=== PATIENT | male | born 1945 | race Caucasian/White ===

== ENCOUNTER → 2016-07-11 | Outpatient (CLI) | payer BC ==
[~2016-07-11] MED LIST: ACET-1256 PO; AMLO10TA4 PO; ASPEC81 PO; ATV/1 PO; BUDESUS NAE; CLS20 PO; DICL1GEL28 TOP; EFFSR150 PO; FLUO0.05 EXT; FLUT0.15 NAE; GEMF600T3 PO; KRIL1000 PO; LEVO100T PO; LEVO112T2 PO; LORA-741 PO; LOSA100T65 PO; MISCCAP80 PO; MULT-506 PO; NXM/40 PO; PROP10TA7 PO; PROP20TA67 PO; TEST1INJ2 IM
--- NOTE | 2016-07-11 10:35 | DIAGNOSTIC IMAGING REPORT ---
TWO VIEW CHEST CLINICAL HISTORY: Fatigue. Headache. FINDINGS: PA and lateral chest radiographs are compared to study dated 09/25/2014. The examination is mildly degraded by large body habitus. The heart is top normal for projection. There is mild atherosclerotic calcification of the thoracic aorta. Bibasilar atelectasis is observed. The lungs and pleural spaces are otherwise clear. There is no pneumothorax. The bony thorax appears intact. Cholecystectomy clips are seen in the right upper quadrant. IMPRESSION: No acute cardiopulmonary abnormality. Electronically signed by: Nir Milton M.D. 07/11/2016 10:33 AM Dictated Date/Time: 07/11/2016 10:32 AM
== END | disposition home or self-care (01) ==
LOC: C.RAD1850 10:12
PROVIDERS: ATTEND Nurse Practitioner Family
DX: R53.83 Other fatigue (principal); R51 Headache; R06.02 Shortness of breath; J00 Acute nasopharyngitis [common cold]

== ENCOUNTER → 2016-11-16 | Outpatient (CLI) | payer BC ==
--- NOTE | 2016-11-16 12:05 | DIAGNOSTIC IMAGING REPORT ---
MRI THE RIGHT SHOULDER NO CONTRAST CLINICAL HISTORY: Right shoulder pain. Impingement. COMPARISON STUDY: Conventional radiographic study dated 12/25/2015 FINDINGS: Degenerative changes are present within the acromial clavicular joint. There is fluid within the bicipital tendon sleeve. There are no areas of marrow edema to indicate occult fracture or bone bruise. There is supraspinatus tendinopathy. In addition there is a full-thickness tear of the anterior aspect of the supraspinous tendon. There is no significant tendinous retraction. There is a small amount of fluid in the subscapularis bursa. There are mild degenerative changes within the humeral acromial joint. IMPRESSION: Supraspinatus tendinopathy and full-thickness supraspinatus tear. No evidence of tendinous retraction Electronically signed by: Roberth Nagy M.D. 11/16/2016 12:04 PM Dictated Date/Time: 11/16/2016 11:57 AM
== END | disposition home or self-care (01) ==
LOC: C.MRIBC 11:00
PROVIDERS: ATTEND Orthopaedic Surgery Sports Medicine
DX: M75.41 Impingement syndrome of right shoulder (principal)

== ENCOUNTER → 2016-12-19 | Day surgery (SDC) | payer BC ==
[2016-11-21 13:40] VITALS: Ht 177.8 cm; Wt 100.5 kg
[~2016-12-19] VITALS: Ht 177.8 cm; Wt 100.5 kg
[~2016-12-19] MED LIST changes: +ATROPINE SULFATE 0.1 MG/ML 5ML SYR IV PRN; -ATV/1 PO; -BUDESUS NAE; +CLINDAMYCIN PHOS 150 MG/ML 2 ML VIAL IV SCH; -CLS20 PO; +DEXAMETHASONE SOD INJ 4 MG/ML VIAL ONE; -DICL1GEL28 TOP; +EpHEDrine SULFATE INJ 50 MG/ML AMP IV PRN; +EpINEphrine HCL INJ 1 MG/ML 5ML SYRINGE ONE; +FENTANYL CITRATE INJ 50 MCG/1 ML 2 ML VIAL IV PRN; +FENTANYL CITRATE INJ 50 MCG/1 ML 2 ML VIAL ONE; +GLYCOPYRROLATE INJ 0.2 MG/ML VIAL ONE; +LACTATED RINGER'S 1000ML 1,000 ML IV SCH; -LEVO100T PO; +LIDOCAINE HCL 2% 2 ML VIAL (20MG/ML) ONE; +MIDAZOLAM HCL 1 MG/ML 2ML VIAL ONE; +MoRPHine SULFATE 2 MG/ML CARP IV PRN; +MoRPHine SULFATE 4 MG/ML 1 ML CARP\\VIAL IV PRN; +NEOSTIGMINE METHYLSULFATE 5 MG/5 ML SYR ONE; +ONDANSETRON INJ 2 MG/ML 2 ML VIAL IV PRN; +ONDANSETRON INJ 2 MG/ML 2 ML VIAL ONE; +OXYCODONE/ACETAMINOPHEN 5-325 TAB PO PRN; +PHENYLEPHRINE HCL INJ 10 MG/ML VIAL ONE; -PROP20TA67 PO; +PROPOFOL IV EMULSION 10 MG/ML 20 ML VIAL IV ONE; +ROCURONIUM BROMIDE 10 MG/ML 5 ML VIAL ONE; +ROPIVACAINE 0.5% 5 MG/ML 30 ML VIAL ONE
--- NOTE | 2016-12-19 06:38 | History & Physical Bridge - SC ---
H&P Re-Evaluation Bridge Note: I have examined the patient, reviewed the History & Physical and in the interval since the performance of the History & Physical I have noted the following changes of clinical significance: No changes noted
[2016-12-19] MEDS: LIDOCAINE/EPINEPHRINE 1% INJ 50 ML VIAL ONE ×2 (08:35→09:46)
[2016-12-19] MEDS: BUPIVACAINE 0.5 % 5 MG/1 ML MPF 30ML VIAL ONE ×2 (08:35→09:45)
--- NOTE | 2016-12-19 10:07 | [facility] Post Operative Brief Note ---
Immediate Operative Summary Operative Date Dec 19, 2016. Pre-Operative Diagnosis Right Shoulder Rotator Cuff Tear, AC Joint Osteoarthritis, and Longhead Biceps Tendinosis Post-Operative Diagnosis Same Procedure(s) Performed 1) Right Shoulder Arthroscopic Rotator Cuff Repair + Subacromial Decompression. 2) Extensive Debridement. 3) BicepsTenotomy. 4) Open Distal Clavicle Excision. 5) Exam Under Anesthesia. Surgeon Dr Pickard Attending Physician Surgeon(s) Dr Lucie Allen Estimated Blood Loss 12ml Findings As above Fluids (cc crystalloids) 1400 Specimens A: Right Distal Clavicle Drains n/a Anesthesia GET + Interscalene Nerve block Complication(s) None Disposition Recovery Room / PACU (Stable)
--- NOTE | 2016-12-19 10:10 | Discharge Instructions-SurgCtr ---
Discharge Instructions Date of Service Dec 19, 2016. Visit Reason for Visit: Right Shoulder Rotator Cuff Tear, Biceps Tenodesis Discharge Discharge Diagnosis / Problem: Status post Right Rotator Cuff repair Discharge Goals Goal(s): Decrease discomfort, Improve function, Increase independence Medications Stopped Medications Name(s): ASPIRIN HELD SINCE THE . Activity Recommendations Activity Limitations: per Instructions/Follow-up section May Resume Sexual Activity: when tolerated Shower/Bathe: may shower/bathe in 3 days Driving or Machine Use: Not for minimum 4 weeks. Must be off Narcotics & out of Sling Anesthesia . Post Anesthesia Instructions: If you have had General Anesthesia or IV Sedation: * Do not drive today. * Resume driving when surgeon permits. * Do not make important decisions or sign legal documents today. * Call surgeon for: 1. Temperature elevations greater than 101 degrees F. 2. Uncontrollable pain. 3. Excessive bleeding. 4. Persistent nausea and vomiting. 5. Medication intolerance (nausea, vomiting or rash). * For nausea and vomiting use only clear liquids such as: tea, soda, bouillon until nausea subsides, then gradually increase diet as tolerated. * If you have any concerns or questions, call your surgeon's office. If physician is unavailable and it is an emergency, call 911 or go to the nearest emergency room. . Instructions / Follow-Up Instructions / Follow-Up Dr. Pickard in 10-15 days. PT in 2-3 days. Diet Recommendations Home Diet: resume previous diet Procedures Procedures Performed: 1) Right Shoulder Arthroscopic Rotator Cuff Repair + Subacromial Decompression. 2) Extensive Debridement. 3) BicepsTenotomy. 4) Open Distal Clavicle Excision. 5) Exam Under Anesthesia. Pending Studies Studies pending at discharge: no Medical Emergencies . Who to Call and When: Medical Emergencies: If at any time you feel your situation is an emergency, please call 911 immediately. . Non-Emergent Contact Non-Emergency issues call your: Surgeon Call Non-Emergent contact if: temperature is above 101.5, your pain is not controlled, wound has increased drainage, wound has increased redness . . "Provider Documentation" section prepared by Johnnie Pickard. .
--- NOTE | 2016-12-19 10:11 | [facility] Operative Report ---
Operative Report Operative Date Dec 19, 2016. Pre-Operative Diagnosis Right Shoulder Rotator Cuff Tear, AC Joint Osteoarthritis, and Longhead Biceps Tendinosis Post-Operative Diagnosis Same Procedure(s) Performed 1) Right Shoulder Arthroscopic Rotator Cuff Repair + Subacromial Decompression. 2) Extensive Debridement. 3) BicepsTenotomy. 4) Open Distal Clavicle Excision. 5) Exam Under Anesthesia. Surgeon Dr Pickard Help Desk Manager Surgeon(s) Dr Lucie Allen Estimated Blood Loss 12ml Findings The Right shoulder was then examined under anesthesia and it exhibited: Forward flexion and abduction to 165; external rotation 90; internal rotation 50. There was no noted instability. Posterior and anterior translation was 1+ and they had no sulcus sign and was symmetric to their other side. The diagnostic arthroscopy commenced with the following findings: 1. The biceps anchor showed fraying, type I SLAP tear. 2. The anterior labrum showed fraying, but well attached. 3. The inferior labrum was intact. 4. The inferior pouch showed no loose bodies. 5. The posterior labrum showed some fraying. 6. The articular surface of the glenoid was normal. 7. The articular surface of humeral head had some Outerbridge type II-III changes posteriorly. 8. The long Head of the Biceps had significant greater than 75% tearing. 9. The Subscapularis tendon was intact. 10. The Supraspinatus tendon was intact on the articular side, however there was an approximate 1 cm area of large bursal sided tear greater than 80%. 11. The Infraspinatus and Teres Minor were intact. 12. The Subacromial space showed significant bursitis and a bony spur the undersurface of the acromion. 13. The AC joint showed significant degenerative changes and spurring. Fluids (cc crystalloids) 1400 Specimens A: Right Distal Clavicle Drains n/a Anesthesia GET + Interscalene nerve block Complication(s) None Disposition Recovery Room / PACU (Stable) Implants 5.5 SwiveLock double loaded FIberWire (Arthrex) Indications This is a pleasant 71-year-old male who has been having long-standing right shoulder pain that has failed conservative management. They have MRI and clinical findings suggestive of rotator cuff tear, impingement, and AC joint OA. After a lengthy discussion regarding their options of conservative versus operative management, they have elected to proceed with surgery. The risks of surgery were discussed and include but not limited to: Infection, bleeding, nerve damage, continued pain, progression of arthritis, stiffness, decreased level of activity, and deep vein thrombosis. The patient understood all of their options and the risks of surgery and would like to proceed. The informed consent was signed. Description of Procedure The patient was taken to the operating room and following administration of her interscalene nerve block and general anesthetic, a multidisciplinary time-out was performed identifying my initials on the right shoulder as the correct and operative limb. The patient was then placed in beach chair position with all of their bony prominences well-padded. They were then prepped and draped in the usual orthopedic sterile fashion. All of the bony landmarks were marked as well as the planned incisions. The planned incisions were injected with a 50:50 mixture of 0.5% Marcaine plain and 1% Lidocaine with Epinephrine for a total of 8 cc. Then using a spinal needle which was placed intra-articularly into the glenohumeral joint and insufflated to 35 cc and there was noted appropriate back flow, an additional 15 cc were placed. The standard posterior portal was made with an 11-blade. Trocar was introduced into the glenohumeral joint in the standard fashion. Using a spinal needle, the anterior portal was placed lateral to the coracoid under direct visualization between the Long Head of the Biceps and Subscapularis. A 7mm cannula was then placed. The intra-articular portion of shoulder was addressed first with debriding any fraying from the labrum and long head of the biceps fraying. The labrum was probed and found to be intact. The arthroscope had also been removed from the posterior portal and placed anteriorly for better posterior visualization. Additional debridement of the posterior labrum was also performed again back to a stable rim. The long head of the biceps was placing traction on the superior labrum and due to the significant tear, a tenotomy was performed using a combination of hand punches, a mechanical shaver, and electrocautery. The long head of the biceps remained with in the bicipital groove. The arthroscope was then placed subacromially. There was bursitis noted. A lateral portal was created under direct visualization with a spinal needle. Once the bursitis was removed, the bursal side of the rotator cuff was found to have a large tear of the supraspinatus, that required repair. A Xenia cannula was placed. A subacromial decompression was also performed using a 5 mm bur. The footprint of the rotator cuff was prepared with a small bur creating a bleeding surface to allow for healing of the supraspinatus. A 5.5 mm SwiveLock, double loaded with FiberWire was placed in the standard fashion, through the accessory anterior lateral portal. The TigerWire was placed in a horizontal mattress fashion through both the anterior and posterior limbs of the supraspinatus tear. Then the FiberWire was placed in a ripstop technique along the center of the tear and more medial to the horizontal mattress sutures. The horizontal mattress sutures were tied first, using arthroscopic knot-tying technique, while continuing to have traction on the rotator cuff. The ripstop suture was then tied again using arthroscopic technique and showing complete coverage of the humeral head. There was no tension on the repair. The humeral head was no longer visible. All of the instruments were removed. All of the instruments were removed. Our attention was drawn to the AC joint and making a 3 cm incision in-line with the anterior portal incision was made and carried down to the Superior AC joint ligament. A longitudinal incision was made in-line with the fibers of the superior AC joint ligament. The posterior and anterior aspect of the clavicle was exposed and using a sagittal saw the distal 7 mm was removed. A rasp was used to smooth out the edges. The wound was copiously irrigated. Bone wax was placed along the exposed bone. There was adequate space. The Superior AC joint ligament was closed with 2-0 Vicryl. The subcutaneous layer was closed with 3-0 Vicryl. The skin was closed with a running subcuticular stitch using 3-0 Prolene. Steri strips were placed over top. The portal sites were closed with 3-0 Prolene in a standard fashion. Xeroform was placed overtop followed by 4 x 4's, ABDs, and foam tape. The patient was placed in a sling. The sponge and needle counts were correct. POSTOPERATIVE INSTRUCTIONS: The patient will follow-up with physical therapy in two days. The patient will wear sling for 4 weeks. The patient will follow-up with me in 10 to 15 days. I attest to the content of the Intraoperative Record and any orders documented therein. Any exceptions are noted below.
--- NOTE | 2016-12-19 11:57 | DIAGNOSTIC IMAGING REPORT ---
[facility]ST 1 VIEW PORTABLE HISTORY: low 02 saturation COMPARISON: Chest 07/11/2016. FINDINGS: Interval development of elevation of the right hemidiaphragm with right basilar airspace opacities. Mild diffuse interstitial thickening which is likely chronic. This remains unchanged. The left lung remains clear. No pleural effusions. No pneumothorax. The heart is mildly enlarged. This is also increased in size in the interval. IMPRESSION: 1. Interval development of elevation of the right hemidiaphragm with right basilar densities. This may represent atelectasis or pneumonia. 2. Mild cardiomegaly which has slightly increased in size. Electronically signed by: Florian Cuba M.D. 12/19/2016 11:55 AM Dictated Date/Time: 12/19/2016 11:53 AM
[2016-12-19 12:43] VITALS: BP 119/68; PULSE 91; TEMP 36.7
[2016-12-19 13:00] VITALS: O2SAT 96
--- NOTE | 2016-12-19 13:07 | Anesthesia Progress Nt - [facility] ---
Anesthesia Post Op Note Date & Time Dec 19, 2016 at 12:59 Vital Signs Pain Intensity: 2 Vital Signs Past 12 Hours Date Time Temp Pulse Resp B/P (MAP) Pulse Ox O2 Delivery O2 Flow Rate FiO2 12/19/16 12:43 36.7 91 16 119/68 (85) 94 Room Air 12/19/16 11:58 88 16 129/71 (90) 92 Room Air 12/19/16 11:46 145/77 12/19/16 11:44 89 21 12/19/16 11:44 90 21 91 12/19/16 11:43 88 25 92 12/19/16 11:43 89 25 12/19/16 11:41 138/76 12/19/16 11:38 95 17 12/19/16 11:38 94 17 89 12/19/16 11:36 128/72 12/19/16 11:33 89 23 89 12/19/16 11:33 89 23 12/19/16 11:31 122/70 12/19/16 11:28 88 22 12/19/16 11:28 88 22 90 12/19/16 11:26 130/68 12/19/16 11:26 36.5 92 16 130/68 92 Room Air 12/19/16 11:23 90 24 12/19/16 11:23 91 24 92 12/19/16 11:22 91 24 94 12/19/16 11:22 91 24 12/19/16 11:21 123/71 12/19/16 11:19 85 21 12/19/16 11:19 86 21 93 12/19/16 11:18 84 17 95 12/19/16 11:18 85 17 12/19/16 11:16 125/70 12/19/16 11:13 96 22 94 12/19/16 11:13 94 22 12/19/16 11:12 83 22 94 12/19/16 11:12 84 22 12/19/16 11:11 131/63 12/19/16 11:08 90 24 96 12/19/16 11:08 90 24 12/19/16 11:07 81 22 12/19/16 11:07 81 22 95 12/19/16 11:06 117/65 12/19/16 11:02 83 26 12/19/16 11:02 83 26 94 12/19/16 11:01 125/67 12/19/16 10:59 86 19 12/19/16 10:59 88 19 95 12/19/16 10:58 87 19 12/19/16 10:58 85 19 96 12/19/16 10:56 129/66 12/19/16 10:53 87 25 12/19/16 10:53 87 25 94 12/19/16 10:52 83 21 12/19/16 10:52 82 21 95 12/19/16 10:51 124/70 12/19/16 10:50 76 27 12/19/16 10:50 76 27 95 12/19/16 10:46 135/68 12/19/16 10:45 85 23 12/19/16 10:45 85 23 96 12/19/16 10:41 130/69 12/19/16 10:40 84 14 12/19/16 10:40 83 14 93 12/19/16 10:39 86 10 12/19/16 10:39 85 10 94 12/19/16 10:36 128/71 12/19/16 10:34 84 23 12/19/16 10:34 84 23 92 12/19/16 10:31 126/74 12/19/16 10:30 113/78 12/19/16 10:29 36.4 88 20 113/78 93 Mask 10 12/19/16 10:29 87 28 92 12/19/16 10:29 86 28 12/19/16 07:05 0 12/19/16 07:01 137/81 12/19/16 07:00 74 12/19/16 07:00 74 17 96 12/19/16 06:56 155/101 12/19/16 06:55 79 12/19/16 06:55 79 24 98 12/19/16 06:53 149/94 12/19/16 06:50 25 12/19/16 06:50 79 25 12/19/16 06:45 79 24 12/19/16 06:45 24 12/19/16 06:29 36.9 96 18 144/87 (106) 96 Room Air Notes Mental Status: alert / awake / arousable, participated in evaluation Pt Amnestic to Procedure: Yes Nausea / Vomiting: adequately controlled Pain: adequately controlled Airway Patency, RR, SpO2: stable & adequate BP & HR: stable & adequate Hydration State: stable & adequate Anesthetic Complications: no major complications apparent Mr Flores awake in PACU complaining of arm pain at the elbow that radiated down to his hand in what appeared to be the ulnar nerve distribution. He denied any shoulder pain and the arm pain greatly decreased over the course of his recovery. I explained to the patient that this could be due to positioning in the operating room as it looked like his ulnar nerve had a mild paresthesia that improved by the time he was discharged. His recovery was also notable for SpO2 that were in low 90's that eventually improved to mid 90's by his discharge. He was 96% on RA on admission. In PACU, he was slowly weaned from FM to NC to RA. I did a CXR to ensure there wasn't a more concerning reason for his slow SpO2 recovery. CXR was notable for right sided hemidiaphragm elevated, which is to be expected given that he had a right interscalene nerve block. He also had some degree of atelectasis on that right side so I gave the patient an incentive spirometer and he will be sent home with this. He understood the reason for its use as did his . This patient also has some risk factors for sleep apnea so I think it was a combination of possible SAHIL, right interscalene nerve block with corresponding atelectasis that caused him to have a longer recovery. By the time he was discharged, patient was awake, conversant, very well controlled pain with SpO2 of 95-96%. He denied any chest pains, chest pressures, shortness of breath, dizziness or lightheadedness. Breath sounds were clear and equal bilaterally without any rales, wheezes or rhonchi. He and his were instructed to call or go to ER for any concerning symptoms. All questions were answered and he and his desired for the patient to go home.
== END | disposition home or self-care (01) ==
LOC: X.SURG 06:03
PROVIDERS: ATTEND Orthopaedic Surgery Sports Medicine
DX: M75.101 Unspecified rotator cuff tear or rupture of right shoulder, not specified as traumatic (principal); M19.011 Primary osteoarthritis, right shoulder; M75.91 Shoulder lesion, unspecified, right shoulder; I10 Essential (primary) hypertension; F32.9 Major depressive disorder, single episode, unspecified; E66.9 Obesity, unspecified; Z98.890 Other specified postprocedural states; Z88.0 Allergy status to penicillin; Z88.2 Allergy status to sulfonamides; Z90.89 Acquired absence of other organs; Z90.49 Acquired absence of other specified parts of digestive tract; Z79.899 Other long term (current) drug therapy; Z79.82 Long term (current) use of aspirin; Z68.32 Body mass index [BMI] 32.0-32.9, adult

== ENCOUNTER → 2017-10-27 | Outpatient (CLI) | payer BC ==
[~2017-10-27] MED LIST changes: -ATROPINE SULFATE 0.1 MG/ML 5ML SYR IV PRN; -CLINDAMYCIN PHOS 150 MG/ML 2 ML VIAL IV SCH; -DEXAMETHASONE SOD INJ 4 MG/ML VIAL ONE; -EpHEDrine SULFATE INJ 50 MG/ML AMP IV PRN; -EpINEphrine HCL INJ 1 MG/ML 5ML SYRINGE ONE; -FENTANYL CITRATE INJ 50 MCG/1 ML 2 ML VIAL IV PRN; -FENTANYL CITRATE INJ 50 MCG/1 ML 2 ML VIAL ONE; -GLYCOPYRROLATE INJ 0.2 MG/ML VIAL ONE; -LACTATED RINGER'S 1000ML 1,000 ML IV SCH; -LIDOCAINE HCL 2% 2 ML VIAL (20MG/ML) ONE; -MIDAZOLAM HCL 1 MG/ML 2ML VIAL ONE; -MoRPHine SULFATE 2 MG/ML CARP IV PRN; -MoRPHine SULFATE 4 MG/ML 1 ML CARP\\VIAL IV PRN; -NEOSTIGMINE METHYLSULFATE 5 MG/5 ML SYR ONE; -ONDANSETRON INJ 2 MG/ML 2 ML VIAL IV PRN; -ONDANSETRON INJ 2 MG/ML 2 ML VIAL ONE; -OXYCODONE/ACETAMINOPHEN 5-325 TAB PO PRN; -PHENYLEPHRINE HCL INJ 10 MG/ML VIAL ONE; -PROPOFOL IV EMULSION 10 MG/ML 20 ML VIAL IV ONE; +REGADENOSON 0.4 MG/5 ML SYR ONE; -ROCURONIUM BROMIDE 10 MG/ML 5 ML VIAL ONE; -ROPIVACAINE 0.5% 5 MG/ML 30 ML VIAL ONE
--- NOTE | 2017-10-27 17:39 | MYOCARDIAL PERFUSION SCAN ---
NUCLEAR STRESS TEST STUDY REQUESTED BY: Dr. Mcmillan STUDY TITLE: ONE-DAY NUCLEAR MEDICINE TECHNETIUM-99M CARDIOLITE MYOCARDIAL PERFUSION SCAN BASELINE EKG: Sinus rhythm at a ventricular rate of 75, no significant ST abnormalities. STRESS EKG: With Lexiscan, heart rate jorge l from 73-102 representing 68% of maximum predicted heart rate. Maximum blood pressure was 145/87. With Lexiscan, had mild cough and throat tightness. No Lexiscan-induced chest pain. TECHNIQUE: For the stress portion of the study, 32.5 mCi of technetium-99m Cardiolite IV was injected at 11:18 a.m. on 10/27/2017. Thirty minutes following the injection, imaging of the heart was performed in multiple projections. For the rest portion of the study, 11.4 mCi of technetium-99m Cardiolite was injected IV at 9:20 a.m. One hour following the injection, imaging of the heart was performed in the same projections. FINDINGS: The rotating raw images were reviewed in detail. There was a subtle diaphragmatic shadow, otherwise no significant attenuators. There was no significant extracardiac pathologic uptake. The short axis, vertical long axis, and horizontal long axis images were reviewed in detail. There was normal myocardial perfusion. No significant Lexiscan-induced ischemia. LV size was normal with a calculated end-diastolic volume of 66 mL. LV function was normal with a calculated ejection fraction of 70% with no regional wall motion abnormalities. IMPRESSION: 1. Negative myocardial perfusion study for significant Lexiscan-induced ischemia. 2. Normal left ventricular size and function. Calculated ejection fraction 70%. 3. Nondiagnostic Lexiscan echocardiogram in the setting of inability to reach target heart rate.
== END | disposition home or self-care (01) ==
LOC: C.NUCL 08:56
PROVIDERS: ATTEND Family Medicine
DX: R07.9 Chest pain, unspecified (principal)

== ENCOUNTER 2022-05-21 21:11 | Inpatient (IN) ==
[2022-05-21] MEDS ORDERED: SODIUM CHLORIDE 0.9% 1000ML 1,000 ML IV STA (21:32)
[2022-05-21] MEDS ORDERED: ACETAMINOPHEN 500 MG TAB PO STA (21:32)
--- NOTE | 2022-05-21 21:39 | Emergency Department Note ---
Impression & Plan Acute pyelonephritis, Fever ED Provider Note NAME: NAT GREER AGE: 76 SEX: M : 1945 ARRIVES VIA: Walk-In INFORMANT: Patient, ED PROVIDER(S): Kishan Richardson DO CHIEF COMPLAINT: Fever HPI: The patient is a 76-year-old male who presented to the emergency department with his family member for an evaluation of fever. The patient has been complaining of fever. He also noticed pain with urination. The patient denies having any vomiting but has noted some nausea. He denies having any chest pain or shortness of breath. He does state he has some abdominal discomfort. He was seen at [facility] and was diagnosed with diverticulitis. He was started on Cipro and Flagyl. He thinks the Flagyl is making his symptoms worse. He does not have any rectal bleeding. He denies having any hematemesis. He denies goldberg ving any rashes on his genitalia. The patient states that when he urinates he does note some urinary incontinence. ROS: See above HPI for pertinent positives & negatives. A total of 10 systems reviewed and were otherwise negative. PAST MEDICAL HISTORY: See Below PAST SURGICAL HISTORY: See Below FAMILY HISTORY: See Below SOCIAL HISTORY: See Below HOME MEDICATIONS: See Below ALLERGIES: See Below VITALS: See Below PHYSICAL EXAMINATION: GENERAL: Patient is awake alert in no acute distress patient is resting comfortably and showing no signs of anxiety EYES: The conjunctivae are clear. The pupils are round and reactive. EARS, NOSE, MOUTH AND THROAT: The nose is without any evidence of any deformity. Mucous membranes are moist. Tongue is midline. NECK: The neck is nontender and supple. RESPIRATORY: Normal respiratory effort is noted there is no evidence of wheezing rhonchi or rales CARDIOVASCULAR: Regular rate and rhythm noted there no murmurs rubs or gallops normal S1 normal S2. GASTROINTESTINAL: The abdomen is mildly distended. There is suprapubic tend erness to palpation but no guarding or rigidity. MUSCULOSKELETAL/EXTREMITIES: There is no evidence of gross deformity full range of motion is noted in the hips and shoulders. SKIN: Pedal edema was noted bilaterally. NEUROLOGIC: Patient is awake alert and oriented x3 MEDICAL DECISION MAKING: The patient is a 76-year-old male who presented to the emergency department for fever dysuria and flank pain. I discussed the patient's laboratory and radiographic studies with him. He was treated with IV fluids and IV antibiotics in the emergency department. The patient has been on antibiotics for presumed diverticulitis. He was treated with a different antibiotic class. He was not nitrate positive in his urine. It is possible this represents an atypical bacterial source. For this reason I discussed this case with the on-call [facility] hospitalist. It is possible he may require inpatient management to further treat his condition. Triage Nursing notes reviewed. Prior medical records reviewed Vital Signs: reviewed and remarkable for elevated blood pressure. Differential diagnosis: Etiologies such as appendicitis, diverticulitis, obstruction, inflammatory bowel disease, renal colic, PUD, biliary pathology, pancreatitis, mesenteric ischemia, aortic pathology, infections, genitourinary, UTI, perforated viscus, as well as others were entertained. ER treatment provided: See below Diagnostics interpreted by me: ECG: none Cardiac Monitoring: An order was placed for continuous cardiac monitoring. The monitor shows a rate of 92 bpm with sinus rhythm. Laboratory studies: [As stated above and show below.] Imaging studies: [See below] Consultation(s): I discussed this case with Dr. Hodgson who [facility]. Past Med/Surg History Medical History Anxiety Leonard's esophagus Colon polyps Depression Diabetes mellitus, type 2 ? 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 Hypercholesteremia Hypertension Hypothyroidism Surgical History H/O blepharoplasty bilt History of bilateral inguinal hernia repair History of cataract surgery bilt History of colonoscopy History of esophagogastroduodenoscopy (EGD) History of squamous cell carcinoma excision History of surgery prior to blepharoplasty removed 1/2 off forehead to raise for blepharoplasty History of tonsillectomy and adenoidectomy History of tooth extraction Hx of cholecystectomy Family History Father Coronary arteriosclerosis Mother Colorectal cancer Other No family history of adverse response to anesthesia Social History Smoking Status: Never smoker Second Hand Exposure: No; Hx Alcohol Use: No Hx Substance Use: No Preferred Language: Niuean Communication Ability: Effective Detector Car Operator Required: No Beliefs That Will Affect Care: None Current Living Situation: Spouse Feels Safe at Home: Yes Assistive Devices: Glasses Allergies Allergies Allergy/AdvReac Type Severity Reaction Status Date / Time Penicillins Allergy Intermediate RASH, Verified 05/21/22 22:13 "VERY ILL" Sulfa (Sulfonamide Allergy Mild RASH Verified 05/21/22 22:13 Antibiotics) YORDY Inhibitors AdvReac Intermediate Cough Verified 05/21/22 22:13 atorvastatin AdvReac Intermediate muscle Verified 05/21/22 22:13 cramps Home Meds Home Medications Medication Instructions Recorded Confirmed Saccharomyces boulardii 250 mg 250 mg PO QAM 07/26/19 05/21/22 capsule esomeprazole magnesium 40 mg 40 mg PO BID LEONARD'S ESOPHAGUS 07/26/19 05/21/22 capsule,delayed release fluocinonide 0.05 % topical cream 1 applic topical UD PRN Rash 07/26/19 05/21/22 fluticasone propionate 50 2 spray intranasal QAM 07/26/19 05/21/22 mcg/actuation nasal spray,suspension gemfibrozil 600 mg tablet 600 mg PO BID 07/26/19 05/21/22 lorazepam 0.5 mg tablet 0.5 mg PO HS 07/26/19 05/21/22 multivitamin (Daily Multi-Vitamin 1 tab PO QDD 07/26/19 05/21/22 tablet) omega-3 acid ethyl esters 1 gram 1 g PO QAM 07/26/19 05/21/22 capsule venlafaxine 150 mg 150 mg PO QDD 07/26/19 05/21/22 capsule,extended release 24 hr escitalopram oxalate 5 mg tablet 5 mg PO QDD 11/26/19 05/21/22 amlodipine 10 mg tablet 10 mg PO HS 12/11/19 05/21/22 aspirin 81 mg tablet,delayed 81 mg PO QAM 10/30/20 05/21/22 release hydrochlorothiazide 12.5 mg capsule 12.5 mg PO QAM 10/30/20 05/21/22 levothyroxine 112 mcg tablet 112 mcg PO DAILYBB 10/30/20 05/21/22 (Synthroid) testosterone 100 mg implant pellet 100 mg subcut Q3M 10/30/20 05/21/22 metformin 500 mg tablet 1,000 mg PO QDD 01/08/21 05/21/22 tadalafil 5 mg tablet 20 mg PO DAILY PRN sexual activity 05/21/22 05/21/22 Previous Rx's Medication Instructions Recorded gabapentin 100 mg capsule 200 mg PO HS #30 caps 07/31/19 Results & Data (ED) Vital Signs Vital Signs - 24 hr 05/21/22 21:19 05/21/22 21:32 05/21/22 23:00 Temperature 37.3 C Temperature Source Temporal Artery Scan Pulse Rate 122 H Pulse Rate [Apical] 100 H 92 H Pulse Rhythm Regular Pulse Strength Normal Respiratory Rate 18 20 16 Respiratory Effort / Characteristics Non-Labored Spontaneous Respiratory Depth Normal Respiratory Pattern Regular Blood Pressure 117/73 Blood Pressure [Left Arm] 152/89 H 142/84 H Blood Pressure Mean 87 Blood Pressure Mean [Left Arm] 110 103 Blood Pressure Position Sitting Pulse Oximetry 94 99 94 Oxygen Delivery Method Room Air Room Air Sepsis Recent Fever Within 48 Hours Yes Sepsis New/Unexplained Change in Mental Status N/A Sepsis Action Taken by Nursing No Action Required Home Medications Current Medication List: was personally reviewed by me Laboratory Data Attestation: I reviewed the patient's lab results. Result diagrams: 05/21/22 21:57 05/21/22 21:57 Lab Results 05/21/22 05/21/22 05/21/22 Range/Units 21:57 21:57 21:57 WBC 17.30 H (4.8-10.8) K/ul RBC 4.75 (4.63-6.08) M/uL Hgb 15.5 (14.0-18.0) g/dl Hct 42.0 (40.1-51.0) % MCV 88.4 (80.0-100.0) fL MCH 32.6 (25.0-34.0) pg MCHC 36.9 H (32.0-36.0) g/dL RDW Std Deviation 42.0 (36.4-46.3) fL RDW Coeff of Vicente 12.9 (11.5-14.5) % Plt Count 195 (130-400) K/uL MPV 10.7 (9.4-12.4) fL RBC Agglutinates 3+ ESR (0-20) mm/hr Sodium 131 L (136-145) mmol/L Potassium 3.1 L (3.5-5.1) mmol/L Chloride 95 L (98-107) mmol/L Carbon Dioxide 25 (21-32) mmol/L Anion Gap 11 (3-11) BUN 24 H (6-23) mg/dl Creatinine 1.34 (0.6-1.4) mg/dl Est Cr Clr Drug Dosing 53.9 ml/min Est GFR ( Amer) 60.1 ml/min Est GFR (Non-Af Amer) 51.8 ml/min BUN/Creatinine Ratio 17.9 (10-20) Glucose 172 H (70-99(Fasting)) mg/dl Calcium 9.1 (8.5-10.1) mg/dl Total Bilirubin 1.0 (0.2-1.0) mg/dl AST 16 (13-39) U/L ALT 16 (7-52) U/L Alkaline Phosphatase 75 (34-104) U/L C-Reactive Protein 33.60 H (0-0.5) mg/dl Total Protein 7.2 (6.0-8.3) gm/dl Albumin 4.2 (3.4-5.0) gm/dl Globulin 3.0 (2.5-4.0) gm/dl Albumin/Globulin Ratio 1.4 (0.9-2) Lipase 12 (11-82) U/L Procalcitonin (0-0.5) ng/ml Urine Color Urine Appearance (Clear) Urine pH (4.5-7.5) Ur Specific [place] (1.000-1.030) Urine Protein (Negative) Urine Glucose (UA) (Negative) Urine Ketones (Negative) Urine Blood (Negative) Urine Nitrite (Negative) Urine Bilirubin (Negative) Urine Urobilinogen (Negative) Ur Leukocyte Esterase (Negative) Urine WBC (Auto) (0-5) /hpf Urine RBC (Auto) (0-4) /hpf U Hyaline Cast (Auto) (0-5) /lpf U Epithel Cells (Auto) (0-5) /lpf Urine Bacteria (Auto) (Negative) Urine Yeast (None Prsent) SARS-CoV-2 (PCR) (Negative) 05/21/22 05/21/22 05/21/22 Range/Units 21:57 21:57 21:57 WBC (4.8-10.8) K/ul RBC (4.63-6.08) M/uL Hgb (14.0-18.0) g/dl Hct (40.1-51.0) % MCV (80.0-100.0) fL MCH (25.0-34.0) pg MCHC (32.0-36.0) g/dL RDW Std Deviation (36.4-46.3) fL RDW Coeff of Vicente (11.5-14.5) % Plt Count (130-400) K/uL MPV (9.4-12.4) fL RBC Agglutinates ESR (0-20) mm/hr Sodium (136-145) mmol/L Potassium (3.5-5.1) mmol/L Chloride (98-107) mmol/L Carbon Dioxide (21-32) mmol/L Anion Gap (3-11) BUN (6-23) mg/dl Creatinine (0.6-1.4) mg/dl Est Cr Clr Drug Dosing ml/min Est GFR ( Amer) ml/min Est GFR (Non-Af Amer) ml/min BUN/Creatinine Ratio (10-20) Glucose (70-99(Fasting)) mg/dl Calcium (8.5-10.1) mg/dl Total Bilirubin (0.2-1.0) mg/dl AST (13-39) U/L ALT (7-52) U/L Alkaline Phosphatase (34-104) U/L C-Reactive Protein (0-0.5) mg/dl Total Protein (6.0-8.3) gm/dl Albumin (3.4-5.0) gm/dl Globulin (2.5-4.0) gm/dl Albumin/Globulin Ratio (0.9-2) Lipase (11-82) U/L Procalcitonin 0.73 H (0-0.5) ng/ml Urine Color Yellow Urine Appearance Clear (Clear) Urine pH 5.5 (4.5-7.5) Ur Specific [place] 1.020 (1.000-1.030) Urine Protein 2+ H (Negative) Urine Glucose (UA) Negative (Negative) Urine Ketones Trace H (Negative) Urine Blood 1+ H (Negative) Urine Nitrite Negative (Negative) Urine Bilirubin Negative (Negative) Urine Urobilinogen Negative (Negative) Ur Leukocyte Esterase 1+ H (Negative) Urine WBC (Auto) >30 H (0-5) /hpf Urine RBC (Auto) 0-4 (0-4) /hpf U Hyaline Cast (Auto) 5-10 H (0-5) /lpf U Epithel Cells (Auto) 20-30 H (0-5) /lpf Urine Bacteria (Auto) 1+ H (Negative) Urine Yeast Budding A (None Prsent) SARS-CoV-2 (PCR) NEGATIVE (Negative) Administered Medications Discontinued Medications Acetaminophen (Acetaminophen 500 Mg Tab) 1,000 mg PO ONE STA Stop: 05/21/22 21:33 Last Admin: 05/21/22 21:53 Dose: 1,000 mg Documented By: EMB Sodium Chloride (Nss 1000ml) 1,000 mls @ 999 mls/hr IV .Q1H1M STA Stop: 05/21/22 22:32 Last Infusion: 05/21/22 23:10 Dose: 0 mls/hr Documented By: Admin: 05/21/22 21:53 Dose: 999 mls/hr Documented By: EMB Ceftriaxone Sodium (Rocephin) 2,000 mg in 70 mls @ 140 mls/hr IV NOW STA Stop: 05/21/22 23:17 Last Infusion: 05/21/22 23:45 Dose: 0 mls/hr Documented By: Admin: 05/21/22 23:10 Dose: 140 mls/hr Documented By: EMB Ioversol (Optiray 350 100ml) 88 ml IV ONCE ONE Stop: 05/21/22 23:03 Last Admin: 05/21/22 23:03 Dose: 88 ml Documented By: EDK Imaging Data Radiologist's Impression: Patient: NAT GREER (Male) : 49 Status: ER Date: 05/21/22 23:07 Room #: History: FEVER, ABDOMINAL PAIN APPENDIX PRESENT OPTIRAY 350 88ML EK/KF Slices: 7 51 Priors: Jose: Nir Mercado @ [phone] Exams: CT ABDOMEN & PELVIS With Contrast Contrast: IV Amt: 88ML Accession Numbers: [id number] Referring Physician: REFERRED SELF Preliminary Findings Only See Final Report For Complete Findings CT ABDOMEN & PELVIS With Contrast: Comparison: 04/30/2022 Normal appendix. Mild urinary bladder wall thickening, correlate for cystitis. Striated enhancement of the kidneys bilaterally, cannot exclude pyelonephritis. Bilateral nonobstructing nephroliths. Sigmoid diverticulosis without evidence of diverticulitis. 8.5 cm left renal cyst. Cholecystectomy. Small hiatal hernia. Coronary artery calcifications. Radiologist: Jamin Alexander MD Study ready at 23:12 and initial results transmitted at 00:46 Discharge Plan Visit Data Chief Complaint: Fever Stated Complaint: FEVER ED Provider: Kishan Richardson Discharge Problem: Acute pyelonephritis, Fever Patient Disposition: Being Evaluated by Hospitalist Forms Stand Alone Forms: My [facility] Prescriptions Prescriptions: No Action escitalopram oxalate 5 mg tablet 5 mg PO QDD venlafaxine 150 mg capsule,extended release 24hr 150 mg PO QDD omega-3 acid ethyl esters 1 gram capsule 1 g PO QAM Saccharomyces boulardii 250 mg capsule 250 mg PO QAM fluticasone propionate 50 mcg/actuation spray,suspension 2 spray INTNAS QAM multivitamin [Daily Multi-Vitamin] Tablet 1 tab PO QDD fluocinonide 0.05 % cream 1 applic TOP UD PRN (Reason: Rash) esomeprazole magnesium 40 mg capsule,delayed release(DR/EC) 40 mg PO BID lorazepam 0.5 mg tablet 0.5 mg PO HS gemfibrozil 600 mg tablet 600 mg PO BID gabapentin 100 mg capsule 200 mg PO HS Qty: 30 5RF amlodipine 10 mg tablet 10 mg PO HS Label Comments: at HS aspirin 81 mg Tablet,Delayed Release (Dr/Ec) 81 mg PO QAM hydrochlorothiazide 12.5 mg capsule 12.5 mg PO QAM levothyroxine [Synthroid] 112 mcg tablet 112 mcg PO DAILYBB testosterone 100 mg Pellet 100 mg SUBCUT Q3M metformin 500 mg Tablet 1,000 mg PO QDD tadalafil 5 mg tablet 20 mg PO DAILY PRN (Reason: sexual activity) Referrals Referrals: Almaz Andres CRNP [Outside Practitioners] -
[2022-05-21 22:32] LABS: Appearance Urine Clear (Clear); Bilirubin Urine Negative (Negative); Blood Urine 1+ (Negative); Color Urine Yellow; Epithelial Cell Urine Auto 20-30 /lpf (0-5); Glucose Urine UA Negative (Negative); Ketones Urine Trace (Negative); Leukocyte Esterase Urine 1+ (Negative); Nitrite Urine Negative (Negative); Protein Urine 2+ (Negative); RBC Urine Automated 0-4 /hpf (0-4); Urobilinogen Urine Negative (Negative); WBC Urine Automated >30 /hpf (0-5); pH Urine 5.5 (4.5-7.5)
[2022-05-21 22:38] LABS: Albumin Globulin Ratio 1.4 (0.9-2); Albumin Level 4.2 gm/dl (3.4-5.0); BUN Creatinine Ratio 17.9 (10-20); Calcium 9.1 mg/dl (8.5-10.1); Creatinine Clr Calc Pharmacy 53.9 ml/min; Est GFR (African American) 60.1 ml/min; Est GFR (Non-African American) 51.8 ml/min; Potassium 3.1 mmol/L (3.5-5.1); Total Protein 7.2 gm/dl (6.0-8.3)
[2022-05-21 22:43] LABS: Bacteria Urine Automated 1+ (Negative)
[2022-05-21] MEDS ORDERED: cefTRIAXone SODIUM 2,000 MG/70 ML BAG IV STA (22:48)
[2022-05-21] MEDS ORDERED: OPTIRAY 350 100ml IV ONE (23:02)
[2022-05-21 23:04] LABS: C Reactive Protein 33.6 mg/dl (0-0.5)
[2022-05-22 00:22] LABS: Hemoglobin 15.5 g/dl (14.0-18.0); Mean Corpuscular Hemoglobin 32.6 pg (25.0-34.0); Mean Corpuscular Hgb Conc 36.9 g/dL (32.0-36.0); Mean Corpuscular Volume 88.4 fL (80.0-100.0); Mean Platelet Volume 10.7 fL (9.4-12.4); Platelet Count 195 K/uL (130-400); RDW Coefficient of Variation 12.9 % (11.5-14.5); Red Blood Count 4.75 M/uL (4.63-6.08)
[2022-05-22 00:24] LABS: Agglutinated RBC 3+
[2022-05-22] MEDS ORDERED: SODIUM CHLORIDE 0.9% 1000ML 1,000 ML IV ONE (00:42)
[2022-05-22 01:03] LABS: Eosinophils # (manual) 0.17 K/uL (0-0.50); Eosinophils % (manual) 1 %; Lymphocytes # (manual) 1.04 K/uL (1.2-3.4); Lymphocytes % (manual) 6 %; Monocytes # (manual) 0.52 K/uL (0.24-0.82); Monocytes % (manual) 3 %; Neutrophils # (manual) 15.57 K/uL (1.4-6.5); Neutrophils % (manual) 90 %
--- NOTE | 2022-05-22 01:36 | History & Physical Report ---
Date of Service May 22, 2022 Assessment & Plan (1) UTI (urinary tract infection): Plan: UTI by symptoms. Possible pyelonephritis on CT, though clinically no CVA tenderness and appears fairly well. - Continue ceftriaxone - Follow cultures (though they were taken after 24 hours of abx, so may end up negative) - Follow up final read of CT a/p from 05/21 - Hopefully early discharge. Patient was initially tachycardic, but had stable hemodynamics on admission. (2) Acute kidney injury: Plan: Cr of 1.3 from baseline 1.0. - IV fluids given in ER - Trend Cr (3) Hypertension: Plan: BP stable in the ER. - Continue home amlodipine, HCTZ (4) Hypothyroidism: Plan: - Continue home levothyroxine (5) Diabetes mellitus, type 2: Plan: No A1c in chart. - Sliding scale insulin (6) DVT prophylaxis: Plan: Early ambulation and discharge. FULL CODE - Per patient in ER History of Present Illness Primary Care Provider: Kiesha Stephenson 76yo M w/ hx of HTN who presents with UTI. The patient notes that he started not feeling well Th night into Monday morning. He notes fevers up to 102 degrees. About that same time he also had acute onset dysuria as well as urinary urgency/incontinence. On Monday he went to urgent care. For an unknown reason, he was diagnosed with diverticulitis and started on Cipro and Flagyl. He reports he has taken Cipro in the past without any issues, but this time the Flagyl caused significant GI issues. Throughout the day today he has continued to feel unwell and had a fever up to 103 degrees. He presents to the ER with continued symptoms. He denies any prior episodes of UTI, or any prostate issues. In the ER, CT abdomen pelvis indicated possible pyelonephritis, and the patient was called for admission. Allergies Allergy/AdvReac Type Severity Reaction Status Date / Time Penicillins Allergy Intermediate RASH, Verified 05/21/22 22:13 "VERY ILL" Sulfa (Sulfonamide Allergy Mild RASH Verified 05/21/22 22:13 Antibiotics) YORDY Inhibitors AdvReac Intermediate Cough Verified 05/21/22 22:13 atorvastatin AdvReac Intermediate muscle Verified 05/21/22 22:13 cramps Home Medications Medication Instructions Recorded Confirmed Type Saccharomyces boulardii 250 mg 250 mg PO QAM 07/26/19 05/21/22 History capsule esomeprazole magnesium 40 mg 40 mg PO BID LEONARD'S ESOPHAGUS 07/26/19 05/21/22 History capsule,delayed release fluocinonide 0.05 % topical cream 1 applic topical UD PRN Rash 07/26/19 05/21/22 History fluticasone propionate 50 2 spray intranasal QAM 07/26/19 05/21/22 History mcg/actuation nasal spray,suspension gemfibrozil 600 mg tablet 600 mg PO BID 07/26/19 05/21/22 History lorazepam 0.5 mg tablet 0.5 mg PO HS 07/26/19 05/21/22 History multivitamin (Daily Multi-Vitamin 1 tab PO QDD 07/26/19 05/21/22 History tablet) omega-3 acid ethyl esters 1 gram 1 g PO QAM 07/26/19 05/21/22 History capsule venlafaxine 150 mg 150 mg PO QDD 07/26/19 05/21/22 History capsule,extended release 24 hr gabapentin 100 mg capsule 200 mg PO HS #30 caps 07/31/19 05/21/22 Rx escitalopram oxalate 5 mg tablet 5 mg PO QDD 11/26/19 05/21/22 History amlodipine 10 mg tablet 10 mg PO HS 12/11/19 05/21/22 History aspirin 81 mg tablet,delayed 81 mg PO QAM 10/30/20 05/21/22 History release hydrochlorothiazide 12.5 mg capsule 12.5 mg PO QAM 10/30/20 05/21/22 History levothyroxine 112 mcg tablet 112 mcg PO DAILYBB 10/30/20 05/21/22 History (Synthroid) testosterone 100 mg implant pellet 100 mg subcut Q3M 10/30/20 05/21/22 History metformin 500 mg tablet 1,000 mg PO QDD 01/08/21 05/21/22 History tadalafil 5 mg tablet 20 mg PO DAILY PRN sexual activity 05/21/22 05/21/22 History Past Med/Surg History Medical History (Updated 05/22/22 @ 02:18 by Rick Hodgson MD) Anxiety Leonard's esophagus Colon polyps Depression Diabetes mellitus, type 2 ? 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 Hypercholesteremia Hypertension Hypothyroidism Surgical History H/O blepharoplasty bilt History of bilateral inguinal hernia repair History of cataract surgery bilt History of colonoscopy History of esophagogastroduodenoscopy (EGD) History of squamous cell carcinoma excision History of surgery prior to blepharoplasty removed 1/2 off forehead to raise for blepharoplasty History of tonsillectomy and adenoidectomy History of tooth extraction Hx of cholecystectomy Family History Father Coronary arteriosclerosis Mother Colorectal cancer Other No family history of adverse response to anesthesia Social History Smoking Status: Never smoker Second Hand Exposure: No; Hx Alcohol Use: No Hx Substance Use: No Preferred Language: Chadian Communication Ability: Effective Leather Parts Matcher Required: No Beliefs That Will Affect Care: None Current Living Situation: Spouse Feels Safe at Home: Yes Assistive Devices: Glasses Review of Systems Review of Systems: All systems reviewed & are unremarkable except as noted in HPI & below Physical Exam Constitutional: WD/WN, vitals as above Eyes: EOM intact bilaterally; no conjunctival abnormality ENMT: external ear and nose normal, oropharynx normal Neck: trachea midline, no thyromegaly normal visual inspection Respiratory: normal respiratory effort, lungs clear to auscultation no respiratory distress Cardiovascular: RRR, no murmur, no edema Gastrointestinal (Abdomen): Inspection/Auscultation: abdomen normal to inspection; abdomen not distended Musculoskeletal: no cyanosis or clubbing, extremities motor strength 5/5 Skin: no rashes, warm and dry Neurologic: moves all extremities and awake Psychiatric: Orientation: alert, oriented to person and cooperative Results & Data Results & Data ([facility]) Vital Signs (Past 12 Hours) Vital Signs Temp Pulse Pulse Resp BP BP Pulse Ox 05/22/22 01:00 90 19 137/86 94 05/21/22 23:00 92 H 16 142/84 H 94 05/21/22 21:32 100 H 20 152/89 H 99 05/21/22 21:19 37.3 C 122 H 18 117/73 94 O2 Del Method 05/22/22 01:00 05/21/22 23:00 05/21/22 21:32 Room Air 05/21/22 21:19 Room Air Code Status & VTE Plan VTE Prophylaxis Plan VTE Prophylaxis will be ordered: Yes PG Care Time/CCT Total # of Minutes Spent Total Time Spent with Patient: Total time spent is greater than 50% in coordination of care (as documented) at patient's floor/unit and/or counseling patient: Coding Level of Care Code 37172 Initial Inpt Care Lvl 3 Diagnoses UTI (urinary tract infection) N39.0 Acute kidney injury N17.9 Hypertension I10 Hypothyroidism E03.9 Diabetes mellitus, type 2 E11.9 DVT prophylaxis Z29.9
[2022-05-22] MEDS ORDERED: ONDANSETRON INJ 2 MG/ML 2 ML VIAL IV PRN (02:37)
[2022-05-22] MEDS ORDERED: GLUCAGON FOR INJ 1 MG VIAL SQ PRN (02:37)
[2022-05-22] MEDS ORDERED: GLUCOSE 10 TAB/TUBE PO PRN (02:37)
[2022-05-22] MEDS ORDERED: DEXTROSE 50% 50 ML SYRINGE IV PRN (02:37)
[2022-05-22] MEDS ORDERED: GLUCOSE 40% GEL 15 GM TUBE PO PRN (02:37)
[2022-05-22] MEDS ORDERED: CARBOHYDRATES FOR HYPOGLYCEMIA PO PRN (02:37)
[2022-05-22] MEDS: POTASSIUM CHLORIDE PWD 20 MEQ PACK PO SCH ×2 (02:59→06:37)
--- NOTE | 2022-05-22 06:32 | CT Scan Report ---
CT SCAN OF THE ABDOMEN AND PELVIS WITH IV CONTRAST CLINICAL HISTORY: Fever. Generalized abdominal pain. COMPARISON STUDY: Abdominal CT dated 04/30/2010. TECHNIQUE: Following the IV administration of 88 cc of Optiray 350, CT scan of the abdomen and pelvi s is performed from the lung bases to the proximal femora. Images are reviewed in the axial, sagittal , and coronal planes. IV contrast was administered without complication. A dose lowering technique wa s utilized adhering to the principles of ALARA. CT DOSE: 582.10 mGy.cm FINDINGS: Lung bases: The heart is mildly enlarged and without pericardial effusion. The coronary arteries are densely calcified. The lung bases are clear noting bibasilar scarring/atelectasis. There is a small t o moderate hiatal hernia. Liver: The contrast-enhanced liver is normal in size, contour, and attenuation. There is no intrahepa tic biliary ductal dilatation. The hepatic veins and portal veins are patent. Gallbladder: Surgically absent noting clips in the gallbladder fossa. Spleen: Normal in size and attenuation. Pancreas: Moderately atrophic and grossly unremarkable. Adrenal glands: Unremarkable. Kidneys: The contrast enhanced kidneys are normal in size and without hydronephrosis. There is hetero geneous enhancement of both kidneys. A 9.3 cm cyst arises from the left kidney. Nonobstructing bilate ral renal calculi measure up to 10 mm. No ureteral stone is seen. Abdominal vasculature: The abdominal aorta is normal in course and caliber noting moderate atheroscle rotic calcification. Bowel: There is moderate colonic fecal retention. No bowel obstruction is seen. There is mild colonic diverticulosis without CT evidence of acute diverticulitis. The appendix is well-visualized and nor mal. Peritoneum: There is no intraperitoneal free air or abdominal ascites. Lymphadenopathy: None. Pelvic viscera: The prostate gland is enlarged and markedly heterogeneous, showing patchy parenchymal enhancement. The bladder wall is thickened and trabeculated indicating chronic outlet obstruction. T hey is significant pericystic inflammation. Skeletal structures: The skeletal structures are osteopenic. There is mild lumbosacral spondylosis. N o lytic or blastic lesions are seen. IMPRESSION: 1. There is evidence of cystitis with bilateral ascending urinary tract infection/pyelonephritis. Cor relate with clinical findings and urinalysis. 2. Markedly enlarged and heterogeneous prostate gland with patchy enhancement. This could be related to concurrent prostatitis. Correlation with serum PSA levels is recommended. 3. Mild cardiomegaly. 4. Hiatal hernia. 5. Bilateral nephrolithiasis. 6. Additional findings as above. ACT 112: Negative or not required by law. Electronically signed by: Nir Milton M.D. 05/22/2022 6:29 AM
[2022-05-22] MEDS: LEVOTHYROXINE SODIUM 112 MCG TABLET PO SCH (06:38)
[2022-05-22 06:45] LABS: BUN Creatinine Ratio 19.1 (10-20); Calcium 8.3 mg/dl (8.5-10.1); Creatinine Clr Calc Pharmacy 65.3 ml/min; Est GFR (African American) 72.3 ml/min; Est GFR (Non-African American) 62.3 ml/min; Magnesium 1.8 mg/dl (1.7-2.4); Potassium 3.6 mmol/L (3.5-5.1)
--- NOTE | 2022-05-22 07:40 | Hospitalist Progress Note ---
Date of Service May 22, 2022 Assessment & Plan (1) UTI (urinary tract infection): Plan: UTI by symptoms. Possible pyelonephritis on CT, though clinically no CVA tenderness and appears fairly well. Also possible prostatitis and ordered a PSA. - Continue ceftriaxone - Awaiting final urine and blood cultures (though they were taken after 24 hours of abx, so may end up negative) (2) Elevated PSA, between 10 and less than 20 ng/ml: Plan: - Previous PSA level 04/2021 was 3.69 - Possibly acute rise secondary to infection/prostatitis - Possibly the elevated PSA is secondary to testosterone pellets ( follows with urology for hypogonadism - last seen 03/2022) - Awaiting urine and blood cultures - Currently on Ceftriaxone 2gm IV (3) Renal lithiasis: Plan: - Seen on CTAP with no hydronephrosis and nonobstructing (4) Acute kidney injury: Plan: Cr was 1.3 from baseline 1.0. - IV fluids given in ER - Trend Cr now 1.15 (5) Hypertension: Plan: BP stable in the ER and remains stable - Continue home amlodipine, HCTZ (6) Hypothyroidism: Plan: - Continue home levothyroxine 112 mcg daily (7) Diabetes mellitus, type 2: Plan: No HgbA1c in chart. On metformin as outpatient - Sliding scale insulin (8) DVT prophylaxis: Plan: Early ambulation and discharge. FULL CODE - discussed with patient (9) Lewis esophagus: Plan: Continue PPI Plan Discussed patient with Dr Nagy who assisted in the plan and management of this patient. Admission and Anticipated Discharge Date Admission Date: May 22, 2022 Supervising Physician Co-Signing Physician Notes PA Supervision Note: I personally saw and examined the patient. I verified all miller points and agree with MARYJANE Patrick with the following exceptions and/or additions: After midnight admission. Improvement in leukocytosis on ceftriaxone, will continue for complicated UTI. Evidence of pyelonephritis on CTAP, possible prostatitis. Rectal exam by Yuko WESLEY without prostate tenderness. BCx pending. UCx with no growth, however had had first dose ceftriaxone by time it was collected. Creatinine improved as well 1.34 - 1.15. Labs, Rads reviewed Subjective Evaluated patient this afternoon on round. He was awake laying in bed watching football with his at bedside. He tells me that he is feeling some better. He states he was incontinent of his urine prior to presentation and also having fever and chills. He is no longer incontinent and is afebrile. He is still having urinary burning and dysuria. He denies any back pain, gross hematuria, any changes in urine stream, vomiting, diarrhea or constipation. He does have some nausea and some suprapubic abdominal discomfort that describes as a pressure. He denies any urethral discharge or pneumaturia. He denies ever having symptoms like this in the past. Review of Systems Constitutional: + fatigue; no anorexia, no weight loss and no increased appetite Respiratory: no cough, no chest congestion, no dyspnea and no pain on inspiration Cardiovascular: no chest pain, no dyspnea and no calf pain Gastrointestinal: + abdominal pain and + nausea; no vomiting, no change in stools, no constipation, no fecal incontinence and no melena Genitourinary: + dysuria, + urinary incontinence and + urinary urgency; no difficulty urinating, no urinary hesitancy, no post-void dribbling, no decreased urination, no hematuria, no flank pain, no scrotal swelling, no testicle pain, no difficulty with ejaculations, no penile discharge or no erectile dysfunction Integumentary: no rash, no lesions and no unusual bruising Psychiatric: + depression and + anxiety; no change in appetite and no panic attacks Physical Exam Constitutional: WD/WN, vitals as above ENMT: external ear and nose normal, oropharynx normal Neck: trachea midline, no thyromegaly Respiratory: normal respiratory effort, lungs clear to auscultation Cardiovascular: RRR, no murmur, no edema Gastrointestinal (Abdomen): normal bowel sounds, soft, nontender, no hepatosplenomegaly mild suprapubic discomfort to deep palpation, No CVA tenderness rectal exam with normal recta tone, prostate gently palpable mildly enlarged with no masses palpated and nontender on exam Skin: no rashes, warm and dry Psychiatric: A+Ox3, euthymic affect Results & Data Results & Data ([facility]) Vital Signs (Past 12 Hours) Vital Signs Temp Pulse Pulse Pulse Resp BP BP 05/22/22 02:41 36.4 C L 83 16 147/78 H 05/22/22 01:00 90 19 137/86 05/21/22 23:00 92 H 16 142/84 H 05/21/22 21:32 100 H 20 152/89 H 05/21/22 21:19 37.3 C 122 H 18 117/73 Pulse Ox O2 Del Method 05/22/22 02:41 97 Room Air 05/22/22 01:00 94 05/21/22 23:00 94 05/21/22 21:32 99 Room Air 05/21/22 21:19 94 Room Air Laboratory Results Laboratory Results - last 24 hr 05/21/22 05/21/22 05/21/22 21:57 21:57 21:57 WBC 17.30 H RBC 4.75 Hgb 15.5 Hct 42.0 MCV 88.4 MCH 32.6 MCHC 36.9 H RDW Std Deviation 42.0 RDW Coeff of Vicente 12.9 Plt Count 195 MPV 10.7 Neutrophils % (Manual) 90 Lymphocytes % (Manual) 6 Monocytes % (Manual) 3 Eosinophils % (Manual) 1 Neutrophils # (Manual) 15.57 H Lymphocytes # (Manual) 1.04 L Monocytes # (Manual) 0.52 Eosinophils # (Manual) 0.17 RBC Agglutinates 3+ ESR Sodium 131 L Potassium 3.1 L Chloride 95 L Carbon Dioxide 25 Anion Gap 11 BUN 24 H Creatinine 1.34 Est Cr Clr Drug Dosing 53.9 Est GFR ( Amer) 60.1 Est GFR (Non-Af Amer) 51.8 BUN/Creatinine Ratio 17.9 Glucose 172 H POC Glucose Calcium 9.1 Magnesium Total Bilirubin 1.0 AST 16 ALT 16 Alkaline Phosphatase 75 C-Reactive Protein 33.60 H Total Protein 7.2 Albumin 4.2 Globulin 3.0 Albumin/Globulin Ratio 1.4 Lipase 12 Prostate Specific Ag Free PSA % Free PSA Procalcitonin Urine Color Urine Appearance Urine pH Ur Specific Vista Urine Protein Urine Glucose (UA) Urine Ketones Urine Blood Urine Nitrite Urine Bilirubin Urine Urobilinogen Ur Leukocyte Esterase Urine WBC (Auto) Urine RBC (Auto) U Hyaline Cast (Auto) U Epithel Cells (Auto) Urine Bacteria (Auto) Urine Yeast SARS-CoV-2 (PCR) 05/21/22 05/21/22 05/21/22 21:57 21:57 21:57 WBC RBC Hgb Hct MCV MCH MCHC RDW Std Deviation RDW Coeff of Vicente Plt Count MPV Neutrophils % (Manual) Lymphocytes % (Manual) Monocytes % (Manual) Eosinophils % (Manual) Neutrophils # (Manual) Lymphocytes # (Manual) Monocytes # (Manual) Eosinophils # (Manual) RBC Agglutinates ESR Sodium Potassium Chloride Carbon Dioxide Anion Gap BUN Creatinine Est Cr Clr Drug Dosing Est GFR ( Amer) Est GFR (Non-Af Amer) BUN/Creatinine Ratio Glucose POC Glucose Calcium Magnesium Total Bilirubin AST ALT Alkaline Phosphatase C-Reactive Protein Total Protein Albumin Globulin Albumin/Globulin Ratio Lipase Prostate Specific Ag Free PSA % Free PSA Procalcitonin 0.73 H Urine Color Yellow Urine Appearance Clear Urine pH 5.5 Ur Specific Vista 1.020 Urine Protein 2+ H Urine Glucose (UA) Negative Urine Ketones Trace H Urine Blood 1+ H Urine Nitrite Negative Urine Bilirubin Negative Urine Urobilinogen Negative Ur Leukocyte Esterase 1+ H Urine WBC (Auto) >30 H Urine RBC (Auto) 0-4 U Hyaline Cast (Auto) 5-10 H U Epithel Cells (Auto) 20-30 H Urine Bacteria (Auto) 1+ H Urine Yeast Budding A SARS-CoV-2 (PCR) NEGATIVE 05/22/22 05/22/22 05/22/22 05:41 05:41 08:16 WBC 9.90 RBC 4.80 Hgb 15.5 Hct 44.5 MCV 92.7 MCH 32.3 MCHC 34.8 RDW Std Deviation 43.8 RDW Coeff of Vicente 13.2 Plt Count 175 MPV 10.7 Neutrophils % (Manual) Lymphocytes % (Manual) Monocytes % (Manual) Eosinophils % (Manual) Neutrophils # (Manual) Lymphocytes # (Manual) Monocytes # (Manual) Eosinophils # (Manual) RBC Agglutinates ESR Sodium 137 Potassium 3.6 Chloride 103 Carbon Dioxide 25 Anion Gap 9 BUN 22 Creatinine 1.15 Est Cr Clr Drug Dosing 65.3 Est GFR ( Amer) 72.3 Est GFR (Non-Af Amer) 62.3 BUN/Creatinine Ratio 19.1 Glucose 134 H POC Glucose 149 H Calcium 8.3 L Magnesium 1.8 Total Bilirubin AST ALT Alkaline Phosphatase C-Reactive Protein Total Protein Albumin Globulin Albumin/Globulin Ratio Lipase Prostate Specific Ag Free PSA % Free PSA Procalcitonin Urine Color Urine Appearance Urine pH Ur Specific Vista Urine Protein Urine Glucose (UA) Urine Ketones Urine Blood Urine Nitrite Urine Bilirubin Urine Urobilinogen Ur Leukocyte Esterase Urine WBC (Auto) Urine RBC (Auto) U Hyaline Cast (Auto) U Epithel Cells (Auto) Urine Bacteria (Auto) Urine Yeast SARS-CoV-2 (PCR) 05/22/22 05/22/22 09:07 12:06 WBC RBC Hgb Hct MCV MCH MCHC RDW Std Deviation RDW Coeff of Vicenet Plt Count MPV Neutrophils % (Manual) Lymphocytes % (Manual) Monocytes % (Manual) Eosinophils % (Manual) Neutrophils # (Manual) Lymphocytes # (Manual) Monocytes # (Manual) Eosinophils # (Manual) RBC Agglutinates ESR Sodium Potassium Chloride Carbon Dioxide Anion Gap BUN Creatinine Est Cr Clr Drug Dosing Est GFR ( Amer) Est GFR (Non-Af Amer) BUN/Creatinine Ratio Glucose POC Glucose 129 H Calcium Magnesium Total Bilirubin AST ALT Alkaline Phosphatase C-Reactive Protein Total Protein Albumin Globulin Albumin/Globulin Ratio Lipase Prostate Specific Ag 17.869 H Free PSA 3.58 H % Free PSA 20.0 Procalcitonin Urine Color Urine Appearance Urine pH Ur Specific Vista Urine Protein Urine Glucose (UA) Urine Ketones Urine Blood Urine Nitrite Urine Bilirubin Urine Urobilinogen Ur Leukocyte Esterase Urine WBC (Auto) Urine RBC (Auto) U Hyaline Cast (Auto) U Epithel Cells (Auto) Urine Bacteria (Auto) Urine Yeast SARS-CoV-2 (PCR) Diagnostic Findings Abdomen/Pelvis CT 05/21/22 21:32 CT SCAN OF THE ABDOMEN AND PELVIS WITH IV CONTRAST CLINICAL HISTORY: Fever. Generalized abdominal pain. COMPARISON STUDY: Abdominal CT dated 04/30/2010. TECHNIQUE: Following the IV administration of 88 cc of Optiray 350, CT scan of the abdomen and pelvis is performed from the lung bases to the proximal femora. Images are reviewed in the axial, sagittal, and coronal planes. IV contrast was administered without complication. A dose lowering technique was utilized adhering to the principles of ALARA. CT DOSE: 582.10 mGy.cm FINDINGS: Lung bases: The heart is mildly enlarged and without pericardial effusion. The coronary arteries are densely calcified. The lung bases are clear noting biba silar scarring/atelectasis. There is a small to moderate hiatal hernia. Liver: The contrast-enhanced liver is normal in size, contour, and attenuation. There is no intrahepatic biliary ductal dilatation. The hepatic veins and portal veins are patent. Gallbladder: Surgically absent noting clips in the gallbladder fossa. Spleen: Normal in size and attenuation. Pancreas: Moderately atrophic and grossly unremarkable. Adrenal glands: Unremarkable. Kidneys: The contrast enhanced kidneys are normal in size and without hydronephrosis. There is heterogeneous enhancement of both kidneys. A 9.3 cm cyst arises from the left kidney. Nonobstructing bilateral renal calculi measure up to 10 mm. No ureteral stone is seen. Abdominal vasculature: The abdominal aorta is normal in course and caliber noting moderate atherosclerotic calcification. Bowel: There is moderate colonic fecal retention. No bowel obstruction is seen. There is mild colonic diverticulosis without CT evidence of acute d iverticulitis. The appendix is well-visualized and normal. Peritoneum: There is no intraperitoneal free air or abdominal ascites. Lymphadenopathy: None. Pelvic viscera: The prostate gland is enlarged and markedly heterogeneous, showing patchy parenchymal enhancement. The bladder wall is thickened and trabeculated indicating chronic outlet obstruction. They is significant pericystic inflammation. Skeletal structures: The skeletal structures are osteopenic. There is mild lumbosacral spondylosis. No lytic or blastic lesions are seen. IMPRESSION: 1. There is evidence of cystitis with bilateral ascending urinary tract infection/pyelonephritis. Correlate with clinical findings and urinalysis. 2. Markedly enlarged and heterogeneous prostate gland with patchy enhancement. This could be related to concurrent prostatitis. Correlation with serum PSA levels is recommended. 3. Mild cardiomegaly. 4. Hiatal hernia. 5. Bilateral nephrolithiasis. 6. Additional findings as above. ACT 112: Negative or not required by law. Electronically signed by: Nir Milton M.D. 05/22/2022 6:29 AM Chest X-Ray 05/21/22 21:32 SINGLE VIEW CHEST CLINICAL HISTORY: Fever. FINDINGS: An AP, portable, upright chest radiograph is compared to study dated 10/30/2020. The heart is enlarged. The pulmonary vasculature is not congested. Chronic interstitial thickening is similar to previous. There is mild chronic elevation of the right hemidiaphragm and bibasilar atelectasis. The lungs and pleural spaces are otherwise clear. No pneumothorax is seen. The skeletal structures are osteopenic. The bony thorax is grossly intact. IMPRESSION: No active disease in the chest. ACT 112: Negative or not required by law. Electronically signed by: Nir Milton M.D. 05/22/2022 7:52 AM PG Care Time/CCT Total # of Minutes Spent Total Time Spent with Patient: Total time spent is greater than 50% in coordination of care (as documented) at patient's floor/unit and/or counseling patient: Coding Level of Care Code None Diagnoses UTI (urinary tract infection) N39.0 Elevated PSA, between 10 and less than 20 ng/ml R97.20 Renal lithiasis N20.0 Acute kidney injury N17.9 Hypertension I10 Hypothyroidism E03.9 Diabetes mellitus, type 2 E11.9 DVT prophylaxis Z29.9 Lewis esophagus K22.70
[2022-05-22 07:44] LABS: Hematocrit (blood only) 44.5 % (40.1-51.0); Hemoglobin 15.5 g/dl (14.0-18.0); Mean Corpuscular Hemoglobin 32.3 pg (25.0-34.0); Mean Corpuscular Hgb Conc 34.8 g/dL (32.0-36.0); Mean Corpuscular Volume 92.7 fL (80.0-100.0); Mean Platelet Volume 10.7 fL (9.4-12.4); Platelet Count 175 K/uL (130-400); RDW Coefficient of Variation 13.2 % (11.5-14.5); RDW Standard Deviation 43.8 fL (36.4-46.3)
--- NOTE | 2022-05-22 07:54 | XRay Report ---
SINGLE VIEW CHEST CLINICAL HISTORY: Fever. FINDINGS: An AP, portable, upright chest radiograph is compared to study dated 10/30/2020. The heart i s enlarged. The pulmonary vasculature is not congested. Chronic interstitial thickening is similar to previous. There is mild chronic elevation of the right hemidiaphragm and bibasilar atelectasis. The lungs and pleural spaces are otherwise clear. No pneumothorax is seen. The skeletal structures are os teopenic. The bony thorax is grossly intact. IMPRESSION: No active disease in the chest. ACT 112: Negative or not required by law. Electronically signed by: Nir Milton M.D. 05/22/2022 7:52 AM
[2022-05-22] MEDS: INSULIN ASPART PER UNIT SC SCH ×4 (08:52→22:08)
[2022-05-22] MEDS: gemfibroziL 600 MG TAB PO SCH ×2 (08:53→22:04)
[2022-05-22] MEDS: hydroCHLOROthiazide 25 MG TAB PO SCH (08:53)
[2022-05-22] MEDS: ASPIRIN 81 MG ECTAB PO SCH (08:53)
[2022-05-22] MEDS ORDERED: INFLUENZA VACCINE HIGH DOSE PF 65+ 0.7 ML SYR IM ONE (09:00)
[2022-05-22 09:55] LABS: Prostate SpecificAg Diagnostic 17.869 ng/ml (0-4)
[2022-05-22] MEDS: VENLAFAXINE HCL XR 150 MG CAPXR PO SCH (11:38)
[2022-05-22] MEDS: ESCITALOPRAM OXALATE 10 MG TAB PO SCH (11:39)
[2022-05-22] MEDS: OMEGA-3 (PURIFIED FISH OIL) 1 GM CAP PO SCH (11:39)
[2022-05-22] MEDS: PSYLLIUM or GUAR GUM FIBER POWDER PACKET PO SCH (11:40)
[2022-05-22] MEDS: PANTOprazole 40 MG TAB PO SCH (11:40)
[2022-05-22] MEDS: SACCHAROMYCES BOULARDII 250 MG CAP PO SCH (11:41)
[2022-05-22] MEDS: ACETAMINOPHEN 325 MG TAB PO PRN ×2 (14:09→20:47)
[2022-05-22] MEDS ORDERED: ESCITALOPRAM OXALATE 10 MG TAB PO SCH (16:30)
[2022-05-22] MEDS ORDERED: VENLAFAXINE HCL XR 150 MG CAPXR PO SCH (16:30)
[2022-05-22] MEDS ORDERED: cefTRIAXone SODIUM 2,000 MG in DEXTROSE 5% 50 ML IV SCH (22:00)
[2022-05-22] MEDS: amLODIPine BESYLATE 5 MG TAB PO SCH (22:04)
[2022-05-22] MEDS: GABAPENTIN 100 MG CAP PO SCH (22:05)
[2022-05-22] MEDS: LORazepam 0.5 MG TAB PO SCH (22:07)
[2022-05-23] MEDS: ACETAMINOPHEN 325 MG TAB PO PRN ×2 (05:36→17:47)
[2022-05-23] MEDS: LEVOTHYROXINE SODIUM 112 MCG TABLET PO SCH (05:36)
[2022-05-23] MEDS: PANTOprazole 40 MG TAB PO SCH (05:38)
[2022-05-23 07:04] LABS: BUN Creatinine Ratio 15.2 (10-20); Calcium 8.9 mg/dl (8.5-10.1); Creatinine Clr Calc Pharmacy 47.5 ml/min; Est GFR (African American) 49.2 ml/min; Est GFR (Non-African American) 42.5 ml/min; Potassium 3.3 mmol/L (3.5-5.1)
[2022-05-23 08:35] LABS: Hematocrit (blood only) 42.5 % (40.1-51.0); Mean Corpuscular Hemoglobin 31.9 pg (25.0-34.0); Mean Corpuscular Hgb Conc 35.3 g/dL (32.0-36.0); Mean Corpuscular Volume 90.4 fL (80.0-100.0); Mean Platelet Volume 10.6 fL (9.4-12.4); Platelet Count 230 K/uL (130-400); RDW Coefficient of Variation 12.8 % (11.5-14.5); RDW Standard Deviation 41.7 fL (36.4-46.3); White Blood Count 11.65 K/ul (4.8-10.8)
--- NOTE | 2022-05-23 08:47 | Hospitalist Progress Note ---
Date of Service May 23, 2022 Assessment & Plan (1) UTI (urinary tract infection): Plan: UTI by symptoms. Pyelonephritis/Prostatitis on CT - Continue ceftriaxone - Awaiting final urine and blood cultures (though they were taken after 24 hours of abx, so may end up negative) - Repeat urine and C&S - added post void bladder scan q shift and to straight cath if >400ml - Nursing advised if >400ml to also notify provider (2) Elevated PSA, between 10 and less than 20 ng/ml: Plan: - Previous PSA level 04/2021 was 3.69 - Possibly acute rise secondary to infection/prostatitis - Possibly the elevated PSA is secondary to testosterone pellets ( follows with urology for hypogonadism - last seen urology 03/2022 and has a f/up appt in June) - Awaiting final urine and blood cultures as well as repeat urine and C&S - Currently on Ceftriaxone 2gm IV (3) Renal lithiasis: Plan: - Seen on CTAP with no hydronephrosis and nonobstructing (4) Acute kidney injury: Plan: - Cr was 1.3 from baseline 1.0. (IV fluids given in ER) - Cr now elevated to 1.58 - Restart IV Fluids - Continue to trend Cr - Check post void bladder scans and will do a straight cath if greater than 400ml and advised to notify provider if had straight cath - HCTZ discontinued secondary to JARAD (5) Hypertension: Plan: BP stable in the ER and remains stable - Continue home amlodipine - Discontinued HCTZ (due to JARAD) (6) Hypothyroidism: Plan: - Continue home levothyroxine 112 mcg daily (7) Diabetes mellitus, type 2: Plan: No HgbA1c in chart. On metformin as outpatient - Sliding scale insulin (8) DVT prophylaxis: Plan: Early ambulation and discharge. FULL CODE - discussed with patient (9) Lewis esophagus: Plan: Continue PPI (10) Anxiety: Plan: - Continue Lexapro and effexor - Continue Ativan 0.5 mg q hs - Added prn Ativan 0.5 mg one q 8 hours as needed for anxiety (11) Pressure in chest: Plan: - Resolved, patient felt was anxiety and also some intestinal gas that resolved with simethicone and a BM - EKG with sinus tach - Troponin normal 17.9 Plan Discussed patient with Dr Arevalo who assisted in the plan and management of this patient. Admission and Anticipated Discharge Date Admission Date: May 22, 2022 Supervising Physician Co-Signing Physician Notes PA Supervision Note: I personally saw and examined the patient. I verified all miller points and agree with MARYJANE Patrick with the following exceptions and/or additions: S-patient seen and examined with the PA after he continued to complain of urinary symptoms and was anxious about his diagnosis and plan. Reports ongoing urinary urgency, frequency. Bladder scan was performed and was normal. No abdominal pains. Did have incontinence to small amount of loose stool which is alarming to him no other stool studies have since admission. Just had another fever as well. I discussed his care with Dr. Ceja he is not on-call but advised that the on-call urologist could see the patient with routine consult. Patient and his were given reassurance that he he will improve but that sometimes fevers, continue to spike even while on the proper antibiotics for prostatitis and pyelonephritis. O- Vitals reviewed Gen: [AAOx3, NAD, anxious] HEENT: [anicteric sclerae, EOMI] CV: [RRR no mgr nl S1S2] Pulm: [CTAB no wcr] Abd: [+BS soft NT ND no masses or hernias] Ext: [no edema] Skin: [no rashes, warm/dry] Neuro: [full strength throughout] Labs reviewed A/C-15-sago-old male here with acute pyelonephritis and prostatitis with sepsis, POA. Also with acute kidney injury today Restart IV fluids, discontinue HCTZ Converted antibiotics from ceftriaxone to cefepime repeat urine and blood cultures Consult neurology given ongoing symptoms although suspect take a few days for fevers to completely resolve despite being on the proper antibiotics. Difficult due to the fact that culture is negative from admission. Culture was obtained after antibiotics given. Subjective Patient was seen today in rounds. He is awake in bed. Overall he states he has improvement in his symptoms but he tells me that last night about 7 PM he began to have all his symptoms of dysuria, urgency and incontinence. He continued to have these symptoms and feel fatigued until about 1-2 hours after getting the next IV dose of the Ceftriaxone which was given at 10PM. Currently he is not having any incontinence or dysuria. He still has some mild suprapubic discomfort. He contiues to deny any CP, SOB, nausea, vomiting, changes in bowel movements. He denies any pain into his testicles or pain into buttocks or rectum. 10 minutes after I left the room, patient told his nurse he had chest pressure. EKG was done and revealed sinus tachycardia rate 103, with no ST changes. He states he does get anxiety at home and take ativan 0.5 mg at night and occasionally when "he gets worked up" he will take another one in the daytime. He also felt as if the chest pressure was coming from his abdominal gas and distention. He did not have a BM at that time of the re exam and asked for simethicone. 1 hour later, I re evaluated patient and he had a normal brown BM and had a dose of ativan. He had no further chest pressure, pain or SOB. He had a dose of simethicone as well after the pain subsided due to gas in abdomen. Troponin was normal at 17.9 Nursing did a post void bladder scan that only revealed 21ml. He had a repeat urine clean catch and C&S sent. Review of Systems Constitutional: + fatigue; no anorexia, no weight loss and no increased appetite Respiratory: no cough, no chest congestion, no dyspnea and no pain on in spiration Cardiovascular: no chest pain, no dyspnea and no calf pain Gastrointestinal: + abdominal pain and + nausea; no vomiting, no change in stools, no constipation, no fecal incontinence and no melena Genitourinary: + dysuria, + urinary incontinence and + urinary urgency; no difficulty urinating, no urinary hesitancy, no post-void dribbling, no decreased urination, no hematuria, no flank pain, no scrotal swelling, no testicle pain or no penile discharge Integumentary: no rash, no lesions and no unusual bruising Psychiatric: + depression and + anxiety; no change in appetite and no panic attacks Physical Exam Constitutional: WD/WN, vitals as above ENMT: external ear and nose normal, oropharynx normal Neck: trachea midline, no thyromegaly Respiratory: normal respiratory effort, lungs clear to auscultation Cardiovascular: RRR, no murmur, no edema Gastrointestinal (Abdomen): normal bowel sounds, soft, nontender, no hepatosplenomegaly Skin: no rashes, warm and dry Psychiatric: A+Ox3, euthymic affect Results & Data Results & Data ([facility]) Vital Signs (Past 12 Hours) Vital Signs Temp Pulse Pulse Resp BP Pulse Ox O2 Del Method 05/23/22 07:46 37.1 C 74 21 138/84 94 Room Air 05/22/22 21:56 37.4 C 115 H 18 181/101 H 96 Room Air Laboratory Results Abnormal lab results 05/22/22 05/22/22 05/23/22 Range/Units 17:03 20:27 05:58 WBC 11.65 H (4.8-10.8) K/ul Sodium (136-145) mmol/L Potassium (3.5-5.1) mmol/L BUN (6-23) mg/dl Creatinine (0.6-1.4) mg/dl Glucose (70-99(Fasting)) mg/dl POC Glucose 176 H 212 H (70-99) mg/dl Urine Protein (Negative) Urine Blood (Negative) Ur Leukocyte Esterase (Negative) Urine WBC (Auto) (0-5) /hpf Urine RBC (Auto) (0-4) /hpf U Epithel Cells (Auto) (0-5) /lpf 05/23/22 05/23/22 05/23/22 Range/Units 05:58 07:55 11:58 WBC (4.8-10.8) K/ul Sodium 131 L (136-145) mmol/L Potassium 3.3 L (3.5-5.1) mmol/L BUN 24 H (6-23) mg/dl Creatinine 1.58 H D (0.6-1.4) mg/dl Glucose 166 H (70-99(Fasting)) mg/dl POC Glucose 175 H 191 H (70-99) mg/dl Urine Protein (Negative) Urine Blood (Negative) Ur Leukocyte Esterase (Negative) Urine WBC (Auto) (0-5) /hpf Urine RBC (Auto) (0-4) /hpf U Epithel Cells (Auto) (0-5) /lpf 05/23/22 Range/Units 15:22 WBC (4.8-10.8) K/ul Sodium (136-145) mmol/L Potassium (3.5-5.1) mmol/L BUN (6-23) mg/dl Creatinine (0.6-1.4) mg/dl Glucose (70-99(Fasting)) mg/dl POC Glucose (70-99) mg/dl Urine Protein 2+ H (Negative) Urine Blood 2+ H (Negative) Ur Leukocyte Esterase Trace H (Negative) Urine WBC (Auto) 10-30 H (0-5) /hpf Urine RBC (Auto) 10-30 H (0-4) /hpf U Epithel Cells (Auto) 20-30 H (0-5) /lpf PG Care Time/CCT Total # of Minutes Spent Total Time Spent with Patient: Total time spent is greater than 50% in coordination of care (as documented) at patient's floor/unit and/or counseling patient: Coding Level of Care Code 07020 Subseq Hosp Care Lvl 3 Diagnoses UTI (urinary tract infection) N39.0 Elevated PSA, between 10 and less than 20 ng/ml R97.20 Renal lithiasis N20.0 Acute kidney injury N17.9 Hypertension I10 Hypothyroidism E03.9 Diabetes mellitus, type 2 E11.9 DVT prophylaxis Z29.9 Leiws esophagus K22.70 Anxiety F41.9 Pressure in chest R07.89 Time Spent (min) 45
[2022-05-23] MEDS ORDERED: SIMETHICONE 80 MG CHEW PO PRN (09:21)
[2022-05-23] MEDS: INSULIN ASPART PER UNIT SC SCH ×4 (09:23→20:51)
[2022-05-23] MEDS: hydroCHLOROthiazide 25 MG TAB PO SCH (09:24)
[2022-05-23] MEDS: gemfibroziL 600 MG TAB PO SCH ×2 (09:24→20:50)
[2022-05-23] MEDS: OMEGA-3 (PURIFIED FISH OIL) 1 GM CAP PO SCH (09:24)
[2022-05-23] MEDS: ASPIRIN 81 MG ECTAB PO SCH (09:24)
[2022-05-23] MEDS: SACCHAROMYCES BOULARDII 250 MG CAP PO SCH (09:24)
[2022-05-23] MEDS: SODIUM CHLORIDE 0.9% 1000ML 1,000 ML IV SCH ×2 (09:25→19:51)
[2022-05-23] MEDS: PSYLLIUM or GUAR GUM FIBER POWDER PACKET PO SCH (09:27)
[2022-05-23] MEDS ORDERED: LORazepam 0.5 MG TAB PO PRN (14:01)
[2022-05-23 15:29] LABS: Appearance Urine Clear (Clear); Bacteria Urine Automated Negative (Negative); Bilirubin Urine Negative (Negative); Blood Urine 2+ (Negative); Color Urine Yellow; Epithelial Cell Urine Auto 20-30 /lpf (0-5); Glucose Urine UA Negative (Negative); Ketones Urine Negative (Negative); Leukocyte Esterase Urine Trace (Negative); Nitrite Urine Negative (Negative); Protein Urine 2+ (Negative); Specific Gravity Urine 1.011 (1.000-1.030); Urobilinogen Urine Negative (Negative); pH Urine 5.5 (4.5-7.5)
[2022-05-23] MEDS: VENLAFAXINE HCL XR 150 MG CAPXR PO SCH (17:43)
[2022-05-23] MEDS: ESCITALOPRAM OXALATE 10 MG TAB PO SCH (17:43)
[2022-05-23] MEDS ORDERED: POTASSIUM CHLORIDE CRTAB 20 MEQ TABCR PO STA (18:07)
[2022-05-23] MEDS: CEFEPIME 2,000 MG in SYRINGE 0 ML IV SCH (19:52)
[2022-05-23] MEDS: amLODIPine BESYLATE 5 MG TAB PO SCH (20:50)
[2022-05-23] MEDS: LORazepam 0.5 MG TAB PO SCH (20:50)
[2022-05-23] MEDS: GABAPENTIN 100 MG CAP PO SCH (20:50)
[2022-05-23] MEDS ORDERED: cefTRIAXone SODIUM 2,000 MG in DEXTROSE 5% 50 ML IV SCH (22:00)
[2022-05-24] MEDS: SODIUM CHLORIDE 0.9% 1000ML 1,000 ML IV SCH ×2 (05:03→15:25)
[2022-05-24] MEDS: ACETAMINOPHEN 325 MG TAB PO PRN (05:10)
[2022-05-24] MEDS: PANTOprazole 40 MG TAB PO SCH (05:11)
[2022-05-24] MEDS: LEVOTHYROXINE SODIUM 112 MCG TABLET PO SCH (05:12)
[2022-05-24 06:22] LABS: BUN Creatinine Ratio 14.6 (10-20); Calcium 8.6 mg/dl (8.5-10.1); Creatinine Clr Calc Pharmacy 39.1 ml/min; Est GFR (African American) 38.9 ml/min; Est GFR (Non-African American) 33.5 ml/min; Magnesium 1.9 mg/dl (1.7-2.4); Potassium 3.6 mmol/L (3.5-5.1)
[2022-05-24 07:12] LABS: Hemoglobin 12.5 g/dl (14.0-18.0); Mean Corpuscular Hemoglobin 31.3 pg (25.0-34.0); Mean Corpuscular Hgb Conc 34.7 g/dL (32.0-36.0); Mean Platelet Volume 10.1 fL (9.4-12.4); Platelet Count 240 K/uL (130-400); RDW Coefficient of Variation 12.8 % (11.5-14.5); RDW Standard Deviation 41.6 fL (36.4-46.3)
--- NOTE | 2022-05-24 07:51 | Hospitalist Progress Note ---
Date of Service May 24, 2022 Assessment & Plan (1) UTI (urinary tract infection): Plan: UTI by symptoms. Pyelonephritis/Prostatitis on CT - Ceftriaxone discontinued 05/23 - Continue Cefepime 1gm BID - Awaiting repeat urine and blood cultures (Initial were negative, though they were taken after 24 hours of abx) - Continue post void bladder scan q shift and to straight cath if >400ml - Nursing advised if >400ml to also notify provider - Consulted urology - check renal U/S (2) Elevated PSA, between 10 and less than 20 ng/ml: Plan: - Previous PSA level 04/2021 was 3.69 - Possibly acute rise secondary to infection - Possibly the elevated PSA is secondary to testosterone pellets ( follows with urology for hypogonadism - last seen urology 03/2022 and has a f/up appt in June) - Awaiting repeat urine and blood cultures - Currently on Cefepime 2gm IV q 12 (3) Renal lithiasis: Plan: - Seen on CTAP with no hydronephrosis and nonobstructing (4) Acute kidney injury: Plan: - Cr was 1.3 from baseline 1.0. (IV fluids given in ER) - Cr now elevated to 1.9 - Continue IV Fluids - Continue to trend Cr - Check post void bladder scans and will do a straight cath if greater than 400ml and advised to notify provider if had straight cath - HCTZ discontinued secondary to JARAD - Ordered renal U/S (5) Hypertension: Plan: BP stable in the ER and remains stable (133/75) - Continue home amlodipine - Discontinued HCTZ (due to JARAD) (6) Hypothyroidism: Plan: - Continue home levothyroxine 112 mcg daily (7) Diabetes mellitus, type 2: Plan: No HgbA1c in chart. On metformin as outpatient - Sliding scale insulin (8) DVT prophylaxis: Plan: Early ambulation and discharge. FULL CODE - discussed with patient (9) Lewis esophagus: Plan: Continue PPI (10) Anxiety: Plan: - Continue Lexapro and effexor - Continue Ativan 0.5 mg q hs - Added prn Ativan 0.5 mg one q 8 hours as needed for anxiety (11) Pressure in chest: Plan: - Resolved, patient felt was anxiety and also some intestinal gas that resolved with simethicone and a BM - EKG with sinus tach - Troponin normal 17.9 - No further chest pain, pressure, dyspnea or SOB Plan Discussed patient with Dr Palmer who assisted in the plan and management of this patient. Admission and Anticipated Discharge Date Admission Date: May 22, 2022 Subjective Patient seen today in rounds he is awake in bed in NAD. He has had no further diarrhea. He has had no chest pain, dyspnea or SOB. He denies any further dysuria or incontinence. Review of Systems Constitutional: + fatigue; no anorexia, no weight loss and no increased appetite Respiratory: no cough, no chest congestion, no dyspnea and no pain on inspiration Cardiovascular: no chest pain, no dyspnea and no calf pain Gastrointestinal: + abdominal pain and + nausea; no vomiting, no change in stools, no constipation, no fecal incontinence and no melena Genitourinary: no dysuria, no difficulty urinating, no urinary hesitancy, no urinary incontinence, no post-void dribbling, no decreased urination, no hematuria, no flank pain, no scrotal swelling, no testicle pain, no penile discharge or no urinary urgency Integumentary: no rash, no lesions and no unusual bruising Psychiatric: + depression and + anxiety; no change in appetite and no panic attacks Physical Exam Constitutional: WD/WN, vitals as above ENMT: external ear and nose normal, oropharynx normal Neck: trachea midline, no thyromegaly Respiratory: normal respiratory effort, lungs clear to auscultation Cardiovascular: RRR, no murmur, no edema Gastrointestinal (Abdomen): normal bowel sounds, soft, nontender, no hepatosplenomegaly Skin: no rashes, warm and dry Psychiatric: A+Ox3, euthymic affect Results & Data Results & Data ([facility]) Vital Signs (Past 12 Hours) Vital Signs Temp Pulse Resp BP Pulse Ox O2 Del Method 05/24/22 06:21 37.5 C 89 18 133/75 93 Room Air 05/23/22 21:15 36.9 C 93 H 156/82 H 94 Room Air Laboratory Results Abnormal lab results 05/23/22 05/23/22 05/24/22 Range/Units 17:01 20:24 05:49 RBC 4.00 L (4.63-6.08) M/uL Hgb 12.5 L (14.0-18.0) g/dl Hct 36.0 L (40.1-51.0) % Sodium (136-145) mmol/L BUN (6-23) mg/dl Creatinine (0.6-1.4) mg/dl Glucose (70-99(Fasting)) mg/dl POC Glucose 195 H 167 H (70-99) mg/dl 05/24/22 05/24/22 05/24/22 Range/Units 05:49 08:13 12:10 RBC (4.63-6.08) M/uL Hgb (14.0-18.0) g/dl Hct (40.1-51.0) % Sodium 134 L (136-145) mmol/L BUN 28 H (6-23) mg/dl Creatinine 1.92 H D (0.6-1.4) mg/dl Glucose 153 H (70-99(Fasting)) mg/dl POC Glucose 173 H 164 H (70-99) mg/dl 05/24/22 Range/Units 15:28 RBC (4.63-6.08) M/uL Hgb (14.0-18.0) g/dl Hct (40.1-51.0) % Sodium (136-145) mmol/L BUN (6-23) mg/dl Creatinine 1.70 H (0.6-1.4) mg/dl Glucose (70-99(Fasting)) mg/dl POC Glucose (70-99) mg/dl PG Care Time/CCT Total # of Minutes Spent Total Time Spent with Patient: Total time spent is greater than 50% in coordination of care (as documented) at patient's floor/unit and/or counseling patient: Coding Level of Care Code 18038 Subseq Hosp Care Lvl 3 Diagnoses UTI (urinary tract infection) N39.0 Elevated PSA, between 10 and less than 20 ng/ml R97.20 Renal lithiasis N20.0 Acute kidney injury N17.9 Hypertension I10 Hypothyroidism E03.9 Diabetes mellitus, type 2 E11.9 DVT prophylaxis Z29.9 Lewis esophagus K22.70 Anxiety F41.9 Pressure in chest R07.89 Time Spent (min) 30
[2022-05-24] MEDS: OMEGA-3 (PURIFIED FISH OIL) 1 GM CAP PO SCH (08:18)
[2022-05-24] MEDS: SACCHAROMYCES BOULARDII 250 MG CAP PO SCH (08:18)
[2022-05-24] MEDS: ASPIRIN 81 MG ECTAB PO SCH (08:18)
[2022-05-24] MEDS: gemfibroziL 600 MG TAB PO SCH ×2 (08:18→20:29)
[2022-05-24] MEDS: PSYLLIUM or GUAR GUM FIBER POWDER PACKET PO SCH (08:19)
[2022-05-24] MEDS: INSULIN ASPART PER UNIT SC SCH ×4 (08:30→21:16)
[2022-05-24] MEDS: CEFEPIME 2,000 MG in SYRINGE 0 ML IV SCH (10:26)
--- NOTE | 2022-05-24 12:03 | Urology Consultation ---
Date of Consultation May 24, 2022 Assessment & Plan (1) UTI (urinary tract infection): (2) Acute pyelonephritis: (3) Elevated PSA: (4) Acute kidney injury: Plan 76yo M admitted with UTI/Pyelo, possible prostatitis. CT a/p with evidence of cystitis with bilateral ascending urinary tract infection/pyelonephritis, markedly enlarged prostate with patchy enhancement possible prostatitis and bilateral nonobstructing nephrolithiasis. -Urology consulted for UTI/Pyelo, possible prostatitis. -Afebrile and hemodynamically stable. -Labs reviewed- wbc 8.50, creatinine up to 1.92 today. Continue to trend. -Elevated PSA- 17.8, likely due to infection/prostatitis. -Urine culture 05/21 negative, repeat pending -Blood cultures prelim no growth, repeat pending. (Initial were taken after 24 hours of abx per chart review). -IV antibiotics changed from ceftriaxone to cefepime, follow cultures. -Voiding spontaneously, continue to monitor. Bladder scan prn. -CT abdomen pelvis without evidence of obstructive renal failure. May need to consider nephrology consult if his creatinine does not begin to improve. -Recommend continuing supportive care and antibiotic therapy. -We will arrange outpatient follow-up with our service in 2-3 weeks for cystoscopy. Will obtain renal ultrasound and repeat PSA prior to appt, pt agreeable to plan. -Discussed with hospital team. -Urology will follow. History of Present Illness Reason for Consultation: complicated UTI/prostatitis/pyelo Attending Physician: Carolyn Arevalo MD History of Present Illness 76yo M admitted with UTI/Pyelo, possible prostatitis. Urology consulted for UTI/Pyelo. Per chart review, patient reported return of symptoms yesterday and also spiked another fever. He requested a consult with urology. At that time his antibiotics was changed from ceftriaxone to cefepime. A repeat urine culture and blood cultures were obtained. Patient is well known to the urology service, follows with Dr. Ceja. Hx of hypogonadism with insertion of testosterone pellets in the office (last done 03/22/22). CT abdomen pelvis - 1. There is evidence of cystitis with bilateral ascending urinary tract infection/pyelonephritis. Correlate with clinical findings and urinalysis. 2. Markedly enlarged and heterogeneous prostate gland with patchy enhancement. This could be related to concurrent prostatitis. Correlation with serum PSA levels is recommended. 3. Mild cardiomegaly. 4. Hiatal hernia. 5. Bilateral nephrolithiasis. Patient examined at bedside this AM. Awake, sitting in bedside chair on arrival. No acute distress. Overall reports feeling much better today. Denies any pain or discomfort at present. Reports his urinary symptoms have significantly improved. Denies hematuria or dysuria. Feels he is emptying his bladder. Some urinary urgency and frequency. No fevers or chills. Denies nausea or vomiting. Allergies Allergy/AdvReac Type Severity Reaction Status Date / Time Penicillins Allergy Intermediate RASH, Verified 05/21/22 22:13 "VERY ILL" Sulfa (Sulfonamide Allergy Mild RASH Verified 05/21/22 22:13 Antibiotics) YORDY Inhibitors AdvReac Intermediate Cough Verified 05/21/22 22:13 atorvastatin AdvReac Intermediate muscle Verified 05/21/22 22:13 cramps Home Medications Medication Instructions Recorded Confirmed Type Saccharomyces boulardii 250 mg 250 mg PO QAM 07/26/19 05/21/22 History capsule esomeprazole magnesium 40 mg 40 mg PO BID LEONARD'S ESOPHAGUS 07/26/19 05/21/22 History capsule,delayed release fluocinonide 0.05 % topical cream 1 applic topical UD PRN Rash 07/26/19 05/21/22 History fluticasone propionate 50 2 spray intranasal QAM 07/26/19 05/21/22 History mcg/actuation nasal spray,suspension gemfibrozil 600 mg tablet 600 mg PO BID 07/26/19 05/21/22 History lorazepam 0.5 mg tablet 0.5 mg PO HS 07/26/19 05/21/22 History multivitamin (Daily Multi-Vitamin 1 tab PO QDD 07/26/19 05/21/22 History tablet) omega-3 acid ethyl esters 1 gram 1 g PO QAM 07/26/19 05/21/22 History capsule venlafaxine 150 mg 150 mg PO QDD 07/26/19 05/21/22 History capsule,extended release 24 hr gabapentin 100 mg capsule 200 mg PO HS #30 caps 07/31/19 05/21/22 Rx escitalopram oxalate 5 mg tablet 5 mg PO QDD 11/26/19 05/21/22 History amlodipine 10 mg tablet 10 mg PO HS 12/11/19 05/21/22 History aspirin 81 mg tablet,delayed 81 mg PO QAM 10/30/20 05/21/22 History release hydrochlorothiazide 12.5 mg capsule 12.5 mg PO QAM 10/30/20 05/21/22 History levothyroxine 112 mcg tablet 112 mcg PO DAILYBB 10/30/20 05/21/22 History (Synthroid) testosterone 100 mg implant pellet 100 mg subcut Q3M 10/30/20 05/21/22 History metformin 500 mg tablet 1,000 mg PO QDD 01/08/21 05/21/22 History tadalafil 5 mg tablet 20 mg PO DAILY PRN sexual activity 05/21/22 05/21/22 History Patient History Medical History (Updated 05/24/22 @ 12:11 by BASILIO Bella) Anxiety Leonard's esophagus Colon polyps Depression Diabetes mellitus, type 2 ? 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 Hypercholesteremia Hypertension Hypothyroidism Surgical History H/O blepharoplasty bilt History of bilateral inguinal hernia repair History of cataract surgery bilt History of colonoscopy History of esophagogastroduodenoscopy (EGD) History of squamous cell carcinoma excision History of surgery prior to blepharoplasty removed 1/2 off forehead to raise for blepharoplasty History of tonsillectomy and adenoidectomy History of tooth extraction Hx of cholecystectomy Family History Father Coronary arteriosclerosis Mother Colorectal cancer Other No family history of adverse response to anesthesia Social History Smoking Status: Never smoker Second Hand Exposure: No; Hx Alcohol Use: No Hx Substance Use: No Preferred Language: Swazi Communication Ability: Effective Steel Erecting Pusher Required: No Beliefs That Will Affect Care: None Current Living Situation: Spouse Feels Safe at Home: Yes Assistive Devices: None Review of Systems Review of Systems: All systems reviewed & are unremarkable except as noted in HPI & below Physical Exam Constitutional: well developed and well nourished; no acute distress Neck: normal visual inspection Respiratory: normal respiratory effort; no respiratory distress and no labored breathing Musculoskeletal: Head/Neck/Chest: normocephalic Skin: No visible rashes or lesions to exposed skin areas Neurologic: moves all extremities and awake Psychiatric: A+Ox3, euthymic affect Results & Data ([facility]) Vital Signs (Past 12 Hours) Vital Signs Temp Pulse Resp BP Pulse Ox O2 Del Method 05/24/22 06:21 37.5 C 89 18 133/75 93 Room Air PG Care Time/CCT Total # of Minutes Spent Total Time Spent with Patient: Total time spent is greater than 50% in coordination of care (as documented) at patient's floor/unit and/or counseling patient: Coding Level of Care Code 12374 Initial Inpt Care Lvl 2 Diagnoses UTI (urinary tract infection) N39.0 Acute pyelonephritis N10 Elevated PSA R97.20 Acute kidney injury N17.9
[2022-05-24 16:00] LABS: Creatinine Clr Calc Pharmacy 44.2 ml/min; Est GFR (Non-African American) 38.9 ml/min
--- NOTE | 2022-05-24 16:08 | Ultrasound Report ---
ULTRASOUND KIDNEYS AND BLADDER CLINICAL HISTORY: Acute renal insufficiency. Pyelonephritis. COMPARISON STUDY: Abdominal CT dated 05/21/2022 TECHNIQUE: Real-time, grayscale, and color flow sonography of the kidneys and bladder is performed. I mages are reviewed in the transverse and longitudinal planes. FINDINGS: Kidneys: The kidneys are normal in size and echotexture. The right kidney measures 10.8 cm in length and the left kidney measures 13.5 cm in length. There is no hydronephrosis. Shadowing calculi are se en in both kidneys. A 9.2 cm exophytic cyst arises from the left kidney. There is no sonographic evid ence of contour deforming renal mass lesion. No perinephric fluid is identified. Bladder: The bladder is normal in appearance. Bilateral ureteral jets were seen. Upper abdomen: Survey imaging of the liver shows evidence of hepatomegaly and hepatic stenosis. The s pleen is enlarged measuring 14.3 cm in length. IMPRESSION: 1. The kidneys are normal in size and without hydronephrosis. 2. Bilateral nephrolithiasis. 3. The bladder is normal as visualized. 4. Hepatomegaly and hepatic stenosis. 5. Splenomegaly. ACT 112: Negative or not required by law. Electronically signed by: Nir Milton M.D. 05/24/2022 4:07 PM
[2022-05-24 16:25] LABS: Appearance Urine Clear (Clear); Bacteria Urine Automated Negative (Negative); Bilirubin Urine Negative (Negative); Blood Urine 1+ (Negative); Color Urine Yellow; Glucose Urine UA Negative (Negative); Ketones Urine Negative (Negative); Leukocyte Esterase Urine Negative (Negative); Nitrite Urine Negative (Negative); Protein Urine Trace (Negative); RBC Urine Automated 0-4 /hpf (0-4); Specific Gravity Urine 1.009 (1.000-1.030); Urobilinogen Urine Negative (Negative); pH Urine 5.5 (4.5-7.5)
[2022-05-24] MEDS: ESCITALOPRAM OXALATE 10 MG TAB PO SCH (16:34)
[2022-05-24] MEDS: VENLAFAXINE HCL XR 150 MG CAPXR PO SCH (16:34)
[2022-05-24] MEDS: CEFEPIME 1,000 MG in SYRINGE 0 ML IV SCH (20:28)
[2022-05-24] MEDS: GABAPENTIN 100 MG CAP PO SCH (20:28)
[2022-05-24] MEDS: LORazepam 0.5 MG TAB PO SCH (20:29)
[2022-05-24] MEDS: amLODIPine BESYLATE 5 MG TAB PO SCH (20:29)
[2022-05-25] MEDS: SODIUM CHLORIDE 0.9% 1000ML 1,000 ML IV SCH ×2 (01:06→11:24)
[2022-05-25] MEDS: LEVOTHYROXINE SODIUM 112 MCG TABLET PO SCH (05:49)
[2022-05-25] MEDS: PANTOprazole 40 MG TAB PO SCH (05:49)
[2022-05-25] MEDS: PSYLLIUM or GUAR GUM FIBER POWDER PACKET PO SCH (08:18)
[2022-05-25] MEDS: gemfibroziL 600 MG TAB PO SCH (08:18)
[2022-05-25] MEDS: OMEGA-3 (PURIFIED FISH OIL) 1 GM CAP PO SCH (08:18)
[2022-05-25] MEDS: CEFEPIME 1,000 MG in SYRINGE 0 ML IV SCH (08:18)
[2022-05-25] MEDS: ASPIRIN 81 MG ECTAB PO SCH (08:18)
[2022-05-25] MEDS: SACCHAROMYCES BOULARDII 250 MG CAP PO SCH (08:18)
[2022-05-25] MEDS: INSULIN ASPART PER UNIT SC SCH ×2 (08:31→12:47)
--- NOTE | 2022-05-25 09:18 | Hospitalist Progress Note ---
Date of Service May 25, 2022 Assessment & Plan (1) UTI (urinary tract infection): Plan: UTI by symptoms. Pyelonephritis/Prostatitis on CT - Ceftriaxone discontinued 05/23 - Continue Cefepime 1gm BID - Awaiting repeat urine and blood cultures (Initial were negative, though they were taken after 24 hours of abx) - Continue post void bladder scan q shift and to straight cath if >400ml - Nursing advised if >400ml to also notify provider - Consulted urology - check renal U/S (2) Elevated PSA, between 10 and less than 20 ng/ml: Plan: - Urology following and are planning on repeating at follow up appt - Previous PSA level 04/2021 was 3.69 - Possibly acute rise secondary to infection - Possibly the elevated PSA is secondary to testosterone pellets ( follows with urology for hypogonadism - last seen urology 03/2022 and has a f/up appt in June) - Awaiting repeat urine and blood cultures - Currently on Cefepime 2gm IV q 12 (3) Renal lithiasis: Plan: - Seen on CTAP with no hydronephrosis and nonobstructing (4) Acute kidney injury: Plan: - Cr was 1.3 from baseline 1.0. (IV fluids given in ER) - Cr now elevated to 1.9 - Continue IV Fluids - Continue to trend Cr - Check post void bladder scans and will do a straight cath if greater than 400ml and advised to notify provider if had straight cath - HCTZ discontinued secondary to JARAD - Ordered renal U/S (5) Hypertension: Plan: BP stable in the ER and remains stable (133/75) - Continue home amlodipine - Discontinued HCTZ (due to JARAD) (6) Hypothyroidism: Plan: - Continue home levothyroxine 112 mcg daily (7) Diabetes mellitus, type 2: Plan: No HgbA1c in chart. On metformin as outpatient - Sliding scale insulin (8) DVT prophylaxis: Plan: Early ambulation and discharge. FULL CODE - discussed with patient (9) Lewis esophagus: Plan: Continue PPI (10) Anxiety: Plan: - Continue Lexapro and effexor - Continue Ativan 0.5 mg q hs - Added prn Ativan 0.5 mg one q 8 hours as needed for anxiety (11) Pressure in chest: Plan: - Resolved, patient felt was anxiety and also some intestinal gas that resolved with simethicone and a BM - EKG with sinus tach - Troponin normal 17.9 - No further chest pain, pressure, dyspnea or SOB Plan Discussed patient with Dr Palmer who assisted in the plan and management of this patient. Admission and Anticipated Discharge Date Admission Date: May 22, 2022 Subjective Patient seen today in rounds he is awake in bed in NAD. He states he is feeling well Review of Systems Constitutional: no fever, no chills, no anorexia, no weight loss and no increased appetite Respiratory: no cough, no chest congestion, no dyspnea and no pain on inspiration Cardiovascular: no chest pain, no dyspnea and no calf pain Gastrointestinal: + abdominal pain and + nausea; no vomiting, no change in stools, no constipation, no fecal incontinence and no melena Genitourinary: no dysuria, no difficulty urinating, no urinary hesitancy, no urinary incontinence, no post-void dribbling, no decreased urination, no hematuria, no flank pain, no scrotal swelling, no testicle pain, no penile discharge or no urinary urgency Integumentary: no rash, no lesions and no unusual bruising Psychiatric: + depression and + anxiety; no change in appetite and no panic attacks Physical Exam Constitutional: WD/WN, vitals as above ENMT: external ear and nose normal, oropharynx normal Neck: trachea midline, no thyromegaly Respiratory: normal respiratory effort, lungs clear to auscultation Cardiovascular: RRR, no murmur, no edema Gastrointestinal (Abdomen): normal bowel sounds, soft, nontender, no hepatosplenomegaly Skin: no rashes, warm and dry Psychiatric: A+Ox3, euthymic affect Results & Data Results & Data ([facility]) Vital Signs (Past 12 Hours) Vital Signs Temp Pulse Resp BP Pulse Ox O2 Del Method 05/25/22 08:03 36.6 C 70 17 147/79 H 94 Room Air PG Care Time/CCT Total # of Minutes Spent Total Time Spent with Patient: Total time spent is greater than 50% in coordination of care (as documented) at patient's floor/unit and/or counseling patient: Coding Diagnoses UTI (urinary tract infection) N39.0 Elevated PSA, between 10 and less than 20 ng/ml R97.20 Renal lithiasis N20.0 Acute kidney injury N17.9 Hypertension I10 Hypothyroidism E03.9 Diabetes mellitus, type 2 E11.9 DVT prophylaxis Z29.9 Lewis esophagus K22.70 Anxiety F41.9 Pressure in chest R07.89
[2022-05-25 09:21] LABS: BUN Creatinine Ratio 16.1 (10-20); Calcium 8.6 mg/dl (8.5-10.1); Creatinine Clr Calc Pharmacy 52.5 ml/min; Est GFR (African American) 55.5 ml/min; Est GFR (Non-African American) 47.9 ml/min; Magnesium 1.8 mg/dl (1.7-2.4); Potassium 3.3 mmol/L (3.5-5.1)
[2022-05-25 10:05] LABS: Hemoglobin 13.5 g/dl (14.0-18.0); Mean Corpuscular Hemoglobin 32.1 pg (25.0-34.0); Mean Corpuscular Hgb Conc 36.5 g/dL (32.0-36.0); Mean Corpuscular Volume 88.1 fL (80.0-100.0); Mean Platelet Volume 10.3 fL (9.4-12.4); Platelet Count 235 K/uL (130-400); RDW Coefficient of Variation 12.5 % (11.5-14.5); RDW Standard Deviation 40.3 fL (36.4-46.3)
--- NOTE | 2022-05-25 10:58 | Urology Progress Note ---
Date of Service May 25, 2022 Assessment & Plan (1) UTI (urinary tract infection): (2) Elevated PSA: (3) Acute pyelonephritis: Plan: 76yo M admitted with UTI/Pyelo, possible prostatitis. CT a/p with evidence of cystitis with bilateral ascending urinary tract infection/pyelonephritis, markedly enlarged prostate with patchy enhancement possible prostatitis and bilateral nonobstructing nephrolithiasis. - Afebrile and hemodynamically stable. - Subjectively doing well. - Labs reviewed- WBC 7.40, creatinine trending down today (1.43). Continue to trend. - CT A/P without evidence of obstructive renal failure. Consider nephrology consult if his creatinine does not continue to improve. - Elevated PSA- 17.8, likely due to infection/prostatitis. - Urine culture 05/21 negative, repeat on 05/23 is prelim no growth. - Blood cultures no growth x 48 hr, repeat no growth x 24 hours. (Initial were taken after 24 hours of abx per chart review). - IV antibiotics changed from ceftriaxone to cefepime, follow cultures. - Voiding spontaneously, continue to monitor. Bladder scan prn. - Recommend continuing supportive care and antibiotic therapy. - We will arrange outpatient follow-up with our service in 2-3 weeks for cystoscopy. - Will obtain renal ultrasound and repeat PSA prior to appt, pt agreeable to plan. - Urology will sign off. Please contact us with any further questions or concerns. Admission and Anticipated Discharge Date Admission Date: May 22, 2022 Subjective Patient seen and examined at bedside this AM. He is awake and resting in bed, appears comfortable. No acute issues overnight. Subjectively doing well. No pain at present. He is voiding without difficulty. No dysuria or hematuria. No nausea or vomiting. No fever or chills. Review of Systems Constitutional: as per Subjective / HPI Gastrointestinal: as per Subjective / HPI Genitourinary: + as per Subjective / HPI Physical Exam Constitutional: well developed and well nourished; no acute distress Respiratory: normal respiratory effort; no respiratory distress and no labored breathing Cardiovascular: Extremities: no pedal edema Gastrointestinal (Abdomen): Inspection/Auscultation: abdomen normal to inspection; abdomen not distended Musculoskeletal: Head/Neck/Chest: normocephalic and head atraumatic Neurologic: moves all extremities and awake Psychiatric: Orientation: alert and oriented x 3 Results & Data ([facility]) Vital Signs (Past 12 Hours) Vital Signs Temp Pulse Resp BP Pulse Ox O2 Del Method 05/25/22 08:03 36.6 C 70 17 147/79 H 94 Room Air PG Care Time/CCT Total # of Minutes Spent Total Time Spent with Patient: Total time spent is greater than 50% in coordination of care (as documented) at patient's floor/unit and/or counseling patient: Coding Level of Care Code 35123 Subseq Hosp Care Lvl 2 Diagnoses UTI (urinary tract infection) N39.0 Elevated PSA R97.20 Acute pyelonephritis N10
--- NOTE | 2022-05-25 14:50 | Discharge Summary ---
Date of Service May 25, 2022 Admission HPI Per Admitting Provider 76yo M w/ hx of HTN who presents with UTI. The patient notes that he started not feeling well night into Monday morning. He notes fevers up to 102 degrees. About that same time he also had acute onset dysuria as well as urinary urgency/incontinence. On Monday he went to urgent care. For an unknown reason, he was diagnosed with diverticulitis and started on Cipro and Flagyl. He reports he has taken Cipro in the past without any issues, but this time the Flagyl caused significant GI issues. Throughout the day today he has continued to feel unwell and had a fever up to 103 degrees. He presents to the ER with continued symptoms. He denies any prior episodes of UTI, or any prostate issues. In the ER, CT abdomen pelvis indicated possible pyelonephritis, and the patient was called for admission. Principal Diagnosis pyelonephritis Discharge Exam Constitutional: WD/WN, vitals as above ENMT: external ear and nose normal, oropharynx normal Neck: trachea midline, no thyromegaly Respiratory: normal respiratory effort, lungs clear to auscultation Cardiovascular: RRR, no murmur, no edema Gastrointestinal (Abdomen): normal bowel sounds, soft, nontender, no hepatosplenomegaly Skin: no rashes, warm and dry Psychiatric: A+Ox3, euthymic affect Discharge Data Allergies Allergy/AdvReac Type Severity Reaction Status Date / Time Penicillins Allergy Intermediate RASH, Verified 05/21/22 22:13 "VERY ILL" Sulfa (Sulfonamide Allergy Mild RASH Verified 05/21/22 22:13 Antibiotics) YORDY Inhibitors AdvReac Intermediate Cough Verified 05/21/22 22:13 atorvastatin AdvReac Intermediate muscle Verified 05/21/22 22:13 cramps Consultations 05/22/22 01:11 ED Decision to Admit Stat 05/23/22 18:05 Consult Urology Routine Ordered Studies 05/21/22 21:32 CT abd pelvis IV con only Urgent 05/24/22 14:43 US Kidney Bladder [US renal/blad retro comp] Routine Hospital Course (1) UTI (urinary tract infection): UTI by symptoms.Pyelonephritis/Prostatitis on CT - Ceftriaxone discontinued 05/23 - Cefepime 1gm BID started 05/23 - repeat urine and blood cultures continue to be negative (Initial were negative, though they were taken after 24 hours of abx) - Post void bladder scans q shift were normal and patient never needed a straight cath - Nursing advised if >400ml to also notify provider - Consulted urology, who have a plan in place for out patient follow up - Renal U/S revealed normal kidneys and renal lithiasis with no hydronephrosis or obstruction (2) Elevated PSA, between 10 and less than 20 ng/ml: - Urology following and are planning on repeating at follow up appt - Previous PSA level 04/2021 was 3.69 - Possibly acute rise secondary to infection - Possibly the elevated PSA is secondary to testosterone pellets ( follows with urology for hypogonadism - last seen urology 03/2022 and has a f/up appt in June) - Currently on Cefepime 2gm IV q 12 - Will discharge patient on Cefdinir 300mg BID for 10 days (3) Renal lithiasis: Seen on CT imaging and U/S with no obstruction and no hydronephrosis (4) Acute kidney injury: - Cr was 1.3 from baseline 1.0. (IV fluids given in ER) - Cr improving now to 1.43 - Patient to follow up with PCP for labs in 1 week - HCTZ was discontinued secondary to JARAD (5) Hypertension: BP stable in the ER and remains stable (133/75) - Continue home amlodipine - Discontinued HCTZ (due to JARAD) (6) Hypothyroidism: - Continue home levothyroxine 112 mcg daily (7) Diabetes mellitus, type 2: No HgbA1c in chart. On metformin as outpatient - Sliding scale insulin (8) DVT prophylaxis: Early ambulation and discharge. FULL CODE - discussed with patient (9) Lewis esophagus: Continue PPI (10) Anxiety: Continue home medications of Lexapro and Effexor and qhs Ativan (11) Pressure in chest: Normal troponin, EKG and resolved with simethicone and ativan Total Time Total Time Spent Total Time Spent (In Minutes): 40 Discharge Plan Discharge Items Patient Disposition: Home - Self-Care Reason For Visit: UTI Discharge Diagnosis: complicated uti Condition on Discharge: Good Activity: Resume your previous activity Lifting: Gradually increase as tolerated Driving/Machine Use: Resume 1 day after discharge Weightbearing: Full weightbearing Non-emergency contact: Primary Care Provider Call non-emergency contact if: you have any medication questions, your symptoms worsen and your temperature is above 101.5 Follow-up/Referrals: Kiesha Stephenson [Primary Care Provider] - 06/06/22 4:05 pm Diet: Carb Consistent or DM2 and Heart Healthy Addtl Attending Provider Instructions: You were admitted with a complicated urinary tract infection and had a CT that revealed an enlarged prostate and possible infection in prostate and/or infection into the kidney (pyelonephritis) Urology evaluated you and have plans in place to follow up with you in 2-3 weeks for cystoscopy. - Will obtain renal ultrasound and repeat PSA (blood work) prior to appointment You should also try and drink plenty of fluids and get adequate rest. You should also follow up with your primary care physician in 1-2 weeks. You will be given a rx upon discharge for Cefdinir 300mg one pill 2 times daily for a total of 10 days. Pending Studies at Discharge: No Stand-Alone Forms: [facility] Medications and DC Order Prescriptions: New cefdinir 300 mg capsule 300 mg PO BID 10 Days Qty: 20 0RF Continued escitalopram oxalate 5 mg tablet 5 mg PO QDD venlafaxine 150 mg capsule,extended release 24hr 150 mg PO QDD omega-3 acid ethyl esters 1 gram capsule 1 g PO QAM Saccharomyces boulardii 250 mg capsule 250 mg PO QAM fluticasone propionate 50 mcg/actuation spray,suspension 2 spray INTNAS QAM multivitamin [Daily Multi-Vitamin] Tablet 1 tab PO QDD fluocinonide 0.05 % cream 1 applic TOP UD PRN (Reason: Rash) esomeprazole magnesium 40 mg capsule,delayed release(DR/EC) 40 mg PO BID lorazepam 0.5 mg tablet 0.5 mg PO HS gemfibrozil 600 mg tablet 600 mg PO BID gabapentin 100 mg capsule 200 mg PO HS Qty: 30 5RF amlodipine 10 mg tablet 10 mg PO HS Label Comments: at HS aspirin 81 mg Tablet,Delayed Release (Dr/Ec) 81 mg PO QAM hydrochlorothiazide 12.5 mg capsule 12.5 mg PO QAM levothyroxine [Synthroid] 112 mcg tablet 112 mcg PO DAILYBB testosterone 100 mg Pellet 100 mg SUBCUT Q3M metformin 500 mg Tablet 1,000 mg PO QDD tadalafil 5 mg tablet 20 mg PO DAILY PRN (Reason: sexual activity) Discharge Orders: Discharge Order (Routine); Ordered 05/25/22 Ordered By: Shantell Diehl/Other Patient Handouts: Bacterial Prostatitis, PSA Test, Urinary Tract Infections in Men, Pyelonephritis Ch Admission Data Admit Date/Time: 05/22/22 01:28 Attending Provider: Raúl Palmer Admit Provider: Rick Hodgson Primary Care Provider: Kiesha Stephenson Other Providers: Lionel Thurman ; Ron Ramos Other Interventions: Discharge Summary Assessment (RN) Last Done: 05/25/22 15:19 Supervising Physician Co-Signing Physician Notes Patient seen and examined at bedside. During face to face encounter, I obtained a history of hospital stay and physical exam. I discussed plan of care with SHANON Patrick and patient. Patient will be discharged on antibiotics for UTI. I reviewed above note and agree with it. Coding Level of Care Code D/C DAY MANAGEMENT >30 MINS Diagnoses UTI (urinary tract infection) N39.0 Elevated PSA, between 10 and less than 20 ng/ml R97.20 Renal lithiasis N20.0 Acute kidney injury N17.9 Hypertension I10 Hypothyroidism E03.9 Diabetes mellitus, type 2 E11.9 DVT prophylaxis Z29.9 Lewis esophagus K22.70 Anxiety F41.9 Pressure in chest R07.89 Time Spent (min) 40
--- NOTE | 2022-05-25 21:20 | Electrocardiogram Report ---
Test Reason : Blood Pressure : / mmHG Vent. Rate : 103 BPM Atrial Rate : 103 BPM P-R Int : 170 ms QRS Dur : 098 ms QT Int : 336 ms P-R-T Axes : 053 051 056 degrees QTc Int : 440 ms Sinus tachycardia Otherwise normal ECG When compared with ECG of 30-OCT-2020 09:46, Premature ventricular complexes are no longer Present Confirmed by Winston Bang ([id number]) on 05/25/2022 9:20:04 PM Referred By: REFERRED SELF Confirmed By:Winston Bang
--- NOTE | 2022-05-30 17:43 | Coding Query ---
To promote full compliance with coding requirements relating to patient care, provider participation is requested in all cases of test carrier uncertainty. Please assist us with the question(s) below: Coding Question(s): The diagnosis below was documented in the Progress Note by the supervising physician with, "A/[id number]old male here with acute pyelonephritis and prostatitis with sepsis, POA", then subsequently fell off all further documentation. Please indicate if it is still a possible diagnosis or ruled out. Physician's Response(s): SEPSIS - (the 05/23 Progress Note has documentation by supervising physician of, "A/A-82-beha-old male here with acute pyelonephritis and prostatitis with sepsis, POA", but there is no other documentation) ( x ) Diagnosed and POA ( ) Diagnosed and not POA ( ) Ruled out ( ) Other (please specify) MTDD
== END 2022-05-25 16:25 | disposition home or self-care (01) | DRG 872 ==
LOC: ED 21:11 → SUATTDRO 05-22 01:28 → 3E 05-22 01:28

== ENCOUNTER 2022-09-17 22:33 | Inpatient (IN) ==
[2022-09-17] MEDS ORDERED: SODIUM CHLORIDE 0.9% 500 ML IV ONE (22:37)
[2022-09-17] MEDS ORDERED: FAMOTIDINE 20MG IV PUSH 20 MG/5 ML SYR IV STA (22:41)
[2022-09-17] MEDS ORDERED: ACETAMINOPHEN 1,000 MG/100 ML VIAL IV STA (22:41)
[2022-09-17] MEDS ORDERED: ONDANSETRON INJ 2 MG/ML 2 ML VIAL IV STA (22:41)
[2022-09-17 23:08] LABS: Appearance Urine Clear (Clear); Bacteria Urine Automated Negative (Negative); Bilirubin Urine Negative (Negative); Blood Urine Trace (Negative); Cast Urine Automated 0 /lpf (0-5); Color Urine Yellow; Glucose Urine UA 2+ (Negative); Ketones Urine Negative (Negative); Leukocyte Esterase Urine 1+ (Negative); Nitrite Urine Negative (Negative); Protein Urine Negative (Negative); RBC Urine Automated 0-4 /hpf (0-4); Specific Gravity Urine 1.009 (1.000-1.030); Urobilinogen Urine Negative (Negative); WBC Urine Automated >30 /hpf (0-5); pH Urine 7.5 (4.5-7.5)
[2022-09-17 23:09] LABS: iSTAT Creatinine 1.2 mg/dl (0.6-1.3); iSTAT Hemoglobin 14.3 g/dl (14.0-18.0); iSTAT Ionized Calcium 1.22 mmol/l (1.12-1.32); iSTAT Potassium 3.6 mmol/L (3.3-5.0)
[2022-09-17 23:12] LABS: Basophils # (auto) 0.06 K/uL (0-0.2); Basophils % (auto) 0.5 %; Eosinophils % (auto) 0.8 %; Hematocrit (blood only) 41.6 % (42.0-52.0); Hemoglobin 15.2 g/dl (14.0-18.0); Immature Granulocytes # (auto) 0.04 K/uL (0.01-0.20); Immature Granulocytes % (auto) 0.3 %; Lymphocytes % (auto) 5.8 %; Mean Corpuscular Hemoglobin 33.1 pg (25.0-34.0); Mean Corpuscular Hgb Conc 36.5 g/dL (32.0-36.0); Mean Corpuscular Volume 90.6 fL (80.0-100.0); Mean Platelet Volume 10.3 fL (9.4-12.4); Monocytes # (auto) 0.57 K/uL (0.11-0.59); Monocytes % (auto) 4.7 %; Neutrophils # (auto) 10.59 K/uL (1.40-6.50); Neutrophils % (auto) 87.9 %; Platelet Count 276 K/uL (130-400); RDW Coefficient of Variation 13.1 % (11.5-14.5); RDW Standard Deviation 42.8 fL (36.4-46.3); Red Blood Count 4.59 M/uL (4.70-6.10); White Blood Count 12.06 K/ul (4.8-10.8)
[2022-09-17] MEDS ORDERED: OPTIRAY 350 100ml IV ONE (23:14)
[2022-09-17 23:31] LABS: Albumin Globulin Ratio 1.4 (0.9-2); Albumin Level 5.1 gm/dl (3.4-5.0); BUN Creatinine Ratio 19.7 (10-20); Bilirubin Direct 0.1 mg/dl (0-0.2); Bilirubin,Total 0.6 mg/dl (0.2-1.0); Calcium 10.4 mg/dl (8.5-10.1); Creatinine Clr Calc Pharmacy 58.3 ml/min; Est GFR (African American) 64.1 ml/min; Est GFR (Non-African American) 55.3 ml/min; Globulin 3.7 gm/dl (2.5-4.0); Potassium 3.3 mmol/L (3.5-5.1); Total Protein 8.8 gm/dl (6.0-8.3)
--- NOTE | 2022-09-18 00:01 | CT Scan Report ---
Exam(s): CT ABDOMEN + PELVIS With Contrast IV Amt: 90ml EXAM: CT Abdomen and Pelvis With Intravenous Contrast CLINICAL HISTORY: Reason for exam: LLQ abd pain, n/v. TECHNIQUE: Axial computed tomography images of the abdomen and pelvis with intravenous contrast. CTDI is 12.26 mGy and DLP is 700.09 mGy-cm. Automated exposure control was utilized for the study. A dose lowering technique was utilized adhering to the principles of ALARA. CONTRAST: Patient received 90ml of IV contrast COMPARISON: 05/21/22 FINDINGS: Lung bases: Unremarkable. No mass. No consolidation. ABDOMEN: Liver: Unremarkable. No mass. Gallbladder and bile ducts: Unremarkable. No calcified stones. No ductal dilation. Pancreas: Unremarkable. No mass. No ductal dilation. Spleen: Unremarkable. No splenomegaly. Adrenals: Unremarkable. No mass. Kidneys and ureters: There is moderate left hydroureteronephrosis related to an 8 mm calculus in the proximal ureter (image 43 series 2). There is an additional nonobstructing left lower pole intrarenal calculus. There is an obstructive nephropathy of the left kidney. There is a large benign-appearing left renal cyst for which imaging follow-up is unnecessary. Stomach and bowel: There is scattered colonic diverticula without CT evidence for active diverticulitis. No obstruction. PELVIS: Appendix: No findings to suggest acute appendicitis. Bladder: Unremarkable. No mass. Reproductive: Unremarkable as visualized. ABDOMEN and PELVIS: Intraperitoneal space: Unremarkable. No free air. No significant fluid collection. Bones/joints: There are degenerative changes of the thoracolumbar spine. No acute fracture. No dislocation. Soft tissues: Unremarkable. Vasculature: There is diffuse atherosclerotic calcification of the aorta and its major branch vessels. No abdominal aortic aneurysm. Lymph nodes: Unremarkable. No enlarged lymph nodes. IMPRESSION: Moderate left hydroureteronephrosis related to an 8 mm obstructing proximal ureteral calculus with associated obstructive nephropathy. Electronically signed by: Jarod Vidal MD 09/18/22 00:01 AM
[2022-09-18] MEDS ORDERED: MoRPHine SULFATE 2 MG/ML CARP IV STA (00:04)
[2022-09-18] MEDS ORDERED: KETOROLAC TROMETHAMINE 15 MG/ML VIAL IV STA (00:04)
[2022-09-18] MEDS ORDERED: cefTRIAXone SODIUM 2,000 MG/70 ML BAG IV STA (00:35)
[2022-09-18] MEDS: SODIUM CHLORIDE 0.9% 1000ML 1,000 ML IV SCH ×3 (00:59→19:46)
--- NOTE | 2022-09-18 01:14 | History & Physical Report ---
Date of Service September 18, 2022 Assessment & Plan (1) Hydronephrosis due to obstruction of ureter: (2) Calculus of proximal left ureter: (3) Prostate cancer: (4) Periodic limb movement disorder (PLMD): (5) Hiatal hernia: (6) Essential tremor: (7) Leonard's esophagus: (8) Depression: (9) Hypercholesteremia: (10) Hypertension: (11) Hypothyroidism: Plan 8 mm obstructing proximal left ureteral calculus/moderate left hydroureteronephrosis- N.p.o. after midnight Acetaminophen 650 mg p.o. every 6 hours as needed for mild pain or fever Morphine sulfate 4 mg IV every 3 hours as needed moderate pain Dilaudid 0.5 mg IV every 3 hours as needed for severe pain Zofran 4 mg IV every 6 hours as needed Famotidine 20 mg IV every 12 hours NSS + KCl 20 mEq at 80 mils per hour Ceftriaxone 2 g IV every 24 hours Follow urine culture and sensitivity Consult to urology Hypertension- Hold HCTZ, aspirin and amlodipine Give Lopressor 5 mg IV x1 now and metoprolol tartrate 50 mg p.o. now Metoprolol tartrate 50 mg p.o. twice daily Diabetes mellitus- Hold metformin Placed on Accu-Cheks with NovoLog SSI GERD- Continue Nexium/pantoprazole 40 mg p.o. twice daily Hyperlipidemia- Hold gemfibrozil Hypothyroidism- Continue levothyroxine Anxiety/depression/insomnia- Continue gabapentin, Lexapro, venlafaxine and lorazepam History of Present Illness Chief Complaint: The patient presents to the emergency department with complaint of cute onset of left lower quadrant and flank pain accompanied by nausea and vomiting that began shortly after eating dinner this evening Primary Care Provider: Kiesha Stephenson The patient is a 76-year-old male with a past medical history including recently diagnosed prostate cancer, fibula fracture, testicular dysfunction, PLMD, internal hemorrhoids, hiatal hernia, hearing loss, essential tremor, diverticulitis, benign familial tremor, erectile dysfunction, diabetes mellitus type 2, Leonard's esophagus, depression, GERD, hypercholesterolemia, hypertension and hypothyroidism. He presents to the emergency department with acute onset of left lower quadrant and left flank pain along with nausea and vomiting shortly after dinner this evening. He has noticed a few episodes of all over body shakes, and had an episode in the ED during my visit, which appeared to be rigors Significant laboratories: WBC 12.06, hemoglobin 15.2, hematocrit 41.6, potassium 3.3, glucose 274, creatinine 1.27, calcium 10.4, albumin 5.1 CT scan abdomen pelvis shows an 8 mm proximal left obstructing ureteral calculus with moderate left hydroureteronephrosis Allergies Allergy/AdvReac Type Severity Reaction Status Date / Time Penicillins Allergy Intermediate RASH, Verified 09/17/22 23:20 "VERY ILL" Sulfa (Sulfonamide Allergy Mild RASH Verified 09/17/22 23:20 Antibiotics) YORDY Inhibitors AdvReac Intermediate Cough Verified 09/17/22 23:20 atorvastatin AdvReac Intermediate muscle Verified 09/17/22 23:20 cramps Home Medications Medication Instructions Recorded Confirmed Type Saccharomyces boulardii 250 mg 250 mg PO QAM 07/26/19 09/17/22 History capsule esomeprazole magnesium 40 mg 40 mg PO BID LEONARD'S ESOPHAGUS 07/26/19 09/17/22 History capsule,delayed release (Nexium) fluocinonide 0.05 % topical cream 1 applic topical UD PRN Rash 07/26/19 09/17/22 History fluticasone propionate 50 2 spray intranasal QAM 07/26/19 09/17/22 History mcg/actuation nasal spray,suspension gemfibrozil 600 mg tablet (Lopid) 600 mg PO BID 07/26/19 09/17/22 History lorazepam 0.5 mg tablet 0.5 mg PO HS 07/26/19 09/17/22 History multivitamin (Daily Multi-Vitamin 1 tab PO QDD 07/26/19 09/17/22 History tablet) omega-3 acid ethyl esters 1 gram 1 g PO QAM 07/26/19 09/17/22 History capsule venlafaxine 150 mg 150 mg PO QDD 07/26/19 09/17/22 History capsule,extended release 24 hr (Effexor XR) gabapentin 100 mg capsule 200 mg PO HS #30 caps 07/31/19 09/17/22 Rx escitalopram oxalate 5 mg tablet 5 mg PO QDD 11/26/19 09/17/22 History (Lexapro) amlodipine 10 mg tablet 10 mg PO HS 12/11/19 09/17/22 History aspirin 81 mg tablet,delayed 81 mg PO QAM 10/30/20 09/17/22 History release hydrochlorothiazide 12.5 mg capsule 12.5 mg PO QAM 10/30/20 09/17/22 History levothyroxine 112 mcg tablet 112 mcg PO DAILYBB 10/30/20 09/17/22 History (Synthroid) testosterone 100 mg implant pellet 100 mg subcut Q3M 10/30/20 09/17/22 History metformin 500 mg tablet,extended 1,000 mg PO BID 09/17/22 09/17/22 History release 24 hr Past Med/Surg History Medical History Anxiety Leonard's esophagus Chronic allergic rhinitis Depression Diabetes mellitus, type 2 NIDDM Essential tremor H/O esophageal reflux 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 Hypercholesteremia Hypertension Hypothyroidism Surgical History H/O blepharoplasty bilt History of bilateral inguinal hernia repair History of cataract surgery bilt History of colonoscopy History of esophagogastroduodenoscopy (EGD) History of squamous cell carcinoma excision History of surgery prior to blepharoplasty removed 1/2 off forehead to raise for blepharoplasty History of tonsillectomy and adenoidectomy History of tooth extraction Hx of cholecystectomy Family History Father Coronary arteriosclerosis Mother Colorectal cancer Other No family history of adverse response to anesthesia Social History Smoking Status: Never smoker Second Hand Exposure: No; Hx Alcohol Use: No Hx Substance Use: No Preferred Language: [place] Communication Ability: Effective Discovery Guide Required: No Beliefs That Will Affect Care: None Current Living Situation: Spouse Feels Safe at Home: Yes Assistive Devices: Glasses Review of Systems Review of Systems: The patient denies chest pain, palpitations, shortness of breath, dyspnea on exertion, cough, lower extremity swelling, sore throat, fevers, chills, sweats, blood in urine or stool, dysuria, urinary frequency or urgency, lightheadedness, dizziness, headache, memory loss, loss of consciousness, rash, abnormal bruising or bleeding, imbalance, focal or generalized weakness, numbness or tingling in arms or legs, generalized arthralgias or myalgias, back or neck pain, or night sweats. The review of systems is otherwise negative other than for that already noted above, and at least 10 systems have been reviewed. Physical Exam Physical Exam: The patient is awake, alert and oriented 3, well developed and well nourished, normocephalic and atraumatic, lying in bed and in no acute distress. HEENT--PERRL, EOMI, mucous membranes and oropharynx dry. Neck--supple. No JVD. No bruits. Thyroid normal, trachea midline, no adenopathy. Heart--normal S1 and S2. No murmurs, rubs or gallops. Lungs--clear bilaterally, no respiratory distress, no accessory muscle use. Abdomen--normal bowel sounds and soft. Nontender. Nondistended Extremities--no cyanosis or clubbing. No edema. Dermatologic--normal skin turgor, normal color, no abnormal lymph nodes, no rash. Neurologic--cranial nerves II through XII grossly intact. Rheumatologic--normal range of motion. Psychiatric--normal affect. Results & Data Results & Data Vital Signs (Past 12 Hours) Vital Signs Temp Pulse Resp BP BP Pulse Ox O2 Del Method 09/17/22 23:20 111 H 09/17/22 23:30 20 152/115 H 97 Room Air 09/17/22 22:37 109 H 98 Room Air 09/17/22 22:16 37 C 109 H 20 200/142 H 96 Room Air Laboratory Results Laboratory Results WBC 12.06 K/ul (4.8-10.8) H 09/17/22 22:55 RBC 4.59 M/uL (4.70-6.10) L 09/17/22 22:55 Hgb 15.2 g/dl (14.0-18.0) 09/17/22 22:55 POC Hgb 14.3 g/dl (14.0-18.0) 09/17/22 22:55 Hct 41.6 % (42.0-52.0) L 09/17/22 22:55 POC Hct 42 % (42-52) 09/17/22 22:55 MCV 90.6 fL (80.0-100.0) 09/17/22 22:55 MCH 33.1 pg (25.0-34.0) 09/17/22 22:55 MCHC 36.5 g/dL (32.0-36.0) H 09/17/22 22:55 RDW Std Deviation 42.8 fL (36.4-46.3) 09/17/22 22: RDW Coeff of Vicente 13.1 % (11.5-14.5) 09/17/22 22: Plt Count 276 K/uL (130-400) 09/17/22 22: MPV 10.3 fL (9.4-12.4) 09/17/22 22: Immature Gran % (Auto) 0.3 % 09/17/22 22:55 Neut % (Auto) 87.9 % 09/17/22 22:55 Lymph % (Auto) 5.8 % 09/17/22 22: [place] % (Auto) 4.7 % 09/17/22 22: Eos % (Auto) 0.8 % 09/17/22 22:55 Baso % (Auto) 0.5 % 09/17/22 22: Neut # (Auto) 10.59 K/uL (1.40-6.50) H 09/17/22 22:55 Lymph # (Auto) 0.70 K/uL (1.2-3.4) L 09/17/22 22:55 [place] # (Auto) 0.57 K/uL (0.11-0.59) 09/17/22 22:55 Eos # (Auto) 0.10 K/uL (0-0.50) 09/17/22 22: Baso # (Auto) 0.06 K/uL (0-0.2) 09/17/22 22:55 Immature Gran # (Auto) 0.04 K/uL (0.01-0.20) 09/17/22 22: POC Sodium 139 mmol/L (135-144) 09/17/22 22: Sodium 137 mmol/L (136-145) 09/17/22 22: POC Potassium 3.6 mmol/L (3.3-5.0) 09/17/22 22:55 Potassium 3.3 mmol/L (3.5-5.1) L 09/17/22 22: POC Chloride 96 mmol/L (101-112) L 03/18/23 22:55 Chloride 97 mmol/L (98-107) L 09/17/22 22:55 Carbon Dioxide 29 mmol/L (21-32) 09/17/22 22:55 POC Total CO2 26 mmol/L (24-31) 09/17/22 22:55 Anion Gap 11 (3-11) 09/17/22 22:55 POC Anion Gap 21.0 mmol/L (16-25) 09/17/22 22:55 POC BUN 25 mg/dl (7-18) H 09/17/22 22:55 BUN 25 mg/dl (6-23) H 09/17/22 22:55 Creatinine 1.27 mg/dl (0.6-1.4) 09/17/22 22:55 POC Creatinine 1.2 mg/dl (0.6-1.3) 09/17/22 22:55 Est Cr Clr Drug Dosing 58.3 ml/min 09/17/22 22:55 Est GFR ( Amer) 64.1 ml/min 09/17/22 22:55 Est GFR (Non-Af Amer) 55.3 ml/min 09/17/22 22:55 BUN/Creatinine Ratio 19.7 (10-20) 09/17/22 22:55 Glucose 274 mg/dl (70-99(Fasting)) H 09/17/22 22:55 POC Glucose (other) 279 mg/dl (70-99) H 09/17/22 22:55 Calcium 10.4 mg/dl (8.5-10.1) H 09/17/22 22:55 POC Ioniz Calcium Therese 1.22 mmol/l (1.12-1.32) 09/17/22 22:55 Total Bilirubin 0.6 mg/dl (0.2-1.0) 09/17/22 22:55 Direct Bilirubin 0.1 mg/dl (0-0.2) 09/17/22 22:55 AST 26 U/L (13-39) 09/17/22 22:55 ALT 24 U/L (7-52) 09/17/22 22:55 Alkaline Phosphatase 120 U/L (34-104) H 09/17/22 22:55 Total Protein 8.8 gm/dl (6.0-8.3) H 09/17/22 22:55 Albumin 5.1 gm/dl (3.4-5.0) H 09/17/22 22:55 Globulin 3.7 gm/dl (2.5-4.0) 09/17/22 22:55 Albumin/Globulin Ratio 1.4 (0.9-2) 09/17/22 22:55 Lipase 22 U/L (11-82) 09/17/22 22:55 Urine Color Yellow 09/17/22 22:40 Urine Appearance Clear (Clear) 09/17/22 22:40 Urine pH 7.5 (4.5-7.5) 09/17/22 22:40 Ur Specific [place] 1.009 (1.000-1.030) 09/17/22 22:40 Urine Protein Negative (Negative) 09/17/22 22:40 Urine Glucose (UA) 2+ (Negative) H 09/17/22 22:40 Urine Ketones Negative (Negative) 09/17/22 22:40 Urine Blood Trace (Negative) H 09/17/22 22:40 Urine Nitrite Negative (Negative) 09/17/22 22:40 Urine Bilirubin Negative (Negative) 09/17/22 22:40 Urine Urobilinogen Negative (Negative) 09/17/22 22:40 Ur Leukocyte Esterase 1+ (Negative) H 09/17/22 22:40 Urine WBC (Auto) >30 /hpf (0-5) H 09/17/22 22:40 Urine RBC (Auto) 0-4 /hpf (0-4) 09/17/22 22:40 U Hyaline Cast (Auto) 0 /lpf (0-5) 09/17/22 22:40 U Epithel Cells (Auto) 5-10 /lpf (0-5) H 09/17/22 22:40 Urine Bacteria (Auto) Negative (Negative) 09/17/22 22:40 SARS-CoV-2, RNA, NAAT NEGATIVE (NEGATIVE) 09/18/22 01:08 Impressions Abdomen/Pelvis CT 09/17/22 22:41 Exam(s): CT ABDOMEN + PELVIS With Contrast IV Amt: 90ml EXAM: CT Abdomen and Pelvis With Intravenous Contrast CLINICAL HISTORY: Reason for exam: LLQ abd pain, n/v. TECHNIQUE: Axial computed tomography images of the abdomen and pelvis with intravenous contrast. CTDI is 12.26 mGy and DLP is 700.09 mGy-cm. Automated exposure control was utilized for the study. A dose lowering technique was utilized adhering to the principles of ALARA. CONTRAST: Patient received 90ml of IV contrast COMPARISON: 05/21/22 FINDINGS: Lung bases: Unremarkable. No mass. No consolidation. ABDOMEN: Liver: Unremarkable. No mass. Gallbladder and bile ducts: Unremarkable. No calcified stones. No ductal dilation. Pancreas: Unremarkable. No mass. No ductal dilation. Spleen: Unremarkable. No splenomegaly. Adrenals: Unremarkable. No mass. Kidneys and ureters: There is moderate left hydroureteronephrosis related to an 8 mm calculus in the proximal ureter (image 43 series 2). There is an additional nonobstructing left lower pole intrarenal calculus. There is an obstructive nephropathy of the left kidney. There is a large benign-appearing left renal cyst for which imaging follow-up is unnecessary. Stomach and bowel: There is scattered colonic diverticula without CT evidence for active diverticulitis. No obstruction. PELVIS: Appendix: No findings to suggest acute appendicitis. Bladder: Unremarkable. No mass. Reproductive: Unremarkable as visualized. ABDOMEN and PELVIS: Intraperitoneal space: Unremarkable. No free air. No significant fluid collection. Bones/joints: There are degenerative changes of the thoracolumbar spine. No acute fracture. No dislocation. Soft tissues: Unremarkable. Vasculature: There is diffuse atherosclerotic calcification of the aorta and its major branch vessels. No abdominal aortic aneurysm. Lymph nodes: Unremarkable. No enlarged lymph nodes. IMPRESSION: Moderate left hydroureteronephrosis related to an 8 mm obstructing proximal ureteral calculus with associated obstructive nephropathy. Electronically signed by: Jarod Vidal MD 09/18/22 00:01 AM Code Status & VTE Plan Code Status Full code VTE Prophylaxis Plan VTE Prophylaxis will be ordered: Yes PG Care Time/CCT Total # of Minutes Spent Total Time Spent with Patient: Total time spent is greater than 50% in coordination of care (as documented) at patient's floor/unit and/or counseling patient: Coding Level of Care Code 07833 INT INP/OBS CARE 3/75MIN Diagnoses Hydronephrosis due to obstruction of ureter N13.1 Calculus of proximal left ureter N20.1 Prostate cancer C61 Periodic limb movement disorder (PLMD) G47.61 Hiatal hernia K44.9 Essential tremor G25.0 Leonard's esophagus K22.70 Depression F32.9 Hypercholesteremia E78.00 Hypertension I10 Hypothyroidism E03.9
--- NOTE | 2022-09-18 01:21 | Emergency Department Note ---
Impression & Plan Hydronephrosis due to obstruction of ureter, Ureterolithiasis, Left lower quadrant abdominal pain ED Provider Note NAME: NAT GREER AGE: 76 SEX: M ARRIVES VIA: Ambulance INFORMANT: Patient ED PROVIDER(S): David Loya MD CHIEF COMPLAINT: Left abdominal pain PLAN: Disposition: Admit MEDICAL DECISION MAKING: The patient is a pleasant 76-year-old gentleman with a past medical history of prostate cancer, nephrolithiasis, Leonard's esophagus, type 2 diabetes, hypertension, hyperlipidemia, hypothyroidism who presents to the emergency department via EMS and then accompanied by family for evaluation of acute onset left lower quadrant abdominal pain with associated nausea and vomiting that began shortly after eating dinner tonight. He reports feeling healthy prior today and denies fevers, chills, cough congestion, constipation or diarrhea. He reports he has moved his bowels several times today and this has been normal. He denies any blood in his urine or burning with urination. On arrival the patient is uncomfortable no acute distress, afebrile heart in the 100s and blood pressure 200/140s in the setting of his pain. He appears clinically dry. He is mild left lower abdominal discomfort without discrete tenderness. EKG without overt acute ischemia. WBC 12K none specific. Hemoglobin within normal limits. Platelets within normal limits. Chemistry without metabolic acidosis. BUN 25 consistent with the patient's clinical dry appearance. LFTs unremarkable. Lipase not elevated. UA demonstrates WBCs and 1+ leuk esterase albeit with 5-10 epithelial cells and no bacteria. Ceftriaxone ordered out of caution. CT of the abdomen pelvis was performed and demonstrates 8 mm left proximal ureteral stone with associated hydroureteronephrosis. Upon evaluation patient was feeling some improvement following IV fluid hydration, APAP, famotidine, Zofran as well as additional Toradol and morphine. However given the severity of his pain on presentation with residual discomfort in the setting of his large proximal ureteral stone he agrees with plan for admission for further management. Triage Nursing notes reviewed and agree them. Prior/outside medical records reviewed Vital Signs: reviewed Differential diagnosis: Renal colic, UTI, appendicitis, diverticulitis, mesenteric ischemia, aortic pathology, infections, inflammatory bowel disease, PUD, biliary pathology, as well as other pathologies. ER treatment provided: See below. Diagnostics interpreted by me: ECG: Sinus tachycardia, occasional PVCs, 113 bpm, nonspecific ST abnormality, no overt ST elevation or depression, QTc 460, QRS 90 Cardiac Monitoring: An order for continuous cardiac monitoring was placed and demonstrated Sinus tachycardia, occasional PVCs, 113 bpm. Laboratory studies: See below Imaging studies: See below Consultation(s): Case was discussed with Dr. Godoy, [facility] hospitalist, who will evaluate the patient for admission. HPI: The patient is a pleasant 76-year-old gentleman with a past medical history of prostate cancer, nephrolithiasis, Leonard's esophagus, type 2 diabetes, hypertension, hyperlipidemia, hypothyroidism who presents to the emergency department via EMS and then accompanied by family for evaluation of acute onset left lower quadrant abdominal pain with associated nausea and vomiting that began shortly after eating dinner tonight. He reports feeling healthy prior today and denies fevers, chills, cough congestion, constipation or diarrhea. He reports he has moved his bowels several times today and this has been normal. He denies any blood in his urine or burning with urination. ROS: See above HPI for pertinent positives & negatives. A total of 10 systems reviewed and were otherwise negative. VITALS:See Below PHYSICAL EXAMINATION: GENERAL: Awake, alert, uncomfortable-appearing, in no distress HENT: Normocephalic, atraumatic. Oropharynx with dry mucous membranes and otherwise unremarkable. EYES: Normal conjunctiva. Sclera non-icteric. NECK: Supple. No nuchal rigidity. FROM. No JVD. RESPIRATORY: Clear to auscultation. CARDIAC: Regular rate, normal rhythm. Extremities warm and well perfused. Pulses equal. ABDOMEN: Soft, non-distended. Mild left lower abdominal discomfort without discrete tenderness. No rebound or guarding. No masses. RECTAL: Deferred. MUSCULOSKELETAL: Chest examination reveals no tenderness. The back is symmetrical on inspection without obvious abnormality. There is no CVA tenderness to palpation. No joint edema. LOWER EXTREMITIES: Calves are equal size bilaterally and non-tender. No edema. No discoloration. NEURO: Normal sensorium. No sensory or motor deficits noted. SKIN: No rash or jaundice noted. 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 Hypercholesteremia Hypertension Hypothyroidism Surgical History H/O blepharoplasty bilt History of bilateral inguinal hernia repair History of cataract surgery bilt History of colonoscopy History of esophagogastroduodenoscopy (EGD) History of squamous cell carcinoma excision History of surgery prior to blepharoplasty removed 1/2 off forehead to raise for blepharoplasty History of tonsillectomy and adenoidectomy History of tooth extraction Hx of cholecystectomy Family History Father Coronary arteriosclerosis Mother Colorectal cancer Other No family history of adverse response to anesthesia Social History Smoking Status: Never smoker Second Hand Exposure: No; Hx Alcohol Use: No Hx Substance Use: No Preferred Language: Guamanian Communication Ability: Effective 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: No Beliefs That Will Affect Care: None Current Living Situation: Spouse Feels Safe at Home: Yes Assistive Devices: Glasses Allergies Allergies Allergy/AdvReac Type Severity Reaction Status Date / Time Penicillins Allergy Intermediate RASH, Verified 09/17/22 23:20 "VERY ILL" Sulfa (Sulfonamide Allergy Mild RASH Verified 09/17/22 23:20 Antibiotics) YORDY Inhibitors AdvReac Intermediate Cough Verified 09/17/22 23:20 atorvastatin AdvReac Intermediate muscle Verified 09/17/22 23:20 cramps Home Meds Home Medications Medication Instructions Recorded Confirmed Saccharomyces boulardii 250 mg 250 mg PO QAM 07/26/19 09/17/22 capsule esomeprazole magnesium 40 mg 40 mg PO BID LEONARD'S ESOPHAGUS 07/26/19 09/17/22 capsule,delayed release (Nexium) fluocinonide 0.05 % topical cream 1 applic topical UD PRN Rash 07/26/19 09/17/22 fluticasone propionate 50 2 spray intranasal QAM 07/26/19 09/17/22 mcg/actuation nasal spray,suspension gemfibrozil 600 mg tablet (Lopid) 600 mg PO BID 07/26/19 09/17/22 lorazepam 0.5 mg tablet 0.5 mg PO HS 07/26/19 09/17/22 multivitamin (Daily Multi-Vitamin 1 tab PO QDD 07/26/19 09/17/22 tablet) omega-3 acid ethyl esters 1 gram 1 g PO QAM 07/26/19 09/17/22 capsule venlafaxine 150 mg 150 mg PO QDD 07/26/19 09/17/22 capsule,extended release 24 hr (Effexor XR) escitalopram oxalate 5 mg tablet 5 mg PO QDD 11/26/19 09/17/22 (Lexapro) amlodipine 10 mg tablet 10 mg PO HS 12/11/19 09/17/22 aspirin 81 mg tablet,delayed 81 mg PO QAM 10/30/20 09/17/22 release hydrochlorothiazide 12.5 mg capsule 12.5 mg PO QAM 10/30/20 09/17/22 levothyroxine 112 mcg tablet 112 mcg PO DAILYBB 10/30/20 09/17/22 (Synthroid) testosterone 100 mg implant pellet 100 mg subcut Q3M 10/30/20 09/17/22 metformin 500 mg tablet,extended 1,000 mg PO BID 09/17/22 09/17/22 release 24 hr Previous Rx's Medication Instructions Recorded gabapentin 100 mg capsule 200 mg PO HS #30 caps 07/31/19 Results & Data (ED) Vital Signs Vital Signs - 24 hr 09/17/22 22:16 09/17/22 22:37 09/17/22 23:30 Temperature 37 C Temperature Source Oral Pulse Rate 109 H 109 H Pulse Rhythm Regular Regular Pulse Strength Normal Respiratory Rate 20 20 Respiratory Effort / Characteristics Non-Labored Non-Labored Respiratory Depth Normal Normal Respiratory Pattern Regular Regular Blood Pressure 200/142 H Blood Pressure [Right Arm] 152/115 H Blood Pressure Mean 161 Blood Pressure Mean [Right Arm] 127 Blood Pressure Position Lying Blood Pressure Position [Right Arm] Sitting Pulse Oximetry 96 98 97 Oxygen Delivery Method Room Air Room Air Room Air Sepsis Recent Fever Within 48 Hours No Sepsis New/Unexplained Change in Mental Status No Sepsis Action Taken by Nursing No Action Required 09/17/22 23:20 Temperature Temperature Source Pulse Rate 111 H Pulse Rhythm Pulse Strength Respiratory Rate Respiratory Effort / Characteristics Respiratory Depth Respiratory Pattern Blood Pressure Blood Pressure [Right Arm] Blood Pressure Mean Blood Pressure Mean [Right Arm] Blood Pressure Position Blood Pressure Position [Right Arm] Pulse Oximetry Oxygen Delivery Method Sepsis Recent Fever Within 48 Hours Sepsis New/Unexplained Change in Mental Status Sepsis Action Taken by Nursing Laboratory Data Attestation: I reviewed the patient's lab results. 09/17/22 22:55 09/17/22 22:55 Lab Results 09/17/22 09/17/22 09/17/22 Range/Units 22:40 22:55 22:55 WBC 12.06 H (4.8-10.8) K/ul RBC 4.59 L (4.70-6.10) M/uL Hgb 15.2 (14.0-18.0) g/dl POC Hgb (14.0-18.0) g/dl Hct 41.6 L (42.0-52.0) % POC Hct (42-52) % MCV 90.6 (80.0-100.0) fL MCH 33.1 (25.0-34.0) pg MCHC 36.5 H (32.0-36.0) g/dL RDW Std Deviation 42.8 (36.4-46.3) fL RDW Coeff of Vicente 13.1 (11.5-14.5) % Plt Count 276 (130-400) K/uL MPV 10.3 (9.4-12.4) fL Immature Gran % (Auto) 0.3 % Neut % (Auto) 87.9 % Lymph % (Auto) 5.8 % Mason % (Auto) 4.7 % Eos % (Auto) 0.8 % Baso % (Auto) 0.5 % Neut # (Auto) 10.59 H (1.40-6.50) K/uL Lymph # (Auto) 0.70 L (1.2-3.4) K/uL Mason # (Auto) 0.57 (0.11-0.59) K/uL Eos # (Auto) 0.10 (0-0.50) K/uL Baso # (Auto) 0.06 (0-0.2) K/uL Immature Gran # (Auto) 0.04 (0.01-0.20) K/uL POC Sodium (135-144) mmol/L Sodium 137 (136-145) mmol/L POC Potassium (3.3-5.0) mmol/L Potassium 3.3 L (3.5-5.1) mmol/L POC Chloride (101-112) mmol/L Chloride 97 L (98-107) mmol/L Carbon Dioxide 29 (21-32) mmol/L POC Total CO2 (24-31) mmol/L Anion Gap 11 (3-11) POC Anion Gap (16-25) mmol/L POC BUN (7-18) mg/dl BUN 25 H (6-23) mg/dl Creatinine 1.27 (0.6-1.4) mg/dl POC Creatinine (0.6-1.3) mg/dl Est Cr Clr Drug Dosing 58.3 ml/min Est GFR ( Amer) 64.1 ml/min Est GFR (Non-Af Amer) 55.3 ml/min BUN/Creatinine Ratio 19.7 (10-20) Glucose 274 H (70-99(Fasting)) mg/dl POC Glucose (other) (70-99) mg/dl Calcium 10.4 H (8.5-10.1) mg/dl POC Ioniz Calcium Therese (1.12-1.32) mmol/l Total Bilirubin 0.6 (0.2-1.0) mg/dl Direct Bilirubin 0.1 (0-0.2) mg/dl AST 26 (13-39) U/L ALT 24 (7-52) U/L Alkaline Phosphatase 120 H (34-104) U/L Total Protein 8.8 H (6.0-8.3) gm/dl Albumin 5.1 H (3.4-5.0) gm/dl Globulin 3.7 (2.5-4.0) gm/dl Albumin/Globulin Ratio 1.4 (0.9-2) Lipase 22 (11-82) U/L Urine Color Yellow Urine Appearance Clear (Clear) Urine pH 7.5 (4.5-7.5) Ur Specific Marbury 1.009 (1.000-1.030) Urine Protein Negative (Negative) Urine Glucose (UA) 2+ H (Negative) Urine Ketones Negative (Negative) Urine Blood Trace H (Negative) Urine Nitrite Negative (Negative) Urine Bilirubin Negative (Negative) Urine Urobilinogen Negative (Negative) Ur Leukocyte Esterase 1+ H (Negative) Urine WBC (Auto) >30 H (0-5) /hpf Urine RBC (Auto) 0-4 (0-4) /hpf U Hyaline Cast (Auto) 0 (0-5) /lpf U Epithel Cells (Auto) 5-10 H (0-5) /lpf Urine Bacteria (Auto) Negative (Negative) 09/17/22 Range/Units 22:55 WBC (4.8-10.8) K/ul RBC (4.70-6.10) M/uL Hgb (14.0-18.0) g/dl POC Hgb 14.3 (14.0-18.0) g/dl Hct (42.0-52.0) % POC Hct 42 (42-52) % MCV (80.0-100.0) fL MCH (25.0-34.0) pg MCHC (32.0-36.0) g/dL RDW Std Deviation (36.4-46.3) fL RDW Coeff of Vicente (11.5-14.5) % Plt Count (130-400) K/uL MPV (9.4-12.4) fL Immature Gran % (Auto) % Neut % (Auto) % Lymph % (Auto) % Mason % (Auto) % Eos % (Auto) % Baso % (Auto) % Neut # (Auto) (1.40-6.50) K/uL Lymph # (Auto) (1.2-3.4) K/uL Mason # (Auto) (0.11-0.59) K/uL Eos # (Auto) (0-0.50) K/uL Baso # (Auto) (0-0.2) K/uL Immature Gran # (Auto) (0.01-0.20) K/uL POC Sodium 139 (135-144) mmol/L Sodium (136-145) mmol/L POC Potassium 3.6 (3.3-5.0) mmol/L Potassium (3.5-5.1) mmol/L POC Chloride 96 L (101-112) mmol/L Chloride (98-107) mmol/L Carbon Dioxide (21-32) mmol/L POC Total CO2 26 (24-31) mmol/L Anion Gap (3-11) POC Anion Gap 21.0 (16-25) mmol/L POC BUN 25 H (7-18) mg/dl BUN (6-23) mg/dl Creatinine (0.6-1.4) mg/dl POC Creatinine 1.2 (0.6-1.3) mg/dl Est Cr Clr Drug Dosing ml/min Est GFR ( Amer) ml/min Est GFR (Non-Af Amer) ml/min BUN/Creatinine Ratio (10-20) Glucose (70-99(Fasting)) mg/dl POC Glucose (other) 279 H (70-99) mg/dl Calcium (8.5-10.1) mg/dl POC Ioniz Calcium Therese 1.22 (1.12-1.32) mmol/l Total Bilirubin (0.2-1.0) mg/dl Direct Bilirubin (0-0.2) mg/dl AST (13-39) U/L ALT (7-52) U/L Alkaline Phosphatase (34-104) U/L Total Protein (6.0-8.3) gm/dl Albumin (3.4-5.0) gm/dl Globulin (2.5-4.0) gm/dl Albumin/Globulin Ratio (0.9-2) Lipase (11-82) U/L Urine Color Urine Appearance (Clear) Urine pH (4.5-7.5) Ur Specific Marbury (1.000-1.030) Urine Protein (Negative) Urine Glucose (UA) (Negative) Urine Ketones (Negative) Urine Blood (Negative) Urine Nitrite (Negative) Urine Bilirubin (Negative) Urine Urobilinogen (Negative) Ur Leukocyte Esterase (Negative) Urine WBC (Auto) (0-5) /hpf Urine RBC (Auto) (0-4) /hpf U Hyaline Cast (Auto) (0-5) /lpf U Epithel Cells (Auto) (0-5) /lpf Urine Bacteria (Auto) (Negative) Administered Medications Sodium Chloride (Nss 1000ml) 1,000 mls @ 125 mls/hr IV .Q8H INOCENTE Stop: 10/18/22 00:44 Last Admin: 09/18/22 00:59 Dose: 125 mls/hr Documented By: JUANIS Discontinued Medications Sodium Chloride (Nss) 500 mls @ 999 mls/hr IV .Q31M ONE Stop: 09/17/22 23:07 Last Infusion: 09/17/22 23:58 Dose: 0 mls/hr Documented By: Admin: 09/17/22 22:58 Dose: 999 mls/hr Documented By: ANSHU Acetaminophen (Ofirmev) 1,000 mg in 100 mls @ 400 mls/hr IV NOW STA Stop: 09/17/22 22:55 Last Infusion: 09/17/22 23:26 Dose: 0 mls/hr Documented By: Admin: 09/17/22 23:04 Dose: 400 mls/hr Documented By: ANSHU Famotidine (Pepcid 20mg Iv Push) 20 mg in 5 mls @ 2.5 mls/min IV NOW STA Stop: 09/17/22 22:42 Last Admin: 09/17/22 23:00 Dose: 2.5 mls/min Documented By: ANSHU Ceftriaxone Sodium (Rocephin) 2,000 mg in 70 mls @ 140 mls/hr IV NOW STA Stop: 09/18/22 01:04 Last Admin: 09/18/22 01:02 Dose: 140 mls/hr Documented By: JUANIS Ioversol (Optiray 350 100ml) 90 ml IV ONCE ONE Stop: 09/17/22 23:15 Last Admin: 09/17/22 23:15 Dose: 90 ml Documented By: HARRIET Ketorolac Tromethamine (Ketorolac Tromethamine 15 Mg/Ml Vial) 15 mg IV NOW STA Stop: 09/18/22 00:05 Last Admin: 09/18/22 00:13 Dose: 15 mg Documented By: JUANIS Morphine Sulfate (Morphine Sulfate 2 Mg/Ml Carp) 2 mg IV NOW STA Stop: 09/18/22 00:05 Last Admin: 09/18/22 00:16 Dose: 2 mg Documented By: JUANIS Ondansetron HCl (Ondansetron Inj 2 Mg/Ml 2 Ml Vial) 4 mg IV NOW STA Stop: 09/17/22 22:42 Last Admin: 09/17/22 22:59 Dose: 4 mg Documented By: ANSHU Imaging Data Radiologist's Impression: Abdomen/Pelvis CT 09/17/22 22:41 Exam(s): CT ABDOMEN + PELVIS With Contrast IV Amt: 90ml EXAM: CT Abdomen and Pelvis With Intravenous Contrast CLINICAL HISTORY: Reason for exam: LLQ abd pain, n/v. TECHNIQUE: Axial computed tomography images of the abdomen and pelvis with intravenous contrast. CTDI is 12.26 mGy and DLP is 700.09 mGy-cm. Automated exposure control was utilized for the study. A dose lowering technique was utilized adhering to the principles of ALARA. CONTRAST: Patient received 90ml of IV contrast COMPARISON: 05/21/22 FINDINGS: Lung bases: Unremarkable. No mass. No consolidation. ABDOMEN: Liver: Unremarkable. No mass. Gallbladder and bile ducts: Unremarkable. No calcified stones. No ductal dilation. Pancreas: Unremarkable. No mass. No ductal dilation. Spleen: Unremarkable. No splenomegaly. Adrenals: Unremarkable. No mass. Kidneys and ureters: There is moderate left hydroureteronephrosis related to an 8 mm calculus in the proximal ureter (image 43 series 2). There is an additional nonobstructing left lower pole intrarenal calculus. There is an obstructive nephropathy of the left kidney. There is a large benign-appearing left renal cyst for which imaging follow-up is unnecessary. Stomach and bowel: There is scattered colonic diverticula without CT evidence for active diverticulitis. No obstruction. PELVIS: Appendix: No findings to suggest acute appendicitis. Bladder: Unremarkable. No mass. Reproductive: Unremarkable as visualized. ABDOMEN and PELVIS: Intraperitoneal space: Unremarkable. No free air. No significant fluid collection. Bones/joints: There are degenerative changes of the thoracolumbar spine. No acute fracture. No dislocation. Soft tissues: Unremarkable. Vasculature: There is diffuse atherosclerotic calcification of the aorta and its major branch vessels. No abdominal aortic aneurysm. Lymph nodes: Unremarkable. No enlarged lymph nodes. IMPRESSION: Moderate left hydroureteronephrosis related to an 8 mm obstructing proximal ureteral calculus with associated obstructive nephropathy. Electronically signed by: Jarod Vidal MD 09/18/22 00:01 AM Discharge Plan Visit Data Chief Complaint: Abdominal Pain Stated Complaint: ABDOMINAL PAIN ED Provider: David Loya Discharge Problem: Hydronephrosis due to obstruction of ureter, Ureterolithiasis, Left lower quadrant abdominal pain Forms Stand Alone Forms: [facility] [place] Reservations Prescriptions Prescriptions: No Action escitalopram oxalate [Lexapro] 5 mg tablet 5 mg PO QDD venlafaxine [Effexor XR] 150 mg capsule,extended release 24hr 150 mg PO QDD omega-3 acid ethyl esters 1 gram capsule 1 g PO QAM Saccharomyces boulardii 250 mg capsule 250 mg PO QAM fluticasone propionate 50 mcg/actuation spray,suspension 2 spray INTNAS QAM multivitamin [Daily Multi-Vitamin] Tablet 1 tab PO QDD fluocinonide 0.05 % cream 1 applic TOP UD PRN (Reason: Rash) esomeprazole magnesium [Nexium] 40 mg capsule,delayed release(DR/EC) 40 mg PO BID lorazepam 0.5 mg tablet 0.5 mg PO HS gemfibrozil [Lopid] 600 mg tablet 600 mg PO BID gabapentin 100 mg capsule 200 mg PO HS Qty: 30 5RF amlodipine 10 mg tablet 10 mg PO HS Patient Comments: at HS aspirin 81 mg Tablet,Delayed Release (Dr/Ec) 81 mg PO QAM hydrochlorothiazide 12.5 mg capsule 12.5 mg PO QAM levothyroxine [Synthroid] 112 mcg tablet 112 mcg PO DAILYBB testosterone 100 mg Pellet 100 mg SUBCUT Q3M metformin 500 mg tablet extended release 24 hr 1,000 mg PO BID Referrals Referrals: Kiesha Stephenson [Primary Care Provider] -
[2022-09-18] MEDS ORDERED: ONDANSETRON INJ 2 MG/ML 2 ML VIAL ONE (02:19)
[2022-09-18] MEDS ORDERED: METOPROLOL TARTRATE 1 MG/ML VIAL IV STA (03:16)
[2022-09-18] MEDS ORDERED: METOPROLOL TARTRATE 50 MG TAB PO STA (03:33)
[2022-09-18] MEDS ORDERED: SODIUM CHLORIDE 0.9% 1000ML 500 ML IV ONE ×2 (04:03→08:45)
[2022-09-18] MEDS ORDERED: MoRPHine SULFATE 4 MG/ML 1 ML CARP\\VIAL IV PRN (05:28)
[2022-09-18] MEDS ORDERED: DEXTROSE 50% 50 ML SYRINGE IV PRN (05:28)
[2022-09-18] MEDS ORDERED: CARBOHYDRATES FOR HYPOGLYCEMIA PO PRN (05:28)
[2022-09-18] MEDS ORDERED: ACETAMINOPHEN 325 MG TAB PO PRN (05:28)
[2022-09-18] MEDS ORDERED: GLUCOSE 40% GEL 15 GM TUBE PO PRN (05:28)
[2022-09-18] MEDS ORDERED: HYDROmorphone INJ 0.5 MG/0.5 ML SYR IV PRN (05:28)
[2022-09-18] MEDS ORDERED: GLUCAGON FOR INJ 1 MG VIAL SQ PRN (05:28)
[2022-09-18] MEDS ORDERED: GLUCOSE 10 TAB/TUBE PO PRN (05:28)
[2022-09-18] MEDS ORDERED: ONDANSETRON INJ 2 MG/ML 2 ML VIAL IV PRN ×2 (05:28→12:51)
[2022-09-18] MEDS: NSS + 20MEQ KCL 20 MEQ/1,000 ML BAG IV SCH ×2 (06:19→20:06)
[2022-09-18] MEDS: INSULIN ASPART PER UNIT CHARGE SC SCH ×4 (06:28→20:53)
[2022-09-18] MEDS: PANTOprazole 40 MG TAB PO SCH ×3 (07:37→20:52)
[2022-09-18] MEDS: gemfibroziL 600 MG TAB PO SCH ×3 (07:37→20:53)
[2022-09-18] MEDS: LEVOTHYROXINE SODIUM 112 MCG TABLET PO SCH (07:37)
--- NOTE | 2022-09-18 07:43 | Electrocardiogram Report ---
Test Reason : Blood Pressure : / mmHG Vent. Rate : 113 BPM Atrial Rate : 113 BPM P-R Int : 174 ms QRS Dur : 090 ms QT Int : 336 ms P-R-T Axes : 051 034 053 degrees QTc Int : 460 ms Sinus tachycardia with occasional Premature ventricular complexes Nonspecific ST abnormality Abnormal ECG When compared with ECG of 23-MAY-2022 13:39, Premature ventricular complexes are now Present Confirmed by Lionel Zheng ([id number]) on 09/18/2022 7:42:39 AM Referred By: REFERRED SELF Confirmed By:Jaylen Zheng
--- NOTE | 2022-09-18 08:37 | Urology Consultation ---
Date of Consultation September 18, 2022 Assessment & Plan (1) Calculus of proximal left ureter: Plan 76-year-old male with an 8 mm left proximal ureteral calculus Due to discomfort, vital signs and concern for infection, will take to OR this morning for cystoscopy, left retrograde pyelogram and left ureteral stent placement Continue broad-spectrum antibiotics, follow-up cultures Patient is nontoxic-appearing on exam and I think stable at this point. Per the OR, there are 2 cases prior to him and I think we can delay for those assuming he remains stable. If he were to decompensate, will need to be made emergent. Risk benefits discussed including but not limited to anesthesia risk, pain, bleeding, infection, damage to urethra, ureter, bladder or kidney, inability to place stent, urinary retention, and need for further procedures. Consent obtained Patient marked History of Present Illness Reason for Consultation: Left proximal ureteral calculus, concern for infection Attending Physician: Darrell Kaufman MD History of Present Illness 76-year-old male with a past urologic history significant for recent TURP done by Dr. Ceja. He presented to the emergency department early this morning with left abdominal pain. He has been febrile and tachycardic. Blood pressures have been relatively stable outside of 1 systolic at 94. White blood cell count was 12, creatinine was 1.27 and urinalysis was negative for nitrites, 1+ leukocyte Estrace, greater than 30 WBCs, 0-4 RBCs and no bacteria. Independent review of his CT scan shows an 8 mm left proximal ureteral calculus and a nonobstructing left-sided stone. There is moderate hydronephrosis. He is currently on ceftriaxone. He has not had any previous stones. Patient does report significant discomfort from the stone and would like a procedure. Allergies Allergy/AdvReac Type Severity Reaction Status Date / Time Penicillins Allergy Intermediate RASH, Verified 09/17/22 23:20 "VERY ILL" Sulfa (Sulfonamide Allergy Mild RASH Verified 09/17/22 23:20 Antibiotics) YORDY Inhibitors AdvReac Intermediate Cough Verified 09/17/22 23:20 atorvastatin AdvReac Intermediate muscle Verified 09/17/22 23:20 cramps Home Medications Medication Instructions Recorded Confirmed Type Saccharomyces boulardii 250 mg 250 mg PO QAM 07/26/19 09/17/22 History capsule esomeprazole magnesium 40 mg 40 mg PO BID LEONARD'S ESOPHAGUS 07/26/19 09/17/22 History capsule,delayed release (Nexium) fluocinonide 0.05 % topical cream 1 applic topical UD PRN Rash 07/26/19 09/17/22 History fluticasone propionate 50 2 spray intranasal QAM 07/26/19 09/17/22 History mcg/actuation nasal spray,suspension gemfibrozil 600 mg tablet (Lopid) 600 mg PO BID 07/26/19 09/17/22 History lorazepam 0.5 mg tablet 0.5 mg PO HS 07/26/19 09/17/22 History multivitamin (Daily Multi-Vitamin 1 tab PO QDD 07/26/19 09/17/22 History tablet) omega-3 acid ethyl esters 1 gram 1 g PO QAM 07/26/19 09/17/22 History capsule venlafaxine 150 mg 150 mg PO QDD 07/26/19 09/17/22 History capsule,extended release 24 hr (Effexor XR) gabapentin 100 mg capsule 200 mg PO HS #30 caps 07/31/19 09/17/22 Rx escitalopram oxalate 5 mg tablet 5 mg PO QDD 11/26/19 09/17/22 History (Lexapro) amlodipine 10 mg tablet 10 mg PO HS 12/11/19 09/17/22 History aspirin 81 mg tablet,delayed 81 mg PO QAM 10/30/20 09/17/22 History release hydrochlorothiazide 12.5 mg capsule 12.5 mg PO QAM 10/30/20 09/17/22 History levothyroxine 112 mcg tablet 112 mcg PO DAILYBB 10/30/20 09/17/22 History (Synthroid) testosterone 100 mg implant pellet 100 mg subcut Q3M 10/30/20 09/17/22 History metformin 500 mg tablet,extended 1,000 mg PO BID 09/17/22 09/17/22 History release 24 hr Patient History Medical History Anxiety Leonard's esophagus Chronic allergic rhinitis Depression Diabetes mellitus, type 2 NIDDM Essential tremor H/O esophageal reflux 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 Hypercholesteremia Hypertension Hypothyroidism Surgical History H/O blepharoplasty bilt History of bilateral inguinal hernia repair History of cataract surgery bilt History of colonoscopy History of esophagogastroduodenoscopy (EGD) History of squamous cell carcinoma excision History of surgery prior to blepharoplasty removed 1/2 off forehead to raise for blepharoplasty History of tonsillectomy and adenoidectomy History of tooth extraction Hx of cholecystectomy Family History Father Coronary arteriosclerosis Mother Colorectal cancer Other No family history of adverse response to anesthesia Social History Smoking Status: Never smoker Second Hand Exposure: No; Do You Dip or Chew Tobacco: No; Hx Alcohol Use: No Hx Substance Use: No Preferred Language: Upper Sorbian Communication Ability: Effective Cab Starter Required: No Beliefs That Will Affect Care: None Current Living Situation: Spouse Other Information That Helps Us Care for You: No Feels Safe at Home: Yes Safety Concerns: Feels Safe At This Time Assistive Devices: Glasses Review of Systems Review of Systems: 14 point review of systems negative outside of what is listed above in HPI Physical Exam Physical Exam: General: Alert and oriented, no acute distress, nontoxic-appearing HEENT: Normocephalic, mucous membranes moist Pulmonary: Nonlabored respirations Abdomen: Nondistended Extremities: Moves all 4 spontaneously Neuro: No gross deficits Skin: Warm, dry, no rashes noted Results & Data Vital Signs (Past 12 Hours) Vital Signs Temp Pulse Pulse Pulse Resp BP BP 09/18/22 08:14 121 H 09/18/22 07:55 38.5 C H 118 H 18 94/56 L 09/18/22 05:00 39.4 C H 126 H 16 149/88 H 09/18/22 03:15 132 H 09/18/22 04:14 133 H 146/84 H 09/18/22 03:49 39.4 C H 09/18/22 03:30 133 H 4 L 09/18/22 03:30 130/78 09/18/22 03:20 133 H 15 09/18/22 03:10 132 H 15 09/18/22 03:00 135 H 22 09/18/22 03:00 117/61 09/18/22 02:50 130 H 23 09/18/22 02:40 132 H 22 09/18/22 02:30 133 H 24 09/18/22 02:30 164/100 H 09/18/22 02:20 148 H 22 09/18/22 02:10 131 H 24 09/18/22 02:00 132 H 20 09/18/22 02:00 184/107 H 09/18/22 01:50 130 H 20 09/18/22 01:40 128 H 22 09/18/22 01:30 126 H 24 09/18/22 01:30 164/99 H 09/18/22 01:20 130 H 26 H 09/18/22 01:10 144 H 22 09/18/22 01:00 138 H 20 09/18/22 01:00 190/158 H 09/18/22 00:50 102 H 22 09/18/22 00:40 107 H 24 09/18/22 00:32 109 H 23 09/18/22 00:32 180/98 H 09/18/22 00:10 106 H 18 09/18/22 00:00 109 H 16 09/18/22 00:00 184/101 H 09/17/22 23:50 106 H 23 09/17/22 23:40 110 H 16 09/17/22 23:30 119 H 15 09/17/22 23:30 152/115 H 09/17/22 23:20 113 H 24 09/17/22 23:19 115 H 18 09/18/22 02:45 38.8 C H 132 H 22 164/100 H 09/17/22 23:20 111 H 09/17/22 23:30 20 152/115 H 09/17/22 22:37 109 H 09/17/22 22:16 37 C 109 H 20 200/142 H Pulse Ox O2 Del Method O2 Flow Rate 09/18/22 08:14 09/18/22 07:55 90 Nasal Cannula 3 09/18/22 05:00 92 Nasal Cannula 3 09/18/22 03:15 09/18/22 04:14 09/18/22 03:49 09/18/22 03:30 91 Nasal Cannula 2 09/18/22 03:30 09/18/22 03:20 92 Nasal Cannula 2 09/18/22 03:10 94 Nasal Cannula 2 09/18/22 03:00 91 Nasal Cannula 2 09/18/22 03:00 09/18/22 02:50 92 Nasal Cannula 2 09/18/22 02:40 92 Nasal Cannula 2 09/18/22 02:30 91 Nasal Cannula 2 09/18/22 02:30 09/18/22 02:20 91 Nasal Cannula 2 09/18/22 02:10 86 L 09/18/22 02:00 86 L 09/18/22 02:00 09/18/22 01:50 86 L 09/18/22 01:40 86 L 09/18/22 01:30 90 09/18/22 01:30 09/18/22 01:20 88 L 09/18/22 01:10 90 09/18/22 01:00 91 09/18/22 01:00 09/18/22 00:50 96 09/18/22 00:40 94 09/18/22 00:32 94 09/18/22 00:32 09/18/22 00:10 96 09/18/22 00:00 97 09/18/22 00:00 09/17/22 23:50 97 09/17/22 23:40 95 09/17/22 23:30 96 09/17/22 23:30 09/17/22 23:20 95 09/17/22 23:19 94 09/18/22 02:45 92 Nasal Cannula 2 09/17/22 23:20 09/17/22 23:30 97 Room Air 09/17/22 22:37 98 Room Air 09/17/22 22:16 96 Room Air PG Care Time/CCT Total # of Minutes Spent Total Time Spent with Patient: Total time spent is greater than 50% in coordination of care (as documented) at patient's floor/unit and/or counseling patient: Coding Level of Care Code 70500 INT INP/OBS CARE 2MIN Diagnoses Calculus of proximal left ureter N20.1
[2022-09-18] MEDS: METOPROLOL TARTRATE 50 MG TAB PO SCH ×2 (09:01→21:01)
[2022-09-18] MEDS: SACCHAROMYCES BOULARDII 250 MG CAP PO SCH (09:01)
[2022-09-18] MEDS: FLUTICASONE PROPIONATE NA SPR 16 GM BTL NAE SCH (09:02)
[2022-09-18] MEDS: SODIUM CHLORIDE 0.9% 1000ML 500 ML IV SCH ×2 (09:06→09:50)
[2022-09-18] MEDS: cefTRIAXone SODIUM 2,000 MG in DEXTROSE 5% 50 ML IV SCH (09:09)
--- NOTE | 2022-09-18 10:15 | XRay Report ---
XR chest 1V portable HISTORY: pre-op COMPARISON: Chest 05/21/2022. FINDINGS: No pneumothorax. No pleural effusions. There are low lung volumes. No focal lung consolidat ions to suggest a pneumonia. No evidence for pulmonary edema. Stable mild cardiomegaly. This may be a ccentuated by the low lung volumes. IMPRESSION: No significant change compared to the prior study. No acute process. ACT 112: Negative or not required by law. Electronically signed by: Florian Cuba M.D. 09/18/2022 10:13 AM
--- NOTE | 2022-09-18 11:55 | Hospitalist Progress Note ---
Date of Service September 18, 2022 Assessment & Plan (1) Hydronephrosis due to obstruction of ureter: (2) Calculus of proximal left ureter: Plan: 8mm left UPJ stone with hydronephrosis. NPO Acetaminophen 650 mg p.o. every 6 hours as needed for mild pain or fever Morphine sulfate 4 mg IV every 3 hours as needed moderate pain Dilaudid 0.5 mg IV every 3 hours as needed for severe pain Zofran 4 mg IV every 6 hours as needed Famotidine 20 mg IV every 12 hours NSS + KCl 20 mEq at 80 mils per hour Ceftriaxone 2 g IV every 24 hours Follow urine culture and sensitivity Strain urine RN called stating patient was hypotensive and febrile this AM. BP 94/56, P 121, T 38.5C. Patient was tachycardic on exam, but otherwise stable. -Blood cultures x 2 ordered. -Fluid Bolus with NSS 500ml x 2 provided. -Transfer to PCU for higher level of care. Patient s/p ureteral stent placement by Dr. Ramos earlier this morning. - Start diabetic diet. - Continue ceftriaxone. UC&S pending. Broaden coverage to vanc/cefepime if condition worsens. (3) Prostate cancer: Plan: Becky 3+4. Following with Dr. Ceja outpatient. (4) Hypertension: Plan: Hold HCTZ, aspirin, and amlodipine Lopressor 5 mg IV x1 now and metoprolol tartrate 50 mg p.o. now given on admission. Metoprolol tartrate 50 mg p.o. twice daily (5) Diabetes mellitus, type 2: Plan: Hold metformin Placed on Accu-Cheks with NovoLog SSI (6) H/O esophageal reflux: Plan: Continue Nexium/pantoprazole 40 mg p.o. twice daily (7) Hypercholesteremia: Plan: Hold gemfibrozil (8) Hypothyroidism: Plan: Continue levothyroxine. (9) Anxiety: Plan: Anxiety/depression/insomnia- Continue gabapentin, Lexapro, venlafaxine and lorazepam Admission and Anticipated Discharge Date Admission Date: September 18, 2022 Subjective 76 year old male admitted with an 8mm left UPJ stone. Patient reports pain of the left groin 7/10 this morning. He denies nausea or vomiting. RN called to notify patient was hypotensive, tachycardic, febrile, and diaphoretic. Patient primarily c/o pain upon my arrival. He was seen by Dr. Ramos with urology this morning. Plan is for ureteral stent placement today. Review of Systems Review of Systems: All systems reviewed & are unremarkable except as noted in HPI & below Physical Exam Constitutional: + obese; no acute distress Eyes: + anicteric sclerae ENMT: Ears: no hearing impairment Neck: normal visual inspection Respiratory: normal respiratory effort, lungs clear to auscultation Cardiovascular: Rate/Rhythm: regular rhythm and + tachycardic Gastrointestinal (Abdomen): Inspection/Auscultation: normal bowel sounds Percussion/Palpation: abdomen soft; abdomen nontender Musculoskeletal: Head/Neck/Chest: normocephalic and head atraumatic Skin: no rashes, warm and dry Psychiatric: A+Ox3, euthymic affect Results & Data Results & Data Vital Signs (Past 12 Hours) Vital Signs Temp Pulse Pulse Pulse Resp BP BP 09/18/22 11:30 105 H 101/64 09/18/22 10:32 102 H 09/18/22 10:00 09/18/22 10:00 36.9 C 105 H 18 09/18/22 09:50 37.2 C 105 H 16 09/18/22 09:03 85/49 L 09/18/22 08:06 37.5 C 113 H 20 09/18/22 09:15 37.6 C H 110 H 16 09/18/22 08:14 121 H 09/18/22 07:55 38.5 C H 118 H 18 09/18/22 05:00 39.4 C H 126 H 16 09/18/22 03:15 132 H 09/18/22 04:14 133 H 146/84 H 09/18/22 03:49 39.4 C H 09/18/22 03:30 133 H 4 L 09/18/22 03:30 130/78 09/18/22 03:20 133 H 15 09/18/22 03:10 132 H 15 09/18/22 03:00 135 H 22 09/18/22 03:00 117/61 09/18/22 02:50 130 H 23 09/18/22 02:40 132 H 22 09/18/22 02:30 133 H 24 09/18/22 02:30 164/100 H 09/18/22 02:20 148 H 22 09/18/22 02:10 131 H 24 09/18/22 02:00 132 H 20 09/18/22 02:00 184/107 H 09/18/22 01:50 130 H 20 09/18/22 01:40 128 H 22 09/18/22 01:30 126 H 24 09/18/22 01:30 164/99 H 09/18/22 01:20 130 H 26 H 09/18/22 01:10 144 H 22 09/18/22 01:00 138 H 20 09/18/22 01:00 190/158 H 09/18/22 00:50 102 H 22 09/18/22 00:40 107 H 24 09/18/22 00:32 109 H 23 09/18/22 00:32 180/98 H 09/18/22 00:10 106 H 18 09/18/22 00:00 109 H 16 09/18/22 00:00 184/101 H 09/17/22 23:50 106 H 23 09/18/22 02:45 38.8 C H 132 H 22 BP Pulse Ox O2 Del Method O2 Flow Rate 09/18/22 11:30 09/18/22 10:32 92/64 L 09/18/22 10:00 Nasal Cannula 3 09/18/22 10:00 97/61 L 94 Room Air 3 09/18/22 09:50 137/84 94 Nasal Cannula 3 09/18/22 09:03 09/18/22 08:06 99/65 L 92 Nasal Cannula 3 09/18/22 09:15 93/60 L 94 Room Air 09/18/22 08:14 09/18/22 07:55 94/56 L 90 Nasal Cannula 3 09/18/22 05:00 149/88 H 92 Nasal Cannula 3 09/18/22 03:15 09/18/22 04:14 09/18/22 03:49 09/18/22 03:30 91 Nasal Cannula 2 09/18/22 03:30 09/18/22 03:20 92 Nasal Cannula 2 09/18/22 03:10 94 Nasal Cannula 2 09/18/22 03:00 91 Nasal Cannula 2 09/18/22 03:00 09/18/22 02:50 92 Nasal Cannula 2 09/18/22 02:40 92 Nasal Cannula 2 09/18/22 02:30 91 Nasal Cannula 2 09/18/22 02:30 09/18/22 02:20 91 Nasal Cannula 2 09/18/22 02:10 86 L 09/18/22 02:00 86 L 09/18/22 02:00 09/18/22 01:50 86 L 09/18/22 01:40 86 L 09/18/22 01:30 90 09/18/22 01:30 09/18/22 01:20 88 L 09/18/22 01:10 90 09/18/22 01:00 91 09/18/22 01:00 09/18/22 00:50 96 09/18/22 00:40 94 09/18/22 00:32 94 09/18/22 00:32 09/18/22 00:10 96 09/18/22 00:00 97 09/18/22 00:00 09/17/22 23:50 97 09/18/22 02:45 164/100 H 92 Nasal Cannula 2 PG Care Time/CCT Total # of Minutes Spent Total Time Spent with Patient: Total time spent is greater than 50% in coordination of care (as documented) at patient's floor/unit and/or counseling patient: Coding Level of Care Code 61593 SUB INP/OBS CARE 3/50MIN History Detailed Exam Detailed Medical Decision Making High Complexity Diagnoses Hydronephrosis due to obstruction of ureter N13.1 Calculus of proximal left ureter N20.1 Prostate cancer C61 Hypertension I10 Diabetes mellitus, type 2 E11.9 H/O esophageal reflux Z87.19 Hypercholesteremia E78.00 Hypothyroidism E03.9 Anxiety F41.9
--- NOTE | 2022-09-18 12:03 | Anesthesiology Consultation ---
Date of Service September 18, 2022 Assessment & Plan Chart Review Chart Review: Acceptable Risk for Surgery and Patient NOT seen in Pre Admission Testing Consults Requested none ASA [id number] Proposed Anesthesia Anesthesia Type: MAC History Surgery Operation Date: 09/18/22 11:30 Proposed Procedures p Cystoscopy, Left Stent Placement - Ron Ramos MD Height/Weight Height: 5 ft 10.5 in Weight: 90.5 kg Allergies Allergy/AdvReac Type Severity Reaction Status Date / Time Penicillins Allergy Intermediate RASH, Verified 09/17/22 23:20 "VERY ILL" Sulfa (Sulfonamide Allergy Mild RASH Verified 09/17/22 23:20 Antibiotics) YORDY Inhibitors AdvReac Intermediate Cough Verified 09/17/22 23:20 atorvastatin AdvReac Intermediate muscle Verified 09/17/22 23:20 cramps Medications Home Medications Medication Instructions Recorded Confirmed Last Taken Saccharomyces boulardii 250 mg 250 mg PO QAM 07/26/19 09/17/22 07/13/22 05:45 capsule esomeprazole magnesium 40 mg 40 mg PO BID LEONARD'S ESOPHAGUS 07/26/19 09/17/22 07/13/22 17:00 capsule,delayed release (Nexium) fluocinonide 0.05 % topical cream 1 applic topical UD PRN Rash 07/26/19 09/17/22 Unknown fluticasone propionate 50 2 spray intranasal QA 07/26/19 09/17/22 07/13/22 05:45 mcg/actuation nasal spray,suspension gemfibrozil 600 mg tablet (Lopid) 600 mg PO BID 07/26/19 09/17/22 07/13/22 22:00 lorazepam 0.5 mg tablet 0.5 mg PO HS 07/26/19 09/17/22 07/13/22 22:00 multivitamin (Daily Multi-Vitamin 1 tab PO QDD 07/26/19 09/17/22 07/13/22 17:00 tablet) omega-3 acid ethyl esters 1 gram 1 g PO QAM 07/26/19 09/17/22 07/13/22 05:45 capsule venlafaxine 150 mg 150 mg PO QDD 07/26/19 09/17/22 07/13/22 17:00 capsule,extended release 24 hr (Effexor XR) gabapentin 100 mg capsule 200 mg PO HS #30 caps 07/31/19 09/17/22 07/13/22 22:00 escitalopram oxalate 5 mg tablet 5 mg PO QDD 11/26/19 09/17/22 07/13/22 17:00 (Lexapro) amlodipine 10 mg tablet 10 mg PO HS 12/11/19 09/17/22 07/13/22 22:00 aspirin 81 mg tablet,delayed 81 mg PO QAM 10/30/20 09/17/22 07/08/22 release hydrochlorothiazide 12.5 mg capsule 12.5 mg PO QAM 10/30/20 09/17/22 07/13/22 05:45 levothyroxine 112 mcg tablet 112 mcg PO DAILYBB 10/30/20 09/17/22 07/14/22 04:15 (Synthroid) testosterone 100 mg implant pellet 100 mg subcut Q3M 10/30/20 09/17/22 10/29/20 metformin 500 mg tablet,extended 1,000 mg PO BID 09/17/22 09/17/22 Unknown release 24 hr Active Medications Generic Name Dose Route Start Last Admin Trade Name Freq PRN Reason Stop Dose Admin Acetaminophen 650 mg 09/18/22 05:28 09/18/22 07:38 Acetaminophen 325 Mg Tab PO 10/18/22 05:27 650 mg Q4H PRN Administration Pain or Fever Fluticasone Propionate 2 sprays 09/18/22 09:00 09/18/22 09:02 Fluticasone Propionate Na Spr 16 Gm Btl RAMESH 10/18/22 08:59 2 sprays QAM INOCENTE Administration Gemfibrozil 600 mg 09/18/22 05:28 09/18/22 09:01 Gemfibrozil 600 Mg Tab PO 10/18/22 05:27 600 mg BID INOCENTE Administration Sodium Chloride 1,000 mls @ 125 mls/hr 09/18/22 00:45 09/18/22 10:19 Nss 1000ml IV 10/18/22 00:44 Infused .Q8H INOCENTE Infusion Potassium Chloride/Sodium Chloride 20 meq in 1,000 mls @ 80 mls/hr 09/18/22 06:00 09/18/22 06:19 Normal Saline W/20 Meq Kcl IV 09/19/22 06:59 80 mls/hr .[id number] INOCENTE Administration Ceftriaxone Sodium 2,000 mg/ 70 mls @ 100 mls/hr 09/18/22 09:00 09/18/22 10:20 Dextrose IV 09/28/22 08:59 Infused Q24H INOCENTE Infusion Protocol Insulin Aspart 0 units 09/18/22 06:00 09/18/22 06:28 Insulin Aspart Per Unit SC 10/18/22 05:59 5 units Q6 INOCENTE Administration Levothyroxine Sodium 112 mcg 09/18/22 06:30 09/18/22 07:37 Levothyroxine Sodium 112 Mcg Tablet PO 10/18/22 06:29 112 mcg DAILYBB INOCENTE Administration Metoprolol Tartrate 50 mg 09/18/22 09:00 09/18/22 09:01 Metoprolol Tartrate 50 Mg Tab PO 10/18/22 08:59 Not Given BID INOCENTE Pantoprazole Sodium 40 mg 09/18/22 05:28 09/18/22 09:01 Pantoprazole 40 Mg Tab PO 10/18/22 05:27 40 mg BID INOCENTE Administration Saccharomyces Boulardii 250 mg 09/18/22 09:00 09/18/22 09:01 Saccharomyces Boulardii 250 Mg Cap PO 10/18/22 08:59 250 mg QAM INOCENTE Administration Past Medical History Medical History Anxiety Leonard's esophagus Chronic allergic rhinitis Depression Diabetes mellitus, type 2 NIDDM Essential tremor H/O esophageal reflux 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 Hypercholesteremia Hypertension Hypothyroidism ASCVD Aorta Exercise / Class Metabolic Activity II 4-5 Yardwork/Stairs/Walk up hill Past Family History Family History Father Coronary arteriosclerosis Mother Colorectal cancer Other No family history of adverse response to anesthesia Past Surgical History Surgical History H/O blepharoplasty bilt History of bilateral inguinal hernia repair History of cataract surgery bilt History of colonoscopy History of esophagogastroduodenoscopy (EGD) History of squamous cell carcinoma excision History of surgery prior to blepharoplasty removed 1/2 off forehead to raise for blepharoplasty History of tonsillectomy and adenoidectomy History of tooth extraction Hx of cholecystectomy Past Anesthesia History No Hx of Anesthesia Complications and No Family Hx of Anesthesia Complications History of PONV No Hx of PONV and No Hx of Motion Sickness Social History Smoking Status: Never smoker Do You Dip or Chew Tobacco: No Hx Alcohol Use: No Hx Substance Use: No substance use type: does not use Physical Exam Vital Signs Last Vital Signs Temp 36.9 C 09/18/22 10:00 Pulse 105 H 09/18/22 11:30 Resp 18 09/18/22 10:00 BP 101/64 09/18/22 11:30 Pulse Ox 94 09/18/22 10:00 O2 Del Method Nasal Cannula 09/18/22 10:00 O2 Flow Rate 3 09/18/22 10:00 Testing Laboratory Results 09/17/22 22:55 09/17/22 22:55 Urine Color Yellow 09/17/22 22:40 Urine Appearance Clear (Clear) 09/17/22 22:40 Urine pH 7.5 (4.5-7.5) 09/17/22 22:40 Ur Specific [place] 1.009 (1.000-1.030) 09/17/22 22:40 Urine Protein Negative (Negative) 09/17/22 22:40 Urine Glucose (UA) 2+ (Negative) H 09/17/22 22:40 Urine Ketones Negative (Negative) 09/17/22 22:40 Urine Nitrite Negative (Negative) 09/17/22 22:40 Ur Leukocyte Esterase 1+ (Negative) H 09/17/22 22:40 Urine WBC (Auto) >30 /hpf (0-5) H 09/17/22 22:40 Urine RBC (Auto) 0-4 /hpf (0-4) 09/17/22 22:40 U Hyaline Cast (Auto) 0 /lpf (0-5) 09/17/22 22:40 U Epithel Cells (Auto) 5-10 /lpf (0-5) H 09/17/22 22:40 Urine Bacteria (Auto) Negative (Negative) 09/17/22 22:40 09/18/22 06:09 POC Glucose 256 H Electrocardiogram Date: 09/17/22 Findings: + NSST changes and + ST @ (@ 113;w/occasional PVC's) Chest X-Ray Date: 09/18/22 Findings: + NAD and + cardiomegaly (mild) Echocardiogram EF: 60% LV Function: normal RWMA: + none Other Findings: + LVH (mild) Valvular Disease: + no significant valvular disease
[2022-09-18] MEDS ORDERED: DIATRIZOATE MEGLUMINE 30% 100ML VIAL INSTIL PRN (12:08)
[2022-09-18] MEDS ORDERED: fentaNYL citrate PF 100 MCG/2 ML VIAL ONE (12:23)
[2022-09-18] MEDS ORDERED: MIDAZOLAM HCL 1 MG/ML 2ML VIAL ONE (12:23)
[2022-09-18] MEDS ORDERED: PROPOFOL IV EMULSION 10 MG/ML 20 ML VIAL IV ONE (12:37)
--- NOTE | 2022-09-18 12:40 | Post Operative Brief Note ---
PG Immediate Post Op with CF Date of Surgery September 18, 2022 Pre & Post Diagnosis Left ureteral calculus, sepsis left ureteral calculus, sepsis Operation Date: 09/18/22 11:30 <No data on this case meets the specified criteria> left ureteral calculus, sepsis I identified the patient and participated in the time-out.: Yes Procedure Cystoscopy, left retrograde pyelogram with radiographic interpretation, left ureteral stent placement Operation Date: 09/18/22 11:30 <No data on this case meets the specified criteria> Surgeon Ron Ramos MD Corporate Event Planner None Estimated Blood Loss 0 Findings See Below Bladder neck and prostate consistent with previous TURP. Left retrograde showed mild hydronephrosis. Left ureteral stent in appropriate position. Specimens Specimen Description: none Drains Other (6 Vietnamese by 26 mm left ureteral stent) Complications none
--- NOTE | 2022-09-18 12:44 | Operative Report ---
PG Post Operative Report Pre & Post Diagnosis Left ureteral calculus, sepsis Operation Date: 09/18/22 11:30 <No data on this case meets the specified criteria> Left ureteral calculus, sepsis I identified the patient and participated in the time-out.: Yes Procedure Cystoscopy, left retrograde pyelogram with radiograph interpretation, left ureteral stent placement Operation Date: 09/18/22 11:30 <No data on this case meets the specified criteria> Surgeon Ron Ramos MD Door Repairer Bus None Estimated Blood Loss 0 Findings See Below Prostate and bladder neck consistent with recent TURP. Left retrograde showed mild hydronephrosis. Left ureteral stent in appropriate position. Specimens None Drains 6 [place] by 26 mm left ureteral stent Anesthesia Type MAC Complications none Indications 76-year-old male with a recent history of a TURP who presented with left abdominal pain. CT scan showed an 8 mm proximal left ureteral calculus. He was febrile and tachycardic initially but improved with resuscitation efforts. Urinalysis showed pyuria. He was taken to the OR for stent placement. Patient was very clear that he did not want a catheter after surgery. Description of Procedure After informed consent was obtained, the patient was transported operative suite. MAC anesthesia was induced. The patient was placed in dorsal lithotomy position prepped and draped in a sterile fashion. They received preoperative ceftriaxone for antibiotic prophylaxis. An appropriate surgical timeout was performed. A 22 [place] rigid scope was inserted per urethra into the bladder. [place] cystoscopy revealed no stones or lesions. Bladder neck and prostate were consistent with recent TURP and channel was open. I turned my attention the left ureteral orifice and intubated this with a 5 [place] open-ended catheter. A left retrograde pyelogram was shot which showed mild left hydronephrosis. A sensor wire was advanced into the kidney and confirmed fluoroscopically. A 6 [place] by 26 cm left ureteral stent was deployed with a good proximal coil in the renal pelvis and a good distal coil noted in the bladder. These were confirmed fluoroscopically and under direct visualization, respectively. There was no obvious purulent drainage from the kidney. After did not get a catheter due to this and the fact the patient really did not want one placed as he recently had one for 1 week after his TURP. The bladder was emptied and the scope was removed. This concluded the end of the case. All counts were correct at the end of the case. I was present, scrubbed, and actively participated for the entirety of the procedure. I attest to the content of the Intraoperative Record and any orders documented therein. Any exceptions are noted below.
[2022-09-18] MEDS ORDERED: ATROPINE SULFATE 0.1 MG/ML 10ML SYR IV PRN (12:51)
[2022-09-18] MEDS ORDERED: NALOXONE HCL 0.4 MG/1 ML VIAL/CARP IV PRN (12:51)
[2022-09-18] MEDS ORDERED: FLUMAZENIL 0.1 MG/1 ML 10 ML VIAL IV PRN (12:51)
[2022-09-18] MEDS ORDERED: ePHEDrine sulfate 50 MG/ML AMP IV PRN (12:51)
[2022-09-18] MEDS ORDERED: PROMETHAZINE HCL 12.5 MG in SODIUM CHLORIDE 0.9% 50 ML IV PRN (12:51)
[2022-09-18] MEDS ORDERED: fentaNYL citrate PF 100 MCG/2 ML VIAL IV PRN (12:51)
--- NOTE | 2022-09-18 13:10 | Fluoroscopy Report ---
FL retrograde includes kub CLINICAL HISTORY: LEFT STENT PLACEMENT COMPARISON STUDY: None. FLUOROSCOPY TIME: 6 seconds FLUOROSCOPY IMAGES: Ka,r: 2.1 mGy FINDINGS: Single fluoroscopic spot image of the left side of the abdomen demonstrates the proximal po rtion of a left ureteral stent which appears in good position and opacification of the left renal col lecting system. The distal stent was not included on this study. IMPRESSION: Fluoroscopic assistance as above. ACT 112: Negative or not required by law. Electronically signed by: Florian Cuba M.D. 09/18/2022 1:08 PM
--- NOTE | 2022-09-18 13:39 | Anesthesiology Progress Note ---
Date of Service September 18, 2022 Anesthesia Post Procedure Vital Signs Vital Signs: Temp Pulse Pulse Pulse Resp BP BP 09/18/22 13:25 99 H 20 09/18/22 13:15 102 H 20 09/18/22 13:05 36.6 C 102 H 19 09/18/22 12:55 103 H 18 09/18/22 12:47 36.2 C L 104 H 17 09/18/22 11:30 105 H 101/64 09/18/22 10:32 102 H 09/18/22 10:00 09/18/22 10:00 36.9 C 105 H 18 09/18/22 09:50 37.2 C 105 H 16 09/18/22 09:03 85/49 L 09/18/22 08:06 37.5 C 113 H 20 09/18/22 09:15 37.6 C H 110 H 16 09/18/22 08:14 121 H 09/18/22 07:55 38.5 C H 118 H 18 09/18/22 05:00 39.4 C H 126 H 16 09/18/22 03:15 132 H 09/18/22 04:14 133 H 146/84 H 09/18/22 03:49 39.4 C H 09/18/22 03:30 133 H 4 L 09/18/22 03:30 130/78 09/18/22 03:20 133 H 15 09/18/22 03:10 132 H 15 09/18/22 03:00 135 H 22 09/18/22 03:00 117/61 09/18/22 02:50 130 H 23 09/18/22 02:40 132 H 22 09/18/22 02:30 133 H 24 09/18/22 02:30 164/100 H 09/18/22 02:20 148 H 22 09/18/22 02:10 131 H 24 09/18/22 02:00 132 H 20 09/18/22 02:00 184/107 H 09/18/22 01:50 130 H 20 09/18/22 01:40 128 H 22 09/18/22 01:30 126 H 24 09/18/22 01:30 164/99 H 09/18/22 01:20 130 H 26 H 09/18/22 01:10 144 H 22 03/19/23 01:00 138 H 20 09/18/22 01:00 190/158 H 09/18/22 00:50 102 H 22 09/18/22 00:40 107 H 24 09/18/22 00:32 109 H 23 09/18/22 00:32 180/98 H 09/18/22 00:10 106 H 18 09/18/22 00:00 109 H 16 09/18/22 00:00 184/101 H 09/17/22 23:50 106 H 23 09/17/22 23:40 110 H 16 09/17/22 23:30 119 H 15 09/17/22 23:30 152/115 H 09/17/22 23:20 113 H 24 09/17/22 23:19 115 H 18 09/18/22 02:45 38.8 C H 132 H 22 09/17/22 23:20 111 H 09/17/22 23:30 20 09/17/22 22:37 109 H 09/17/22 22:16 37 C 109 H 20 200/142 H BP Pulse Ox O2 Del Method O2 Flow Rate 09/18/22 13:25 92/61 L 94 Nasal Cannula 4 09/18/22 13:15 97/62 L 95 Nasal Cannula 4 09/18/22 13:05 89/54 L 94 Nasal Cannula 5 09/18/22 12:55 94/61 L 92 Nasal Cannula 5 09/18/22 12:47 85/51 L 92 Nasal Cannula 5 09/18/22 11:30 09/18/22 10:32 92/64 L 09/18/22 10:00 Nasal Cannula 3 09/18/22 10:00 97/61 L 94 Room Air 3 09/18/22 09:50 137/84 94 Nasal Cannula 3 09/18/22 09:03 09/18/22 08:06 99/65 L 92 Nasal Cannula 3 09/18/22 09:15 93/60 L 94 Room Air 09/18/22 08:14 09/18/22 07:55 94/56 L 90 Nasal Cannula 3 09/18/22 05:00 149/88 H 92 Nasal Cannula 3 09/18/22 03:15 09/18/22 04:14 09/18/22 03:49 09/18/22 03:30 91 Nasal Cannula 2 09/18/22 03:30 09/18/22 03:20 92 Nasal Cannula 2 09/18/22 03:10 94 Nasal Cannula 2 09/18/22 03:00 91 Nasal Cannula 2 09/18/22 03:00 09/18/22 02:50 92 Nasal Cannula 2 09/18/22 02:40 92 Nasal Cannula 2 09/18/22 02:30 91 Nasal Cannula 2 09/18/22 02:30 09/18/22 02:20 91 Nasal Cannula 2 09/18/22 02:10 86 L 09/18/22 02:00 86 L 09/18/22 02:00 09/18/22 01:50 86 L 09/18/22 01:40 86 L 09/18/22 01:30 90 09/18/22 01:30 09/18/22 01:20 88 L 09/18/22 01:10 90 09/18/22 01:00 91 09/18/22 01:00 09/18/22 00:50 96 09/18/22 00:40 94 09/18/22 00:32 94 09/18/22 00:32 09/18/22 00:10 96 09/18/22 00:00 97 09/18/22 00:00 09/17/22 23:50 97 09/17/22 23:40 95 09/17/22 23:30 96 09/17/22 23:30 09/17/22 23:20 95 09/17/22 23:19 94 09/18/22 02:45 164/100 H 92 Nasal Cannula 2 09/17/22 23:20 09/17/22 23:30 152/115 H 97 Room Air 09/17/22 22:37 98 Room Air 09/17/22 22:16 96 Room Air Pain Intensity Left Lower Abdomen: Pain Intensity: 8 Transfer of Care Handoff Completed per policy Notes Mental Status: alert / awake / arousable Patient Amnestic to Procedure: Yes Nausea / Vomiting: adequately controlled Pain: adequately controlled Airway Patency, RR, SpO2: stable & adequate BP & HR: stable & adequate and see Notes below (patient has urosepsis) Hydration State: stable & adequate Anesthetic Complications: no major complications apparent
[2022-09-18] MEDS: VENLAFAXINE HCL XR 150 MG CAPXR PO SCH (17:11)
[2022-09-18] MEDS: ESCITALOPRAM OXALATE 10 MG TAB PO SCH (17:11)
[2022-09-18] MEDS: LORazepam 0.5 MG TAB PO SCH (20:53)
[2022-09-18] MEDS: GABAPENTIN 100 MG CAP PO SCH (20:53)
[2022-09-18] MEDS ORDERED: amLODIPine BESYLATE 5 MG TAB PO SCH (21:00)
[2022-09-19] MEDS: LEVOTHYROXINE SODIUM 112 MCG TABLET PO SCH (06:10)
[2022-09-19 08:05] LABS: Albumin Level 3.5 gm/dl (3.4-5.0); BUN Creatinine Ratio 23.4 (10-20); Creatinine Clr Calc Pharmacy 36.1 ml/min; Est GFR (African American) 35.9 ml/min; Magnesium 1.3 mg/dl (1.7-2.4); Potassium 3.6 mmol/L (3.5-5.1)
[2022-09-19 08:09] LABS: Hematocrit (blood only) 32.2 % (42.0-52.0); Hemoglobin 11.4 g/dl (14.0-18.0); Mean Corpuscular Hemoglobin 33.5 pg (25.0-34.0); Mean Corpuscular Hgb Conc 35.4 g/dL (32.0-36.0); Mean Corpuscular Volume 94.7 fL (80.0-100.0); Platelet Count 157 K/uL (130-400); RDW Standard Deviation 48.4 fL (36.4-46.3); White Blood Count 22.41 K/ul (4.8-10.8)
[2022-09-19 08:11] LABS: Basophils % (auto) 0.4 %; Dohle Bodies 1+; Eosinophils # (auto) 0.08 K/uL (0-0.50); Eosinophils % (auto) 0.4 %; Immature Granulocytes # (auto) 1.44 K/uL (0.01-0.20); Immature Granulocytes % (auto) 6.4 %; Lymphocytes # (auto) 0.72 K/uL (1.2-3.4); Lymphocytes % (auto) 3.2 %; Monocytes # (auto) 0.98 K/uL (0.11-0.59); Monocytes % (auto) 4.4 %; Neutrophils # (auto) 19.09 K/uL (1.40-6.50); Neutrophils % (auto) 85.2 %
[2022-09-19] MEDS: METOPROLOL TARTRATE 50 MG TAB PO SCH ×2 (08:19→21:17)
[2022-09-19] MEDS: FLUTICASONE PROPIONATE NA SPR 16 GM BTL NAE SCH (08:19)
[2022-09-19] MEDS: SACCHAROMYCES BOULARDII 250 MG CAP PO SCH (08:19)
[2022-09-19] MEDS: PANTOprazole 40 MG TAB PO SCH ×2 (08:19→21:18)
[2022-09-19] MEDS: gemfibroziL 600 MG TAB PO SCH ×2 (08:19→21:17)
[2022-09-19 08:23] LABS: Estimated Average Glucose 154 mg/dl
[2022-09-19] MEDS: INSULIN ASPART PER UNIT CHARGE SC SCH ×4 (08:24→21:12)
[2022-09-19] MEDS: cefTRIAXone SODIUM 2,000 MG in DEXTROSE 5% 50 ML IV SCH (08:25)
[2022-09-19] MEDS ORDERED: ACETAMINOPHEN 500 MG TAB PO PRN (08:30)
[2022-09-19] MEDS ORDERED: MoRPHine SULFATE 4 MG/ML 1 ML CARP\\VIAL IV PRN (08:30)
--- NOTE | 2022-09-19 08:40 | Urology Progress Note ---
Date of Service September 19, 2022 Assessment & Plan (1) Calculus of proximal left ureter: Plan 76-year-old male admitted with pain and concern for infection in the setting of an 8mm left proximal ureteral calculus Postop day #1 status post cystoscopy, left ureteral stent placement. Afebrile and hemodynamically stable. Labs today show white count of 22.41 and creatinine 2.05. Not unexpected for patient to have increased leukocytosis and creatinine following stent placement. Continue to trend labs. Urine culture preliminary gram-negative bacilli, blood cultures preliminary no growth x24 hours. On IV ceftriaxone, follow cultures and tailor as culture data becomes available. Voiding spontaneously, continue to monitor. Bladder scan as needed. Continue supportive care and antibiotic therapy. Can consider addition of tamsulosin and prn pyridium for stent discomfort. Will need outpatient follow-up with urology to arrange definitive stone treatment after the infection has cleared. Urology will follow. Admission and Anticipated Discharge Date Admission Date: September 18, 2022 Subjective Patient examined at bedside this AM. Awake, resting in bed on arrival. No acute distress. No fevers overnight. Tolerating the ureteral stent with minimal bother. Notes intermittent stent discomfort. Voiding spontaneously, some hematuria and dysuria. Also notes urinary frequency. No nausea or vomiting. Review of Systems Constitutional: as per Subjective / HPI Gastrointestinal: as per Subjective / HPI Genitourinary: + as per Subjective / HPI Physical Exam Constitutional: no acute distress Respiratory: no respiratory distress and no labored breathing O2 via NC Skin: No visible rashes or lesions to exposed skin areas Neurologic: moves all extremities and awake Psychiatric: A+Ox3, euthymic affect Results & Data Vital Signs (Past 12 Hours) Vital Signs Temp Pulse Pulse Resp BP Pulse Ox O2 Del Method 09/19/22 07:53 Nasal Cannula 09/19/22 07:28 36.7 C 98 H 19 103/62 93 Nasal Cannula 09/19/22 07:11 98 H 09/19/22 03:17 37 C 102 H 18 97/59 L 93 Nasal Cannula 09/18/22 23:52 95 Nasal Cannula 09/18/22 23:52 36.8 C 101 H 18 97/58 L 95 Nasal Cannula 09/18/22 21:00 96 Nasal Cannula 09/18/22 22:02 102 H 09/18/22 21:00 104 H 127/74 O2 Flow Rate 09/19/22 07:53 1 09/19/22 07:28 1.5 09/19/22 07:11 09/19/22 03:17 1 09/18/22 23:52 2 09/18/22 23:52 2 09/18/22 21:00 4 09/18/22 22:02 09/18/22 21:00 PG Care Time/CCT Total # of Minutes Spent Total Time Spent with Patient: Total time spent is greater than 50% in coordination of care (as documented) at patient's floor/unit and/or counseling patient: Coding Level of Care Code 11066 SUB INP/OBS CARE 2/35MIN Diagnoses Calculus of proximal left ureter N20.1
[2022-09-19] MEDS: MAGNESIUM SULFATE / D5W 1 GM/100 ML BAG IV SCH ×3 (09:04→13:02)
--- NOTE | 2022-09-19 11:24 | Hospitalist Progress Note ---
Date of Service September 19, 2022 Assessment & Plan (1) Calculus of proximal left ureter: Plan: L ureteral calculus with hydronephrosis s/p cystoscopy with ureteral stent placement, pod#1 - Urine cx with prelim growth of GNB - Continue Ceftriaxone until culture data finalized and then tailor accordingly - CBC reviewed with worsening leukocytosis today of 22.41 - Blood cultures NGTD - Pain control - Tylenol 1st line, Oxy 2nd line - Urology following, appreciate assistance - Add Flomax 0.4mg at HS and Pyridium for dysuria (2) Acute kidney injury: Plan: - Due to ureterolithiasis - Reviewed CMP this AM - creatinine 2.05, baseline ~1.10 - Push oral rehydration - Trend with repeat chemistry tomorrow morning (3) Hypomagnesemia: Plan: - Mag level 1.3 on today's labs - Mag Sulfate 1g IV q2h x 3 bags - Repeat level in AM (4) Diabetes mellitus, type 2: Plan: - BSG with fairly good control - Continue SSI AC and HS as ordered - On Metformin 1000mg BID at home, can resume upon dc (5) Hypertension: Plan: - BPs running 90-100s systolic - Reduce Amlodipine to 5mg at HS - Continue Metoprolol Tartrate 50mg BID - Will continue to monitor (6) Prostate cancer: Plan: - S/p recent TURP by Dr. Ceja in Jul 2022 - Follow up as outpatient (7) Lewis's esophagus: Plan: - Continue Protonix (8) Depression: Plan: - Continue Venlafaxine and Lexapro Plan Add Lovenox for DVT ppx. Anticipate possibly home tomorrow pending clinical course. Above to be d/w Dr. Kaufman. Admission and Anticipated Discharge Date Admission Date: September 18, 2022 Subjective Patient was seen on rounds this morning. He is resting comfortably in bed. Reports that he feels a little worse today. No abd pain or flank pain. Does endorse dysuria. No hematuria. No fever/chills, cp or dyspnea. Physical Exam Physical Exam: GENERAL: 76 yo wd/wn elderly WM. NAD. LUNGS: Clear to auscultation bilaterally. CARDIOVASCULAR: Regular rate and rhythm. ABDOMEN: Soft, non-tender and non-distended. Mild left flank TTP. BS normoactive x 4 quad. Results & Data Results & Data Vital Signs (Past 12 Hours) Vital Signs Temp Pulse Pulse Resp BP Pulse Ox O2 Del Method 09/19/22 07:53 Nasal Cannula 09/19/22 07:28 36.7 C 98 H 19 103/62 93 Nasal Cannula 09/19/22 07:11 98 H 09/19/22 03:17 37 C 102 H 18 97/59 L 93 Nasal Cannula 09/18/22 23:52 95 Nasal Cannula 09/18/22 23:52 36.8 C 101 H 18 97/58 L 95 Nasal Cannula O2 Flow Rate 09/19/22 07:53 1 09/19/22 07:28 1.5 09/19/22 07:11 09/19/22 03:17 1 09/18/22 23:52 2 09/18/22 23:52 2 Laboratory Results 09/19/22 07:20 09/19/22 07:20 PG Care Time/CCT Total # of Minutes Spent Total Time Spent with Patient: Total time spent is greater than 50% in coordination of care (as documented) at patient's floor/unit and/or counseling patient: Coding Level of Care Code 83101 SUB INP/OBS CARE 3/50MIN Diagnoses Calculus of proximal left ureter N20.1 Acute kidney injury N17.9 Hypomagnesemia E83.42 Diabetes mellitus, type 2 E11.9 Hypertension I10 Prostate cancer C61 Lewis's esophagus K22.70 Depression F32.9
[2022-09-19] MEDS ORDERED: oxyCODONE HCL IR 5 MG TAB (IMMEDIATE RELEASE) PO PRN (11:25)
[2022-09-19] MEDS ORDERED: PHENAZOPYRIDINE HCL 200 MG TAB PO PRN (11:26)
[2022-09-19] MEDS: ENOXAPARIN INJ 40 MG/0.4 ML SYR SQ SCH (13:01)
[2022-09-19] MEDS: VENLAFAXINE HCL XR 150 MG CAPXR PO SCH (17:04)
[2022-09-19] MEDS: ESCITALOPRAM OXALATE 10 MG TAB PO SCH (17:04)
[2022-09-19] MEDS ORDERED: TAMSULOSIN HCL 0.4 MG CAP PO SCH (21:00)
[2022-09-19] MEDS ORDERED: amLODIPine BESYLATE 5 MG TAB PO SCH (21:00)
[2022-09-19] MEDS: LORazepam 0.5 MG TAB PO SCH (21:19)
[2022-09-19] MEDS: GABAPENTIN 100 MG CAP PO SCH (21:19)
[2022-09-19] MEDS ORDERED: MELATONIN 3 MG TAB PO PRN (21:35)
[2022-09-20] MEDS: LEVOTHYROXINE SODIUM 112 MCG TABLET PO SCH (06:03)
--- NOTE | 2022-09-20 07:38 | Urology Progress Note ---
Date of Service September 20, 2022 Assessment & Plan (1) Calculus of proximal left ureter: (2) S/P ureteral stent placement: Plan 76-year-old male admitted with pain and concern for infection in the setting of an 8mm left proximal ureteral calculus Postop day #2 status post cystoscopy, left ureteral stent placement. Subjectively feeling better today. Tolerating the ureteral stent with minimal bother. Remains afebrile and hemodynamically stable. Labs today show leukocytosis downtrending to 14.92, creatinine improved to 1.32. Urine culture preliminary E.coli, sensitive to ceftriaxone. Blood cultures preliminary no growth x24 hours. Continue antibiotics and tailor as culture data becomes available. Voiding spontaneously, continue to monitor. Bladder scan as needed. Continue supportive care and antibiotic therapy. Continue Tamsulosin and PRN Pyridium for stent management. Will arrange outpatient follow-up with urology for definitive stone treatment after the infection has cleared. Urology will sign-off. Please contact us with any further questions, concerns, or changes in patient status. Admission and Anticipated Discharge Date Admission Date: September 18, 2022 Subjective Patient examined at bedside this AM. Awake, sitting up in bedside chair on arrival. No acute distress. Reports feeling better today than yesterday. Slept well last night. No fevers. Tolerating the stent with minimal bother. Voiding without issue. Notes some urgency and frequency. Tolerating diet, no nausea or vomiting. Review of Systems Constitutional: as per Subjective / HPI Gastrointestinal: as per Subjective / HPI Genitourinary: + as per Subjective / HPI Physical Exam Constitutional: no acute distress Respiratory: no respiratory distress and no labored breathing Skin: No visible rashes or lesions to exposed skin areas Neurologic: moves all extremities and awake Psychiatric: A+Ox3, euthymic affect Results & Data Vital Signs (Past 12 Hours) Vital Signs Temp Pulse Pulse Resp BP Pulse Ox O2 Del Method 09/20/22 07:28 36.9 C 81 19 108/68 91 Nasal Cannula 09/20/22 07:21 84 09/20/22 02:55 36.8 C 96 H 22 126/74 93 Nasal Cannula 09/19/22 21:57 103 H 09/19/22 23:06 36.7 C 99 H 20 152/73 H 93 Nasal Cannula 09/19/22 21:16 104 H 154/83 H O2 Flow Rate 09/20/22 07:28 1 09/20/22 07:21 09/20/22 02:55 1 09/19/22 21:57 09/19/22 23:06 1 09/19/22 21:16 PG Care Time/CCT Total # of Minutes Spent Total Time Spent with Patient: Total time spent is greater than 50% in coordination of care (as documented) at patient's floor/unit and/or counseling patient: Coding Level of Care Code 92543 SUB INP/OBS CARE 2/35MIN Diagnoses Calculus of proximal left ureter N20.1 S/P ureteral stent placement Z96.0
[2022-09-20 07:40] LABS: Hematocrit (blood only) 30.3 % (42.0-52.0); Hemoglobin 10.8 g/dl (14.0-18.0); Mean Corpuscular Hemoglobin 33.4 pg (25.0-34.0); Mean Corpuscular Hgb Conc 35.6 g/dL (32.0-36.0); Mean Corpuscular Volume 93.8 fL (80.0-100.0); Mean Platelet Volume 10.9 fL (9.4-12.4); Platelet Count 150 K/uL (130-400); RDW Coefficient of Variation 13.3 % (11.5-14.5); RDW Standard Deviation 45.6 fL (36.4-46.3); Red Blood Count 3.23 M/uL (4.70-6.10); White Blood Count 14.92 K/ul (4.8-10.8)
[2022-09-20 07:59] LABS: Albumin Level 3.4 gm/dl (3.4-5.0); BUN Creatinine Ratio 30.3 (10-20); Basophils # (auto) 0.05 K/uL (0-0.2); Basophils % (auto) 0.3 %; Calcium 8.6 mg/dl (8.5-10.1); Creatinine Clr Calc Pharmacy 56.3 ml/min; Dohle Bodies 1+; Eosinophils % (auto) 0.7 %; Est GFR (African American) 61.2 ml/min; Est GFR (Non-African American) 52.8 ml/min; Immature Granulocytes # (auto) 0.65 K/uL (0.01-0.20); Immature Granulocytes % (auto) 4.4 %; Lymphocytes % (auto) 3.4 %; Magnesium 1.9 mg/dl (1.7-2.4); Monocytes # (auto) 0.59 K/uL (0.11-0.59); Neutrophils # (auto) 13.03 K/uL (1.40-6.50); Neutrophils % (auto) 87.2 %; Phosphorus 2.9 mg/dl (2.5-4.9); Potassium 3.5 mmol/L (3.5-5.1)
[2022-09-20] MEDS: ENOXAPARIN INJ 40 MG/0.4 ML SYR SQ SCH (08:01)
[2022-09-20] MEDS: PANTOprazole 40 MG TAB PO SCH (08:01)
[2022-09-20] MEDS: gemfibroziL 600 MG TAB PO SCH (08:01)
[2022-09-20] MEDS: METOPROLOL TARTRATE 50 MG TAB PO SCH (08:01)
[2022-09-20] MEDS: FLUTICASONE PROPIONATE NA SPR 16 GM BTL NAE SCH (08:01)
[2022-09-20] MEDS: cefTRIAXone SODIUM 2,000 MG in DEXTROSE 5% 50 ML IV SCH (08:01)
[2022-09-20] MEDS: SACCHAROMYCES BOULARDII 250 MG CAP PO SCH (08:01)
[2022-09-20] MEDS: INSULIN ASPART PER UNIT CHARGE SC SCH ×2 (08:06→12:25)
--- NOTE | 2022-09-20 12:01 | Discharge Summary ---
Date of Service September 20, 2022 Admission HPI Per Admitting Provider The patient is a 76-year-old male with a past medical history including recently diagnosed prostate cancer, fibula fracture, testicular dysfunction, PLMD, internal hemorrhoids, hiatal hernia, hearing loss, essential tremor, diverticulitis, benign familial tremor, erectile dysfunction, diabetes mellitus type 2, Lewis's esophagus, depression, GERD, hypercholesterolemia, hypertension and hypothyroidism. He presents to the emergency department with acute onset of left lower quadrant and left flank pain along with nausea and vomiting shortly after dinner this evening. He has noticed a few episodes of all over body shakes, and had an episode in the ED during my visit, which appeared to be rigors Significant laboratories: WBC 12.06, hemoglobin 15.2, hematocrit 41.6, potassium 3.3, glucose 274, creatinine 1.27, calcium 10.4, albumin 5.1 CT scan abdomen pelvis shows an 8 mm proximal left obstructing ureteral calculus with moderate left hydroureteronephrosis Principal Diagnosis 1. L ureteral stone s/p stent placement 2. JARAD - resolved 3. Hypomagnesemia - replaced/resolved Discharge Exam GENERAL: 76 yo wd/wn elderly WM. NAD. LUNGS: Clear to auscultation bilaterally. CARDIOVASCULAR: Regular rate and rhythm. ABDOMEN: Soft, non-tender and non-distended. BS normoactive x 4 quad. Discharge Data Allergies Allergy/AdvReac Type Severity Reaction Status Date / Time Penicillins Allergy Intermediate RASH, Verified 09/17/22 23:20 "VERY ILL" Sulfa (Sulfonamide Allergy Mild RASH Verified 09/17/22 23:20 Antibiotics) YORDY Inhibitors AdvReac Intermediate Cough Verified 09/17/22 23:20 atorvastatin AdvReac Intermediate muscle Verified 09/17/22 23:20 cramps Consultations 09/18/22 00:35 ED Decision to Admit Stat 09/18/22 05:28 Consult Urology Routine Procedures Performed Operation Date: 09/18/22 11:30 Actual Procedures p Cystoscopy, Left Stent Placement, Retrograde Pyelogram(Left) - Ron Ramos MD Ordered Studies Abdomen/Pelvis CT 09/17/22 22:41 Exam(s): CT ABDOMEN + PELVIS With Contrast IV Amt: 90ml EXAM: CT Abdomen and Pelvis With Intravenous Contrast CLINICAL HISTORY: Reason for exam: LLQ abd pain, n/v. TECHNIQUE: Axial computed tomography images of the abdomen and pelvis with intravenous contrast. CTDI is 12.26 mGy and DLP is 700.09 mGy-cm. Automated exposure control was utilized for the study. A dose lowering technique was utilized adhering to the principles of ALARA. CONTRAST: Patient received 90ml of IV contrast COMPARISON: 05/21/22 FINDINGS: Lung bases: Unremarkable. No mass. No consolidation. ABDOMEN: Liver: Unremarkable. No mass. Gallbladder and bile ducts: Unremarkable. No calcified stones. No ductal dilation. Pancreas: Unremarkable. No mass. No ductal dilation. Spleen: Unremarkable. No splenomegaly. Adrenals: Unremarkable. No mass. Kidneys and ureters: There is moderate left hydroureteronephrosis related to an 8 mm calculus in the proximal ureter (image 43 series 2). There is an additional nonobstructing left lower pole intrarenal calculus. There is an obstructive nephropathy of the left kidney. There is a large benign-appearing left renal cyst for which imaging follow-up is unnecessary. Stomach and bowel: There is scattered colonic diverticula without CT evidence for active diverticulitis. No obstruction. PELVIS: Appendix: No findings to suggest acute appendicitis. Bladder: Unremarkable. No mass. Reproductive: Unremarkable as visualized. ABDOMEN and PELVIS: Intraperitoneal space: Unremarkable. No free air. No significant fluid collection. Bones/joints: There are degenerative changes of the thoracolumbar spine. No acute fracture. No dislocation. Soft tissues: Unremarkable. Vasculature: There is diffuse atherosclerotic calcification of the aorta and its major branch vessels. No abdominal aortic aneurysm. Lymph nodes: Unremarkable. No enlarged lymph nodes. IMPRESSION: Moderate left hydroureteronephrosis related to an 8 mm obstructing proximal ureteral calculus with associated obstructive nephropathy. Electronically signed by: Jarod Vidal MD 09/18/22 00:01 AM Chest X-Ray 09/18/22 08:43 XR chest 1V portable HISTORY: pre-op COMPARISON: Chest 05/21/2022. FINDINGS: No pneumothorax. No pleural effusions. There are low lung volumes. No focal lung consolidations to suggest a pneumonia. No evidence for pulmonary edema. Stable mild cardiomegaly. This may be accentuated by the low lung volumes. IMPRESSION: No significant change compared to the prior study. No acute process. ACT 112: Negative or not required by law. Electronically signed by: Florian Cuba M.D. 09/18/2022 10:13 AM Retrograde Pyelogram 09/18/22 11:45 FL retrograde includes kub CLINICAL HISTORY: LEFT STENT PLACEMENT COMPARISON STUDY: None. FLUOROSCOPY TIME: 6 seconds FLUOROSCOPY IMAGES: Oksana,r: 2.1 mGy FINDINGS: Single fluoroscopic spot image of the left side of the abdomen demonstrates the proximal portion of a left ureteral stent which appears in good position and opacification of the left renal collecting system. The distal stent was not included on this study. IMPRESSION: Fluoroscopic assistance as above. ACT 112: Negative or not required by law. Electronically signed by: Florian Cuba M.D. 09/18/2022 1:08 PM Hospital Course (1) Calculus of proximal left ureter: L ureteral calculus with hydronephrosis s/p cystoscopy with ureteral stent placement, pod#2 - Urine cx with prelim growth of E. coli - treated with Ceftriaxone during his hospitalization, received 3 doses - CBC reviewed, leukocytosis trending down from 22.41 to 14.92 - Blood cultures NGTD - Urology followed and will see in office as outpatient, appreciate assistance - Added Flomax 0.4mg at HS on 09/19 - Pyridium ordered for dysuria however pt no longer having, therefore will not rx on d/c - Transition to Cefdinir 300mg BID x 5 more days (for total of 8 day course of abx) (2) Acute kidney injury: - Due to ureterolithiasis - Reviewed CMP this AM - creatinine improved this AM to 1.32 down to 2.05, baseline ~1.10 - Continue to push oral rehydration at home - Nearly resolved (3) Hypomagnesemia: - Mag level 1.3 on 09/19 labs - Mag Sulfate 1g IV q2h x 3 bags given - Repeat level 09/20 demonstrates normal mag of 1.9 (4) Diabetes mellitus, type 2: - BSG with fairly good control - Continue SSI AC and HS as ordered - On Metformin 1000mg BID at home, can resume upon dc (5) Hypertension: - BPs running 90-100s systolic - Reduced Amlodipine to 5mg at HS - Continue Metoprolol Tartrate 50mg BID - HCTZ stopped during this stay - Can consider resumption/adjustments of meds upon follow up with PCP (6) Prostate cancer: - S/p recent TURP by Dr. Ceja in Jul 2022 - Follow up as outpatient (7) Lewis's esophagus: - Continue Protonix (8) Depression: - Continue Venlafaxine and Lexapro Plan Patient is medically and hemodynamically stable for discharge home. Will transition to course of oral antibiotics to complete as outpatient. Follow up with urology as arranged. Follow up with PCP within 1 week. Above to be d/w Dr. Kaufman. Total Time Total Time Spent Total Time Spent (In Minutes): >30 minutes Discharge Plan Discharge Items Patient Disposition: Home - Self-Care Reason For Visit: PROX LEFT URETERAL CALCULUS, LEFT HYDRO Discharge Diagnosis: kidney stone urinary tract infection Activity: Resume your previous activity Non-emergency contact: Primary Care Provider and Urologist Call non-emergency contact if: you have any medication questions Follow-up/Referrals: Kiesha Stephenson [Primary Care Provider] - Diet: Carb Consistent or DM2 Addtl Attending Provider Instructions: You were hospitalized due to kidney stone. You underwent placement of a stent in your ureter by urology. You were also found to have an infection in your urine. For this, you have been treated with antibiotics. You have responded well to treatment provided in the hospital. You will be discharged home on a course of antibiotics called Cefdinir. You are due for your next dose to start tomorrow morning (09/21/22). Please complete the full course as prescribed. You are also being prescribed Flomax 0.4mg to take before bed. This is to help relax the smooth muscle in the urinary tract and allow urine to flow past the stone. The following medications have been adjusted during your hospitalization: 1. Amlodipine has been REDUCED to 5mg (STOP TAKING the 10mg tablets) 2. Hydrochlorothiazide has been STOPPED Please follow up with your family doctor within 1 week of discharge from the hospital. In the event of any questions/concerns after you leave the hospital, you can call the nonemergency number listed on your discharge paperwork. In the event of a medical emergency, call 911. Pending Studies at Discharge: No Stand-Alone Forms: My Cue, Smoking Cessation Medications and DC Order Prescriptions: New amlodipine [Norvasc] 5 mg Tablet 5 mg PO HS Qty: 30 0RF tamsulosin 0.4 mg Capsule 0.4 mg PO HS Qty: 30 0RF metoprolol tartrate 50 mg Tablet 50 mg PO BID Qty: 60 0RF cefdinir 300 mg capsule 300 mg PO BID 5 Days Qty: 10 0RF Continued escitalopram oxalate [Lexapro] 5 mg tablet 5 mg PO QDD venlafaxine [Effexor XR] 150 mg capsule,extended release 24hr 150 mg PO QDD omega-3 acid ethyl esters 1 gram capsule 1 g PO QAM Saccharomyces boulardii 250 mg capsule 250 mg PO QAM fluticasone propionate 50 mcg/actuation spray,suspension 2 spray INTNAS QAM multivitamin [Daily Multi-Vitamin] Tablet 1 tab PO QDD fluocinonide 0.05 % cream 1 applic TOP UD PRN (Reason: Rash) esomeprazole magnesium [Nexium] 40 mg capsule,delayed release(DR/EC) 40 mg PO BID lorazepam 0.5 mg tablet 0.5 mg PO HS gemfibrozil [Lopid] 600 mg tablet 600 mg PO BID gabapentin 100 mg capsule 200 mg PO HS Qty: 30 5RF aspirin 81 mg Tablet,Delayed Release (Dr/Ec) 81 mg PO QAM levothyroxine [Synthroid] 112 mcg tablet 112 mcg PO DAILYBB testosterone 100 mg Pellet 100 mg SUBCUT Q3M metformin 500 mg tablet extended release 24 hr 1,000 mg PO BID Discontinued amlodipine 10 mg tablet 10 mg PO HS Patient Comments: at HS hydrochlorothiazide 12.5 mg capsule 12.5 mg PO QAM Shanita/Other Patient Handouts: Managing Type 2 Diabetes Admission Data Admit Date/Time: 09/18/22 01:14 Attending Provider: Darrell Kaufman Admit Provider: Miguel Godoy Primary Care Provider: Kiesha Stephenson Other Providers: Miguel Godoy ; Ron Ramos Other Interventions: Discharge Summary Assessment (RN) Last Done: 09/20/22 10:17 Coding Level of Care Code 10418 INP/OBS DISCH >30 MIN Diagnoses Calculus of proximal left ureter N20.1 Acute kidney injury N17.9 Hypomagnesemia E83.42 Diabetes mellitus, type 2 E11.9 Hypertension I10 Prostate cancer C61 Lewis's esophagus K22.70 Depression F32.9
== END 2022-09-20 14:03 | disposition home or self-care (01) | DRG 854 ==
LOC: ED 22:33 → 2N 09-18 01:14 → SUATTDRO 09-18 01:14 → 2N 09-18 04:47 → 2S 09-18 08:54

== ENCOUNTER 2023-07-06 | Inpatient (IN) ==
[2023-07-06 00:18] LABS: Appearance Urine Clear (Clear); Bilirubin Urine Negative (Negative); Blood Urine Negative (Negative); Color Urine Yellow; Glucose Urine UA 3+ (Negative); Ketones Urine Negative (Negative); Leukocyte Esterase Urine Negative (Negative); Nitrite Urine Negative (Negative); Protein Urine Negative (Negative); Specific Gravity Urine 1.016 (1.000-1.030); Urobilinogen Urine Negative (Negative); pH Urine 7.5 (4.5-7.5)
[2023-07-06 00:38] LABS: Basophils # (auto) 0.05 K/uL (0.00-0.20); Eosinophils # (auto) 0.14 K/uL (0.00-0.50); Eosinophils % (auto) 2.9 %; Hematocrit (blood only) 37.8 % (42.0-52.0); Hemoglobin 14.3 g/dl (14.0-18.0); Immature Granulocytes # (auto) 0.02 K/uL (0.01-0.20); Immature Granulocytes % (auto) 0.4 %; Lymphocytes # (auto) 1.07 K/uL (1.20-3.40); Mean Corpuscular Hemoglobin 33.5 pg (25.0-34.0); Mean Corpuscular Hgb Conc 37.8 g/dL (32.0-36.0); Mean Corpuscular Volume 88.5 fL (80.0-100.0); Mean Platelet Volume 10.3 fL (9.4-12.4); Monocytes # (auto) 0.49 K/uL (0.11-0.59); Monocytes % (auto) 10.1 %; Neutrophils # (auto) 3.09 K/uL (1.40-6.50); Neutrophils % (auto) 63.6 %; Platelet Count 299 K/uL (130-400); RDW Coefficient of Variation 12.6 % (11.5-14.5); RDW Standard Deviation 40.8 fL (36.4-46.3); Red Blood Count 4.27 M/uL (4.70-6.10); White Blood Count 4.86 K/ul (4.8-10.8)
[2023-07-06 01:10] LABS: Albumin Globulin Ratio 1.6 (0.9-2); Albumin Level 4.6 gm/dl (3.4-5.0); BUN Creatinine Ratio 19.8 (10-20); Bilirubin,Total 0.5 mg/dl (0.2-1.0); Calcium 9.2 mg/dl (8.6-10.3); Creatinine Clr Calc Pharmacy 66.8 ml/min; Est GFR (African American) 74.9 ml/min; Est GFR (Non-African American) 64.6 ml/min; Globulin 2.9 gm/dl (2.5-4.0); Potassium 3.5 mmol/L (3.5-5.1); Total Protein 7.5 gm/dl (6.0-8.3); Troponin I High Sensitivity 49.1 pg/ml (0-20)
[2023-07-06 01:49] LABS: Adenovirus PCR Not Detected (NotDetected); Bordetella parapertussis PCR Not Detected (NotDetected); Bordetella pertussis PCR Not Detected (NotDetected); Chlamydia pneumoniae PCR Not Detected (NotDetected); Coronavirus 229E PCR Not Detected (NotDetected); Coronavirus HKU1 PCR Not Detected (NotDetected); Coronavirus NL63 PCR Not Detected (NotDetected); Coronavirus OC43PCR Not Detected (NotDetected); Human Metapneumovirus PCR Not Detected (NotDetected); Influenza A PCR Not Detected (NotDetected); Influenza B PCR Not Detected (NotDetected); Mycoplasma pneumoniae PCR Not Detected (NotDetected); Parainfluenza Virus 1 PCR Not Detected (NotDetected); Parainfluenza Virus 2 PCR Not Detected (NotDetected); Parainfluenza Virus 3 PCR Not Detected (NotDetected); Parainfluenza Virus 4 PCR Not Detected (NotDetected); Respiratory Syncytial VirusPCR Not Detected (NotDetected); Rhinovirus/Enterovirus PCR Not Detected (NotDetected)
[2023-07-06 02:03] LABS: Coronavirus CoV-2 (COVID19)PCR DETECTED (NotDetected)
[2023-07-06] MEDS ORDERED: METOPROLOL TARTRATE 1 MG/ML VIAL IV STA (02:08)
[2023-07-06 02:27] LABS: INR 0.9 (0.9-1.1); Prothrombin Time 10.2 Seconds (9.0-12.0)
[2023-07-06 02:45] LABS: Partial Thromboplastin Ratio 0.9; Partial Thromboplastin Time 25 Seconds (21-31)
[2023-07-06] MEDS ORDERED: CARBOHYDRATES FOR HYPOGLYCEMIA PO PRN (03:16)
[2023-07-06] MEDS ORDERED: DEXTROSE 50% 50 ML SYRINGE IV PRN (03:16)
[2023-07-06] MEDS ORDERED: GLUCOSE 10 TAB/TUBE PO PRN (03:16)
[2023-07-06] MEDS ORDERED: GLUCAGON FOR INJ 1 MG VIAL SQ PRN (03:16)
[2023-07-06] MEDS ORDERED: GLUCOSE 40% GEL 15 GM TUBE PO PRN (03:16)
--- NOTE | 2023-07-06 03:23 | History & Physical Report ---
Date of Service July 06, 2023 Assessment & Plan (1) COVID-19 virus infection: (2) Leonard esophagus: (3) Elevated troponin: (4) Diabetes mellitus, type 2: (5) Leonard's esophagus: (6) Hypertension: (7) Depression: Plan COVID-19 infection- Not causing significant hypoxia, but does not appear to be causing fatigue, generalized weakness, shortness of breath and dyspnea on exertion Give dexamethasone 6 mg IV now and then every morning Duonebs every 4 hours while awake and every 2 hours when necessary. Azithromycin 500 mg IV daily Pulse ox for the most part is around 96% on room air, not qualifying him for remdesivir IV Consider Paxlovid prescription to be filled outpatient and then used inpatient Elevated troponin/hypertension- Blood pressure was elevated into the 170s/100s, that improved significantly with Lopressor 5 mg IV. May be an anxiety and/or physiologic stress component due to COVID-19 Continue amlodipine Orders for as needed hydralazine IV and Lopressor IV The patient will be admitted to telemetry for serial cardiac enzymes, serial EKG's, cardiac rhythm monitoring and a 2-D echocardiogram with Dopplers. Troponin initially 49.1, with follow-up 66.5. Likely supply demand mismatch type II. Echocardiogram to include assessment for possible pericarditis Diabetes mellitus- Hold metformin Glucose initially 322 with follow-up 247 Place on Accu-Cheks with NovoLog SSI. Monitor closely for increases while on dexamethasone May temporarily need some long-acting insulin History of Present Illness Chief Complaint: The patient presents to the emergency department with 1 day of persistent shortness of breath, chest discomfort, elevated blood pressure, fatigue and elevated blood sugars Primary Care Provider: Kiesha Stephenson The patient is a 77-year-old male with a past medical history including uric acid kidney stones, Leonard's esophagus, essential tremor, PLMD, prostate cancer, status post ureteral stent placement, GERD, depression, hypercholesterolemia, hypertension and hypothyroidism. The patient has had about 24 hours of shortness of breath, dyspnea on exertion, chest discomfort, and fatigue. He denies any recent travels or sick exposures. Significant emergency department testing: [employer] COVID-19 positive, troponin 49.1, glucose 322 with follow-up 247. Allergies Allergy/AdvReac Type Severity Reaction Status Date / Time Penicillins Allergy Intermediate RASH, Verified 06/06/23 11:07 "VERY ILL" Sulfa (Sulfonamide Allergy Intermediate RASH Verified 06/06/23 11:07 Antibiotics) YORDY Inhibitors AdvReac Intermediate Cough Verified 06/06/23 11:07 atorvastatin AdvReac Intermediate muscle Verified 06/06/23 11:07 cramps Home Medications Medication Instructions Recorded Confirmed Type esomeprazole magnesium 40 mg 40 mg PO BID LEONARD'S ESOPHAGUS 07/26/19 07/06/23 History capsule,delayed release (Nexium) fluticasone propionate 50 2 spray intranasal QAM 07/26/19 07/06/23 History mcg/actuation nasal spray,suspension gemfibrozil 600 mg tablet (Lopid) 600 mg PO BID 07/26/19 07/06/23 History multivitamin (Daily Multi-Vitamin 1 tab PO QAM 07/26/19 07/06/23 History tablet) venlafaxine 150 mg 150 mg PO QPM 07/26/19 07/06/23 History capsule,extended release 24 hr (Effexor XR) gabapentin 100 mg capsule 200 mg (2 x 100 mg) PO HS #30 caps 07/31/19 07/06/23 Rx escitalopram oxalate 5 mg tablet 5 mg PO QPM 11/26/19 07/06/23 History (Lexapro) levothyroxine 112 mcg tablet 112 mcg PO QAM 10/30/20 07/06/23 History (Synthroid) amlodipine 10 mg tablet 10 mg PO HS 11/23/22 07/06/23 History Lactobacillus acidophilus 10 10,000 mmu cells PO QAM 07/06/23 07/06/23 History billion cell capsule (Probiotic) lorazepam 1 mg tablet 0.5 mg PO HS Anxiety 07/06/23 07/06/23 History metformin 500 mg tablet,extended 500 mg PO BID 07/06/23 07/06/23 History release 24 hr Past Med/Surg History Medical History (Updated 07/06/23 @ 04:24 by Miguel Godoy MD) Vitamin D deficiency Calculus of proximal left ureter Prostate cancer DX 07/2022 Chronic allergic rhinitis Diabetes mellitus, type 2 NIDDM 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 Essential tremor Anxiety Leonard's esophagus Depression H/O esophageal reflux Hypercholesteremia Hypertension Hypothyroidism Surgical History History of lithotripsy ESWL 12/16/2022 @ [facility] Hx of transurethral resection of prostate Hx of cystoscopy S/P ureteral stent placement 09/18/2022 [facility] History of bilateral inguinal hernia repair History of squamous cell carcinoma excision History of colonoscopy History of esophagogastroduodenoscopy (EGD) History of tooth extraction History of tonsillectomy and adenoidectomy History of surgery prior to blepharoplasty removed 1/2 off forehead to raise for blepharoplasty Hx of cholecystectomy H/O blepharoplasty bilt History of cataract surgery bilt Family History Father Coronary arteriosclerosis Mother Colorectal cancer Other No family history of adverse response to anesthesia Social History Smoking Status: Never smoker Second Hand Exposure: No; Do You Dip or Chew Tobacco: No; Hx Alcohol Use: No Hx Substance Use: No Preferred Language: Cymro Communication Ability: Effective 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 Required: No Beliefs That Will Affect Care: None Current Living Situation: Spouse Feels Safe at Home: Yes Assistive Devices: Glasses Review of Systems Review of Systems: The patient denies palpitations, cough, lower extremity swelling, sore throat, fevers, chills, sweats, nausea, vomiting, diarrhea , constipation, abdominal pain, pelvic pain, blood in urine or stool, dysuria, urinary frequency or urgency, lightheadedness, dizziness, headache, memory loss, loss of consciousness, rash, abnormal bruising or bleeding, imbalance, focal weakness, numbness or tingling in arms or legs, generalized arthralgias or myalgias, back or neck pain, or night sweats. The review of systems is otherwise negative other than for that already noted above, and at least 10 systems have been reviewed. Physical Exam Physical Exam: The patient is awake, alert and oriented 3, well developed and well nourished, normocephalic and atraumatic, lying in bed and in no acute distress. HEENT--PERRL, EOMI, mucous membranes and oropharynx normal. Neck--supple. No JVD. No bruits. Thyroid normal, trachea midline, no adenopathy. Heart--normal S1 and S2. No murmurs, rubs or gallops. Lungs--clear bilaterally, no respiratory distress, no accessory muscle use. Abdomen--normal bowel sounds and soft. Nontender. Nondistended, no hernias or masses, no organomegaly. Extremities--no cyanosis or clubbing. No edema. Dermatologic--normal skin turgor, normal color, no abnormal lymph nodes, no rash. Neurologic--cranial nerves II through XII grossly intact. Rheumatologic--normal range of motion. Psychiatric--normal affect. Results & Data Results & Data Vital Signs (Past 12 Hours) Vital Signs Temp Pulse Resp BP BP Pulse Ox O2 Del Method 07/06/23 03:00 179/108 H 07/06/23 02:59 95 Room Air 07/06/23 02:40 77 21 97 07/06/23 02:30 177/115 H 07/06/23 02:30 76 16 96 07/06/23 02:20 79 20 95 07/06/23 02:15 82 16 95 07/06/23 02:15 180/107 H 07/06/23 02:15 81 180/107 H 07/06/23 02:06 86 18 188/118 H 96 07/06/23 01:50 84 21 93 07/06/23 01:40 86 18 188/118 H 97 07/06/23 01:14 180/111 H 07/06/23 01:12 86 07/06/23 00:07 36.5 C 97 H 18 190/102 H 97 Room Air Laboratory Results Laboratory Results WBC 4.86 K/ul (4.8-10.8) 07/06/23 00:19 RBC 4.27 M/uL (4.70-6.10) L 07/06/23 00:19 Hgb 14.3 g/dl (14.0-18.0) 07/06/23 00:19 Hct 37.8 % (42.0-52.0) L 07/06/23 00:19 MCV 88.5 fL (80.0-100.0) 07/06/23 00:19 MCH 33.5 pg (25.0-34.0) 07/06/23 00:19 MCHC 37.8 g/dL (32.0-36.0) H 07/06/23 00:19 RDW Std Deviation 40.8 fL (36.4-46.3) 07/06/23 00:19 RDW Coeff of Vicente 12.6 % (11.5-14.5) 07/06/23 00:19 Plt Count 299 K/uL (130-400) 07/06/23 00:19 MPV 10.3 fL (9.4-12.4) 07/06/23 00:19 Immature Gran % (Auto) 0.4 % 07/06/23 00:19 Neut % (Auto) 63.6 % 07/06/23 00:19 Lymph % (Auto) 22.0 % 07/06/23 00:19 [place] % (Auto) 10.1 % 07/06/23 00:19 Eos % (Auto) 2.9 % 07/06/23 00:19 Baso % (Auto) 1.0 % 07/06/23 00:19 Neut # (Auto) 3.09 K/uL (1.40-6.50) 07/06/23 00:19 Lymph # (Auto) 1.07 K/uL (1.20-3.40) L 07/06/23 00:19 [place] # (Auto) 0.49 K/uL (0.11-0.59) 07/06/23 00:19 Eos # (Auto) 0.14 K/uL (0.00-0.50) 07/06/23 00:19 Baso # (Auto) 0.05 K/uL (0.00-0.20) 07/06/23 00:19 Immature Gran # (Auto) 0.02 K/uL (0.01-0.20) 07/06/23 00:19 PT 10.2 Seconds (9.0-12.0) 07/06/23 00:19 INR 0.9 (0.9-1.1) 07/06/23 00:19 APTT 25 Seconds (21-31) 07/06/23 00:19 PTT Ratio 0.9 07/06/23 00:19 Sodium 134 mmol/L (136-145) L 07/06/23 00:19 Potassium 3.5 mmol/L (3.5-5.1) 07/06/23 00:19 Chloride 99 mmol/L (98-107) 07/06/23 00:19 Carbon Dioxide 25 mmol/L (21-32) 07/06/23 00:19 Anion Gap 10 (3-11) 07/06/23 00:19 BUN 22 mg/dl (6-23) 07/06/23 00:19 Creatinine 1.11 mg/dl (0.6-1.4) 07/06/23 00:19 Est Cr Clr Drug Dosing 66.8 ml/min 07/06/23 00:19 Est GFR ( Amer) 74.9 ml/min 07/06/23 00:19 Est GFR (Non-Af Amer) 64.6 ml/min 07/06/23 00:19 BUN/Creatinine Ratio 19.8 (10-20) 07/06/23 00:19 Glucose 322 mg/dl (70-99(Fasting)) H* 07/06/23 00:19 POC Glucose 247 mg/dl (70-99) H 07/06/23 03:15 Calcium 9.2 mg/dl (8.6-10.3) 07/06/23 00:19 Total Bilirubin 0.5 mg/dl (0.2-1.0) 07/06/23 00:19 AST 21 U/L (13-39) 07/06/23 00:19 ALT 23 U/L (7-52) 07/06/23 00:19 Alkaline Phosphatase 150 U/L (34-104) H 07/06/23 00:19 Troponin I High Sens 66.5 pg/ml (0-20) H* D 07/06/23 02:24 Total Protein 7.5 gm/dl (6.0-8.3) 07/06/23 00:19 Albumin 4.6 gm/dl (3.4-5.0) 07/06/23 00:19 Globulin 2.9 gm/dl (2.5-4.0) 07/06/23 00:19 Albumin/Globulin Ratio 1.6 (0.9-2) 07/06/23 00:19 Urine Color Yellow 07/06/23 00:05 Urine Appearance Clear (Clear) 07/06/23 00:05 Urine pH 7.5 (4.5-7.5) 07/06/23 00:05 Ur Specific Riley 1.016 (1.000-1.030) 07/06/23 00:05 Urine Protein Negative (Negative) 07/06/23 00:05 Urine Glucose (UA) 3+ (Negative) H 07/06/23 00:05 Urine Ketones Negative (Negative) 07/06/23 00:05 Urine Blood Negative (Negative) 07/06/23 00:05 Urine Nitrite Negative (Negative) 07/06/23 00:05 Urine Bilirubin Negative (Negative) 07/06/23 00:05 Urine Urobilinogen Negative (Negative) 07/06/23 00:05 Ur Leukocyte Esterase Negative (Negative) 07/06/23 00:05 Adenovirus (PCR) Not Detected (NotDetected) 07/06/23 00:40 B. pertussis DNA (PCR) Not Detected (NotDetected) 07/06/23 00:40 B.parapertussis DNA PCR Not Detected (NotDetected) 07/06/23 00:40 C. pneumoniae DNA (PCR) Not Detected (NotDetected) 07/06/23 00:40 Coronavirus OC43 (PCR) Not Detected (NotDetected) 07/06/23 00:40 Coronavirus HKU1 (PCR) Not Detected (NotDetected) 07/06/23 00:40 Coronavirus 229E (PCR) Not Detected (NotDetected) 07/06/23 00:40 SARS-CoV-2 (PCR) DETECTED (NotDetected) A* 07/06/23 00:40 Coronavirus NL63 (PCR) Not Detected (NotDetected) 07/06/23 00:40 Human Metapneumovir PCR Not Detected (NotDetected) 07/06/23 00:40 Influenza Type A (PCR) Not Detected (NotDetected) 07/06/23 00:40 Influenza Type B (PCR) Not Detected (NotDetected) 07/06/23 00:40 M. pneumoniae (PCR) Not Detected (NotDetected) 07/06/23 00:40 Parainfluenza 1 (PCR) Not Detected (NotDetected) 07/06/23 00:40 Parainfluenza 2 (PCR) Not Detected (NotDetected) 07/06/23 00:40 Parainfluenza 3 (PCR) Not Detected (NotDetected) 07/06/23 00:40 Parainfluenza 4 (PCR) Not Detected (NotDetected) 07/06/23 00:40 RSV (PCR) Not Detected (NotDetected) 07/06/23 00:40 Entero/Rhino (PCR) Not Detected (NotDetected) 07/06/23 00:40 Code Status & VTE Plan Code Status Full code PG Care Time/CCT Total # of Minutes Spent Total Time Spent with Patient: Total time spent is greater than 50% in coordination of care (as documented) at patient's floor/unit and/or counseling patient: Coding Level of Care Code 42370 INT INP/OBS CARE 3/75MIN Diagnoses COVID-19 virus infection U07.1 Leonard esophagus K22.70 Elevated troponin R79.89 Diabetes mellitus, type 2 E11.9 Hypertension I10 Depression F32.9
[2023-07-06] MEDS ORDERED: METOPROLOL TARTRATE 1 MG/ML VIAL IV PRN (03:29)
[2023-07-06] MEDS ORDERED: hydrALAZINE HCL 20 MG/ML VIAL IV PRN (03:29)
--- NOTE | 2023-07-06 03:31 | Emergency Department Note ---
Impression & Plan Elevated troponin, COVID, Diabetes mellitus with hyperglycemia Admit to the [facility] ED Provider Note NAME: NAT GREER AGE: 77 SEX: Male INFORMANT: Patient ED PROVIDER(S): Valerie Sims DO CHIEF COMPLAINT: Chest discomfort and high blood pressure PLAN: Disposition: Admit to the [facility] MEDICAL DECISION MAKING: This is a 77-year-old male patient with history of hypertension and diabetes who presents to the emergency department with 24-hour history of chest discomfort, hyperglycemia and hypertension. Patient noticed his blood sugar was elevated today despite taking his metformin so he took one of his 's Prandin tablets. Upon arrival here in the emergency department, the chest discomfort has subsided. He remains moderately hypertensive. Laboratory studies reveal no leukocytosis or anemia. Glucose is elevated at 322. Troponin is high at 49. This was repeated throughout his stay 2 hours later and was found to be 68. Urinalysis was positive for 3+ glucose and COVID testing was positive. I am concerned about the patient's rising troponin and hypertensive urgency. He received a dose of IV Lopressor here in the ER which brought his pressure down initially. I discussed the case with the [facility]ist and they will evaluate for further inpatient care. Care/management discussed with: manager park and the [facility] Triage Nursing notes: reviewed and agree with them. Vital Signs: reviewed and remarkable for hypertension Additional History obtained from: The is at the bedside Chronic Medical/Social Conditions affecting care: Diabetes and hypertension Differential Diagnosis: Diabetic hyperglycemia, NSTEMI, STEMI, unstable angina, hypertensive urgency Diagnostics, independently interpreted by me: ECG: Normal sinus rhythm at a rate of [address] segment elevation or signs of ischemia Cardiac Monitoring: Normal sinus rhythm at a rate of 77 Imaging studies: Portable chest x-ray: As per my independent interpretation-the patient has significant cardiomegaly but no other pulmonary infiltrates or opacities. HPI: 77 year old Male arrives for evaluation of headache and chest discomfort. Patient describes headache and substernal chest discomfort throughout his day starting on Monday. He noted at home that his blood sugar was significantly elevated. He describes having an episode similar to this years ago where he had a cardiac workup but the episode was blamed on his blood sugar. At home today, the patient had been taking his metformin for the blood sugar but also took one of his 's Prandin tablets. By the time the patient arrived here in the emergency department, the chest discomfort had subsided. PAST MEDICAL HISTORY: See Below, PAST SURGICAL HISTORY: See Below, SOCIAL HISTORY: See Below, HOME MEDICATIONS: See list ALLERGIES: See list VITALS: See Below PHYSICAL EXAMINATION: HEENT: Head - normocephalic and atraumatic. Pupils are equal, round, and reactive to light. Extraocular eye muscles are intact, and sclera are anicteric. Nose - moist nasal mucosa without discharge. Mouth - moist buccal mucosa. Oropharynx is nonerythematous and there is no tonsillar exudate or edema noted. Neck: Supple; no JVD or cervical lymphadenopathy Heart: Regular rate and rhythm. There is a normal S1 and S2 with no murmurs, clicks, or gallops appreciated. Lungs: Clear to auscultation bilaterally with no wheezes, rales, or rhonchi. Abdomen: Soft, completely nontender, nondistended, with good bowel sounds. There are no palpable pulsatile masses or hepatosplenomegaly. There is no guarding, rigidity, or rebound noted. Extremities: No evidence of cyanosis, clubbing, or edema. There are easily palpable peripheral pulses. Skin: warm and dry with good turgor and no rashes. Emergency department treatment: phototypesetting equipment monitor, twelve-lead EKG, IV Lopressor Emergency department course: The patient was evaluated in room B6. A complete history and physical was performed. An order was placed for continuous cardiac monitoring. The patient was in a normal sinus rhythm at a rate of 77. A twelve-lead EKG was obtained as described above. Patient was given a dose of IV Lopressor to lower his blood pressure. A portable chest x-ray was performed. Bio fire testing revealed the patient was COVID-positive. He was placed in isolation. A repeat troponin level was obtained and had elevated. I discussed the case with the [facility] Hospitalist and they will evaluate for further inpatient care. 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 Essential tremor Anxiety Leonard's esophagus Depression H/O esophageal reflux Hypercholesteremia Hypertension Hypothyroidism Surgical History History of lithotripsy ESWL 12/16/2022 @ [facility] Hx of transurethral resection of prostate Hx of cystoscopy S/P ureteral stent placement 09/18/2022 [facility] History of bilateral inguinal hernia repair History of squamous cell carcinoma excision History of colonoscopy History of esophagogastroduodenoscopy (EGD) History of tooth extraction History of tonsillectomy and adenoidectomy History of surgery prior to blepharoplasty removed 1/2 off forehead to raise for blepharoplasty Hx of cholecystectomy H/O blepharoplasty bilt History of cataract surgery bilt Family History Father Coronary arteriosclerosis Mother Colorectal cancer Other No family history of adverse response to anesthesia Social History Smoking Status: Never smoker Second Hand Exposure: No; Do You Dip or Chew Tobacco: No; Hx Alcohol Use: No Hx Substance Use: No Preferred Language: Thai Communication Ability: Effective Sap Pi Developer Required: No Beliefs That Will Affect Care: None Current Living Situation: Spouse Feels Safe at Home: Yes Assistive Devices: None Allergies Allergies Allergy/AdvReac Type Severity Reaction Status Date / Time Penicillins Allergy Intermediate RASH, Verified 06/06/23 11:07 "VERY ILL" Sulfa (Sulfonamide Allergy Intermediate RASH Verified 06/06/23 11:07 Antibiotics) YORDY Inhibitors AdvReac Intermediate Cough Verified 06/06/23 11:07 atorvastatin AdvReac Intermediate muscle Verified 06/06/23 11:07 cramps Home Meds Home Medications Medication Instructions Recorded Confirmed esomeprazole magnesium 40 mg 40 mg PO BID LEONARD'S ESOPHAGUS 07/26/19 07/06/23 capsule,delayed release (Nexium) fluticasone propionate 50 2 spray intranasal QAM 07/26/19 07/06/23 mcg/actuation nasal spray,suspension gemfibrozil 600 mg tablet (Lopid) 600 mg PO BID 07/26/19 07/06/23 multivitamin (Daily Multi-Vitamin 1 tab PO QAM 07/26/19 07/06/23 tablet) venlafaxine 150 mg 150 mg PO QPM 07/26/19 07/06/23 capsule,extended release 24 hr (Effexor XR) escitalopram oxalate 5 mg tablet 5 mg PO QPM 11/26/19 07/06/23 (Lexapro) levothyroxine 112 mcg tablet 112 mcg PO QAM 10/30/20 07/06/23 (Synthroid) amlodipine 10 mg tablet 10 mg PO HS 11/23/22 07/06/23 Lactobacillus acidophilus 10 10,000 mmu cells PO QAM 07/06/23 07/06/23 billion cell capsule (Probiotic) lorazepam 1 mg tablet 0.5 mg PO HS Anxiety 07/06/23 07/06/23 metformin 500 mg tablet,extended 500 mg PO BID 07/06/23 07/06/23 release 24 hr Previous Rx's Medication Instructions Recorded gabapentin 100 mg capsule 200 mg (2 x 100 mg) PO HS #30 caps 07/31/19 Results & Data (ED) Vital Signs Vital Signs - 24 hr 07/06/23 00:07 07/06/23 01:12 07/06/23 01:14 Temperature 36.5 C Temperature Source Temporal Artery Scan Pulse Rate 97 H 86 Pulse Rate from SpO2 Sensor Respiratory Rate 18 Respiratory Effort / Characteristics Non-Labored Spontaneous Respiratory Depth Normal Respiratory Pattern Regular Blood Pressure 190/102 H Blood Pressure [Right Arm] 180/111 H Blood Pressure Mean 131 Blood Pressure Mean [Right Arm] 134 Blood Pressure Position Sitting Blood Pressure Position [Right Arm] Sitting Pulse Oximetry 97 Oxygen Delivery Method Room Air Sepsis Recent Fever Within 48 Hours No Sepsis New/Unexplained Change in Mental Status N/A Sepsis Action Taken by Nursing No Action Required 07/06/23 01:40 07/06/23 01:50 07/06/23 02:06 Temperature Temperature Source Pulse Rate 86 84 86 Pulse Rate from SpO2 Sensor 86 84 85 Respiratory Rate 18 21 18 Respiratory Effort / Characteristics Respiratory Depth Respiratory Pattern Blood Pressure 188/118 H 188/118 H Blood Pressure [Right Arm] Blood Pressure Mean 141 148 Blood Pressure Mean [Right Arm] Blood Pressure Position Blood Pressure Position [Right Arm] Pulse Oximetry 97 93 96 Oxygen Delivery Method Sepsis Recent Fever Within 48 Hours Sepsis New/Unexplained Change in Mental Status Sepsis Action Taken by Nursing 07/06/23 02:15 07/06/23 02:15 07/06/23 02:15 Temperature Temperature Source Pulse Rate 81 82 Pulse Rate from SpO2 Sensor 82 Respiratory Rate 16 Respiratory Effort / Characteristics Respiratory Depth Respiratory Pattern Blood Pressure 180/107 H 180/107 H Blood Pressure [Right Arm] Blood Pressure Mean 123 Blood Pressure Mean [Right Arm] Blood Pressure Position Blood Pressure Position [Right Arm] Pulse Oximetry 95 Oxygen Delivery Method Sepsis Recent Fever Within 48 Hours Sepsis New/Unexplained Change in Mental Status Sepsis Action Taken by Nursing 07/06/23 02:20 07/06/23 02:30 07/06/23 02:30 Temperature Temperature Source Pulse Rate 79 76 Pulse Rate from SpO2 Sensor 80 76 Respiratory Rate 20 16 Respiratory Effort / Characteristics Respiratory Depth Respiratory Pattern Blood Pressure 177/115 H Blood Pressure [Right Arm] Blood Pressure Mean 132 Blood Pressure Mean [Right Arm] Blood Pressure Position Blood Pressure Position [Right Arm] Pulse Oximetry 95 96 Oxygen Delivery Method Sepsis Recent Fever Within 48 Hours Sepsis New/Unexplained Change in Mental Status Sepsis Action Taken by Nursing 07/06/23 02:40 07/06/23 02:59 07/06/23 03:00 Temperature Temperature Source Pulse Rate 77 Pulse Rate from SpO2 Sensor 78 Respiratory Rate 21 Respiratory Effort / Characteristics Non-Labored Respiratory Depth Normal Respiratory Pattern Regular Blood Pressure Blood Pressure [Right Arm] 179/108 H Blood Pressure Mean Blood Pressure Mean [Right Arm] 131 Blood Pressure Position Blood Pressure Position [Right Arm] Sitting Pulse Oximetry 97 95 Oxygen Delivery Method Room Air Sepsis Recent Fever Within 48 Hours Sepsis New/Unexplained Change in Mental Status Sepsis Action Taken by Nursing Laboratory Data 07/08/23 06:09 07/08/23 06:09 Lab Results 07/06/23 07/06/23 07/06/23 Range/Units 00:05 00:19 00:40 WBC 4.86 (4.8-10.8) K/ul RBC 4.27 L (4.70-6.10) M/uL Hgb 14.3 (14.0-18.0) g/dl Hct 37.8 L (42.0-52.0) % MCV 88.5 (80.0-100.0) fL MCH 33.5 (25.0-34.0) pg MCHC 37.8 H (32.0-36.0) g/dL RDW Std Deviation 40.8 (36.4-46.3) fL RDW Coeff of Vicente 12.6 (11.5-14.5) % Plt Count 299 (130-400) K/uL MPV 10.3 (9.4-12.4) fL Immature Gran % (Auto) 0.4 % Neut % (Auto) 63.6 % Lymph % (Auto) 22.0 % Tama % (Auto) 10.1 % Eos % (Auto) 2.9 % Baso % (Auto) 1.0 % Neut # (Auto) 3.09 (1.40-6.50) K/uL Lymph # (Auto) 1.07 L (1.20-3.40) K/uL Tama # (Auto) 0.49 (0.11-0.59) K/uL Eos # (Auto) 0.14 (0.00-0.50) K/uL Baso # (Auto) 0.05 (0.00-0.20) K/uL Immature Gran # (Auto) 0.02 (0.01-0.20) K/uL PT 10.2 (9.0-12.0) Seconds INR 0.9 (0.9-1.1) APTT 25 (21-31) Seconds PTT Ratio 0.9 Sodium 134 L (136-145) mmol/L Potassium 3.5 (3.5-5.1) mmol/L Chloride 99 (98-107) mmol/L Carbon Dioxide 25 (21-32) mmol/L Anion Gap 10 (3-11) BUN 22 (6-23) mg/dl Creatinine 1.11 (0.6-1.4) mg/dl Est Cr Clr Drug Dosing 66.8 ml/min Est GFR ( Amer) 74.9 ml/min Est GFR (Non-Af Amer) 64.6 ml/min BUN/Creatinine Ratio 19.8 (10-20) Glucose 322 H* (70-99(Fasting)) mg/dl POC Glucose (70-99) mg/dl Estimat Average Glucose 154 mg/dl Hemoglobin A1c 7.0 H (4.5-5.6) % Calcium 9.2 (8.6-10.3) mg/dl Total Bilirubin 0.5 (0.2-1.0) mg/dl AST 21 (13-39) U/L ALT 23 (7-52) U/L Alkaline Phosphatase 150 H (34-104) U/L Troponin I High Sens 49.1 H (0-20) pg/ml Total Protein 7.5 (6.0-8.3) gm/dl Albumin 4.6 (3.4-5.0) gm/dl Globulin 2.9 (2.5-4.0) gm/dl Albumin/Globulin Ratio 1.6 (0.9-2) Urine Color Yellow Urine Appearance Clear (Clear) Urine pH 7.5 (4.5-7.5) Ur Specific [place] 1.016 (1.000-1.030) Urine Protein Negative (Negative) Urine Glucose (UA) 3+ H (Negative) Urine Ketones Negative (Negative) Urine Blood Negative (Negative) Urine Nitrite Negative (Negative) Urine Bilirubin Negative (Negative) Urine Urobilinogen Negative (Negative) Ur Leukocyte Esterase Negative (Negative) Adenovirus (PCR) Not Detected (NotDetected) B. pertussis DNA (PCR) Not Detected (NotDetected) B.parapertussis DNA PCR Not Detected (NotDetected) C. pneumoniae DNA (PCR) Not Detected (NotDetected) Coronavirus OC43 (PCR) Not Detected (NotDetected) Coronavirus HKU1 (PCR) Not Detected (NotDetected) Coronavirus 229E (PCR) Not Detected (NotDetected) SARS-CoV-2 (PCR) DETECTED A* (NotDetected) Coronavirus NL63 (PCR) Not Detected (NotDetected) Human Metapneumovir PCR Not Detected (NotDetected) Influenza Type A (PCR) Not Detected (NotDetected) Influenza Type B (PCR) Not Detected (NotDetected) M. pneumoniae (PCR) Not Detected (NotDetected) Parainfluenza 1 (PCR) Not Detected (NotDetected) Parainfluenza 2 (PCR) Not Detected (NotDetected) Parainfluenza 3 (PCR) Not Detected (NotDetected) Parainfluenza 4 (PCR) Not Detected (NotDetected) RSV (PCR) Not Detected (NotDetected) Entero/Rhino (PCR) Not Detected (NotDetected) 07/06/23 07/06/23 Range/Units 02:24 03:15 WBC (4.8-10.8) K/ul RBC (4.70-6.10) M/uL Hgb (14.0-18.0) g/dl Hct (42.0-52.0) % MCV (80.0-100.0) fL MCH (25.0-34.0) pg MCHC (32.0-36.0) g/dL RDW Std Deviation (36.4-46.3) fL RDW Coeff of Vicente (11.5-14.5) % Plt Count (130-400) K/uL MPV (9.4-12.4) fL Immature Gran % (Auto) % Neut % (Auto) % Lymph % (Auto) % Tama % (Auto) % Eos % (Auto) % Baso % (Auto) % Neut # (Auto) (1.40-6.50) K/uL Lymph # (Auto) (1.20-3.40) K/uL Tama # (Auto) (0.11-0.59) K/uL Eos # (Auto) (0.00-0.50) K/uL Baso # (Auto) (0.00-0.20) K/uL Immature Gran # (Auto) (0.01-0.20) K/uL PT (9.0-12.0) Seconds INR (0.9-1.1) APTT (21-31) Seconds PTT Ratio Sodium (136-145) mmol/L Potassium (3.5-5.1) mmol/L Chloride (98-107) mmol/L Carbon Dioxide (21-32) mmol/L Anion Gap (3-11) BUN (6-23) mg/dl Creatinine (0.6-1.4) mg/dl Est Cr Clr Drug Dosing ml/min Est GFR ( Amer) ml/min Est GFR (Non-Af Amer) ml/min BUN/Creatinine Ratio (10-20) Glucose (70-99(Fasting)) mg/dl POC Glucose 247 H (70-99) mg/dl Estimat Average Glucose mg/dl Hemoglobin A1c (4.5-5.6) % Calcium (8.6-10.3) mg/dl Total Bilirubin (0.2-1.0) mg/dl AST (13-39) U/L ALT (7-52) U/L Alkaline Phosphatase (34-104) U/L Troponin I High Sens 66.5 H* D (0-20) pg/ml Total Protein (6.0-8.3) gm/dl Albumin (3.4-5.0) gm/dl Globulin (2.5-4.0) gm/dl Albumin/Globulin Ratio (0.9-2) Urine Color Urine Appearance (Clear) Urine pH (4.5-7.5) Ur Specific [place] (1.000-1.030) Urine Protein (Negative) Urine Glucose (UA) (Negative) Urine Ketones (Negative) Urine Blood (Negative) Urine Nitrite (Negative) Urine Bilirubin (Negative) Urine Urobilinogen (Negative) Ur Leukocyte Esterase (Negative) Adenovirus (PCR) (NotDetected) B. pertussis DNA (PCR) (NotDetected) B.parapertussis DNA PCR (NotDetected) C. pneumoniae DNA (PCR) (NotDetected) Coronavirus OC43 (PCR) (NotDetected) Coronavirus HKU1 (PCR) (NotDetected) Coronavirus 229E (PCR) (NotDetected) SARS-CoV-2 (PCR) (NotDetected) Coronavirus NL63 (PCR) (NotDetected) Human Metapneumovir PCR (NotDetected) Influenza Type A (PCR) (NotDetected) Influenza Type B (PCR) (NotDetected) M. pneumoniae (PCR) (NotDetected) Parainfluenza 1 (PCR) (NotDetected) Parainfluenza 2 (PCR) (NotDetected) Parainfluenza 3 (PCR) (NotDetected) Parainfluenza 4 (PCR) (NotDetected) RSV (PCR) (NotDetected) Entero/Rhino (PCR) (NotDetected) Administered Medications Amlodipine Besylate (Amlodipine Besylate 5 Mg Tab) 10 mg PO HS [facility] Stop: 08/05/23 20:59 Last Admin: 07/07/23 21:31 Dose: 10 mg Documented By: Admin: 07/06/23 21:08 Dose: 10 mg Documented By: GALI Enoxaparin Sodium (Enoxaparin Inj 40 Mg/0.4 Ml Syr) 40 mg SQ Q24H [facility] Stop: 08/05/23 08:59 Last Admin: 07/07/23 08:27 Dose: 40 mg Documented By: Admin: 07/06/23 10:26 Dose: 40 mg Documented By: MOLLY Escitalopram Oxalate (Escitalopram Oxalate 10 Mg Tab) 5 mg PO QPM [facility] Stop: 08/05/23 20:59 Last Admin: 07/07/23 21:29 Dose: 5 mg Documented By: Admin: 07/06/23 21:08 Dose: 5 mg Documented By: GALI Fluticasone Propionate (Fluticasone Propionate Na Spr 16 Gm Btl) 2 sprays RAMESH QAM [facility] Stop: 08/05/23 08:59 Last Admin: 07/07/23 08:29 Dose: 2 sprays Documented By: Admin: 07/06/23 10:18 Dose: 2 sprays Documented By: MOLLY Gabapentin (Gabapentin 100 Mg Cap) 200 mg PO HS [facility] Stop: 08/05/23 20:59 Last Admin: 07/07/23 21:32 Dose: 200 mg Documented By: Admin: 07/06/23 21:10 Dose: 200 mg Documented By: GALI Gemfibrozil (Gemfibrozil 600 Mg Tab) 600 mg PO BID [facility] Stop: 08/05/23 08:59 Last Admin: 07/07/23 21:32 Dose: 600 mg Documented By: Admin: 07/07/23 08:28 Dose: 600 mg Documented By: Admin: 07/06/23 21:10 Dose: 600 mg Documented By: shower room attendant: 07/06/23 10:17 Dose: 600 mg Documented By: MOLLY Hydralazine HCl (Hydralazine Hcl 20 Mg/Ml Vial) 10 mg IV Q4H PRN PRN Reason: Hypertension Stop: 08/05/23 03:28 Last Admin: 07/06/23 08:14 Dose: 10 mg Documented By: MOLLY Remdesivir 100 mg/ Sodium (Chloride) 250 mls @ 250 mls/hr IV Q24H [facility] Stop: 07/10/23 12:59 Last Infusion: 07/07/23 12:56 Dose: Infused Documented By: Admin: 07/07/23 11:43 Dose: 250 mls/hr Documented By: JERICA Insulin Aspart (Insulin Aspart Per Unit Charge) 0 units SC ACHS [facility] Stop: 08/05/23 07:29 Last Admin: 07/07/23 21:41 Dose: 4 units Documented By: VALENTÍN Co-signed By: YOSI Admin: 07/07/23 17:49 Dose: 10 units Documented By: IFEOMA Co-signed By: GONZALO Admin: 07/07/23 13:09 Dose: 11 units Documented By: JERICA Co-signed By: CYNTHIA Admin: 07/07/23 09:55 Dose: 6 units Documented By: JERICA Co-signed By: JACKSON Admin: 07/06/23 21:25 Dose: 2 units Documented By: GALI Co-signed By: FELIPA Admin: 07/06/23 18:23 Dose: 6 units Documented By: JERROD Co-signed By: GENNY Admin: 07/06/23 13:52 Dose: 15 units Documented By: MOLLY Co-signed By: TWIN Admin: 07/06/23 10:23 Dose: 9 units Documented By: MOLLY Co-signed By: ALEJO Insulin Human NPH (Insulin Human Nph) 10 units SC [facility] Stop: 08/05/23 08:59 Last Admin: 07/07/23 09:56 Dose: 10 units Documented By: JERICA Co-signed By: JACKSON Admin: 07/06/23 10:23 Dose: 10 units Documented By: MOLLY Co-signed By: ALEJO Lactobacillus Acidophilus (Advanced Probiotic 1250 Mg Capsule) 2 cap PO [facility] Stop: 08/05/23 08:59 Last Admin: 07/07/23 08:28 Dose: 2 cap Documented By: Admin: 07/06/23 10:17 Dose: 2 cap Documented By: MOLLY Levothyroxine Sodium (Levothyroxine Sodium 112 Mcg Tablet) 112 mcg PO QAJD [facility] Stop: 08/05/23 08:59 Last Admin: 07/07/23 08:28 Dose: 112 mcg Documented By: Admin: 07/06/23 08:05 Dose: 112 mcg Documented By: MOLLY Lorazepam (Lorazepam 0.5 Mg Tab) 0.5 mg PO [facility] Stop: 08/05/23 20:59 Last Admin: 07/07/23 21:41 Dose: 0.5 mg Documented By: Admin: 07/06/23 21:11 Dose: 0.5 mg Documented By: MED Metoprolol Tartrate (Metoprolol Tartrate 1 Mg/Ml Vial) 5 mg IV Q4 PRN PRN Reason: Hypertension Stop: 08/05/23 03:59 Last Admin: 07/06/23 07:40 Dose: 5 mg Documented By: MOLLY Metoprolol Tartrate (Metoprolol Tartrate 25 Mg Tab) 25 mg PO BID [facility] Stop: 08/06/23 19:14 Last Admin: 07/07/23 21:33 Dose: 25 mg Documented By: VALENTÍN Multivitamins (Multivitamin Tab) 1 tab PO QAM [facility] Stop: 08/05/23 08:59 Last Admin: 07/07/23 08:28 Dose: 1 tab Documented By: Admin: 07/06/23 10:17 Dose: 1 tab Documented By: MOLLY Pantoprazole Sodium (Pantoprazole 40 Mg Tab) 40 mg PO BID@0730,1630 [facility]; Protocol Stop: 08/06/23 17:59 Last Admin: 07/07/23 18:12 Dose: 40 mg Documented By: IFEOMA Venlafaxine HCl (Venlafaxine Hcl Xr 150 Mg Capxr) 150 mg PO QPM [facility] Stop: 08/05/23 20:59 Last Admin: 07/07/23 21:31 Dose: 150 mg Documented By: Admin: 07/06/23 21:12 Dose: 150 mg Documented By: MED Discontinued Medications Albuterol (Albut/Ipratrop 3mg/0.5mg Neb 3 Ml Vial) 3 ml NEB QIDR [facility]; Protocol Stop: 08/05/23 06:59 Last Admin: 07/06/23 10:42 Dose: 3 ml Documented By: Admin: 07/06/23 07:25 Dose: 3 ml Documented By: RANDAL Dexamethasone (Dexamethasone Sod Inj 4 Mg/Ml Vial) 6 mg IV NOW STA Stop: 07/06/23 03:39 Last Admin: 07/06/23 04:24 Dose: 6 mg Documented By: BERT Azithromycin 500 mg/ Dextrose 255 mls @ 125 mls/hr IV Q24H [facility] Stop: 07/13/23 06:59 Last Infusion: 07/06/23 08:52 Dose: Infused Documented By: Admin: 07/06/23 06:49 Dose: 125 mls/hr Documented By: VINCENT Remdesivir 200 mg/ Sodium (Chloride) 250 mls @ 125 mls/hr IV ONE STA; Protocol Stop: 07/06/23 10:38 Last Infusion: 07/06/23 11:40 Dose: Infused Documented By: Admin: 07/06/23 09:34 Dose: 125 mls/hr Documented By: MOLLY Dexamethasone 6 mg/ Syringe 1.5 mls @ 1 mls/min IV QAM [facility] Stop: 08/06/23 08:59 Last Admin: 07/07/23 08:28 Dose: 1 mls/min Documented By: JERICA Metoprolol Tartrate (Metoprolol Tartrate 1 Mg/Ml Vial) 5 mg IV NOW STA Stop: 07/06/23 02:09 Last Admin: 07/06/23 02:15 Dose: 5 mg Documented By: YOBANY Metoprolol Tartrate (Metoprolol Tartrate 1 Mg/Ml Vial) 5 mg IV NOW STA Stop: 07/07/23 04:18 Last Admin: 07/07/23 04:25 Dose: 5 mg Documented By: JUANIS Pantoprazole Sodium (Pantoprazole 40 Mg Tab) 40 mg PO BID [facility]; Protocol Stop: 08/05/23 08:59 Last Admin: 07/07/23 08:28 Dose: 40 mg Documented By: Admin: 07/06/23 21:11 Dose: 40 mg Documented By: shower room attendant: 07/06/23 08:05 Dose: 40 mg Documented By: MOLLY Discharge Plan Visit Data Chief Complaint: Hypertension ED Provider: Valerie Sims Discharge Problem: Elevated troponin, COVID, Diabetes mellitus with hyperglycemia Patient Disposition: Admitted As Inpatient Discharge Instructions Interventions: ED Discharge Assessment Last Done: 07/06/23 06:26
[2023-07-06] MEDS ORDERED: DEXAMETHASONE SOD INJ 4 MG/ML VIAL IV STA (03:38)
[2023-07-06] MEDS ORDERED: ONDANSETRON INJ 2 MG/ML 2 ML VIAL IV PRN ×2 (04:52→06:25)
[2023-07-06] MEDS ORDERED: ACETAMINOPHEN 325 MG TAB PO PRN (04:52)
--- NOTE | 2023-07-06 06:52 | XRay Report ---
SINGLE VIEW CHEST CLINICAL HISTORY: Atypical chest pain. FINDINGS: An AP, portable, upright chest radiograph is compared to study dated 09/18/2022. The heart i s enlarged noting atherosclerotic calcification of the thoracic aorta. The pulmonary vasculature is n oncongested. Chronic interstitial thickening similar to previous. Mild scarring/atelectasis is noted at the lung bases. The lungs and pleural spaces are otherwise clear. No pneumothorax is seen. The ske letal structures are osteopenic. The bony thorax is grossly intact. IMPRESSION: Cardiomegaly with no active disease in the chest. ACT 112: Negative or not required by law. Electronically signed by: Nir Milton M.D. 07/06/2023 6:51 AM
[2023-07-06] MEDS ORDERED: AZITHROMYCIN 500 MG in DEXTROSE 5% 250 ML IV SCH (07:00)
[2023-07-06] MEDS: ALBUT/IPRATROP 3MG/0.5MG NEB 3 ML VIAL NEB SCH ×2 (07:25→10:42)
[2023-07-06 07:51] LABS: Estimated Average Glucose 154 mg/dl
[2023-07-06] MEDS: PANTOprazole 40 MG TAB PO SCH ×2 (08:05→21:11)
[2023-07-06] MEDS: LEVOTHYROXINE SODIUM 112 MCG TABLET PO SCH (08:05)
[2023-07-06] MEDS ORDERED: REMDESIVIR 200 MG in SODIUM CHLORIDE 0.9% 210 ML IV STA (08:39)
--- OUTSIDE RECORDS SUMMARY | 2023-07-06 09:18 | External Medical Summary | Continuity of Care Document ---
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 Name Role Phone Kiesha Stephenson Primary Care Physician [phone] [facility]counter [facility] [id number] Date(s): 06/15/23 - 06/15/[address] [address] [phone] Encounter Diagnosis Diabetes(Discharge Diagnosis) - 06/15/23 Type 2 diabetes mellitus with hyperglycemia(Discharge Diagnosis) - 06/15/23 Prostate cancer(Discharge Diagnosis) - 06/15/23 Hypertension(Discharge Diagnosis) - 06/15/23 Constipation(Discharge Diagnosis) - 06/15/23 Discharge Disposition: Home or Self Care Attending Physician: BASILIO Stephenson Tara Allergies, Adverse Reactions, Alerts Substance Reaction Severity Status penicillin hives swelling Active losartan lip swelling at random - angioedema Active sulfa drugs hives swelling Active YORDY Inhibitors cough Active atorvastatin muscle aches, fatigue Active Assessment and Plan Extracted from: Title:follow up Author:BASILIO Stephenson Tara Date: 1.Type 2 diabetes mellitus with hyperglycemia chronic Goal:Resolution/ control Status:stable/controlled Data: records/pt report Plan: Will restart trulicity. Will manage constipation as needed. would not use SGLT-2 inhibitors due hx of recurrent UTIs. Could switch to Januvia if needed. Otherwise would need to start insulin. Hgba1c in 3 mo 2.Prostate cancer Acute/Chronic: chronic Goal:Resolution/ control Status:stable/controlled Data: records/pt report Plan: Contd on observation with [facility] [place] urology. 3.Hypertension Acute/Chronic: chronic Goal:Resolution/ control Status:stable/controlled Data: records/pt report Plan:BP is a little high today in office but has been ok. Contd on present regimen. 4.Constipation Acute/Chronic: chronic Goal:Resolution/ control Status:stable/controlled Data: records/pt report Plan:Increase metamucil to two tsp a day. Can use prunes/prune juice and/or miralax. Drink plenty of fluids. Follow up in 3 mo time spent reviewing chart, face to face visit, ordersand documentation: 34 min Immunizations Given and Recorded Vaccine Date Status Refusal Reason pneumococcal 23-valent vaccine 03/11/21 Given influenza virus vaccine, inactivated 05/22/20 Give n influenza virus vaccine, inactivated 07/15/19 Give n influenza virus vaccine, inactivated 04/12/18 Give n influenza virus vaccine, inactivated 05/01/17 Give n influenza virus vaccine, inactivated 04/20/16 Give n influenza virus vaccine, inactivated 04/14/15 Give n influenza virus vaccine, inactivated 05/22/14 Sumit rded influenza virus vaccine, inactivated 04/29/14 Sumit rded influenza virus vaccine, inactivated 03/12/13 Give n zoster vaccine, inactivated 03/13/18 Recorded zoster vaccine, inactivated 03/13/18 Recorded zoster vaccine, inactivated 11/16/17 Recorded zoster vaccine live 06/02/15 Recorded pneumococcal 13-valent vaccine 04/14/15 Given tetanus/diphtheria/pertuss, acel (Tdap) 06/07/11 R ecorded Medications amLODIPine 10 mg oral tablet Start: 10/05/22 11:35:00 EDT, 1 tab, PO, Daily, Disp# 90 tab, Refills: 3, [facility] Start Date: 10/05/22 Stop Date: 09/30/23 Status: Ordered Ativan 1 mg oral tablet Start: 06/16/23 16:56:00 EST, 0.5 tab, PO, tid, Disp# 45 tab, Refills: 2, PRN: as needed for anxiety, Pharmacy: [id number] Start Date: 06/16/23 Status: Ordered escitalopram 5 mg oral tablet Start: 11/08/22 10:30:00 EDT, See Instructions, Disp# 90 tab, Refills: 3, TAKE 1 TABLET DAILY WITH EFFEXOR, Pharmacy: [facility] Start Date: 11/08/22 Status: Ordered esomeprazole 40 mg oral delayed release capsule Start: 11/22/22 8:38:00 EDT, See Instructions, Disp# 180 cap, Refills: 3, TAKE 1 CAPSULE TWICE A DAY, Pharmacy: [facility] Start Date: 11/22/22 Status: Ordered Flonase Start: 08/30/17 9:33:00, 2 spray, Daily Start Date: 08/30/17 Status: Ordered fluocinonide 0.05% topical cream Start: 03/15/21 10:02:00 EDT, 1 appl, topical, tid, Disp# 30 g, Refills: 2, apply a thin film to skin area prn, Pharmacy: [id number] Start Date: 03/15/21 Status: Ordered gabapentin 100 mg oral capsule Start: 03/16/23 9:40:00 EDT, 1 cap, PO, bid, Disp# 180 cap, X 90 day, Refills: 3, Stop: 03/10/24 9:40:00 EDT, Pharmacy: [facility] Start Date: 03/16/23 Stop Date: 03/10/24 Status: Ordered gemfibrozil 600 mg oral tablet Start: 11/08/22 10:30:00 EDT, See Instructions, Disp# 180 tab, Refills: 3, TAKE 1 TABLET TWICE A DAY, Pharmacy: [facility] Start Date: 11/08/22 Status: Ordered levothyroxine 112 mcg (0.112 mg) oral tablet Start: 08/08/22 13:59:00 EST, See Instructions, Disp# 90 tab, Refills: 3, TAKE 1 TABLET DAILY, Pharmacy: [facility] Start Date: 08/08/22 Status: Ordered MetFORMIN (Eqv-Glucophage XR) 500 mg oral tablet, extended release Start: 10/05/22 11:42:00 EDT, 2 tab, PO, qPM, Disp# 180 tab, Refills: 3, other Start Date: 10/05/22 Stop Date: 09/30/23 Status: Ordered multivitamin Start: 01/15/11 9:33:00, PO, Daily, tab, dose unknown Start Date: 01/15/11 Status: Ordered Nature's Bounty Red Krill Oil Start: 10/24/14 12:29:00, 1,000 mg =, PO, bid Start Date: 10/24/14 Status: Ordered One Touch Delica Plus (30G) Lancets Start: 12/08/20 8:58:00 EDT, See Instructions, Disp# 100 each, Refills: 3, home glucose testing tidE11.09, Pharmacy: [facility] Start Date: 12/08/20 Status: Ordered One Touch Ultra 2 Glucose Monitor Start: 11/04/20 17:10:00 EDT, See Instructions, Disp# 1 each, home glucose testing daily E11.09, [id number] Start Date: 11/04/20 Status: Ordered ONE TOUCH ULTRA STRIPS 50'S ONE TOUCH ULTRA STRIPS 50'S, See Instructions, Disp# 250 strip, Refills: 3, USE FOR HOME GLUCOSE TESTING THREE TIMES A DAY, Pharmacy [facility] Start Date: 10/19/21 Status: Ordered ONE TOUCH ULTRA STRIPS 50'S Start: 04/19/23 19:35:00 EDT, ONE TOUCH ULTRA STRIPS 50'S, See Instructions, Disp# 250 strip, Refills: 3, USE FOR HOME GLUCOSE TESTING THREE TIMES A DAY, Pharmacy [facility] Start Date: 04/19/23 Status: Ordered One Touch Ultra Test Strips 50 ct Start: 01/24/23 15:54:00 EDT, See Instructions, Disp# 250 strip, Refills: 0, use for home glucose testing three times a day, Pharmacy: [facility] Start Date: 01/24/23 Status: Ordered Probiotic Formula Start: 11/16/15 10:09:00, 1 cap, PO, Daily Start Date: 11/16/15 Status: Ordered Procto-Med HC 2.5% topical cream Start: 03/16/23 9:42:00 EDT, See Instructions, Disp# 30 g, Refills: 3, apply in a thin film to the affected skin and rub in gently and completely, [id number] Start Date: 03/16/23 Status: Ordered Trulicity Pen 0.75 mg/0.5 mL subcutaneous solution Start: 04/17/23 9:00:00 EDT, 0.75 mg =, subQ, q7days, Disp# 6 mL, Refills: 1, Pharmacy: [facility] Start Date: 04/17/23 Status: Ordered Tylenol 325 mg oral tablet Start: 11/11/22 12:41:00 EDT, 2 tab, PO, ONCE, PRN: pain - mild (1-3) Start Date: 11/11/22 Status: Ordered venlafaxine 150 mg oral capsule, extended release Start: 06/29/22 11:22:00 EST, See Instructions, Disp# 90 cap, Refills: 3, TAKE 1 CAPSULE DAILY, Pharmacy: [facility] Start Date: 06/29/22 Status: Ordered Mental Status 06/15/23 Barriers to Learning one year None evide nt Mandatory Health Literacy Documentation Yes Health Literacy Communication Barriers N ever Primary Language Polish Problem List Condition Confirmation Course Effective Dates Status Health Status Informant Lewis esophagus Confirmed Active Contusion of left lower leg Confirmed Active Testosterone deficiency Confirmed Active Statin myopathy Confirmed Active Hearing loss Confirmed Active Benign familial tremor Confirmed Active Hypercholesterolemia Confirmed Active Type 2 diabetes mellitus with hyperglycemia Confirmed Active Hypertension Confirmed Active Hypothyroidism Confirmed Active Prostate cancer Confirmed Active Tremor Confirmed Active Diagnosis Diagnosis Type Effective Dates Health Status Clinical Service Informant Type 2 diabetes mellitus with hyperglycemia Discharge Diagnosis 06/15/23 Prostate cancer Discharge Diagnosis 06/15/23 Constipation Discharge Diagnosis 06/15/23 Diabetes Discharge Diagnosis 06/15/23 Non-Specified Hypertension Discharge Diagnosis 06/15/23 Procedures Procedure Date Related Diagnosis Body Site Status EGD - esophagogastroduodenos copy 1, 2, 3 05/17/23 Completed Electrodesiccation with curettage 03/17/[address] of abdomen and pelvis wit h intravenous contrast 4 01/03/23 Completed Left retrograde pyelogram 5 10/03/22 Completed PLMT URETERAL STENT PRQ 09/18/[address] of abdomen and pelvis wit h intravenous contrast 6 09/17/[address] of abdomen and pelvis 7 05/21/22 Completed Insertion of testosterone implant 03/22/22 Completed Colonoscopy 8 01/13/21 Completed Upper GI endoscopy 9 01/13/21 Comp leted CXR - Chest X-ray 10 10/30/20 Comp leted Electrocardiogram 11 10/30/20 Comp leted Stress echocardiography usin g dobutamine 12 10/30/20 Completed Shave biopsy and cauterizati on of skin 13 07/07/20 Completed Esophagogastroduodenoscopy 14 12/19/18 Completed Chest X-ray 15 08/22/18 Completed EKG 16 10/27/17 Completed Examination of eye 17 09/05/17 Com pleted Arthroscopic repair of rotat or cuff 18, 19 12/19/16 Completed Chest x-ray 20 12/19/16 Completed MRI of shoulder 21 11/16/16 Comple [place] Endoscopy of GI tract 22 01/28/16 Completed Plain X-ray lumbar spine abnormal 23 01/16/15 Completed Right ankle XRAY 24 04/19/14 Compl eted XRAY Right Tibia and fibula 25 04/19/14 Completed Esophagogastroduodenoscopy 07/06/12 Completed Upper GI endoscopy 26 01/09/12 Com pleted Colonoscopy 27 05/14/10 Completed Esophagogastroduodenoscopy 28 Completed gall bladder Completed Hernia Completed Hernia repair Completed Plastic surgery Completed Tonsil Completed 1- 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 Biopsied. - Normal stomach. - Normal examined duodenum. 2A) Esophagus at 39 cm, biopsy: Squamous and inflamed columnar mucosa with focal intestinal metaplasia compatible with Lewis's esophagus. COMMENT: There is no evidence of dysplasia. B) Esophagus at 35 cm, biopsy: Squamous and columnar mucosa with intestinal metaplasia compatible with Lewis's esophagus. COMMENT: There is no evidence of dysplasia. 3Repeat EGD in 2 years 41. no infectious or inflammatory findings are identified in the abdomen or pelvis 2. bilateral nephrolithiasis. no ureteral stone is seen. 3. colonic diverticulosis without CT evidence of acute diverticulitis. 4. hepatomegaly and hepatic steatosis 5. additional findings in report 5cystoscopy with left ureteronephroscopy, retrograde pyelogram, laser destruction of stone, basket extraction of the stone, and exchange of left ureteral stent 6moderate left hydroureteronephrosis related to an 8 mm obstructing proximal ureteral calculus with associated obstructive nephropathy 7Normal Appendix Mild urinary bladder wall thickening, correlate for cystitis Striated enhanement of the kidneys bilaterally, cannot exclude pyelonephritis Bilateral nonobstructing nephroliths Sigmoid diverticulosis without evidnece of diverticulitis 8.5 cm left renal cyst. Cholecystectomy. 8Impression: -Two 4 to 5mm polyps in the rectum and in the transverse colon, removed with a cold snare. Resectedand retrieved. -Diveritculosis in the sigmoid colon. -Non-bleeding internal hemorrhoids. 9Impression: - Esophageal mucosal changes consistent with long segment Barrettt's esophagus. Biopsied. - Small hiatal hernia. -Gastritis. Biosped. - Normal examined duodenum. 10No active disease in the chest 11Sinus rhythm with occasional premature ventricular complexes Otherwise normal ECG When compared with ECG of 08-Apr-2011, premature ventricular complexes are now present 121. Negative stress echolcardiogram at 7.8 METS and peak heart rate of >100% predicted maximum. 2. No exercise-induced chest pain. 3. No EKG changes. 4. Baseline echocardiogram notes normal left ventricular systolic function with mild left ventricular hypertrophy. 13right frontal scalp 14EGD 2 cm HH, 5 cm Barretts bx 15Minimal subsegmental right basilar opacities suggestive of atelectasis or pneumonitis. 16Negative myocardial perfusion study for significant lexiscan-induced ischemia normal left ventricular size and function. calculated ejection fraction 70% nondiagnostic lexiscan echocardiogram in the setting of inability to reach target heart rate 17Dr. Heimer - mild herpes zoster dermatitis 18Pathology - 1. cartilaginous capped trabecular bone with granularity and erosion noted on gross examination and fibrillation noted on microscopic examination all consistent with degenerative joint disease is seen. 2. An active cellular marrow is noted. The attached soft tissue is histologically unre markable. The changes of crystal deposition disease are not seen. No tumor is seen. 19Patient tolerated well. 201. Interval development of elevation of the right hemidiaphragm with right basilar densities. This may represent atelectasis or pneumonia. 2. Mild cardiomegaly which has slighty increased in size. 21supraspinatus tendinopathy and full thickness supraspinatus tear, no evidence of tendinous retraction 22Esophageal mucosal changes consistent with long-segment Lewis's esophagus. Biopsied. Small hiatushernia. Normal examined duodenum. 23Mild degenerative disc changes in the upper lumber spine with facet arthropathy chages in the lowerlumbar spine. There is suggestion of a unilateral pars defect on the left at L5. Amount of stool raises questions of constipation. 24Mildly displaced oblique, comminuted fracture of the distal diaphysis of the right fibula Intactt ankle mortise. 25Oblique mildly displaced and mildly comminuted fracture through the distal diaphysis of the right fibula. This is better depicted on the R ankle xray. No R tibial fx identified. 26Stable Barretts, Bx. for dysplasia 27Sigmoid diverticulosis Next due 10 yrs 28hiatal hernia Lewis's esophagus with focal atypia consistent with low grade dysplasia negative for high-grade dysplasia and carcinoma Vital Signs Most recent to oldest [Reference Range]: 1 Height 174 cm (06/15/23 11:11 AM) Patient Weight 96.6 kg (06/15/23 11:11 AM) Body Mass Index 31.91 kg/m2 (06/15/23 11:11 AM) Heart Rate 97 bpm (06/15/23 11:11 AM) Respiratory Rate 18 br/min (06/15/23 11:11 AM) Blood Pressure 150/90mmHg (06/15/23 11:11 AM) Cuff Pulse Pressure 60 mmHg (06/15/23 11:11 AM) Social History Social History Type Response Smoking Status Never smoked cigaret betsey Sex Male [facility] Outpt Note * BASILIO Stephenson Tara: PERFORM Event Display: [facility] Outpt Note Authored Date: [id number] Chief Complaint 2 week follow up diabetes since stopping Trulicity. Blood sugars have increased. This morning 183 History of Present Illness EGD showed Lewis's repeat in 2 years. Stopped trulicity due to abd pain/constipation. Rash on chest that he has had for approx a week. He is using steroid cream on it with relief. No new soap, skin products, detergents. Physical Exam Vitals & Measurements HR:97(Monitored) RR:18 BP:150/90 SpO2:97% HT:174cm WT:96.600kg(Dosing) WT:96.6kg BMI:31.91 PHQ2 Data(Data Documented on:06/15/2023 11:11) Emotional health assessment NEGATIVE Assessment/Plan 1.Type 2 diabetes mellitus with hyperglycemia chronic Goal:Resolution/ control Status:stable/controlled Data: records/pt report Plan:Will restart trulicity. Will manage constipation as needed. would not use SGLT-2 inhibitors due hx of recurrent UTIs. Could switch to Januvia if needed. Otherwise would need to start insulin. Hgba1c in 3 mo 2.Prostate cancer Acute/Chronic: chronic Goal:Resolution/ control Status:stable/controlled Data: records/pt report Plan:Contd on observation with [facility] [place]. 3.Hypertension Acute/Chronic: chronic Goal:Resolution/ control Status:stable/controlled Data: records/pt report Plan:BP is a little high today in office but has been ok. Contd on present regimen. 4.Constipation Acute/Chronic: chronic Goal:Resolution/ control Status:stable/controlled Data: records/pt report Plan:Increase metamucil to two tsp a day. Can use prunes/prune juice and/or miralax. Drink plentyof fluids. Follow up in 3 mo time spent reviewing chart, face to face visit, ordersand documentation: 34 min Problem List/Past Medical History Ongoing Lewis esophagus Benign familial tremor Contusion of left lower leg Hearing loss Hypercholesterolemia HYPERTENSION Hypertension Hypothyroidism Prostate cancer Statin myopathy Testosterone deficiency Tremor Type 2 diabetes mellitus with hyperglycemia Historical Acute bronchitis Ankle fracture CHEST PAIN Coracoid impingement of right shoulder DiverticulITIS Diverticulitis Dizziness Drug-induced myopathy Encounter for Medicare annual wellness exam Fibula fracture gall bladder Gastritis HEADACHE Leg fracture, right NECK PAIN Pain Post-nasal drainage Right rotator cuff tear S/P orthopedic surgery, follow-up exam Shoulder impingement Testicular failure Tonsillectomy Torn rotator cuff Procedure/Surgical History EGD - esophagogastroduodenoscopy (05/17/2023)Electrodesiccation with curettage (03/17/2023)CT of abdomen and pelvis with intravenous contrast (01/03/2023)Left retrograde pyelogram (10/03/2022)PLMT URETERAL STENT PRQ (09/18/2022)CT of abdomen and pelvis with intravenous contrast ()CT of abdomen and pelvis (05/21/2022)Insertion of testosterone implant (03/22/2022)Upper GI endoscopy (01/13/2021)Colonoscopy (01/13/2021)Electrocardiogram (10/30/2020)CXR - Chest X-ray (10/30/2020)Stress echocardiography using dobutamine (10/30/2020)Shave biopsy and cauterization of skin (07/07/2020)Esophagogastroduodenoscopy (12/19/2018)Chest X-ray (08/22/2018)EKG (10/27/2017)Examination of eye (09/05/2017)Arthroscopic repair of rotator cuff (12/19/2016)Chest x-ray (12/19/2016)MRI of shoulder (11/16/2016)Endoscopy of GI tract (01/28/20 16)Plain X-ray lumbar spine abnormal (01/16/2015)XRAY Right Tibia and fibula (04/19/2014)Right ankle XRAY (04/19/2014)Esophagogastroduodenoscopy (07/06/2012)Upper GI endoscopy (01/09/2012)Colonoscopy (05/14/2010)Plastic surgerygall bladderHernia repairTonsilHerniaEsophagogastroduodenoscopy Medications acetaminophen(Tylenol 325 mg oral tablet), 650 mg= 2 tab, PO, ONCE, PRN amLODIPine(amLODIPine 10 mg oral tablet), 10 mg= 1 tab, PO, Daily, 3 refills bifidobacterium-lactobacillus(Probiotic Formula), 1 cap, PO, Daily diabetes supplies(One Touch Ultra 2 Glucose Monitor), See Instructions diabetes supplies(One Touch Delica Plus (30G) Lancets), See Instructions, 3 refills diabetes supplies(One Touch Ultra Test Strips 50 ct), See Instructions dulaglutide(Trulicity Pen 0.75 mg/0.5 mL subcutaneous solution), 0.75 mg, subQ, q7days, 1 refills escitalopram(escitalopram 5 mg oral tablet), See Instructions, 3 refills esomeprazole(esomeprazole 40 mg oral delayed release capsule), See Instructions, 3 refills fluocinonide topical(fluocinonide 0.05% topical cream), 1 appl, topical, tid, 2 refills fluticasone nasal(Flonase), 2 spray, Daily gabapentin(gabapentin 100 mg oral capsule), 100 mg= 1 cap, PO, bid, 3 refills gemfibrozil(gemfibrozil 600 mg oral tablet), See Instructions, 3 refills hydrocortisone topical(Procto-Med HC 2.5% topical cream), See Instructions, 3 refills levothyroxine(levothyroxine 112 mcg (0.112 mg) oral tablet), See Instructions, 3 refills LORazepam(Ativan 1 mg oral tablet), 0.5 mg= 0.5 tab, PO, tid, PRN, 2 refills metFORMIN(MetFORMIN (Eqv-Glucophage XR) 500 mg oral tablet, extended release), 1000 mg= 2 tab, PO, qPM, 3 refills multivitamin, PO, Daily omega-3 polyunsaturated fatty acids(Mashable's Bounty Red Krill Oil), 1000 mg, PO, bid unlisted medication(ONE TOUCH ULTRA STRIPS 50'S), See Instructions unlisted medication(ONE TOUCH ULTRA STRIPS 50'S), See Instructions venlafaxine(venlafaxine 150 mg oral capsule, extended release), See Instructions, 3 refills Allergies YORDY Inhibitorscough atorvastatinmuscle aches, fatigue losartanlip swelling at random - angioedema penicillinhives, swelling sulfa drugshives, swelling Social History Smoking Status Never smoked cigarettes Alcohol - Denies Alcohol Use Exercise - Does not exercise Nutrition/Health - Medium Risk Sexual - Low Risk Tobacco - Denies Tobacco Use Family History Alcoholism: Brother. Cardiovascular disease: Father. Colon cancer..: Mother. Glaucoma: Sister. Heart attack: Father. Hypertension: Sister. Stroke: Father. Health Status Family Member(s) Family Member(s) Relationship: Father, Age: 75 Years Immunizations Vaccine Date Status pneumococcal 23-valent vaccine 03/11/2021 Given influenza virus vaccine, inactivated 05/22/2020 Given influenza virus vaccine, inactivated 07/15/2019 Given influenza virus vaccine, inactivated 04/12/2018 Given zoster vaccine, inactivated 03/13/2018 Recorded zoster vaccine, inactivated 03/13/2018 Recorded zoster vaccine, inactivated 11/16/2017 Recorded influenza virus vaccine, inactivated 05/01/2017 Given influenza virus vaccine, inactivated 04/20/2016 Given zoster vaccine live 06/02/2015 Recorded influenza virus vaccine, inactivated 04/14/2015 Given pneumococcal 13-valent vaccine 04/14/2015 Given influenza virus vaccine, inactivated - Not Given Comments : Already received vaccine influenza virus vaccine, inactivated 05/22/2014 Recorded influenza virus vaccine, inactivated 04/29/2014 Recorded influenza virus vaccine, inactivated 03/12/2013 Given tetanus/diphtheria/pertuss, acel (Tdap) 06/07/2011 Recorded Recommendations Health Maintenance Pending(in the next year) OverDue Adult Influenza Vaccine due12/31/22and every 1year Medicare Annual Wellness Visit due03/09/23and every 1year Due Adult COVID-19 Vaccination due06/15/23Unknown Frequency Adult Tdap/Td Vaccine due06/15/23Unknown Frequency Due In Future Diabetic Eye Exam not due until10/14/23and every 731day Diabetes Management A1c not due until03/29/24and every 366day Satisfied(in the past 1 year) Satisfied Body Mass Index on06/15/23.Satisfied by KARIN Mccann Bobbi Diabetes Management A1c on03/29/23.Satisfied by Contributor_system, [email or web address] Lipid Screening on03/29/23.Satisfied by Contributor_system, [email or web address] Electronic Signature on File Electronically Reviewed/Signed by: BASILIO Stewart Author Signature Dt/Tm:06/15/2023 01:04 PM Department of Family Medicine TB Patient Care team information Care Team Personnel Name: BASILIO Stephenson Tara Position: Nurse Pract - Family Med Member Role: Primary Care Provider Address: Address: [address] [place] [address], [place] [address] Name: Neelima Griggs Position: HIS Supervisor_P Member Role: HIS Lifetime Care Team Related Persons Name: CHASITYEVARISTOERNESTINE COTO Address: home [address] [place] [address], MARYJANE [phone]
[2023-07-06] MEDS: MULTIVITAMIN TAB PO SCH (10:17)
[2023-07-06] MEDS: ADVANCED PROBIOTIC 1250 MG CAPSULE PO SCH (10:17)
[2023-07-06] MEDS: gemfibroziL 600 MG TAB PO SCH ×2 (10:17→21:10)
[2023-07-06] MEDS: FLUTICASONE PROPIONATE NA SPR 16 GM BTL NAE SCH (10:18)
[2023-07-06] MEDS: INSULIN ASPART PER UNIT CHARGE SC SCH ×4 (10:23→21:25)
[2023-07-06] MEDS: INSULIN HUMAN NPH SC SCH (10:23)
[2023-07-06] MEDS: ENOXAPARIN INJ 40 MG/0.4 ML SYR SQ SCH (10:26)
--- NOTE | 2023-07-06 14:20 | Electrocardiogram Report ---
Test Reason : Blood Pressure : / mmHG Vent. Rate : 091 BPM Atrial Rate : 091 BPM P-R Int : 178 ms QRS Dur : 088 ms QT Int : 382 ms P-R-T Axes : 040 044 065 degrees QTc Int : 469 ms Normal sinus rhythm Normal ECG When compared with ECG of 29-MAY-2023 08:47, No significant change was found Confirmed by Kishan Miller ([id number]) on 07/06/2023 2:20:01 PM Referred By: REFERRED SELF Confirmed By:Kishan Miller
[2023-07-06] MEDS ORDERED: ALBUT/IPRATROP 3MG/0.5MG NEB 3 ML VIAL NEB PRN (14:27)
--- NOTE | 2023-07-06 14:28 | Electrocardiogram Report ---
Test Reason : Blood Pressure : / mmHG Vent. Rate : 088 BPM Atrial Rate : 088 BPM P-R Int : 186 ms QRS Dur : 090 ms QT Int : 406 ms P-R-T Axes : 048 049 075 degrees QTc Int : 491 ms Normal sinus rhythm Prolonged QT Abnormal ECG When compared with ECG of 06-JUL-2023 00:14, (unconfirmed) No significant change was found Confirmed by Kishan Miller ([id number]) on 07/06/2023 2:28:21 PM Referred By: REFERRED SELF Confirmed By:Kishan Miller
--- NOTE | 2023-07-06 15:30 | XCELERA ---
[id number] \\[id number]
--- NOTE | 2023-07-06 19:36 | History & Physical Bridge Note ---
Date of Service July 06, 2023 History & Physical Bridge Note I have examined the patient, reviewed the History & Physical and in the interval since the performance of the History & Physical I have noted the following changes of clinical significance: Patient had 15 minutes of severe substernal chest pain last night that went away with improvement in his blood pressure after being given IV hydralazine and IV Lopressor. EKG did not show any acute ischemic changes but did show prolonged QT at 491. His echocardiogram was reviewed and did not have any wall motion abnormalities and had hyperdynamic EF. Troponin peaked shortly after admission at 68 and then came down to 35 on repeat check. Patient reports he mostly came to the ER because he had a blood pressure of 203/105 at home and he was concerned about it. He denies any shortness of breath or cough, no fevers or chills. He did have a headache when he came in which also resolved with resolution of his hypertension. He denies any calf pain or leg swelling. Vitals reviewed, pulse ox 95% on room air when I saw him in the afternoon/evening Gen: AAOx3, NAD HEENT: Anicteric sclerae, EOMI CV: RRR no mgr nl S1S2 Pulm: CTAB no wcr Abd: +BS soft NT ND no masses or hernias Ext: No edema, no calf tenderness Skin: No rashes, warm/dry Neuro: Full strength throughout 77-year-old male here with hypertensive urgency, COVID-19, brief mild hypoxic respiratory failure with pulse ox 93% Continue Decadron but if blood sugars remain elevated, will discontinue -Start Remdesivir and can send home with Paxlovid Chest pain likely noncardiac, could have been GI related to COVID-19 illness i.e. esophageal spasm given he has a history of GERD. Monitor for reoccurrence Add on NPH 10 units in the morning and tighten down NovoLog sliding scale for hyperglycemia Continue home amlodipine 10 mg daily for high blood pressure Monitor for need for additional antihypertensives
[2023-07-06] MEDS: ESCITALOPRAM OXALATE 10 MG TAB PO SCH (21:08)
[2023-07-06] MEDS: amLODIPine BESYLATE 5 MG TAB PO SCH (21:08)
[2023-07-06] MEDS: GABAPENTIN 100 MG CAP PO SCH (21:10)
[2023-07-06] MEDS: LORazepam 0.5 MG TAB PO SCH (21:11)
[2023-07-06] MEDS: VENLAFAXINE HCL XR 150 MG CAPXR PO SCH (21:12)
[2023-07-07] MEDS ORDERED: METOPROLOL TARTRATE 1 MG/ML VIAL IV STA (04:17)
[2023-07-07 05:00] LABS: Albumin Level 4.4 gm/dl (3.4-5.0); BUN Creatinine Ratio 29.2 (10-20); Calcium 9.4 mg/dl (8.6-10.3); Creatinine Clr Calc Pharmacy 69.9 ml/min; Est GFR (African American) 79.2 ml/min; Est GFR (Non-African American) 68.3 ml/min; Magnesium 1.9 mg/dl (1.7-2.4); Phosphorus 3.6 mg/dl (2.5-4.9); Potassium 3.1 mmol/L (3.5-5.1)
[2023-07-07] MEDS ORDERED: dexAMETHasone 6 MG in SYRINGE 0 ML IV SCH ×2 (05:00→09:00)
[2023-07-07 05:11] LABS: Basophils # (auto) 0.02 K/uL (0.00-0.20); Basophils % (auto) 0.3 %; Eosinophils # (auto) 0.08 K/uL (0.00-0.50); Eosinophils % (auto) 1.2 %; Hematocrit (blood only) 38.6 % (42.0-52.0); Hemoglobin 14.1 g/dl (14.0-18.0); Immature Granulocytes # (auto) 0.02 K/uL (0.01-0.20); Immature Granulocytes % (auto) 0.3 %; Lymphocytes # (auto) 1.09 K/uL (1.20-3.40); Lymphocytes % (auto) 15.9 %; Mean Corpuscular Hemoglobin 32.3 pg (25.0-34.0); Mean Corpuscular Hgb Conc 36.5 g/dL (32.0-36.0); Mean Corpuscular Volume 88.5 fL (80.0-100.0); Mean Platelet Volume 10.1 fL (9.4-12.4); Monocytes # (auto) 0.54 K/uL (0.11-0.59); Monocytes % (auto) 7.9 %; Neutrophils # (auto) 5.09 K/uL (1.40-6.50); Neutrophils % (auto) 74.4 %; Platelet Count 280 K/uL (130-400); RDW Coefficient of Variation 12.2 % (11.5-14.5); RDW Standard Deviation 39.5 fL (36.4-46.3); Red Blood Count 4.36 M/uL (4.70-6.10); White Blood Count 6.84 K/ul (4.8-10.8)
[2023-07-07 05:47] LABS: Troponin I High Sensitivity 390.3 pg/ml (0-20)
[2023-07-07] MEDS: ENOXAPARIN INJ 40 MG/0.4 ML SYR SQ SCH (08:27)
[2023-07-07] MEDS: ADVANCED PROBIOTIC 1250 MG CAPSULE PO SCH (08:28)
[2023-07-07] MEDS: MULTIVITAMIN TAB PO SCH (08:28)
[2023-07-07] MEDS: gemfibroziL 600 MG TAB PO SCH ×2 (08:28→21:32)
[2023-07-07] MEDS: PANTOprazole 40 MG TAB PO SCH ×2 (08:28→18:12)
[2023-07-07] MEDS: LEVOTHYROXINE SODIUM 112 MCG TABLET PO SCH (08:28)
[2023-07-07] MEDS: FLUTICASONE PROPIONATE NA SPR 16 GM BTL NAE SCH (08:29)
[2023-07-07] MEDS: INSULIN ASPART PER UNIT CHARGE SC SCH ×4 (09:55→21:41)
[2023-07-07] MEDS: INSULIN HUMAN NPH SC SCH (09:56)
--- NOTE | 2023-07-07 11:36 | Electrocardiogram Report ---
Test Reason : Blood Pressure : / mmHG Vent. Rate : 100 BPM Atrial Rate : 100 BPM P-R Int : 182 ms QRS Dur : 092 ms QT Int : 396 ms P-R-T Axes : 053 052 074 degrees QTc Int : 510 ms Normal sinus rhythm Nonspecific ST and T wave abnormality Prolonged QT Abnormal ECG When compared with ECG of 06-JUL-2023 08:08, No significant change was found Confirmed by Kishan Miller ([id number]) on 07/07/2023 11:35:24 AM Referred By: REFERRED SELF Confirmed By:Kishan Miller
[2023-07-07] MEDS: REMDESIVIR 100 MG in SODIUM CHLORIDE 0.9% 230 ML IV SCH (11:43)
[2023-07-07] MEDS ORDERED: Nursing to Pharmacy Communication SCH (18:00)
--- NOTE | 2023-07-07 19:39 | Hospitalist Progress Note ---
Date of Service July 07, 2023 Assessment & Plan (1) COVID-19 virus infection: Plan: Mildly hypoxic on admission received Decadron and Remdesivir Given significant hyperglycemia and hypertension, will now discontinue Decadron after 2 doses Continue Remdesivir Hypoxia is resolved, no other symptoms other than headache and hypertension (2) Hypertension: Plan: Blood pressures have been significantly elevated on admission and again overnight, both times causing chest pain elevated troponin with demand ischemia Continue home amlodipine, add on metoprolol 25 Mg p.o. twice daily Monitor blood pressures Follow CBC, BMP, magnesium (3) Elevated troponin: Plan: Initially only mildly elevated at 49 and trended slightly upward to 68 and then back down. Had another episode of hypertensive urgency with chest pain and troponin has again trended up to 618 Chest pain resolved with improvement in blood pressure, no ischemic changes on EKG Echocardiogram here without wall motion abnormalities Stress echocardiogram in 2020 normal and he typically does not have any angina or dyspnea on exertion and is fairly active Work on better blood pressure control Consult cardiology for further evaluation Adding metoprolol Consider adding aspirin, statin although has a history of muscle cramps with atorvastatin (4) Diabetes mellitus, type 2: Plan: With significant hyperglycemia secondary to Decadron and stress of infection Added NPH and tighten down NovoLog Stopping Decadron Follow blood sugars Hemoglobin A1c excellent control 7.0% and is only on metformin at home (5) Lewis esophagus: Plan: Continue Protonix (6) Depression: Plan: No acute issues Continue escitalopram, Ativan at night Venlafaxine daily (7) Hypothyroidism: Plan: Continue levothyroxine Check TSH Plan DVT prophylaxis-Lovenox SQ Disposition-continue same PCU Admission and Anticipated Discharge Date Admission Date: July 06, 2023 Subjective Patient had another episode of chest pain at 4:00 this morning along with significantly elevated blood pressures and troponin trended up again throughout the day. Pain went away with IV Lopressor and improvement in blood pressure Otherwise denies shortness of breath or cough, no headache or sore throat, no abdominal pain or diarrhea. Otherwise feeling well today. Physical Exam Constitutional: WD/WN, vitals as above Eyes: + anicteric sclerae Respiratory: normal respiratory effort, lungs clear to auscultation Cardiovascular: Rate/Rhythm: regular rate and regular rhythm Heart Sounds: no murmur Extremities: no edema Gastrointestinal (Abdomen): normal bowel sounds, soft, nontender, no hepatosplenomegaly Psychiatric: A+Ox3, euthymic affect Results & Data Results & Data Vital Signs (Past 12 Hours) Vital Signs Temp Pulse Pulse Pulse Resp BP BP 07/07/23 19:00 36.7 C 86 18 146/76 H 07/07/23 17:05 89 07/07/23 16:14 37.0 C 88 18 145/76 H 07/07/23 15:00 89 18 156/87 H 07/07/23 13:00 152/87 H 07/07/23 13:00 91 H 13 07/07/23 09:00 86 18 135/84 07/07/23 08:30 82 20 137/82 07/07/23 07:40 81 Pulse Ox O2 Del Method 07/07/23 19:00 94 Room Air 07/07/23 17:05 07/07/23 16:14 95 Room Air 07/07/23 15:00 95 Room Air 07/07/23 13:00 07/07/23 13:00 96 Room Air 07/07/23 09:00 95 Room Air 07/07/23 08:30 94 Room Air 07/07/23 07:40 Laboratory Results CBC, BMP, troponin reviewed PG Care Time/CCT Total # of Minutes Spent Total Time Spent with Patient: Total time spent is greater than 50% in coordination of care (as documented) at patient's floor/unit and/or counseling patient: Coding Level of Care Code 96693 SUB INP/OBS CARE 3/50MIN Diagnoses COVID-19 virus infection U07.1 Hypertension I10 Elevated troponin R79.89 Diabetes mellitus, type 2 E11.9 Lewis esophagus K22.70 Depression F32.9 Hypothyroidism E03.9
[2023-07-07] MEDS: ESCITALOPRAM OXALATE 10 MG TAB PO SCH (21:29)
[2023-07-07] MEDS: amLODIPine BESYLATE 5 MG TAB PO SCH (21:31)
[2023-07-07] MEDS: VENLAFAXINE HCL XR 150 MG CAPXR PO SCH (21:31)
[2023-07-07] MEDS: GABAPENTIN 100 MG CAP PO SCH (21:32)
[2023-07-07] MEDS: METOPROLOL TARTRATE 25 MG TAB PO SCH (21:33)
[2023-07-07] MEDS: LORazepam 0.5 MG TAB PO SCH (21:41)
[2023-07-08 06:35] LABS: Basophils # (auto) 0.02 K/uL (0.00-0.20); Basophils % (auto) 0.3 %; Eosinophils # (auto) 0.04 K/uL (0.00-0.50); Eosinophils % (auto) 0.6 %; Hematocrit (blood only) 36.4 % (42.0-52.0); Hemoglobin 13.7 g/dl (14.0-18.0); Immature Granulocytes # (auto) 0.03 K/uL (0.01-0.20); Immature Granulocytes % (auto) 0.5 %; Lymphocytes # (auto) 1.13 K/uL (1.20-3.40); Lymphocytes % (auto) 18.1 %; Mean Corpuscular Hemoglobin 32.8 pg (25.0-34.0); Mean Corpuscular Hgb Conc 37.6 g/dL (32.0-36.0); Mean Corpuscular Volume 87.1 fL (80.0-100.0); Mean Platelet Volume 10.2 fL (9.4-12.4); Monocytes # (auto) 0.49 K/uL (0.11-0.59); Monocytes % (auto) 7.9 %; Neutrophils # (auto) 4.53 K/uL (1.40-6.50); Neutrophils % (auto) 72.6 %; Platelet Count 273 K/uL (130-400); RDW Coefficient of Variation 12.1 % (11.5-14.5); RDW Standard Deviation 38.9 fL (36.4-46.3); Red Blood Count 4.18 M/uL (4.70-6.10); White Blood Count 6.24 K/ul (4.8-10.8)
[2023-07-08 06:48] LABS: BUN Creatinine Ratio 32.4 (10-20); Creatinine Clr Calc Pharmacy 71.6 ml/min; Est GFR (African American) 82.9 ml/min; Est GFR (Non-African American) 71.6 ml/min; Phosphorus 3.6 mg/dl (2.5-4.9); Potassium 3.4 mmol/L (3.5-5.1)
[2023-07-08 06:57] LABS: Troponin I High Sensitivity 329.5 pg/ml (0-20)
[2023-07-08] MEDS ORDERED: POTASSIUM CHLORIDE CRTAB 20 MEQ TABCR PO STA (09:00)
[2023-07-08] MEDS: INSULIN ASPART PER UNIT CHARGE SC SCH ×4 (09:11→21:01)
[2023-07-08] MEDS: INSULIN HUMAN NPH SC SCH (09:12)
[2023-07-08] MEDS: MULTIVITAMIN TAB PO SCH (09:31)
[2023-07-08] MEDS: ADVANCED PROBIOTIC 1250 MG CAPSULE PO SCH (09:31)
[2023-07-08] MEDS: METOPROLOL TARTRATE 25 MG TAB PO SCH ×2 (09:31→21:27)
[2023-07-08] MEDS: FLUTICASONE PROPIONATE NA SPR 16 GM BTL NAE SCH (09:31)
[2023-07-08] MEDS: LEVOTHYROXINE SODIUM 112 MCG TABLET PO SCH (09:31)
[2023-07-08] MEDS: ENOXAPARIN INJ 40 MG/0.4 ML SYR SQ SCH (09:32)
[2023-07-08] MEDS: PANTOprazole 40 MG TAB PO SCH ×2 (09:32→16:05)
[2023-07-08] MEDS: gemfibroziL 600 MG TAB PO SCH (09:32)
[2023-07-08] MEDS ORDERED: ASPIRIN CHEW 324 MG PO ONE (12:27)
--- NOTE | 2023-07-08 12:45 | Cardiology Consultation ---
Date of Consultation July 08, 2023 Assessment & Plan (1) Non-ST elevation (NSTEMI) myocardial infarction: (2) Unstable angina: (3) Hypertension: (4) Hypercholesteremia: Plan ASSESSMENT/PLAN: 1. NSTEMI: Describes unstable angina which could be related to severe hypertension but given multiple risk factors, recommend ischemic evaluation in the form of coronary angiography, nonurgently. In the meantime, would recommend starting heparin drip when his scalp bleeding resolves (shaving injury today). Ordered full dose aspirin today and then aspirin 81 mg daily. Statin therapy if tolerated. Continue beta-delmar and amlodipine. Blood pressure management. Low-dose ARB due to YORDY inhibitor intolerance. Risks and benefits of cardiac catheterization were described with him in detail. He was agreeable to proceed. 2. Unstable Angina: Currently free from symptoms. Could be related to hypertension such as hypertensive urgency, underlying CAD, or the combination. Cannot exclude ongoing viral infection as contributing however he does not look or feel symptomatic from COVID-19 infection, although tested positive. 3. Hypertension: Blood pressure has mostly been elevated. Start low-dose ARB. 4. Dyslipidemia: Added on lipid profile. Given diabetes and NSTEMI and concern for underlying CAD, ordered Crestor 20 mg daily which can be continued if tolerated. He did not tolerate atorvastatin due to myalgias. Goal LDL < 70. Mediterranean diet. 5. Disposition: Plan of care discussed with primary hospitalist, Dr. Arevalo. N.p.o. after midnight Monday night in anticipation of cardiac catheterization on Monday. Patient asked me to contact his daughter, Mrati Lisa, who is a nurse. Contacted her via telephone and discussed plan of care. Any questions were answered. She was agreeable with plan. Addendum: Dr. Arevalo reports that he apparently tried losartan in the past but was discontinued for some reason, possible intolerance. Will hold off on ARB for now. Further titrate metoprolol to 50 mg twice daily. Highly complex medical issues. Thank you for allowing me to participate in the care of your patient. Please call for any other questions or concerns. Sincerely, Sumit Bang M.D. History of Present Illness Reason for Consultation: Recurrent chest pain elevated troponin, hypertension Requesting Physician: Carolyn Arevalo MD Attending Physician: Carolyn Arevalo MD History of Present Illness MrLuzmaria Witherite is a very pleasant 77-year-old gentleman with a history significant for type 2 diabetes, hypertension, dyslipidemia, and Leonard's esophagus. He was admitted on 07/06/2023 after presenting with severe hypertension. He states that starting on 07/03/2023, he has been experiencing a substernal chest discomfort which he describes as a "hurt" or a spasm type pain. Symptoms last approximately 15 minutes or more before resolving. There is no radiation of the pain and no associated shortness of breath. 2 or 3 days before presentation, he would check his blood pressure during episodes and noted that his blood pressure was more elevated than usual. On the day of presentation, his blood pressure was 203/102 mmHg. He called an on-call service and was referred to the emergency department. While in the emergency department, although he did not note any symptoms consistent with active infection, he was found to be positive for COVID. He denies fever, chills, rhinorrhea, postnasal drip, cough, shortness of breath, nausea, vomiting, diarrhea. Initial high-sensitivity troponin was 49.1 and peaked at 68.1 on 07/06/2023. Overnight, in the 07/07/2023, he had recurrent chest discomfort and systolic blood pressure up to 203/118 mmHg. Troponin after initially trending downward once again trended upward and peaked at 618. He was chest pain-free when seen earlier this morning. He describes his lifestyle is active but does not participate in dedicated exercise. He was not noting any exertional chest pain or shortness of breath but since the rest chest discomfort started earlier this week, he has not been active. He denies melena, hematochezia, hematuria. Review of systems: As above. Review of systems otherwise negative/unremarkable. Family history: Father had WI at the age of 60. Social history: Denies smoking, alcohol, or drug abuse. Lives at home with his . 3 daughters. 1 daughter (Marti Lisa [phone]) is a nurse in [place]. He worked for a [employer] and then [employer]. He is retired. He was unaccompanied in his room. Allergies Allergy/AdvReac Type Severity Reaction Status Date / Time Penicillins Allergy Intermediate RASH, Verified 06/06/23 11:07 "VERY ILL" Sulfa (Sulfonamide Allergy Intermediate RASH Verified 06/06/23 11:07 Antibiotics) YORDY Inhibitors AdvReac Intermediate Cough Verified 06/06/23 11:07 atorvastatin AdvReac Intermediate muscle Verified 06/06/23 11:07 cramps Home Medications Medication Instructions Recorded Confirmed Type esomeprazole magnesium 40 mg 40 mg PO BID LEONARD'S ESOPHAGUS 07/26/19 07/06/23 History capsule,delayed release (Nexium) fluticasone propionate 50 2 spray intranasal QAM 07/26/19 07/06/23 History mcg/actuation nasal spray,suspension gemfibrozil 600 mg tablet (Lopid) 600 mg PO BID 07/26/19 07/06/23 History multivitamin (Daily Multi-Vitamin 1 tab PO QAM 07/26/19 07/06/23 History tablet) venlafaxine 150 mg 150 mg PO QPM 07/26/19 07/06/23 History capsule,extended release 24 hr (Effexor XR) gabapentin 100 mg capsule 200 mg (2 x 100 mg) PO HS #30 caps 07/31/19 07/06/23 Rx escitalopram oxalate 5 mg tablet 5 mg PO QPM 11/26/19 07/06/23 History (Lexapro) levothyroxine 112 mcg tablet 112 mcg PO QAM 10/30/20 07/06/23 History (Synthroid) amlodipine 10 mg tablet 10 mg PO HS 11/23/22 07/06/23 History Lactobacillus acidophilus 10 10,000 mmu cells PO QAM 07/06/23 07/06/23 History billion cell capsule (Probiotic) lorazepam 1 mg tablet 0.5 mg PO HS Anxiety 07/06/23 07/06/23 History metformin 500 mg tablet,extended 500 mg PO BID 07/06/23 07/06/23 History release 24 hr Patient History Medical History Vitamin D deficiency Calculus of proximal left ureter Prostate cancer DX 07/2022 Chronic allergic rhinitis Diabetes mellitus, type 2 NIDDM 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 Essential tremor Anxiety Leonard's esophagus Depression H/O esophageal reflux Hypercholesteremia Hypertension Hypothyroidism Surgical History History of lithotripsy ESWL 12/16/2022 @ [facility] Hx of transurethral resection of prostate Hx of cystoscopy S/P ureteral stent placement 09/18/2022 [facility] History of bilateral inguinal hernia repair History of squamous cell carcinoma excision History of colonoscopy History of esophagogastroduodenoscopy (EGD) History of tooth extraction History of tonsillectomy and adenoidectomy History of surgery prior to blepharoplasty removed 1/2 off forehead to raise for blepharoplasty Hx of cholecystectomy H/O blepharoplasty bilt History of cataract surgery bilt Family History Father Coronary arteriosclerosis Mother Colorectal cancer Other No family history of adverse response to anesthesia Social History Smoking Status: Never smoker Second Hand Exposure: No; Do You Dip or Chew Tobacco: No; Hx Alcohol Use: No Hx Substance Use: No Preferred Language: Dominican Communication Ability: Effective Doormaker Required: No Beliefs That Will Affect Care: None Current Living Situation: Spouse Feels Safe at Home: Yes Assistive Devices: None Physical Exam Physical Exam: Gen.: No acute distress. Alert and oriented. HEENT: Anicteric sclera. Bleeding on his scalp from personal shaving earlier this morning. Neck: No JVD. No bruits. Normal carotid upstrokes bilaterally. Cardiac: No ventricular heave. Regular rate and rhythm. Normal S1-S2. No murmurs, rubs, or gallops. Pulmonary: Clear to auscultation bilaterally without wheezes, rales, or rhonchi. Abdomen: Soft, nontender, nondistended, with normoactive bowel sounds. No bruits noted. Extremities: 2+ radial pulses bilaterally. 2+ posterior tibialis pulses bilaterally. No edema or cyanosis. Psychiatric: Affect appears appropriate. Results & Data Vital Signs (Past 12 Hours) Vital Signs Temp Pulse Pulse Resp BP Pulse Ox O2 Del Method 07/08/23 11:52 36.6 C 157 H 18 147/76 H 93 Room Air 07/08/23 08:00 36.6 C 83 18 116/67 98 Room Air 07/08/23 05:57 74 07/08/23 03:00 36.6 C 80 18 136/77 97 Room Air Laboratory Results Laboratory Results - last 24 hr 07/07/23 07/08/23 07/08/23 23:19 06:07 06:09 WBC 6.24 RBC 4.18 L Hgb 13.7 L Hct 36.4 L MCV 87.1 MCH 32.8 MCHC 37.6 H RDW Std Deviation 38.9 RDW Coeff of Vicente 12.1 Plt Count 273 MPV 10.2 Immature Gran % (Auto) 0.5 Neut % (Auto) 72.6 Lymph % (Auto) 18.1 Humphreys % (Auto) 7.9 Eos % (Auto) 0.6 Baso % (Auto) 0.3 Neut # (Auto) 4.53 Lymph # (Auto) 1.13 L Humphreys # (Auto) 0.49 Eos # (Auto) 0.04 Baso # (Auto) 0.02 Immature Gran # (Auto) 0.03 PT INR APTT PTT Ratio Heparin Anti-Xa, Unfract Sodium 135 L Potassium 3.4 L Chloride 103 Carbon Dioxide 22 Anion Gap 10 BUN 33 H Creatinine 1.02 Est Cr Clr Drug Dosing 71.6 Est GFR ( Amer) 82.9 Est GFR (Non-Af Amer) 71.6 BUN/Creatinine Ratio 32.4 H Glucose 178 H POC Glucose Calcium 9.0 Phosphorus 3.6 Magnesium 2.0 Troponin I High Sens 575.8 H* 329.5 H* D Albumin 4.0 Triglycerides 235 H Cholesterol 178 LDL Cholesterol, Calc 101 VLDL Cholesterol, Calc 47 H HDL Cholesterol 30 Cholesterol/HDL Ratio 5.9 H TSH 0.603 07/08/23 07/08/23 07/08/23 07:12 11:23 15:17 WBC RBC Hgb Hct MCV MCH MCHC RDW Std Deviation RDW Coeff of Vicente Plt Count MPV Immature Gran % (Auto) Neut % (Auto) Lymph % (Auto) Humphreys % (Auto) Eos % (Auto) Baso % (Auto) Neut # (Auto) Lymph # (Auto) Humphreys # (Auto) Eos # (Auto) Baso # (Auto) Immature Gran # (Auto) PT 10.9 INR 1.0 APTT 27 PTT Ratio 1.0 Heparin Anti-Xa, Unfract Sodium Potassium Chloride Carbon Dioxide Anion Gap BUN Creatinine Est Cr Clr Drug Dosing Est GFR ( Amer) Est GFR (Non-Af Amer) BUN/Creatinine Ratio Glucose POC Glucose 189 H 269 H Calcium Phosphorus Magnesium Troponin I High Sens Albumin Triglycerides Cholesterol LDL Cholesterol, Calc VLDL Cholesterol, Calc HDL Cholesterol Cholesterol/HDL Ratio TSH 07/08/23 07/08/23 07/08/23 16:13 20:54 20:55 WBC RBC Hgb Hct MCV MCH MCHC RDW Std Deviation RDW Coeff of Viecnte Plt Count MPV Immature Gran % (Auto) Neut % (Auto) Lymph % (Auto) Humphreys % (Auto) Eos % (Auto) Baso % (Auto) Neut # (Auto) Lymph # (Auto) Humphreys # (Auto) Eos # (Auto) Baso # (Auto) Immature Gran # (Auto) PT INR APTT PTT Ratio Heparin Anti-Xa, Unfract 0.53 Sodium Potassium Chloride Carbon Dioxide Anion Gap BUN Creatinine Est Cr Clr Drug Dosing Est GFR ( Amer) Est GFR (Non-Af Amer) BUN/Creatinine Ratio Glucose POC Glucose 97 173 H Calcium Phosphorus Magnesium Troponin I High Sens Albumin Triglycerides Cholesterol LDL Cholesterol, Calc VLDL Cholesterol, Calc HDL Cholesterol Cholesterol/HDL Ratio TSH Diagnostic Findings Telemetry personally reviewed: Sinus rhythm. 5 beat run of ventricular tachycardia. ECGs personally reviewed: ECG 07/06/2023 at 00 14: Sinus 91 bpm. ECG 07/06/2023 at 8:08 AM: Sinus rhythm 88 bpm. ECG 07/07/2023 at 4:06 AM: Sinus rhythm [address] abnormality. ECG 07/08/2023 at 6:01 AM: Sinus rhythm [address] abnormality. Labs reviewed and notable for elevated high-sensitivity troponin as outlined. Stable renal function, mild hypokalemia, elevated A1c, elevated triglycerides, low HDL and elevated LDL, stable hemoglobin. Chest x-ray 07/06/2023: No active disease per radiology. Echo 07/06/2023: No regional wall motion abnormalities. EF > 70%. No significant valvular abnormalities. History and physical report reviewed. Medications Administered Current Inpatient Medications Acetaminophen (Acetaminophen 325 Mg Tab) 650 mg PO Q4H PRN PRN Reason: Pain or Fever Stop: 08/05/23 04:51 Albuterol (Albut/Ipratrop 3mg/0.5mg Neb 3 Ml Vial) 3 ml NEB QIDR PRN; Protocol PRN Reason: Shortness Of Breath Or Wheezing Stop: 08/05/23 06:59 Amlodipine Besylate (Amlodipine Besylate 5 Mg Tab) 10 mg PO [facility] Stop: 08/05/23 20:59 Last Admin: 07/08/23 21:29 Dose: 10 mg Aspirin (Aspirin 81 Mg Ectab) [facility] Stop: 08/08/23 08:59 Bacitracin (Bacitracin Oint 14 Gm Tube) 1 appln EXT BID [facility] Stop: 08/07/23 13:59 Last Admin: 07/08/23 21:30 Dose: 1 appln Dextrose (Dextrose 50% 50 Ml Syringe) 25 - 50 ml IV UD PRN; Protocol PRN Reason: Hypoglycemia Protocol Stop: 08/05/23 03:15 Escitalopram Oxalate (Escitalopram Oxalate 10 Mg Tab) 5 mg PO QPM [facility] Stop: 08/05/23 20:59 Last Admin: 07/08/23 21:27 Dose: 5 mg Fluticasone Propionate (Fluticasone Propionate Na Spr 16 Gm Btl) 2 sprays [facility] Stop: 08/05/23 08:59 Last Admin: 07/08/23 09:31 Dose: 2 sprays Gabapentin (Gabapentin 100 Mg Cap) 200 mg PO [facility] Stop: 08/05/23 20:59 Last Admin: 07/08/23 21:27 Dose: 200 mg Glucagon (Glucagon For Inj 1 Mg Vial) 1 mg SQ UD PRN; Protocol PRN Reason: Hypoglycemia Protocol Stop: 08/05/23 03:15 Glucose (Glucose 10 Tab/Tube) 4 - 8 tab PO UD PRN; Protocol PRN Reason: Hypoglycemia Treatment Stop: 08/05/23 03:15 Glucose (Glucose 40% Gel 15 Gm Tube) 15 - 30 gm PO UD PRN; Protocol PRN Reason: Hypoglycemia Protocol Stop: 08/05/23 03:15 Hydralazine HCl (Hydralazine Hcl 20 Mg/Ml Vial) 10 mg IV Q4H PRN PRN Reason: Hypertension Stop: 08/05/23 03:28 Last Admin: 07/06/23 08:14 Dose: 10 mg Remdesivir 100 mg/ Sodium (Chloride) 250 mls @ 250 mls/hr IV Q24H [facility] Stop: 07/10/23 12:59 Last Infusion: 07/08/23 13:52 Dose: Infused Heparin Sodium/Dextrose (Heparin Sodium/Dextrose) 25,000 units in 500 mls @ 19 mls/hr IV .Q24H [facility]; Protocol Stop: 08/07/23 14:14 Last Admin: 07/08/23 15:51 Dose: 950 units/hr, 19 mls/hr Insulin Aspart (Insulin Aspart Per Unit Charge) 0 units SC [facility] Stop: 08/05/23 07:29 Last Admin: 07/08/23 21:01 Dose: Not Given Insulin Glargine (Lantus Per Unit Charge) 5 units SQ [facility] Stop: 08/07/23 20:59 Last Admin: 07/08/23 21:26 Dose: 5 units Lactobacillus Acidophilus (Advanced Probiotic 1250 Mg Capsule) 2 cap PO [facility] Stop: 08/05/23 08:59 Last Admin: 07/08/23 09:31 Dose: 2 cap Levothyroxine Sodium (Levothyroxine Sodium 112 Mcg Tablet) 112 mcg PO [facility] Stop: 08/05/23 08:59 Last Admin: 07/08/23 09:31 Dose: 112 mcg Lorazepam (Lorazepam 0.5 Mg Tab) 0.5 mg PO [facility] Stop: 08/05/23 20:59 Last Admin: 07/08/23 21:26 Dose: 0.5 mg Metoprolol Tartrate (Metoprolol Tartrate 1 Mg/Ml Vial) 5 mg IV Q4 PRN PRN Reason: Hypertension Stop: 08/05/23 03:59 Last Admin: 07/06/23 07:40 Dose: 5 mg Metoprolol Tartrate (Metoprolol Tartrate 50 Mg Tab) 50 mg PO BID [facility] Stop: 08/08/23 08:59 Miscellaneous (Carbohydrates For Hypoglycemia ) 15 - 30 gm PO UD PRN PRN Reason: Hypoglycemia Protocol Stop: 08/05/23 03:15 Multivitamins (Multivitamin Tab) 1 tab PO [facility] Stop: 08/05/23 08:59 Last Admin: 07/08/23 09:31 Dose: 1 tab Ondansetron HCl (Ondansetron Inj 2 Mg/Ml 2 Ml Vial) 4 mg IV Q6H PRN PRN Reason: NAUSEA/VOMITING Stop: 08/05/23 06:24 Pantoprazole Sodium (Pantoprazole 40 Mg Tab) 40 mg PO BID@0730,1630 [facility]; Protocol Stop: 08/06/23 17:59 Last Admin: 07/08/23 16:05 Dose: 40 mg Rosuvastatin Calcium (Rosuvastatin Calcium 20 Mg Tab) 20 mg PO HS [facility] Stop: 08/07/23 20:59 Last Admin: 07/08/23 21:29 Dose: 20 mg Venlafaxine HCl (Venlafaxine Hcl Xr 150 Mg Capxr) 150 mg PO QPM [facility] Stop: 08/05/23 20:59 Last Admin: 07/08/23 21:29 Dose: 150 mg PG Care Time/CCT Total # of Minutes Spent Total Time Spent with Patient: Total time spent is greater than 50% in coordination of care (as documented) at patient's floor/unit and/or counseling patient: Coding Level of Care Code 75723 INT INP/OBS CARE 3/75MIN Diagnoses Non-ST elevation (NSTEMI) myocardial infarction I21.4 Unstable angina I20.0 Hypertension I10 Hypercholesteremia E78.00
[2023-07-08] MEDS: REMDESIVIR 100 MG in SODIUM CHLORIDE 0.9% 230 ML IV SCH (12:49)
[2023-07-08 13:07] LABS: Chol HDL Ratio 5.9 (0-5)
[2023-07-08] MEDS ORDERED: Heparin IV Adult Wt-Based Low-Dose w/ INITIAL Bolus Protocol IV SCH (13:50)
--- NOTE | 2023-07-08 13:59 | Hospitalist Progress Note ---
Date of Service July 08, 2023 Assessment & Plan (1) Chest pain: Plan: Presented with chest pain associated with significantly elevated blood pressure. Happened to test positive for COVID but had no other symptoms Chest pain initially resolved with improvement in blood pressure, but his troponin was mildly elevated as below. Then with recurrence of chest pain again with elevated blood pressures and troponin peaked higher at 618. Chest pain again resolved with control of blood pressure Echocardiogram with preserved EF and no wall motion abnormalities Stress echocardiogram in 2020 normal and he typically does not have any angina or dyspnea on exertion and is fairly active Appreciate cardiology consultation-suspect unstable angina, underlying CAD given risk factors of DM2, HTN, age, hyperlipidemia -Started metoprolol 25 Mg p.o. twice daily on 07/07 -Start heparin drip -Start aspirin, Crestor, and stop gemfibrozil to avoid myalgias as he has a history of such with statins -Plan for cardiac catheterization on Monday, n.p.o. after midnight on Monday night (2) Elevated troponin: Plan: Possibly unstable angina as above versus hypertensive emergency Plan for cardiac catheterization on Monday (3) Hypertension: Plan: Blood pressures have been significantly elevated on admission and again the next night, both times causing chest pain and elevated troponin Continue home amlodipine 10 mg at bedtime Added on metoprolol 25 Mg p.o. twice daily Monitor blood pressures-much improved and no further chest pain Follow CBC, BMP, magnesium (4) Diabetes mellitus, type 2: Plan: With significant hyperglycemia secondary to Decadron and stress of infection- Decadron discontinued after second dose Blood sugars are now improving Discontinue NPH but will add Lantus 5 units at bedtime, continue NovoLog supplemental insulin Hemoglobin A1c excellent control 7.0% and is only on metformin at home On gabapentin possibly for neuropathy? (5) Hypercholesteremia: Plan: Lipid panel ordered for today shows total cholesterol 178, LDL 101, HDL low at 30, and triglycerides elevated at 235 likely secondary to hyperglycemia Due to likely underlying CAD, starting rosuvastatin 20 mg at bedtime-monitor for myalgias (6) COVID-19 virus infection: Plan: Mildly hypoxic (93% on room air) on admission received Decadron and Remdesivir Given significant hyperglycemia and hypertension, discontinued Decadron after 2 doses Continue Remdesivir to finish out 5-day course Hypoxia is resolved, no other symptoms (7) Wound, open, scalp: Plan: Secondary to shaving his scalp himself in the hospital, minor abrasions Wounds to be cleaned and dressed with OPTi foam and bacitracin applied (8) Lweis esophagus: Plan: Continue Protonix (9) Depression: Plan: No acute issues Continue escitalopram, Ativan at night Venlafaxine daily (10) Hypothyroidism: Plan: Continue levothyroxine TSH here is normal at 0.603 Plan DVT prophylaxis-starting heparin drip Disposition-continued stay on PCU, awaiting cardiac catheterization on Monday Admission and Anticipated Discharge Date Admission Date: July 06, 2023 Subjective Patient denies any further chest pain overnight or today. He denies cough or shortness of breath. He did cut his scalp in multiple places while shaving his head with a razor today. The bleeding has now stopped and was cleaned and dressed by the nurse. I discussed his care with cardiology. Normal sinus rhythm with rates in the 60s to 80s on telemetry Physical Exam Constitutional: WD/WN, vitals as above Eyes: + anicteric sclerae Respiratory: normal respiratory effort, lungs clear to auscultation Cardiovascular: Rate/Rhythm: regular rate and regular rhythm Heart Sounds: no murmur Extremities: no edema Gastrointestinal (Abdomen): normal bowel sounds, soft, nontender, no hepatospl enomegaly Skin: Posterior scalp with multiple small nicks that are with scabs forming. 1.5 cm more circular abrasion on top of scalp with scant oozing of blood Psychiatric: A+Ox3, euthymic affect Results & Data Results & Data Vital Signs (Past 12 Hours) Vital Signs Temp Pulse Pulse Resp BP Pulse Ox O2 Del Method 07/08/23 11:52 36.6 C 157 H 18 147/76 H 93 Room Air 07/08/23 08:00 36.6 C 83 18 116/67 98 Room Air 07/08/23 05:57 74 07/08/23 03:00 36.6 C 80 18 136/77 97 Room Air Laboratory Results CBC, BMP, magnesium, troponin reviewed PG Care Time/CCT Total # of Minutes Spent Total Time Spent with Patient: Total time spent is greater than 50% in coordination of care (as documented) at patient's floor/unit and/or counseling patient: Coding Level of Care Code 51758 SUB INP/OBS CARE 3/50MIN Diagnoses Chest pain R07.9 Elevated troponin R79.89 Hypertension I10 Diabetes mellitus, type 2 E11.9 Hypercholesteremia E78.00 COVID-19 virus infection U07.1 Wound, open, scalp S01.00XA Lewis esophagus K22.70 Depression F32.9 Hypothyroidism E03.9
[2023-07-08] MEDS ORDERED: HEPARIN SOD (PORCINE) 1000 UNIT/ML IV ONE (14:03)
[2023-07-08 15:34] LABS: Partial Thromboplastin Time 27 Seconds (21-31); Prothrombin Time 10.9 Seconds (9.0-12.0)
[2023-07-08] MEDS: HEPARIN SODIUM/DEXTROSE 25,000 UNITS/500 ML BAG IV SCH (15:51)
[2023-07-08] MEDS: BACITRACIN OINT 14 GM TUBE EXT SCH ×2 (16:05→21:30)
[2023-07-08] MEDS ORDERED: LANTUS PER UNIT CHARGE SQ SCH ×2 (21:00)
[2023-07-08 21:10] LABS: ANTI-Xa, UFH(UnfractionatedHep 0.53 IU/ml (0.3-0.7)
[2023-07-08] MEDS: LORazepam 0.5 MG TAB PO SCH (21:26)
[2023-07-08] MEDS: GABAPENTIN 100 MG CAP PO SCH (21:27)
[2023-07-08] MEDS: ESCITALOPRAM OXALATE 10 MG TAB PO SCH (21:27)
[2023-07-08] MEDS: ROSUVASTATIN CALCIUM 20 MG TAB PO SCH (21:29)
[2023-07-08] MEDS: VENLAFAXINE HCL XR 150 MG CAPXR PO SCH (21:29)
[2023-07-08] MEDS: amLODIPine BESYLATE 5 MG TAB PO SCH (21:29)
[2023-07-09 07:29] LABS: Basophils # (auto) 0.05 K/uL (0.00-0.20); Basophils % (auto) 1.4 %; Eosinophils % (auto) 2.7 %; Hematocrit (blood only) 38.9 % (42.0-52.0); Immature Granulocytes # (auto) 0.01 K/uL (0.01-0.20); Immature Granulocytes % (auto) 0.3 %; Lymphocytes # (auto) 1.24 K/uL (1.20-3.40); Lymphocytes % (auto) 33.9 %; Mean Corpuscular Hemoglobin 32.4 pg (25.0-34.0); Mean Platelet Volume 10.3 fL (9.4-12.4); Monocytes # (auto) 0.38 K/uL (0.11-0.59); Monocytes % (auto) 10.4 %; Neutrophils # (auto) 1.88 K/uL (1.40-6.50); Neutrophils % (auto) 51.3 %; Platelet Count 258 K/uL (130-400); RDW Coefficient of Variation 12.5 % (11.5-14.5); RDW Standard Deviation 40.8 fL (36.4-46.3); Red Blood Count 4.32 M/uL (4.70-6.10); White Blood Count 3.66 K/ul (4.8-10.8)
[2023-07-09 07:48] LABS: Albumin Level 3.9 gm/dl (3.4-5.0); BUN Creatinine Ratio 27.5 (10-20); Calcium 8.8 mg/dl (8.6-10.3); Creatinine Clr Calc Pharmacy 71.7 ml/min; Est GFR (African American) 82.9 ml/min; Est GFR (Non-African American) 71.6 ml/min; Magnesium 2.1 mg/dl (1.7-2.4); Phosphorus 4.1 mg/dl (2.5-4.9); Potassium 3.2 mmol/L (3.5-5.1)
[2023-07-09] MEDS ORDERED: POTASSIUM CHLORIDE CRTAB 20 MEQ TABCR PO STA (07:55)
[2023-07-09 08:28] LABS: ANTI-Xa, UFH(UnfractionatedHep 0.32 IU/ml (0.3-0.7)
[2023-07-09] MEDS: INSULIN ASPART PER UNIT CHARGE SC SCH ×4 (09:18→21:35)
[2023-07-09] MEDS: ASPIRIN 81 MG ECTAB PO SCH (09:34)
[2023-07-09] MEDS: BACITRACIN OINT 14 GM TUBE EXT SCH ×2 (09:34→21:56)
[2023-07-09] MEDS: METOPROLOL TARTRATE 50 MG TAB PO SCH ×2 (09:34→21:55)
[2023-07-09] MEDS: PANTOprazole 40 MG TAB PO SCH ×2 (09:35→17:20)
[2023-07-09] MEDS: LEVOTHYROXINE SODIUM 112 MCG TABLET PO SCH (09:35)
[2023-07-09] MEDS: FLUTICASONE PROPIONATE NA SPR 16 GM BTL NAE SCH (09:35)
[2023-07-09] MEDS: MULTIVITAMIN TAB PO SCH (09:35)
[2023-07-09] MEDS: ADVANCED PROBIOTIC 1250 MG CAPSULE PO SCH (09:35)
--- NOTE | 2023-07-09 12:09 | Hospitalist Progress Note ---
Date of Service July 09, 2023 Assessment & Plan (1) Chest pain: Plan: Presented with chest pain associated with significantly elevated blood pressure. Happened to test positive for COVID but had no other symptoms Chest pain initially resolved with improvement in blood pressure, but his troponin was mildly elevated as below. Then with recurrence of chest pain again with elevated blood pressures and troponin peaked higher at 618. Chest pain again resolved with control of blood pressure Echocardiogram with preserved EF and no wall motion abnormalities Stress echocardiogram in 2020 normal and he typically does not have any angina or dyspnea on exertion and is fairly active Appreciate cardiology consultation-suspect unstable angina, underlying CAD given risk factors of DM2, HTN, age, hyperlipidemia -Started metoprolol 25 Mg p.o. twice daily on 07/07 -Continue heparin drip-very minor bleeding on scalp is now controlled and will be monitored, hgb stable -Started aspirin, Crestor, and stopped gemfibrozil to avoid myalgias as he has a history of such with statins-no myalgias thus far -Plan for cardiac catheterization on Monday, n.p.o. after midnight on Monday night -continue to monitor BPs, tele for arrhythmias (2) Elevated troponin: Plan: Possibly unstable angina as above versus hypertensive emergency Plan for cardiac catheterization on Monday for further eval (3) Hypertension: Plan: Blood pressures have been significantly elevated on admission and again the next night, both times causing chest pain and elevated troponin Continue home amlodipine 10 mg at bedtime Added on metoprolol 25 Mg p.o. twice daily Monitor blood pressures-much improved and no further chest pain Follow CBC, BMP, magnesium-replace potassium today for hypokalemia (4) Diabetes mellitus, type 2: Plan: With significant hyperglycemia secondary to Decadron and stress of infection- Decadron discontinued after second dose Blood sugars are now improving off steroids but remain elevated Increase Lantus to 10 units at bedtime, continue NovoLog supplemental insulin Hemoglobin A1c excellent control 7.0% and is only on metformin at home On gabapentin possibly for neuropathy? (5) Hypercholesteremia: Plan: Lipid panel shows total cholesterol 178, LDL 101, HDL low at 30, and triglycerides elevated at 235 likely secondary to hyperglycemia Due to likely underlying CAD, starting rosuvastatin 20 mg at bedtime-monitor for myalgias Stopped gemfibrozil (6) COVID-19 virus infection: Plan: Mildly hypoxic (93% on room air) on admission received Decadron and Remdesivir Given significant hyperglycemia and hypertension, discontinued Decadron after 2 doses Continue Remdesivir to finish out 5-day course-last dose 07/10 Hypoxia is resolved, no other symptoms (7) Wound, open, scalp: Plan: Secondary to shaving his scalp himself in the hospital, minor abrasions Wounds to be cleaned and dressed with OPTi foam and bacitracin applied SOme bleeding from them after starting heparin gtt but is controlled (8) Lewis esophagus: Plan: Continue Protonix (9) Depression: Plan: No acute issues Continue escitalopram, Ativan at night Venlafaxine daily (10) Hypothyroidism: Plan: Continue levothyroxine TSH here is normal at 0.603 Plan DVT prophylaxis- heparin drip Disposition-continued stay on PCU, awaiting cardiac catheterization on Monday Admission and Anticipated Discharge Date Admission Date: July 06, 2023 Subjective Pt had bleeding from his scalp wounds overnight after starting heparin gtt. Bleeding is now controlled and wounds are dressed by RN. No CP, SOB. Doing well otherwise. Tele with NSR, rate 60-70s Physical Exam Constitutional: WD/WN, vitals as above Eyes: + anicteric sclerae Respiratory: normal respiratory effort, lungs clear to auscultation Cardiovascular: Rate/Rhythm: regular rate and regular rhythm Heart Sounds: no murmur Extremities: no edema Gastrointestinal (Abdomen): normal bowel sounds, soft, nontender, no hepatosplenomegaly Skin: scalp wound on top of head with dressing in place, smll amount bleeding through dressing noted, other smaller wounds with scabs Psychiatric: A+Ox3, euthymic affect Results & Data Results & Data Vital Signs (Past 12 Hours) Vital Signs Temp Pulse Resp BP Pulse Ox O2 Del Method 07/09/23 08:04 36.6 C 70 18 113/67 96 Room Air 07/09/23 02:52 36.7 C 67 18 122/73 93 Room Air Laboratory Results CBC, BMP, mag, phos reviewed PG Care Time/CCT Total # of Minutes Spent Total Time Spent with Patient: Total time spent is greater than 50% in coordination of care (as documented) at patient's floor/unit and/or counseling patient: Coding Level of Care Code 69585 SUB INP/OBS CARE 3/50MIN Diagnoses Chest pain R07.9 Elevated troponin R79.89 Hypertension I10 Diabetes mellitus, type 2 E11.9 Hypercholesteremia E78.00 COVID-19 virus infection U07.1 Wound, open, scalp S01.00XA Lewis esophagus K22.70 Depression F32.9 Hypothyroidism E03.9
--- NOTE | 2023-07-09 12:38 | Cardiology Progress Note ---
Date of Service July 09, 2023 Assessment & Plan (1) Non-ST elevation (NSTEMI) myocardial infarction: (2) Unstable angina: (3) Hypertension: (4) Hypercholesteremia: Plan ASSESSMENT/PLAN: 1. NSTEMI: No further angina. Continue aspirin 81 mg daily. Statin therapy if tolerated. Continue beta-delmar and amlodipine. Has not tolerated YORDY inhibitor or ARB in the past. Awaiting cardiac catheterization. N.p.o. after midnight. Risks and benefits of the procedure have been discussed. He was made aware that CT surgery is not available at this facility. 2. Unstable Angina: No further angina. Could be related to hypertension such as hypertensive urgency, underlying CAD, or the combination. Given multiple CAD risk factors, cardiac catheterization recommended and pending. 3. Hypertension: Blood pressure much improved. Continue beta-delmar and calcium channel delmar. Intolerant to YORDY inhibitor and ARB's in the past. 4. Dyslipidemia: Continue Crestor 20 mg daily if tolerated (initiated this hospital stay). He did not tolerate atorvastatin due to myalgias. Goal LDL < 70. Mediterranean diet. 5. Disposition: Cardiac catheterization pending for tomorrow, likely with Dr. Samaniego, the on-call furnace packer tomorrow. I will be away from the hospital. Please call on-call parts product analyst for questions or concerns. Dr. Samaniego or Dr. Pop will continue to follow. Admission and Anticipated Discharge Date Admission Date: July 06, 2023 Subjective Patient was seen this morning. He has not had any further chest discomfort. He denies shortness of breath, syncope, near syncope, palpitations, edema. He has had more bleeding from his scalp overnight while on heparin drip but it has since been bandaged with improvement. He was alone in his hospital room. Physical Exam Physical Exam: Gen.: No acute distress. Alert and oriented. HEENT: Anicteric sclera. Neck: No JVD. Cardiac: No ventricular heave. Regular. Normal S1-S2. No murmurs, rubs, or gallops. Pulmonary: Clear to auscultation bilaterally without wheezes, rales, or rhonchi. Abdomen: Soft, nontender, nondistended, with normoactive bowel sounds. No bruits noted. Extremities: 2+ radial pulses bilaterally. 2+ posterior tibialis pulses bilaterally. No edema or cyanosis. Psychiatric: Affect appears appropriate. Results & Data Vital Signs (Past 12 Hours) Vital Signs Temp Pulse Resp BP Pulse Ox O2 Del Method 07/09/23 12:22 36.7 C 67 19 125/86 96 Room Air 07/09/23 08:04 36.6 C 70 18 113/67 96 Room Air 07/09/23 02:52 36.7 C 67 18 122/73 93 Room Air Laboratory Results Laboratory Results - last 24 hr 07/09/23 07/09/23 07/09/23 06:25 07:38 11:51 WBC 3.66 L RBC 4.32 L Hgb 14.0 Hct 38.9 L MCV 90.0 MCH 32.4 MCHC 36.0 RDW Std Deviation 40.8 RDW Coeff of Vicente 12.5 Plt Count 258 MPV 10.3 Immature Gran % (Auto) 0.3 Neut % (Auto) 51.3 Lymph % (Auto) 33.9 [place] % (Auto) 10.4 Eos % (Auto) 2.7 Baso % (Auto) 1.4 Neut # (Auto) 1.88 Lymph # (Auto) 1.24 [place] # (Auto) 0.38 Eos # (Auto) 0.10 Baso # (Auto) 0.05 Immature Gran # (Auto) 0.01 Heparin Anti-Xa, Unfract 0.32 Sodium 138 Potassium 3.2 L Chloride 105 Carbon Dioxide 23 Anion Gap 10 BUN 28 H Creatinine 1.02 Est Cr Clr Drug Dosing 71.7 Est GFR ( Amer) 82.9 Est GFR (Non-Af Amer) 71.6 BUN/Creatinine Ratio 27.5 H Glucose 175 H POC Glucose 167 H 211 H Calcium 8.8 Phosphorus 4.1 Magnesium 2.1 Albumin 3.9 07/09/23 07/09/23 15:42 20:25 WBC RBC Hgb Hct MCV MCH MCHC RDW Std Deviation RDW Coeff of Vicente Plt Count MPV Immature Gran % (Auto) Neut % (Auto) Lymph % (Auto) [place] % (Auto) Eos % (Auto) Baso % (Auto) Neut # (Auto) Lymph # (Auto) [place] # (Auto) Eos # (Auto) Baso # (Auto) Immature Gran # (Auto) Heparin Anti-Xa, Unfract Sodium Potassium Chloride Carbon Dioxide Anion Gap BUN Creatinine Est Cr Clr Drug Dosing Est GFR ( Amer) Est GFR (Non-Af Amer) BUN/Creatinine Ratio Glucose POC Glucose 147 H 193 H Calcium Phosphorus Magnesium Albumin Diagnostic Findings Telemetry reviewed: Sinus rhythm. No arrhythmia. ECG personally reviewed 12/24/1742: Sinus rhythm 74 bpm. Normal ECG. Labs reviewed and notable for mild leukopenia, stable renal function, mild hypokalemia. Medications Administered Current Inpatient Medications Acetaminophen (Acetaminophen 325 Mg Tab) 650 mg PO Q4H PRN PRN Reason: Pain or Fever Stop: 08/05/23 04:51 Albuterol (Albut/Ipratrop 3mg/0.5mg Neb 3 Ml Vial) 3 ml NEB QIDR PRN; Protocol PRN Reason: Shortness Of Breath Or Wheezing Stop: 08/05/23 06:59 Amlodipine Besylate (Amlodipine Besylate 5 Mg Tab) 10 mg PO HS [facility] Stop: 08/05/23 20:59 Last Admin: 07/09/23 21:53 Dose: 10 mg Aspirin (Aspirin 81 Mg Ectab) [facility] Stop: 08/08/23 08:59 Last Admin: 07/09/23 09:34 Dose: 81 mg Bacitracin (Bacitracin Oint 14 Gm Tube) 1 appln EXT BID [facility] Stop: 08/07/23 13:59 Last Admin: 07/09/23 21:56 Dose: 1 appln Dextrose (Dextrose 50% 50 Ml Syringe) 25 - 50 ml IV UD PRN; Protocol PRN Reason: Hypoglycemia Protocol Stop: 08/05/23 03:15 Escitalopram Oxalate (Escitalopram Oxalate 10 Mg Tab) 5 mg PO QPM [facility] Stop: 08/05/23 20:59 Last Admin: 07/09/23 21:52 Dose: 5 mg Fluticasone Propionate (Fluticasone Propionate Na Spr 16 Gm Btl) 2 sprays RAMESH QAM [facility] Stop: 08/05/23 08:59 Last Admin: 07/09/23 09:35 Dose: 2 sprays Gabapentin (Gabapentin 100 Mg Cap) 200 mg PO HS [facility] Stop: 08/05/23 20:59 Last Admin: 07/09/23 21:51 Dose: 200 mg Glucagon (Glucagon For Inj 1 Mg Vial) 1 mg SQ UD PRN; Protocol PRN Reason: Hypoglycemia Protocol Stop: 08/05/23 03:15 Glucose (Glucose 10 Tab/Tube) 4 - 8 tab PO UD PRN; Protocol PRN Reason: Hypoglycemia Treatment Stop: 08/05/23 03:15 Glucose (Glucose 40% Gel 15 Gm Tube) 15 - 30 gm PO UD PRN; Protocol PRN Reason: Hypoglycemia Protocol Stop: 08/05/23 03:15 Hydralazine HCl (Hydralazine Hcl 20 Mg/Ml Vial) 10 mg IV Q4H PRN PRN Reason: Hypertension Stop: 08/05/23 03:28 Last Admin: 07/06/23 08:14 Dose: 10 mg Remdesivir 100 mg/ Sodium (Chloride) 250 mls @ 250 mls/hr IV Q24H [facility] Stop: 07/10/23 12:59 Last Infusion: 07/09/23 14:38 Dose: Infused Heparin Sodium/Dextrose (Heparin Sodium/Dextrose) 25,000 units in 500 mls @ 19 mls/hr IV .Q24H [facility]; Protocol Stop: 08/07/23 14:14 Last Admin: 07/09/23 17:10 Dose: 950 units/hr, 19 mls/hr Insulin Aspart (Insulin Aspart Per Unit Charge) 0 units SC [facility] Stop: 08/05/23 07:29 Last Admin: 07/09/23 21:35 Dose: 3 units Insulin Glargine (Lantus Per Unit Charge) 10 units SQ HS [facility] Stop: 08/08/23 20:59 Last Admin: 07/09/23 21:35 Dose: 10 units Lactobacillus Acidophilus (Advanced Probiotic 1250 Mg Capsule) 2 cap PO QAM [facility] Stop: 08/05/23 08:59 Last Admin: 07/09/23 09:35 Dose: 2 cap Levothyroxine Sodium (Levothyroxine Sodium 112 Mcg Tablet) 112 mcg PO QAM [facility] Stop: 08/05/23 08:59 Last Admin: 07/09/23 09:35 Dose: 112 mcg Lorazepam (Lorazepam 0.5 Mg Tab) 0.5 mg PO HS [facility] Stop: 08/05/23 20:59 Last Admin: 07/09/23 21:50 Dose: 0.5 mg Metoprolol Tartrate (Metoprolol Tartrate 1 Mg/Ml Vial) 5 mg IV Q4 PRN PRN Reason: Hypertension Stop: 08/05/23 03:59 Last Admin: 07/06/23 07:40 Dose: 5 mg Metoprolol Tartrate (Metoprolol Tartrate 50 Mg Tab) 50 mg PO BID [facility] Stop: 08/08/23 08:59 Last Admin: 07/09/23 21:55 Dose: 50 mg Miscellaneous (Carbohydrates For Hypoglycemia ) 15 - 30 gm PO UD PRN PRN Reason: Hypoglycemia Protocol Stop: 08/05/23 03:15 Multivitamins (Multivitamin Tab) 1 tab PO QAM [facility] Stop: 08/05/23 08:59 Last Admin: 07/09/23 09:35 Dose: 1 tab Ondansetron HCl (Ondansetron Inj 2 Mg/Ml 2 Ml Vial) 4 mg IV Q6H PRN PRN Reason: NAUSEA/VOMITING Stop: 08/05/23 06:24 Pantoprazole Sodium (Pantoprazole 40 Mg Tab) 40 mg PO BID@0730,1630 [facility]; Protocol Stop: 08/06/23 17:59 Last Admin: 07/09/23 17:20 Dose: 40 mg Rosuvastatin Calcium (Rosuvastatin Calcium 20 Mg Tab) 20 mg PO HS [facility] Stop: 08/07/23 20:59 Last Admin: 07/08/23 21:29 Dose: 20 mg Venlafaxine HCl (Venlafaxine Hcl Xr 150 Mg Capxr) 150 mg PO QPM [facility] Stop: 08/05/23 20:59 Last Admin: 07/09/23 21:55 Dose: 150 mg PG Care Time/CCT Total # of Minutes Spent Total Time Spent with Patient: Total time spent is greater than 50% in coordination of care (as documented) at patient's floor/unit and/or counseling patient: Coding Level of Care Code 06628 SUB INP/OBS CARE 3/50MIN Diagnoses Non-ST elevation (NSTEMI) myocardial infarction I21.4 Unstable angina I20.0 Hypertension I10 Hypercholesteremia E78.00
[2023-07-09] MEDS: REMDESIVIR 100 MG in SODIUM CHLORIDE 0.9% 230 ML IV SCH (13:20)
[2023-07-09] MEDS: HEPARIN SODIUM/DEXTROSE 25,000 UNITS/500 ML BAG IV SCH ×2 (14:41→17:10)
--- NOTE | 2023-07-09 19:23 | Electrocardiogram Report ---
Test Reason : Blood Pressure : / mmHG Vent. Rate : 082 BPM Atrial Rate : 082 BPM P-R Int : 190 ms QRS Dur : 084 ms QT Int : 406 ms P-R-T Axes : 050 039 066 degrees QTc Int : 474 ms Normal sinus rhythm Normal ECG When compared with ECG of 07-JUL-2023 04:06, No significant change was found Confirmed by Winston Bang ([id number]) on 07/09/2023 7:23:36 PM Referred By: REFERRED SELF Confirmed By:Winston Bang
[2023-07-09] MEDS ORDERED: LANTUS PER UNIT CHARGE SQ SCH (21:00)
[2023-07-09] MEDS: LORazepam 0.5 MG TAB PO SCH (21:50)
[2023-07-09] MEDS: GABAPENTIN 100 MG CAP PO SCH (21:51)
[2023-07-09] MEDS: ESCITALOPRAM OXALATE 10 MG TAB PO SCH (21:52)
[2023-07-09] MEDS: amLODIPine BESYLATE 5 MG TAB PO SCH (21:53)
[2023-07-09] MEDS: VENLAFAXINE HCL XR 150 MG CAPXR PO SCH (21:55)
[2023-07-09] MEDS: ROSUVASTATIN CALCIUM 20 MG TAB PO SCH (21:56)
--- NOTE | 2023-07-09 22:26 | Electrocardiogram Report ---
Test Reason : Blood Pressure : / mmHG Vent. Rate : 070 BPM Atrial Rate : 070 BPM P-R Int : 188 ms QRS Dur : 088 ms QT Int : 438 ms P-R-T Axes : 053 032 063 degrees QTc Int : 473 ms Normal sinus rhythm Nonspecific ST abnormality Abnormal ECG When compared with ECG of 07-JUL-2023 12:52, No significant change was found Confirmed by Winston Bang ([id number]) on 07/09/2023 10:26:32 PM Referred By: REFERRED SELF Confirmed By:Winston Bang
--- NOTE | 2023-07-10 00:13 | Electrocardiogram Report ---
Test Reason : Blood Pressure : / mmHG Vent. Rate : 074 BPM Atrial Rate : 074 BPM P-R Int : 182 ms QRS Dur : 090 ms QT Int : 420 ms P-R-T Axes : 044 024 052 degrees QTc Int : 466 ms Normal sinus rhythm Normal ECG When compared with ECG of 08-JUL-2023 06:01, No significant change was found Confirmed by Winston Bang ([id number]) on 07/10/2023 12:12:20 AM Referred By: REFERRED SELF Confirmed By:Winston Bang
[2023-07-10 05:43] LABS: Basophils # (auto) 0.04 K/uL (0.00-0.20); Basophils % (auto) 0.8 %; Eosinophils # (auto) 0.16 K/uL (0.00-0.50); Eosinophils % (auto) 3.1 %; Hematocrit (blood only) 38.9 % (42.0-52.0); Hemoglobin 14.1 g/dl (14.0-18.0); Immature Granulocytes # (auto) 0.02 K/uL (0.01-0.20); Immature Granulocytes % (auto) 0.4 %; Lymphocytes # (auto) 1.14 K/uL (1.20-3.40); Lymphocytes % (auto) 21.9 %; Mean Corpuscular Hemoglobin 32.5 pg (25.0-34.0); Mean Corpuscular Hgb Conc 36.2 g/dL (32.0-36.0); Mean Corpuscular Volume 89.6 fL (80.0-100.0); Monocytes # (auto) 0.56 K/uL (0.11-0.59); Monocytes % (auto) 10.7 %; Neutrophils # (auto) 3.29 K/uL (1.40-6.50); Neutrophils % (auto) 63.1 %; Platelet Count 242 K/uL (130-400); RDW Coefficient of Variation 12.3 % (11.5-14.5); RDW Standard Deviation 40.6 fL (36.4-46.3); Red Blood Count 4.34 M/uL (4.70-6.10); White Blood Count 5.21 K/ul (4.8-10.8)
[2023-07-10 05:59] LABS: Albumin Globulin Ratio 1.6 (0.9-2); BUN Creatinine Ratio 24.1 (10-20); Bilirubin,Total 0.5 mg/dl (0.2-1.0); Calcium 9.1 mg/dl (8.6-10.3); Creatinine Clr Calc Pharmacy 56.8 ml/min; Est GFR (Non-African American) 61.3 ml/min; Globulin 2.5 gm/dl (2.5-4.0); Potassium 3.8 mmol/L (3.5-5.1); Total Protein 6.5 gm/dl (6.0-8.3)
[2023-07-10 06:07] LABS: ANTI-Xa, UFH(UnfractionatedHep 0.26 IU/ml (0.3-0.7)
[2023-07-10] MEDS: INSULIN ASPART PER UNIT CHARGE SC SCH ×4 (06:34→21:52)
[2023-07-10] MEDS: PANTOprazole 40 MG TAB PO SCH ×2 (07:50→16:25)
[2023-07-10] MEDS: FLUTICASONE PROPIONATE NA SPR 16 GM BTL NAE SCH (07:51)
[2023-07-10] MEDS: LEVOTHYROXINE SODIUM 112 MCG TABLET PO SCH (07:51)
[2023-07-10] MEDS: METOPROLOL TARTRATE 50 MG TAB PO SCH ×2 (07:51→22:04)
[2023-07-10] MEDS: ASPIRIN 81 MG ECTAB PO SCH (07:52)
[2023-07-10] MEDS: MULTIVITAMIN TAB PO SCH (07:52)
[2023-07-10] MEDS: ADVANCED PROBIOTIC 1250 MG CAPSULE PO SCH (07:52)
[2023-07-10] MEDS ORDERED: SODIUM CHLORIDE 0.9% 1,000 ML IV SCH (09:15)
[2023-07-10] MEDS ORDERED: MIDAZOLAM HCL 1 MG/ML 2ML VIAL ONE (10:03)
[2023-07-10] MEDS ORDERED: fentaNYL citrate PF 100 MCG/2 ML VIAL ONE (10:03)
[2023-07-10] MEDS ORDERED: niCARdipine HCL INJ 2.5 MG/ML 10 ML AMP ONE (10:03)
[2023-07-10] MEDS ORDERED: HEPARIN (PORCINE) 1000 UNIT/ML 10 ML (CATH LAB USE ONLY) ONE (10:03)
[2023-07-10] MEDS ORDERED: NITROGLYCERIN/D5W 100MCG/ML 20ML SYR ONE (10:04)
--- NOTE | 2023-07-10 11:20 | Pre Anesthesia Assessment ---
Date of Service July 10, 2023 Pre Sedation Assessment Vital Signs Temp Pulse Pulse Resp BP Pulse Ox O2 Del Method 07/10/23 09:42 60 07/10/23 08:00 37.0 C 87 16 149/67 H 96 Room Air 07/10/23 05:10 36.6 C 72 18 156/79 H 94 Room Air 07/09/23 23:10 36.5 C 78 16 138/74 97 Room Air 07/09/23 21:57 80 07/09/23 19:14 36.8 C 75 18 127/65 93 Room Air 07/09/23 15:53 36.6 C 69 18 148/85 H 95 Room Air 07/09/23 14:42 64 07/09/23 12:22 36.7 C 67 19 125/86 96 Room Air Cardiovascular RRR, no murmur, no edema Respiratory normal respiratory effort, lungs clear to auscultation Pre-Sedation Airway Assessment Smoking Status: Never smoker Mallampati Class: III ASA 4 Notes The planned sedation has been discussed with the patient. Informed Consent was obtained. I have identified the patient, determined the appropriateness of sedation and have assessed the patient immediately prior to the procedure. All medicine(s) and interventions are by my order. [facility] [place] Procedure Codes (Charges) Indication for Procedure Indication for procedure: Non-ST elevation IN
--- NOTE | 2023-07-10 11:22 | Post Anesthesia Assessment ---
Date of Service July 10, 2023 Post Sedation Assessment Vital Signs Temp Pulse Pulse Resp BP Pulse Ox O2 Del Method 07/10/23 09:42 60 07/10/23 08:00 37.0 C 87 16 149/67 H 96 Room Air 07/10/23 05:10 36.6 C 72 18 156/79 H 94 Room Air 07/09/23 23:10 36.5 C 78 16 138/74 97 Room Air 07/09/23 21:57 80 07/09/23 19:14 36.8 C 75 18 127/65 93 Room Air 07/09/23 15:53 36.6 C 69 18 148/85 H 95 Room Air 07/09/23 14:42 64 07/09/23 12:22 36.7 C 67 19 125/86 96 Room Air Recovery Score Activity: Moves 4 extremities Respiration: Deep Breath/Cough Circulation: +/-20% PreAnes Value Consciousness: Fully Awake Oxygen Saturation: > 92% On Room Air Discharge Sedation Level of Care: Fast Track Phase II Post Sedation Plan On clinical assessment, the patient appears to have tolerated the sedation without complications. Patient is recovering as anticipated. Patient will continue to be monitored by nursing and may be discharged when sedation discharge criteria are met per below protocol. Upon Completions of procedure up to 15 minutes continue every 5 minute vital signs and the P.A.R. score; then discharge to a Phase I or Fast Track to Phase II per the following guidelines: * Discharge Patient to appropriate Phase II area if PAR is 8 or greater or return to pre- procedure baseline. The post - procedure orders will be as directed. * If PAR score is less than 8 or not return to pre-procedure baseline then patient will follow Phase I monitoring till PAR is reached for Phase II. The Phase I may be done in procedure room or may call to secure a Phase I area. * If naloxone or flumazenil are used for reversal, hold in Phase I for continued monitoring from when last reversal dose was given for a minimum of 60 minutes or longer pending the nurse and/or physician discretion of patient condition before discharge to Phase II. Please call the Sedation Physician to re-evaluate and complete post-note for discharge to Phase II area. Do NOT discharge from procedure sedation or Phase 1 until post- sedation evaluation note is complete by procedure /sedation MD Sedation Discharge Instructions to be given to the patient at discharge to home. [facility] Procedure Codes (Charges) Indication for Procedure Indication for procedure: Non-ST elevation [place] Sedation/Anesthesia Procedure 1: Sedation/Anesthesia: 48698 Mod Sedation by the same physician;Init15 Min Child Age 5 & Up (Start 1057, and 1109) Total Sedation Time (minutes): 12
--- NOTE | 2023-07-10 11:35 | Cardiac Catheterization ---
[facility] Data: Academic Interventionist Cardiac Status Clinical evaluation leading to the procedure CAD Presenation: Non STEMI Anginal Classification: CCS IV Heart Failure: No Cardiogenic Shock within 24 Hours: No Cardiac Arrest within 24 Hours: No Imaging Studies Past 6 Months: Yes Stress Studies Past 6 Months: No Coronary Anatomy Dominant: Right Left Main (% Stenosis): Normal (Mild diffuse) LAD (% Stenosis): Proximal (Mild), Mid (Diffuse up to 95%) and Distal (70 to 80%, 70%) D1 (% Stenosis): Normal D2 (% Stenosis): Proximal (80%) Circumflex (% Stenosis): Proximal (Mild) and Mid (Mild) OM1 (% Stenosis): Normal OM2 (% Stenosis): Proximal (99%) L PL1 (% Stenosis): Normal RCA (% Stenosis): Proximal (Diffuse mild), Mid (80 to 85%) and Distal (Mild) R PDA (% Stenosis): Ostial (70 to 80%) and Mid (95%) R PL1 (% Stenosis): Proximal (80%) Diagnostic Physicians Name: Stalin Samaniego MD, PhD Closure Device Percutaneous Entry Location: Radial Closure Device: Radial Band Recommendations: Medical Therapy and/or Counseling and CABG Cardiac Cath Procedure Full Procedure Date July 10, 2023 Pre-Procedure Diagnosis Pre-Procedure Diagnosis: Non STEMI AUC Score AUC Score: 07 Post-Procedure Diagnosis Post-Procedure Diagnosis: Severe CAD Procedure(s) Performed Procedure(s) Performed: Coronary Angiography Digital Editor Stalin Samaniego MD, PhD Estimated Blood Loss Estimated Blood Loss: None (5 cc) Medication(s) Medication(s): Fentanyl, Heparin, Lidocaine 1%, Nicardipine, Nitroglycerin and Versed Medication(s): 10 cc Summary of Findings Brief description: Patient was brought to the cardiac catheterization suite where he was shaved and prepped in a sterile fashion. Sedated using IV Versed and fentanyl. Brief description: Patient was brought to the cardiac catheterization suite where he was shaved and prepped in a sterile fashion. Sedated using IV Versed and fentanyl. Soft tissues of the right wrist were anesthetized using 2 mL of 1% Xylocaine. The right radial access was obtained using a modified Seldinger technique and a 6 Pakistani radial artery glide sheath was placed. Patient was provided anticoagulation with IV heparin and antispasmodics including nicardipine and nitroglycerin. All catheters were advanced and exchanged over a 0.035 J-tip wire. Left coronary angiography in orthogonal views with a 5 Pakistani [place] 4 diagnostic catheter. Right coronary angiography in orthogonal views with a 5 Pakistani JR4 diagnostic catheter. Diagnostic catheters were removed. Radial artery sheath was removed. Hemostasis was obtained using the TR band. Patient remained hemodynamically stable and asymptomatic. He was returned to the recovery area. This ended the case. Left coronary angiography findings: YTT-mjlkv-ogeajuw vessel trifurcating into LAD, circumflex, and ramus. Diffuse mild disease. LAD-this is large caliber and transapical. Proximal and mid segment are heavily calcified. Proximal segment with diffuse mild to moderate disease of 40 to 50% narrowing. Provides a large septal branch and a medium first diagonal. The mid segment has up to 95% narrowing. It then provides a large caliber second diagonal with ostial to proximal 80% stenosis. The early LAD has diffuse disease with 70 to 80% just after the second diagonal. There is a third diagonal which has branching and no significant disease. The LAD at this level has a 70% stenosis. Ramus-small to medium caliber long vessel. Proximal 70 to 80% stenosis. QBu-udnnm-ofdamli. First branch is an atrial at the same level there is a small OM1. Proximal vessel has mild luminal irregularities. The mid AV groove vessel has mild disease and provides a large multi branching OM 2. This has proximal disease of 99%. There is then a second atrial branch followed by a small posterolateral branch and the circumflex terminates as a bifurcating PLB. GEB-eysmp-mtbmsmu and dominant vessel. Proximally there is diffuse mild disease in the early mid segment has severe 80 to 85% stenosis. The distal vessel has mild plaques and then bifurcates into a large PDA and large posterolateral. PDA has ostial to proximal 80% narrowing followed by mid vessel lesion of 95%. Posterior lateral branch has proximal to mid 80% narrowing. Summary: 1. Severe multivessel coronary artery disease. 2. Guideline directed medical therapy for secondary prevention of coronary disease including low-dose aspirin, high intensity statin therapy, beta-delmar, and angiotensin receptor delmar/YORDY inhibitor given his diabetes. 3. Recommend referral to tertiary center for "heart team" evaluation of complex revascularization (CABG versus multivessel PCI). Hemodynamics Rest Ao:: 112/72 mmHg Final Ao: 120/77 mmHg LV: Not performed Recommendations Recommendations: Medical Therapy and/or Counseling and CABG Radiation Exposure (mGy) 1008 mGy, fluoroscopy time 3.5 minutes Contrast (mls) 96 mL Anesthesia 2 mg IV Versed, 50 mcg IV fentanyl. Start 1057, and 1109 Procedural Complication(s) None Disposition Recovery Room\\PACU I attest to the content of the Intraoperative Record and any orders documented therein. Any exceptions are noted below. [facility] Card Cath Procedure Codes Cardiac Catheterization Procedure 1: Cardiovascular Cath Procedures: 68990 Coronaries Moderate Sedation Procedure 1: Sedation/Anesthesia: 26224 Mod Sedation by the same physician;Init15 Min Child Age 5 & Up (Start 1057, end 1109) PG Care Time/CCT Total # of Minutes Spent Total Time Spent with Patient: Total time spent is greater than 50% in coordination of care (as documented) at patient's floor/unit and/or counseling patient:
--- NOTE | 2023-07-10 12:56 | Cardiology Progress Note ---
Date of Service July 10, 2023 Assessment & Plan (1) Non-ST elevation (NSTEMI) myocardial infarction: Plan: Likely type II non-ST elevation [place]. No evidence of ACS. Likely secondary to hypertension plus or minus COVID. See below for further plans. (2) COVID: Plan: Treatment per primary team. When they feel he is appropriate then discharge would be recommended at that time. (3) Coronary artery disease due to type 2 diabetes mellitus: Plan: Severe multivessel coronary disease in a diabetic. Lesions appear stable. Rec ommend referral to [facility] cardiac surgery for evaluation of CABG versus multivessel PCI. His cath and echo discs will be sent to [facility]. Patient will follow-up with Dr. Bang in the cardiology office within 2 weeks and referral will be made at that time. Patient no longer needs heparin drip. Guideline directed medical therapy will include low-dose aspirin, high intensity statin therapy, and beta-delmar. Patient has had intolerance to both YORDY inhibitor and angiotensin receptor delmar. May continue amlodipine. Could consider isosorbide mononitrate on discharge. (4) Atherogenic dyslipidemia: Plan: High risk. High intensity statin therapy is recommended. Continue Crestor. Target greater than or equal to 50% reduction of untreated baseline LDL. (5) Benign essential hypertension: Plan: Blood pressure has been labile. Beta-delmar is recommended for coronary disease. Amlodipine for blood pressure control. YORDY inhibitor/ARB are indicated because of coronary disease and diabetes. However, angioedema is an absolute contraindication for use of either of these agents and therefore this should be avoided. Alternative medications include long-acting nitrate, thiazide diuretic, and hydralazine. Target SBP under 140 mmHg. Plan Outpatient follow-up as recommended above. Cardiac rehab. CT surgical referral. Discharge when otherwise appropriate per primary team. Admission and Anticipated Discharge Date Admission Date: July 06, 2023 Subjective Patient feeling well today. No further anginal chest pain and no shortness of breath. He underwent coronary angiography revealing severe multivessel coronary artery disease. No acute appearing thrombotic lesions. Most likely the non-ST elevation [place] is secondary to severe multivessel coronary disease and acute illness. I reviewed the patient's records and it appears that he had a YORDY inhibitor induced cough and intermittent lip swelling (angioedema) was reported with use of angiotensin receptor delmar. I discussed with the patient the finding on the catheterization and that I recommend he undergo "heart team" evaluation at tertiary center. Most likely he would benefit from coronary artery bypass grafting as primary mode of revascularization assuming that he does not have excessive STS risk. Currently admitted with COVID-19 infection, therefore, he is not appropriate for transfer as an inpatient referral for CABG. Fortunately, his presentation is not consistent with acute coronary syndrome and I have suggested to him that we should have him follow-up in the office within 2 weeks and outpatient referral will be made to [facility] to meet with the heart team regarding revascularization. He is amenable to this approach. Review of Systems Review of Systems: Negative except as per HPI Physical Exam Constitutional: WD/WN, vitals as above Neck: No JVD Respiratory: The clear to auscultation bilaterally. No wheezing, rhonchi, or rales appreciated. Cardiovascular: Regular rate and rhythm. Grade 1-2/6 systolic murmur. S4 gallop. No edema. Musculoskeletal: no cyanosis or clubbing, extremities motor strength 5/5 Neurologic: Cognition is intact. Speech is fluent. No focal deficits. Psychiatric: A+Ox3, euthymic affect Results & Data Vital Signs (Past 12 Hours) Vital Signs Temp Pulse Pulse Resp BP Pulse Ox O2 Del Method 07/10/23 11:29 64 18 117/73 93 Room Air 07/10/23 09:42 60 07/10/23 08:00 37.0 C 87 16 149/67 H 96 Room Air 07/10/23 05:10 36.6 C 72 18 156/79 H 94 Room Air PG Care Time/CCT Total # of Minutes Spent Total Time Spent with Patient: Total time spent is greater than 50% in coordination of care (as documented) at patient's floor/unit and/or counseling patient: Coding Level of Care Code 67782 SUB INP/OBS CARE 2/35MIN Diagnoses Non-ST elevation (NSTEMI) myocardial infarction I21.4 COVID U07.1 Coronary artery disease due to type 2 diabetes mellitus E11.59; I25.10 Atherogenic dyslipidemia E78.5 Benign essential hypertension I10
[2023-07-10] MEDS ORDERED: LIDOCAINE 1% LOCAL 20 ML VIAL ONE (14:32)
[2023-07-10] MEDS: BACITRACIN OINT 14 GM TUBE EXT SCH ×2 (16:48→21:59)
[2023-07-10] MEDS ORDERED: NITROGLYCERIN SL 0.4 MG/TAB TAB SL PRN (18:09)
--- NOTE | 2023-07-10 18:17 | Hospitalist Progress Note ---
Date of Service July 10, 2023 Assessment & Plan (1) Non-ST elevation (NSTEMI) myocardial infarction: Plan: Angina has now resolved. Left heart catheterization completed today, July 10. Multiple significant lesions will need further attention at a tertiary care center. Continue current medical management. Use sublingual nitroglycerin as needed for any recurrent angina symptoms. He will follow-up with cardiology on an outpatient basis. (2) Hypertension: Plan: Stable. Continue amlodipine and metoprolol. (3) Diabetes mellitus, type 2: Plan: ADA diet. Sliding scale coverage as needed. Basal insulin while hospitalized. Resume metformin at discharge (4) Hypercholesteremia: Plan: total cholesterol 178, LDL 101, HDL low at 30, and triglycerides elevated at 235. Now on Crestor. Lopid has been discontinued. (5) COVID-19 virus infection: Plan: Positivity by nasal swab. No significant symptoms. No indication for remdesivir at this time. Supportive care. (6) Lewis esophagus: Plan: Stable. Continue Protonix (7) Depression: Plan: Stable. Continue current medical management (8) Hypothyroidism: Plan: Stable. Continue levothyroxine. Normal TSH Plan Hopeful discharge to home tomorrow, July 11 Admission and Anticipated Discharge Date Admission Date: July 06, 2023 Subjective Alert and oriented. The patient was seen post cardiac catheterization. Cardiology entry noted. Medical management for now. He has multiple vessel coronary artery disease that will need further attention at a tertiary care center. No indication for remdesivir at this time which has been discontinued. COVID positivity by nasal swab only but no significant symptoms. Hopefully he can be discharged to home tomorrow, July 11, on oral medications and follow-up with cardiology as an outpatient for ultimate referral to [facility] for consideration for coronary artery bypass or multivessel PCI. Review of Systems 2 Review of Systems: Constitutional-no fever or chills ENT-no blurred vision, no double vision, no epistaxis, no sore throat Respiratory-no cough, no wheezing, no shortness of breath Cardiac-no palpitations, no syncope. Chest discomfort has resolved GI-no nausea, vomiting, diarrhea, melena, hematochezia -no urinary retention, no urinary incontinence, no dysuria, no hematuria Musculoskeletal-no joint pain, no muscle tenderness Skin-no bruising, no rashes, no pruritus Neuro-no isolated weakness, no paresthesia, no weakness Psych-no depression, no anxiety Physical Exam 2 Physical Exam: General-alert and oriented x3, no fevers, no chills HEENT-head atraumatic and normocephalic, pupils equal and reactive to light, extraocular muscles intact Neck-no lymphadenopathy or thyromegaly, trachea midline Chest-clear to auscultation percussion. No rales, wheezing or rhonchi Cardiac-regular rate and rhythm, normal S1 and S2 Abdomen-normal bowel sounds, nontender, no hepatosplenomegaly Extremities-no cyanosis, clubbing, or edema Neuro-cranial nerves II through XII intact, motor and sensory function within normal limits, strength symmetrical, no focal deficits Psych-normal affect, normal mood Results & Data Results & Data Vital Signs (Past 12 Hours) Vital Signs Temp Pulse Pulse Pulse Resp BP Pulse Ox 07/10/23 16:05 70 07/10/23 16:02 63 07/10/23 15:30 65 145/77 H 95 07/10/23 12:30 64 130/81 94 07/10/23 12:00 67 136/79 92 07/10/23 11:30 64 117/69 92 07/10/23 11:29 64 18 117/73 93 07/10/23 09:42 60 07/10/23 08:00 37.0 C 87 16 149/67 H 96 O2 Del Method 07/10/23 16:05 07/10/23 16:02 07/10/23 15:30 Room Air 07/10/23 12:30 Room Air 07/10/23 12:00 Room Air 07/10/23 11:30 Room Air 07/10/23 11:29 Room Air 07/10/23 09:42 07/10/23 08:00 Room Air Laboratory Results 07/10/23 05:17 07/10/23 05:17 PG Care Time/CCT Total # of Minutes Spent Total Time Spent with Patient: Total time spent is greater than 50% in coordination of care (as documented) at patient's floor/unit and/or counseling patient: Coding Level of Care Code 38067 SUB INP/OBS CARE 3/50MIN Diagnoses Non-ST elevation (NSTEMI) myocardial infarction I21.4 Hypertension I10 Diabetes mellitus, type 2 E11.9 Hypercholesteremia E78.00 COVID-19 virus infection U07.1 Lewis esophagus K22.70 Depression F32.9 Hypothyroidism E03.9
[2023-07-10] MEDS: GABAPENTIN 100 MG CAP PO SCH (22:00)
[2023-07-10] MEDS: ROSUVASTATIN CALCIUM 20 MG TAB PO SCH (22:00)
[2023-07-10] MEDS: LORazepam 0.5 MG TAB PO SCH (22:01)
[2023-07-10] MEDS: VENLAFAXINE HCL XR 150 MG CAPXR PO SCH (22:02)
[2023-07-10] MEDS: amLODIPine BESYLATE 5 MG TAB PO SCH (22:03)
[2023-07-10] MEDS: ESCITALOPRAM OXALATE 10 MG TAB PO SCH (22:03)
[2023-07-11 07:36] LABS: Basophils # (auto) 0.03 K/uL (0.00-0.20); Basophils % (auto) 0.7 %; Eosinophils # (auto) 0.15 K/uL (0.00-0.50); Eosinophils % (auto) 3.4 %; Hematocrit (blood only) 38.5 % (42.0-52.0); Hemoglobin 13.6 g/dl (14.0-18.0); Immature Granulocytes # (auto) 0.01 K/uL (0.01-0.20); Immature Granulocytes % (auto) 0.2 %; Lymphocytes # (auto) 0.95 K/uL (1.20-3.40); Lymphocytes % (auto) 21.3 %; Mean Corpuscular Hemoglobin 32.2 pg (25.0-34.0); Mean Corpuscular Hgb Conc 35.3 g/dL (32.0-36.0); Mean Platelet Volume 10.1 fL (9.4-12.4); Monocytes # (auto) 0.44 K/uL (0.11-0.59); Monocytes % (auto) 9.9 %; Neutrophils # (auto) 2.88 K/uL (1.40-6.50); Neutrophils % (auto) 64.5 %; Platelet Count 247 K/uL (130-400); RDW Coefficient of Variation 12.5 % (11.5-14.5); RDW Standard Deviation 41.1 fL (36.4-46.3); Red Blood Count 4.23 M/uL (4.70-6.10); White Blood Count 4.46 K/ul (4.8-10.8)
[2023-07-11] MEDS: MULTIVITAMIN TAB PO SCH (08:09)
[2023-07-11] MEDS: METOPROLOL TARTRATE 50 MG TAB PO SCH (08:09)
[2023-07-11] MEDS: LEVOTHYROXINE SODIUM 112 MCG TABLET PO SCH (08:09)
[2023-07-11] MEDS: ADVANCED PROBIOTIC 1250 MG CAPSULE PO SCH (08:09)
[2023-07-11] MEDS: BACITRACIN OINT 14 GM TUBE EXT SCH (08:09)
[2023-07-11] MEDS: ASPIRIN 81 MG ECTAB PO SCH (08:10)
[2023-07-11] MEDS: PANTOprazole 40 MG TAB PO SCH (08:10)
[2023-07-11] MEDS: FLUTICASONE PROPIONATE NA SPR 16 GM BTL NAE SCH (08:10)
[2023-07-11 08:13] LABS: Calcium 8.8 mg/dl (8.6-10.3); Potassium 3.9 mmol/L (3.5-5.1)
[2023-07-11 08:18] LABS: BUN Creatinine Ratio 23.4 (10-20); Creatinine Clr Calc Pharmacy 59.4 ml/min; Est GFR (African American) 74.9 ml/min; Est GFR (Non-African American) 64.6 ml/min
[2023-07-11] MEDS: INSULIN ASPART PER UNIT CHARGE SC SCH ×2 (09:00→12:05)
--- NOTE | 2023-07-11 12:42 | Discharge Summary ---
Date of Service July 11, 2023 Admission HPI Per Admitting Provider The patient is a 77-year-old male with a past medical history including uric acid kidney stones, Lewis's esophagus, essential tremor, PLMD, prostate cancer, status post ureteral stent placement, GERD, depression, hyp ercholesterolemia, hypertension and hypothyroidism. The patient has had about 24 hours of shortness of breath, dyspnea on exertion, chest discomfort, and fatigue. He denies any recent travels or sick exposures. Significant emergency department testing: [employer] COVID-19 positive, troponin 49.1, glucose 322 with follow-up 247. Principal Diagnosis Non-ST elevation [place], unstable angina, COVID positivity by nasal swab Discharge Exam General-alert and oriented x3, no fevers, no chills HEENT-head atraumatic and normocephalic, pupils equal and reactive to light, extraocular muscles intact Neck-no lymphadenopathy or thyromegaly, trachea midline Chest-clear to auscultation percussion. No rales, wheezing or rhonchi Cardiac-regular rate and rhythm, normal S1 and S2 Abdomen-normal bowel sounds, nontender, no hepatosplenomegaly Extremities-no cyanosis, clubbing, or edema Neuro-cranial nerves II through XII intact, motor and sensory function within normal limits, strength symmetrical, no focal deficits Psych-normal affect, normal mood Discharge Data Allergies Allergy/AdvReac Type Severity Reaction Status Date / Time Penicillins Allergy Intermediate RASH, Verified 06/06/23 11:07 "VERY ILL" Sulfa (Sulfonamide Allergy Intermediate RASH Verified 06/06/23 11:07 Antibiotics) YORDY Inhibitors AdvReac Intermediate Cough Verified 06/06/23 11:07 atorvastatin AdvReac Intermediate muscle Verified 06/06/23 11:07 cramps Consultations 07/06/23 02:09 ED Decision to Admit Stat 07/07/23 19:18 Consult Cardiology Routine Procedures Performed Operation Date: 07/10/23 09:30 Actual Procedures p Cath, Coronaries ONLY (no LV) - Stalin Samaniego MD, PhD Ordered Studies 07/10/23 06:46 CL Cath Imgs for PACS use only Routine Hospital Course (1) Non-ST elevation (NSTEMI) myocardial infarction: Angina has now resolved. Left heart catheterization completed today, July 10. Multiple significant lesions will need further attention at a tertiary care center. Continue current medical management. Use sublingual nitroglycerin as needed for any recurrent angina symptoms. He will follow-up with cardiology on an outpatient basis. (2) Hypertension: Stable. Continue amlodipine and metoprolol. (3) Diabetes mellitus, type 2: ADA diet. Sliding scale coverage as needed. Basal insulin while hospitalized. Resume metformin at discharge (4) Hypercholesteremia: total cholesterol 178, LDL 101, HDL low at 30, and triglycerides elevated at 235. Now on Crestor. Lopid has been discontinued. (5) COVID-19 virus infection: Positivity by nasal swab. No significant symptoms. No indication for remdesivir at this time. Supportive care. Take vitamin D daily (6) Lewis esophagus: Stable. Continue Protonix (7) Depression: Stable. Continue current medical management (8) Hypothyroidism: Stable. Continue levothyroxine. Normal TSH Plan Home todayJuly 11 Total Time Total Time Spent Total Time Spent (In Minutes): 45-minute Discharge Plan Discharge Items Patient Disposition: Home - Self-Care Reason For Visit: COVID-19 INFECTION Discharge Diagnosis: Non-ST elevation [place], unstable angina, COVID positivity by nasal swab Activity: Resume your previous activity Non-emergency contact: Primary Care Provider and Pharmaceutical Process Engineer Call non-emergency contact if: you have any medication questions and your symptoms worsen Follow-up/Referrals: Kiesha Stephenson [Primary Care Provider] - Diet: Carb Consistent or DM2 and Heart Healthy Addtl Attending Provider Instructions: Prescriptions for new medications have been sent to [facility] pharmacy on [address]. Follow-up with cardiology as soon as possible Pending Studies at Discharge: No Stand-Alone Forms: My [facility], Smoking Cessation Medications and MT Order Prescriptions: New metoprolol tartrate 50 mg Tablet 50 mg PO BID Qty: 60 0RF nitroglycerin [Nitrostat] 0.4 mg Tablet, Sublingual 0.4 mg sublingual Q5M PRN (Reason: chest pain) Qty: 25 0RF rosuvastatin [Crestor] 20 mg Tablet 20 mg PO HS Qty: 30 0RF aspirin 81 mg Tablet,Delayed Release (Dr/Ec) 81 mg PO QAM Qty: 0 0RF Continued escitalopram oxalate [Lexapro] 5 mg tablet 5 mg PO QPM venlafaxine [Effexor XR] 150 mg capsule,extended release 24hr 150 mg PO QPM fluticasone propionate 50 mcg/actuation spray,suspension 2 spray INTNAS QAM multivitamin [Daily Multi-Vitamin] Tablet 1 tab PO QAM esomeprazole magnesium [Nexium] 40 mg capsule,delayed release(DR/EC) 40 mg PO BID gabapentin 100 mg capsule 200 mg PO HS Qty: 30 5RF levothyroxine [Synthroid] 112 mcg tablet 112 mcg PO QAM lorazepam 1 mg tablet 0.5 mg PO HS metformin 500 mg tablet extended release 24 hr 500 mg PO BID Probiotic 10 billion cell Capsule 10,000 mmu cells PO QAM amlodipine 10 mg Tablet 10 mg PO HS Discontinued gemfibrozil [Lopid] 600 mg tablet 600 mg PO BID Rx Instructions: take at lunchtime and hs Discharge Orders: Discharge Order (Routine); Ordered 07/11/23 Ordered By: Jovan Diehl/Other Patient Handouts: High Blood Sugar (Hyperglycemia), Managing Type 2 Diabetes Admission Data Admit Date/Time: 07/06/23 04:52 Attending Provider: Jovan Reyes Admit Provider: Miguel Godoy Primary Care Provider: Kiesha Stephenson Other Providers: Miguel Godoy; Winston Bang Coding Level of Care Code 95514 INP/OBS DISCH >30 MIN Diagnoses Non-ST elevation (NSTEMI) myocardial infarction I21.4 Hypertension I10 Diabetes mellitus, type 2 E11.9 Hypercholesteremia E78.00 COVID-19 virus infection U07.1 Lewis esophagus K22.70 Depression F32.9 Hypothyroidism E03.9
== END 2023-07-11 14:28 | disposition home or self-care (01) | DRG 177 ==
LOC: ED → EDINP 04:52 → SUATTDRO 04:52 → 2S 07-07 06:26
PROC: CLB.CCO (2023-07-10 09:30)